=== PATIENT | female | born 1960 | race Caucasian/White ===

== ENCOUNTER → 2018-01-06 | Outpatient (CLI) | payer OTHER ==
[~2018-01-06] MED LIST: AMIT25TA9 PO; BEPO10DR OU; CALC-794 PO; CHOL10003 PO; CHOL5000 PO; CYCL10TA9 PO; ESTR1PAT28 TOP; FENO200C PO; FURO20TA4 PO; HYDR-3583 PO; IBP600T1 PO; IRON1TAB86 PO; LEVO1CAP11 PO; LVT.088T PO; LYSI500T13 PO; MTF500T PO; NEBI5TAB8 PO; NIAC1CAP PO; OMEG1CAP74 PO; OMEP20CA12 PO; OMG1KC PO; POTA10CA43 PO; TERB250T16 PO; VITA150T PO
--- NOTE | 2018-01-06 15:37 | Diagnostic Imaging Report ---
INDICATION: Pain. COMPARISON: 11/18/2011 FINDINGS: Three views of the lumbar spine are obtained. No acute fracture, malalignment or osseous destructive process is seen. Vertebral body heights are maintained. The pedicles appear intact. There is very mild disc space narrowing at L4/L5 and L5/S1 and moderate facet arthropathy at these levels. There is some disc space narrowing and endplate spurring in the lower thoracic spine as well as at L1/L2. The sacroiliac joints appear unremarkable. IMPRESSION: Degenerative changes as described. No acute abnormality is seen. Dictated by: Dictated on workstation # [id number]
== END ==
LOC: RAD 14:28
PROVIDERS: ATTEND Internal Medicine
DX: M47.816 Spondylosis without myelopathy or radiculopathy, lumbar region (principal)
CPT/HCPCS: 72100

== ENCOUNTER → 2018-01-17 | Outpatient (CLI) | payer OTHER ==
--- NOTE | 2018-01-17 19:46 | Diagnostic Imaging Report ---
Digital mammogram bilateral screening. This study was compared to the prior exams of 09/23/2016, 06/28/2015, and 05/23/2014. At this time, there are no current complaints. The current study was also evaluated with a Computer Aided Detection (CAD) system. FINDINGS: There are scattered fibroglandular densities in both breasts which could obscure a lesion. Overall, there does not appear to have been any significant change when compared to the prior exam. No primary or secondary sign of malignancy is noted. IMPRESSION: There is no radiographic evidence for malignancy. ACR BI-RADS Category 1: Negative. Result letter will be mailed to the patient. Note: At least 10% of breast cancer is not imaged by mammography. Dictated on workstation # [id number]
== END ==
LOC: RAD 15:21
PROVIDERS: ATTEND Nurse Practitioner
DX: Z12.31 Encounter for screening mammogram for malignant neoplasm of breast (principal)
CPT/HCPCS: 77067

== ENCOUNTER → 2018-01-19 | Outpatient (CLI) | payer OTHER ==
--- NOTE | 2018-01-19 13:19 | Diagnostic Imaging Report ---
PROCEDURE: MRI lumbar spine. TECHNIQUE: Multiplanar, multisequence MRI of the lumbar spine was performed without contrast. INDICATION: Low back pain and bilateral leg weakness. Comparison is made with prior MRI of the lumbar spine from 11/20/2011. FINDINGS: There is normal lordotic curvature to the lumbar spine. The vertebral body heights are maintained. The marrow signal intensity is unremarkable. No geographic marrow lesion or acute compression fracture is identified. There is fairly normal height and hydration to the intervertebral discs. Minimal desiccation at L5-S1 is noted. The conus medullaris is unremarkable at the L1 level. L1-L2: Minimal annular bulging is identified. No focal disc protrusion is detected. The central canal and neuroforamina are widely patent. L2-L3: Unremarkable. L3-L4: Unremarkable. L4-L5: There are hypertrophic facet degenerative changes noted. There is mild to moderate left neuroforaminal narrowing. Right neuroforamen is patent. Central canal is patent. L5-S1: Hypertrophic facet degenerative change is noted. However, central canal is patent. There is mild left neuroforaminal narrowing. Right neuroforamen is patent. The paraspinous tissues are unremarkable. IMPRESSION: Lower lumbar facet arthropathy. This does result in mild to moderate left neuroforaminal narrowing at the L4-L5 and L5-S1 levels. No central canal stenosis is identified. There is no evidence of an acute compression fracture. Dictated by: Dictated on workstation # [id number]
== END ==
LOC: RAD 10:14
PROVIDERS: ATTEND Internal Medicine
DX: M48.07 Spinal stenosis, lumbosacral region (principal); M46.86 Other specified inflammatory spondylopathies, lumbar region
CPT/HCPCS: 72148

== ENCOUNTER 2018-02-15 13:12 | Outpatient (RCR) | payer OTHER ==
[2018-03-01] MEDS ORDERED: METO50TA15 PO (08:35)
[2018-03-01] MEDS ORDERED: LEVO88TA54 PO (08:35)
[2018-03-01] MEDS ORDERED: IBUP-30 PO (08:35)
[2018-03-01] MEDS ORDERED: IRON1TAB86 PO (08:35)
[2018-03-01] MEDS ORDERED: NIAC500T24 PO (08:35)
[2018-03-01] MEDS ORDERED: GEMF600T3 PO (08:35)
[2018-03-01] MEDS ORDERED: AMIT25TA9 PO (08:35)
[2018-03-01] MEDS ORDERED: ESTR0.5T3 PO (08:35)
[2018-03-01] MEDS ORDERED: LEVO1CAP PO (08:35)
[2018-03-01] MEDS ORDERED: METF500T5 PO (08:35)
[2018-03-01] MEDS ORDERED: CYCL10TA9 PO (08:35)
[2018-03-01] MEDS ORDERED: FURO20TA4 PO (08:35)
[2018-03-01] MEDS ORDERED: LYSI500T37 PO (08:35)
[2018-03-01] MEDS ORDERED: TRAM50TA2 PO (09:54)
[2018-03-03] MEDS ORDERED: TRAM50TA2 PO (10:36)
[2018-03-03] MEDS ORDERED: CEFD300C3 PO (10:36)
[2018-03-13] MEDS ORDERED: TRAM50TA2 PO (18:01)
[2018-03-13] MEDS ORDERED: VITA1TAB17 PO (18:01)
== END 2018-03-25 14:46 | disposition home or self-care (01) ==
PROVIDERS: ATTEND Nurse Practitioner
DX: M51.16 Intervertebral disc disorders with radiculopathy, lumbar region (principal); M47.896 Other spondylosis, lumbar region

== ENCOUNTER 2018-02-28 15:29 | Inpatient (IN) | payer OTHER ==
[2018-02-28] VITALS (13 sets, daily range): BP systolic 94–142; BP diastolic 56–91
[~2018-02-28] VITALS: Ht 162.6 cm; Wt 76.3 kg
[~2018-02-28 15:29] MED LIST changes: -ESTR0.5T3 PO; -GEMF600T3 PO; -IBUP-30 PO; -LEVO1CAP PO; -LEVO88TA54 PO; -LYSI500T37 PO; -METF500T4 PO; -METO50TA15 PO; -NIAC500T24 PO; -TRAM50TA2 PO
--- OUTSIDE RECORDS SUMMARY | 2018-02-28 15:34 | XMS REPORT | Continuity of Care Document ---
Author Author [facility] Organization [facility] Address Unknown Phone Unavailable Allergies Active Description Code Type Severity Reaction Onset Reported/Identified Relationship to Patient Clinical Status Yes lisinopril [id number] Drug Allergy Unknown N/A 08/05/2015 Yes prednisone [id number] Drug Allergy Moderate ELEVATED BLOOD 08/05/2015 Medications There is no data. Problems Date Dx Coded Attending Type Code Diagnosis Diagnosed By 03/29/2013 JAEL TEE BRAYDON C Ot 244.9 03/29/2013 ELDER DO, BRAYDON C Ot 250.00 03/29/2013 ELDER DO, BRAYDON C Ot 401.9 03/29/2013 ELDER DO, BRAYDON C Ot 530.81 03/29/2013 ELDER DO, BRAYDON C Ot 564.1 03/29/2013 ELDER DO, BRAYDON C Ot 618.04 03/29/2013 ELDER DO, BRAYDON C Ot 618.4 03/29/2013 ELDER DO, BRAYDON C Ot 618.6 07/02/2015 ELDER DO, BRAYDON C Ot 618.01 07/02/2015 ELDER DO, BRAYDON C Ot 618.6 07/02/2015 ELDER DO, BRAYDON C Ot V72.63 07/02/2015 ELDER DO, BRAYDON C Ot V72.81 07/02/2015 ELDER DO, BRAYDON C Ot V74.8 07/02/2015 ELDER DO, BRAYDON C Ot V76.12 07/02/2015 ELDER DO, BRAYDON C Ot V76.12 07/15/2015 ELDER DO, BRAYDON C Ot V76.12 08/05/2015 JIM KHAN, LUCIA Wiley Ot 562.10 08/05/2015 JIM KHAN, LUCIA Wiley Ot K57.30 08/05/2015 JIM KHAN, LUCIA Wiley Ot V76.51 08/05/2015 JIM KHAN, LUCIA Wiley Ot Z12.11 01/10/2018 LA HINDS DO Ot M47.816 SPONDYLOSIS W/O MYELOPATHY OR RADICULOPA 01/12/2018 LA HINDS DO Ot M47.816 SPONDYLOSIS W/O MYELOPATHY OR RADICULOPA 01/18/2018 DORENE BERMUDEZ Ot Z12.31 ENCNTR SCREEN MAMMOGRAM FOR MALIGNANT NE 01/20/2018 LA HINDS DO Ot M46.86 OTHER SPECIFIED INFLAMMATORY SPONDYLOPAT 01/20/2018 LA HINDS DO Ot M48.07 SPINAL STENOSIS, LUMBOSACRAL REGION Procedures There is no data. Results There is no data. Encounters ACCT No. Visit Date/Time Discharge Status Pt. Type Provider Facility Loc./Unit Complaint [id number] 02/15/2018 13:12:00 02/15/2018 23:59:59 CLS Outpatient GLYNN GRANT APRN [facility] REHAB LUMBAR RADICULOPATHY; DDD; SPONDYLOSIS [id number] 01/19/2018 10:14:00 01/19/2018 23:59:59 CLS Outpatient LA HINDS DO [facility] RAD M54.5 [id number] 01/17/2018 15:21:00 01/17/2018 23:59:59 CLS Outpatient DORENE BERMUDEZ [facility] RAD Z12.31 SCREENING [id number] 01/06/2018 14:28:00 01/06/2018 23:59:59 CLS Outpatient LA HINDS DO [facility] RAD M54.5 [id number] 08/05/2015 07:18:00 08/05/2015 09:30:00 DIS Outpatient LUCIA FERNANDEZ MD [facility] [id number] 08/01/2015 05:43:00 08/01/2015 23:59:59 CLS Outpatient LUCIA FERNANDEZ MD [facility] PREOP [id number] 06/28/2015 12:42:00 06/28/2015 23:59:59 CLS Outpatient BRAYDON ELDER DO [facility] RAD [id number] 05/23/2014 14:25:00 05/23/2014 23:59:59 CLS Outpatient BRAYDON ELDER DO [facility] RAD [id number] 03/28/2013 09:24:00 03/29/2013 11:05:00 DIS Inpatient BRAYDON ELDER DO [facility] WS [id number] 03/22/2013 11:16:00 03/22/2013 23:59:59 CLS Outpatient BRAYDON ELDER DO [facility] PREOP [id number] 03/22/2013 11:08:00 03/22/2013 23:59:59 CLS Outpatient BRAYDON ELDER DO [facility] RAD
[2018-02-28] MEDS ORDERED: NS IV 1000 ML 1,000 ML IV ONE ×2 (15:56→16:49)
[2018-02-28 16:17] LABS: BASOPHILS % (AUTO) 0 % (0-10); EOSINOPHILS % (AUTO) 0 % (0-10); HEMATOCRIT 40 % (35-52); HEMOGLOBIN 13.3 G/DL (11.5-16.0); LYMPHOCYTES # (AUTO) 0.3 X 10^3 (1.0-4.0); LYMPHOCYTES % (AUTO) 2 % (12-44); MEAN CORPUSCULAR HEMOGLOBIN 30 PG (25-34); MEAN CORPUSCULAR HGB CONC 34 G/DL (32-36); MEAN CORPUSCULAR VOLUME 90 FL (80-99); MEAN PLATELET VOLUME 10.7 FL (7.4-10.4); MONOCYTES # (AUTO) 0.1 X 10^3 (0.0-1.0); MONOCYTES % (AUTO) 0 % (0-12); NEUTROPHILS % (AUTO) 97 % (42-75); PLATELET COUNT 381 10^3/uL (130-400); RED BLOOD COUNT 4.38 10^6/uL (4.35-5.85); RED CELL DISTRIBUTION WIDTH 12.8 % (10.0-14.5); WHITE BLOOD COUNT 11.3 10^3/uL (4.3-11.0)
--- NOTE | 2018-02-28 16:22 | Diagnostic Imaging Report ---
INDICATION: Altered mental status. EXAMINATION: Frontal chest obtained at 4:12 hours p.m. FINDINGS: The heart is mildly enlarged. There is no focal infiltrate or pneumothorax or pleural fluid. The patient has had previous lower cervical spine fusion. IMPRESSION: Mild cardiomegaly, no acute process is seen in the chest. Dictated by: Dictated on workstation # [id number]
[2018-02-28 16:33] LABS: INR 1.1 (0.8-1.4); PROTHROMBIN TIME PATIENT 14.6 SEC (12.2-14.7)
--- NOTE | 2018-02-28 16:33 | Diagnostic Imaging Report ---
INDICATION: Altered metal status and disorientation and abnormal speech. TECHNIQUE: Noncontrast brain CT is performed. COMPARISON: There is no prior study for comparison. FINDINGS: There are no extra-axial fluid collections. No intracranial hemorrhage. No intracranial mass or mass effect. No midline shift. The ventricles are normal in size and position. There are no focal parenchymal abnormalities in the brain. Calvarial windows are unremarkable. IMPRESSION: Negative noncontrast brain CT. Dictated by: Dictated on workstation # [id number]
--- NOTE | 2018-02-28 16:38 | ED Neurological Problem ---
General Chief Complaint: Altered Mental Status Stated Complaint: DISORIENTED/SLURRED WORDS Nursing Triage Note: PATIENT HERE FROM DR. CASTILLO'S OFFICE FOR ABDOMINAL PAIN. PATINET CONFUSED AND LETHARGIC SO BROUGHT TO ER BY STAFF. Nursing Sepsis Screen: Possible Severe Sepsis Risk Source: patient, RN/MD Exam Limitations: no limitations History of Present Illness Date Seen by Provider: Feb 28, 2018 Time Seen by Provider: 15:35 Initial Comments Here with report of confusion and lethargy that started within the last 30 minutes. Patient is from Dr. Castillo's office and was here getting CT scan as well as had labs drawn today. Patient is at his office due to back pain. CT scan and that was done here was a CT abdomen and pelvis. Patient is somewhat confused but answers some questions and follows commands. She is to person assist from wheelchair to bed. She is complaining of back pain. Timing/Duration: 1 hour Severity: moderate Associated Symptoms: confusion, No fever/chills, nausea/vomiting, No slurred speech, trouble walking, weakness Allergies and Home Medications Allergies Coded Allergies: lisinopril (Unverified Allergy, Unknown, 08/05/15) prednisone (Verified Adverse Reaction, Intermediate, ELEVATED BLOOD PRESSURE, 08/05/15) Home Medications Amitriptyline Hcl 25 Mg Tablet, 25 MG PO HS, (Reported) Bepotastine Besilate 10 Ml Drops, 1 DROP OU BID, (Reported) Calcium Carb & Citrate/Vit D3 1 Each Tablet.er, 1 EACH PO DAILY, (Reported) Cholecalciferol 1,000 Unit Tablet, 1,000 UNIT PO DAILY, (Reported) Cholecalciferol (Vitamin D3) 5,000 Unit Capsule, 5,000 UNIT PO DAILY, (Reported) Cyclobenzaprine Hcl 10 Mg Tablet, 10 MG PO HS, (Reported) Estradiol 1 Each Patch.tdwk, 1 PATCH TOP WEEKLY ON MONDAYS, (Reported) Fenofibrate,Micronized 200 Mg Capsule, 200 MG PO DAILY, (Reported) Furosemide 20 Mg Tablet, 20 MG PO DAILY, (Reported) Ibuprofen 600 Mg Tab, 600 MG PO Q6HR Prescribed by: BRAYDON ELDER on 03/29/13 0942 Iron/Vitamin B Comp W-C 1 Each Tablet, 1 TAB PO DAILY, (Reported) Levomefolate/B6/B12/Algal Oil 1 Each Capsule, 1 EACH PO BID, (Reported) Levothyroxine Sodium 88 Mcg Tablet, 88 MCG PO DAILY, (Reported) Lysine Hcl 500 Mg Tablet, 500 MG PO DAILY, (Reported) Metformin Hcl 500 Mg Tablet, 500 MG PO BID WITH MEALS, (Reported) Nebivolol Hcl 5 Mg Tablet, 5 MG PO DAILY, (Reported) Niacin/Inositol Niacinate 1 Each Capsule, 750 MG PO DAILY, (Reported) [place] 3 Polyunsat Fatty Acids 1,000 Mg Cap, 3,000 MG PO DAILY, (Reported) Weikert-3/Dha/Epa/Fish Oil 1,000 Mg Capsule, 3,000 MG PO DAILY, (Reported) 3 CAPSULES DAILY Omeprazole 20 Mg Capsule.dr, 20 MG PO DAILY, (Reported) Potassium Chloride 10 Meq Capsule.er, 10 MEQ PO DAILY, (Reported) Terbinafine HCl 250 Mg Tablet, 250 MG PO DAILY, (Reported) Vitamin B Complex & Vit C No.4 150 Mg Tablet, 150 MG PO DAILY, (Reported) Patient Home Medication List Home Medication List Reviewed: Yes Review of Systems Constitutional: see HPI, No chills, No fever Eyes: No Symptoms Reported Ears, Nose, Mouth, Throat: no symptoms reported Respiratory: cough, short of breath Cardiovascular: No chest pain, No edema Gastrointestinal: abdominal pain, No constipation, No nausea, No vomiting Genitourinary: frequency Musculoskeletal: see HPI, back pain, muscle pain Skin: no symptoms reported Psychiatric/Neurological: Cognitive Dysfunction, Weakness All Other Systems Reviewed Negative Unless Noted: Yes Past Xlggwai-Lclcix-Ajwjdu Hx Patient Social History Alcohol Use: Denies Use Recreational Drug Use: No Smoking Status: Never a Smoker 2nd Hand Smoke Exposure: No Recent Foreign Travel: No Contact w/Someone Who Travel: No Recent Infectious Disease Expo: No Immunizations Up To Date Tetanus Booster (TDap): Unknown Date of Pneumonia Vaccine: Aug 04, 2013 Past Medical History Surgeries: Yes (NECK SX FOR PINCHED NERVE, WISDOM TEETH) Respiratory: Yes (ASTHMA) Asthma, Sleep Apnea Cardiac: Yes Neurological: No Genitourinary: No Gastrointestinal: Yes Gastroesophageal Reflux Musculoskeletal: Yes (FIBROMYALGIA) Arthritis, Fibromyalgia Endocrine: Yes Hypothyroidsim, Diabetes, Non-Insulin dep HEENT: No Cancer: Yes Cervical Psychosocial: No Integumentary: No Blood Disorders: No Family Medical History Reviewed Nursing Family Hx Cancer Physical Exam Vital Signs Vital Signs - First Documented 02/28/18 02/28/18 15:36 15:40 Temp 98.7 Pulse 122 Resp 20 B/P (MAP) 141/91 (108) Pulse Ox 96 Capillary Refill : Less Than 3 Seconds General Appearance: WD/WN, no apparent distress HEENT: PERRL/EOMI, pharynx normal Neck: full range of motion, supple Respiratory: lungs clear, normal breath sounds Cardiovascular: no murmur, tachycardia Peripheral Pulses: 2+ Dorsalis Pedis (R), 2+ Left Dors-Pedis (L), 2+ Radial Pulses (R), 2+ Radial Pulses (L) Gastrointestinal: soft, No guarding, No rebound, tenderness Back: normal inspection, no CVA tenderness, no vertebral tenderness Extremities: non-tender, normal inspection Neurologic/Psychiatric: alert, oriented x 3 Crainal Nerves: normal hearing, normal speech, PERRL Coordination/Gait: abnormal gait (due to global weakness) Motor/Sensory: weak motor strength RUE, weak motor strength LUE, weak motor strength RLE, weak motor strength LLE Skin: normal color, warm/dry Focused Exam Lactate Level 02/28/18 15:52: Lactic Acid Level 5.40*H 02/28/18 17:50: Lactic Acid Level 4.15*H Lactic Acid Level Laboratory Tests Test 02/28/18 15:52 02/28/18 17:50 Lactic Acid Level 5.40 MMOL/L (0.50-2.00) *H 4.15 MMOL/L (0.50-2.00) *H Progress/Results/Core Measures Lab Results Laboratory Tests Test 02/28/18 15:36 02/28/18 15:52 02/28/18 16:50 02/28/18 17:50 Range/Units Glucometer 132 H 70-110 MG/DL White Blood Count 11.3 H 4.3-11.0 10^3/uL Red Blood Count 4.38 4.35-5.85 10^6/uL Hemoglobin 13.3 11.5-16.0 G/DL Hematocrit 40 35-52 % Mean Corpuscular Volume 90 80-99 FL Mean Corpuscular Hemoglobin 30 25-34 PG Mean Corpuscular Hemoglobin Concent 34 32-36 G/DL Red Cell Distribution Width 12.8 10.0-14.5 % Platelet Count 381 130-400 10^3/uL Mean Platelet Volume 10.7 H 7.4-10.4 FL Neutrophils (%) (Auto) 97 H 42-75 % Lymphocytes (%) (Auto) 2 L 12-44 % Monocytes (%) (Auto) 0 0-12 % Eosinophils (%) (Auto) 0 0-10 % Basophils (%) (Auto) 0 0-10 % Neutrophils # (Auto) 11.0 H 1.8-7.8 X 10^3 Lymphocytes # (Auto) 0.3 L 1.0-4.0 X 10^3 Monocytes # (Auto) 0.1 0.0-1.0 X 10^3 Eosinophils # (Auto) 0.0 0.0-0.3 10^3/uL Basophils # (Auto) 0.0 0.0-0.1 10^3/uL Neutrophils % (Manual) 77 % Lymphocytes % (Manual) 7 % Monocytes % (Manual) 1 % Eosinophils % (Manual) 0 % Basophils % (Manual) 0 % Band Neutrophils 15 % Blood Morphology Comment NORMAL Prothrombin Time 14.6 12.2-14.7 SEC INR Comment 1.1 0.8-1.4 Activated Partial Thromboplast Time 23 L 24-35 SEC D-Dimer 3.03 H 0.00-0.49 UG/ML Sodium Level 139 135-145 MMOL/L Potassium Level 3.4 L 3.6-5.0 MMOL/L Chloride Level 101 98-107 MMOL/L Carbon Dioxide Level 21 21-32 MMOL/L Anion Gap 17 H 5-14 MMOL/L Blood Urea Nitrogen 20 H 7-18 MG/DL Creatinine 0.86 0.60-1.30 MG/DL Estimat Glomerular Filtration Rate > 60 BUN/Creatinine Ratio 23 Glucose Level 163 H 70-105 MG/DL Lactic Acid Level 5.40 *H 4.15 *H 0.50-2.00 MMOL/L Calcium Level 10.1 8.5-10.1 MG/DL Magnesium Level 1.5 L 1.8-2.4 MG/DL Total Bilirubin 0.5 0.1-1.0 MG/DL Aspartate Amino Transf (AST/SGOT) 14 5-34 U/L Alanine Aminotransferase (ALT/SGPT) 14 0-55 U/L Alkaline Phosphatase 78 40-136 U/L Troponin I < 0.30 <0.30 NG/ML C-Reactive Protein High Sensitivity 2.53 H 0.00-0.50 MG/DL Total Protein 6.5 6.4-8.2 GM/DL Albumin 3.9 3.2-4.5 GM/DL Thyroid Stimulating Hormone (TSH) 2.30 0.35-4.94 UIU/ML Salicylates Level < 5.0 L 5.0-20.0 MG/DL Acetaminophen Level < 10 L 10-30 UG/ML Serum Alcohol < 10 <10 MG/DL Urine Color YELLOW Urine Clarity CLEAR Urine pH 6 5-9 Urine Specific [place] 1.020 1.016-1.022 Urine Protein 2+ H NEGATIVE Urine Glucose (UA) NEGATIVE NEGATIVE Urine Ketones 1+ H NEGATIVE Urine Nitrite NEGATIVE NEGATIVE Urine Bilirubin 1+ H NEGATIVE Urine Urobilinogen 1 NORMAL MG/DL Urine Leukocyte Esterase 1+ H NEGATIVE Urine RBC (Auto) 1+ H NEGATIVE Urine RBC NONE /HPF Urine WBC 0-2 /HPF Urine Squamous Epithelial Cells 2-5 /HPF Urine Crystals NONE /LPF Urine Bacteria TRACE /HPF Urine Casts PRESENT /LPF Urine Hyaline Casts >50 H /LPF Urine Granular Casts RARE /LPF Urine White Blood Cell Casts RARE H /LPF Urine Mucus MODERATE H /LPF Urine Culture Indicated NO Urine Opiates Screen NEGATIVE NEGATIVE Urine Oxycodone Screen NEGATIVE NEGATIVE Urine Methadone Screen NEGATIVE NEGATIVE Urine Propoxyphene Screen NEGATIVE NEGATIVE Urine Barbiturates Screen NEGATIVE NEGATIVE Ur Tricyclic Antidepressants Screen POSITIVE H NEGATIVE Urine Phencyclidine Screen NEGATIVE NEGATIVE Urine Amphetamines Screen NEGATIVE NEGATIVE Urine Methamphetamines Screen NEGATIVE NEGATIVE Urine Benzodiazepines Screen POSITIVE H NEGATIVE Urine Cocaine Screen NEGATIVE NEGATIVE Urine Cannabinoids Screen NEGATIVE NEGATIVE My Orders Orders - ELI PHILIPPE MD Cbc With Automated Diff (02/28/18 15:38) Protime With Inr (02/28/18 15:38) Partial Thromboplastin Time (02/28/18 15:38) Comprehensive Metabolic Panel (02/28/18 15:38) Fibrin Degradation Products (02/28/18 15:38) Troponin I (02/28/18 15:38) Ua Culture If Indicated (02/28/18 15:38) Chest 1 View, Ap/Pa Only (02/28/18 15:38) Ekg Tracing (02/28/18 15:38) Nothing By Mouth (4/9/18 Dinner) Accucheck Stat ONCE (02/28/18 15:38) Saline Lock/Iv-Start (02/28/18 15:38) Vital Signs Stroke Patient Q15M (02/28/18 15:38) Ct Head Wo-R/O Stroke (02/28/18 15:38) O2 (02/28/18 15:38) Intake & Output 06,14,22 (02/28/18 15:38) Monitor-Rhythm Ecg Trace Only (02/28/18 15:38) Dysphagia Screening Tool (02/28/18 15:38) Acetaminophen (02/28/18 15:38) Alcohol (02/28/18 15:38) Hs C Reactive Protein (02/28/18 15:38) Drug Screen Stat (Urine) (02/28/18 15:38) Lactic Acid Analyzer (02/28/18 15:38) Magnesium (02/28/18 15:38) Salicylate (02/28/18 15:38) Thyroid Stimulating Hormone (02/28/18 15:38) Saline Lock/Iv-Start (02/28/18 15:56) Ns Iv 1000 Ml (Sodium Chloride 0.9%) (02/28/18 15:56) Manual Differential (02/28/18 15:52) Saline Lock/Iv-Start (02/28/18 16:49) Ns Iv 1000 Ml (Sodium Chloride 0.9%) (02/28/18 16:49) Ct Angio Chest W (02/28/18 17:37) Iohexol Injection (Omnipaque 350 Mg/Ml 1 (02/28/18 17:45) Ns (Ivpb) (Sodium Chloride 0.9% Ivpb Bag (02/28/18 17:45) Piperacillin Sodium/Tazobactam (Zosyn Vi (02/28/18 18:15) Vancomycin Injection (Vancomycin Injecti (02/28/18 18:30) Medications Given in ED Current Medications Medications Dose Ordered Sig/Elver Route Start Time Stop Time Status Last Admin Dose Admin Iohexol 150 ml ONCE ONCE IV 02/28/18 17:45 02/28/18 17:47 DC 02/28/18 17:55 125 ML Piperacillin Sod/ Tazobactam Sod 4.5 gm/Dextrose 100 ml @ 200 mls/hr ONCE ONCE IV 02/28/18 18:15 4/9/18 18:44 02/28/18 18:23 200 MLS/HR Sodium Chloride 100 ml ONCE ONCE IV 02/28/18 17:45 02/28/18 17:47 DC 02/28/18 17:55 100 ML Sodium Chloride 1,000 ml @ 0 mls/hr Q0M ONCE IV 02/28/18 15:56 02/28/18 15:57 DC 02/28/18 16:30 0 MLS/HR Sodium Chloride 1,000 ml @ 0 mls/hr Q0M ONCE IV 02/28/18 16:49 02/28/18 16:50 DC 02/28/18 17:42 0 MLS/HR Vancomycin HCl 1000 mg/Sodium Chloride 250 ml @ 250 mls/hr ONCE ONCE IV 02/28/18 18:30 02/28/18 19:29 02/28/18 18:31 250 MLS/HR Vital Signs/I&O 02/28/18 02/28/18 15:36 15:40 Temp 98.7 Pulse 122 122 Resp 20 20 B/P (MAP) 141/91 (108) 141/91 Pulse Ox 96 Blood Pressure Mean: 108 Finger Stick Blood Glucose: 132 Progress Note : Progress Note Seen and evaluated on arrival. Patient with altered mental status that seems to be within the last one hour. This does not appear like stroke but appears more like altered mental status. Stroke screen done and only findings are some confusion and global weakness. Stroke scale would be only positive for the confusion but does follow commands. We will get CT, labs, UA, chest x-ray, EKG , blood cultures and lactic acid. Normal saline 1 L bolus ordered. Monitor patient. 1640: CT head negative. Patient able to get up to bedside commode with 1 person assist. She still is confused conversation but is able to relate history. CT results from earlier today noted mass. Labs from earlier today reviewed and there are changes currently especially with elevated white count now. Monitor patient. 1650: Lactic acid noted to be 5.4. Second liter normal saline IV bolus ordered and this will complete the 30 mL/kg bolus at weight of 68 kg (stated) for septic shock which may be pneumonia related. Blood pressure remains in good range and is currently 153/91 with heart rate of 116 and oxygen saturation of 96 percent. 1700: I discussed the case with Dr. Castillo who had seen her in the office today. He reports that patient came in for back pain complaint and then had rapid decline in his office with normal temperature on arrival but temperature of 100.4 after being in the office and then complaint of abdominal pain. This precipitated his ordering of labs and CT abdomen and pelvis for which his staff actually brought the patient to the hospital for because she could not walk. She has had some problems with back pain and has had epidural injection a month ago per his report. Pending further labs. 1800 : D-dimer is elevated and CT angiogram of the chest has been ordered and completed. Blood pressure remains in the normal range. Zosyn 4.5 g IV ordered. 181: I discussed the case with Dr. GUERRERO and he accepts patient for admission, inpatient status to the ICU. We will add vancomycin to the orders as this may be pneumonia but etiology is unclear. Blood cultures are pending. Patient remains improved with respect to mental status. 1835: I attest a focused exam at this time. Patient is definitely improved with respect to mental status and she was able to stand but still weak. Fluids finishing now we will initiate severe sepsis order set. Patient to be admitted to the ICU. All findings concerns discussed with the patient who agrees with plan. Initial ECG Impression Date: Feb 28, 2018 Initial ECG Impression Time: 15:34 Initial ECG Rate: 120 Initial ECG Rhythm: S.Tach Comment Sinus tachycardia with left atrial normality. Left ventricular hypertrophy. Consider ST depression in inferior leads and V5 and 6. Diagonstic Imaging: Xray Plain Films/CT/US/NM/MRI: chest Comments VIA [facility], [facility]. [place], [place] NAME: JONATAN ANDRADE [facility] REC#: [id number] PT STATUS: REG ER : 1960 PHYSICIAN: ELI PHILIPPE MD ADMIT DATE: 02/28/18/ER Draft Date of Exam:02/28/18 CHEST 1 VIEW, AP/PA ONLY INDICATION: Altered mental status. EXAMINATION: Frontal chest obtained at 4:12 hours p.m. FINDINGS: The heart is mildly enlarged. There is no focal infiltrate or pneumothorax or pleural fluid. The patient has had previous lower cervical spine fusion. IMPRESSION: Mild cardiomegaly, no acute process is seen in the chest. Dictated on workstation # [id number] Dict: 02/28/18 1618 Trans: 02/28/18 1621 [facility] [id number] Interpreted by: CLIFF CASILLAS MD Electronically signed by: Mathieu Imaging: CT Plain Films/CT/US/NM/MRI: head Comments VIA [facility]. [place], [place] NAME: JONATAN ANDRADE [facility] REC#: [id number] PT STATUS: REG ER : 1960 PHYSICIAN: ELI PHILIPPE MD ADMIT DATE: 02/28/18/ER Draft Date of Exam:02/28/18 CT HEAD WO-R/O STROKE INDICATION: Altered metal status and disorientation and abnormal speech. TECHNIQUE: Noncontrast brain CT is performed. COMPARISON: There is no prior study for comparison. FINDINGS: There are no extra-axial fluid collections. No intracranial hemorrhage. No intracranial mass or mass effect. No midline shift. The ventricles are normal in size and position. There are no focal parenchymal abnormalities in the brain. Calvarial windows are unremarkable. IMPRESSION: Negative noncontrast brain CT. Dictated on workstation # [id number] Dict: 02/28/18 1627 Trans: 02/28/18 1632 [id number] Interpreted by: CLIFF CASILLAS MD Electronically signed by: Monagon[place] Imaging: CT Plain Films/CT/US/NM/MRI: abdomen, pelvis Comments CT scan done earlier today for information purposes only. Not ordered in the ER. NAME: JONATAN ANDRADE [facility] REC#: [id number] PT STATUS: REG CLI : 1960 PHYSICIAN: LA CASTILLO DO ADMIT DATE: 02/28/18/RAD Signed Date of Exam: 02/28/18 CT ABDOMEN/PELVIS WO PROCEDURE: CT abdomen and pelvis without contrast. TECHNIQUE: Multiple contiguous axial images were obtained through the abdomen and pelvis without the use of intravenous contrast. INDICATION: Abdominal pain and abdominal distention. No prior CT study is available for comparison. FINDINGS: Imaging through the lung bases does show minimal infiltrates or atelectasis in the posterior lower lobes bilaterally. No discrete liver mass is identified. The gallbladder is unremarkable. No biliary ductal dilatation is identified. The pancreas and spleen are unremarkable. No adrenal mass is detected. No renal calculus or hydronephrosis is identified. The aorta demonstrates atherosclerotic changes but is nonaneurysmal. There is abnormal soft tissue identified in the central retroperitoneum in the pre and para-aortic location. Abnormal soft tissue is identified anterior to the aorta just below the level of the superior mesenteric artery origin measuring 2.3 cm transverse x 1.7 cm AP. More inferiorly, a second area of abnormal soft tissue is present in the preaortic location measuring 2.1 cm transverse x 1.7 cm AP. There is a prominent node in the right common iliac location measuring 1.4 cm in diameter. The small bowel is not dilated. There is no ascites. There is some questionable abnormal wall thickening involving the cecum. Mild sigmoid diverticulosis is noted but no evidence of acute diverticulitis. The bladder is decompressed. Uterus appears to be surgically absent. Mild nodularity in the left hemipelvis is seen which may represent residual ovarian tissue. Clinical correlation is recommended. No inguinal lymphadenopathy is detected. No acute bony abnormality is identified. IMPRESSION: 1. Mild patchy bibasilar pulmonary infiltrates suggestive of pneumonia. 2. Wall thickening involving the cecum. A cecal mass cannot be entirely excluded. Colonoscopy would be recommended for further evaluation. No bowel obstruction is identified. 2. Abnormal soft tissue located in the central retroperitoneum, likely representing a conglomerate of lymph nodes. The findings are concerning for either a metastatic disease or perhaps lymphoma. PET scan may be useful for further evaluation. 3. No other significant abnormality is detected. Results were called and discussed with Dr. Castillo prior to this dictation. Dictated by: Dictated on workstation # [id number] Dict: 02/28/18 1533 Trans: 02/28/18 1601 Interpreted by: DRAGAN ROSAS MD Electronically signed by: DRAGAN ROSAS MD 02/28/18 1601 Diagonstic Imaging: CT Plain Films/CT/US/NM/MRI: chest Comments NAME: JONATAN ANDRADE [facility] REC#: [id number] PT STATUS: REG ER : 1960 PHYSICIAN: ELI PHILIPPE MD ADMIT DATE: 02/28/18/ER Draft Date of Exam:02/28/18 CT ANGIO CHEST W PROCEDURE: CT angiography of the chest with contrast. TECHNIQUE: Multiple contiguous axial images were obtained through the chest after uneventful bolus administration of intravenous contrast. Reconstructed CTA MIP acquisitions were also performed. INDICATION: Elevated D-dimer. CTA CHEST 02/28/2018 FINDINGS: There are no central or proximal segmental pulmonary emboli. The thoracic aorta is unremarkable. There is no mediastinal or hilar adenopathy. No pericardial effusion is seen and there are no pleural effusions. Within the lungs, there is peripheral patchy airspace opacity in the right mid lung laterally. A more consolidated appearing density at the right lung base posteriorly is also noted which could be due to focal atelectatic change although a mass is not excluded at this time. Adjacent smaller linear densities noted. A very vague airspace opacity posteriorly at the left lung base is also seen. Within the medial left lung base, similar findings are seen just posterior to the descending aorta. There is no pneumothorax. Visualized upper abdominal structures demonstrate diffuse fatty infiltration with prominence of the visualized liver. Small hypodensities throughout the liver are too small to characterize. Remaining visualized structures within the upper abdomen are unremarkable in appearance. A small hiatal hernia is noted versus focal esophageal wall thickening. IMPRESSION: 1. No pulmonary embolus within the proximal or central pulmonary arteries. 2. Patchy airspace opacities in the lungs, right greater than left, nonspecific. Although this could represent focal areas of atelectasis or infiltrate, masses are not excluded. Followup recommended. If these do not resolve, a PET scan may be warranted. 3. Fatty infiltration throughout a prominent appearing liver incompletely imaged which contains multiple small hypodensities too small to characterize. 4. Other findings, as above. 5. A small hiatal hernia is noted versus focal esophageal wall thickening. If clinically warranted, EGD may provide further characterization. Dictated on workstation # [id number] Dict: 02/28/18 1809 Trans: 02/28/18 1832 [facility] [id number] Interpreted by: KIM WALLS MD Electronically signed by: Reviewed: Reviewed by Me Departure Communication (Admissions) Time/Spoke to Admitting Phy: 18:10 Impression Primary Impression: Severe sepsis Additional Impressions: Pneumonia of both lower lobes Qualified Codes: J18.1 - Lobar pneumonia, unspecified organism Intraabdominal mass Intra-abdominal lymphadenopathy Disposition: 09 ADMITTED INPATIENT Condition: Stable Admissions Decision to Admit Reason: Admit from ER (General) Decision to Admit/Date: Feb 28, 2018 Time/Decision to Admit Time: 18:10 Departure-Patient Inst. Referrals: LA CASTILLO DO (PCP/Family) Primary Care Physician ELI PHILIPPE MD Feb 28, 2018 16:38
[2018-02-28 16:40] LABS: BAND NEUTROPHILS 15 %; BASOPHILS % (MANUAL) 0 %; EOSINOPHILS % (MANUAL) 0 %; LYMPHOCYTES % (MANUAL) 7 %; MONOCYTES % (MANUAL) 1 %; NEUTROPHILS % (MANUAL) 77 %; RBC MORPH NORMAL
[2018-02-28 16:43] LABS: ALANINE AMINOTRANSFERASE 14 U/L (0-55); ALBUMIN 3.9 GM/DL (3.2-4.5); ALKALINE PHOSPHATASE 78 U/L (40-136); BILIRUBIN,TOTAL 0.5 MG/DL (0.1-1.0); BUN/CREATININE RATIO 23; CALCIUM 10.1 MG/DL (8.5-10.1); CARBON DIOXIDE 21 MMOL/L (21-32); CHLORIDE 101 MMOL/L (98-107); CREATININE SERUM 0.86 MG/DL (0.60-1.30); GFR ESTIMATED > 60; GLUCOSE 163 MG/DL (70-105); MAGNESIUM 1.5 MG/DL (1.8-2.4); POTASSIUM 3.4 MMOL/L (3.6-5.0); SALICYLATE < 5.0 MG/DL (5.0-20.0); SODIUM 139 MMOL/L (135-145); TOTAL PROTEIN 6.5 GM/DL (6.4-8.2)
[2018-02-28 16:46] LABS: ACETAMINOPHEN < 10 UG/ML (10-30)
[2018-02-28 16:56] LABS: CLARITY,URINE CLEAR; COLOR,URINE YELLOW; GLUCOSE, URINE (UA) NEGATIVE (NEGATIVE); KETONES,URINE 1+ (NEGATIVE); LEUKOCYTE ESTERASE ,URINE 1+ (NEGATIVE); NITRITE,URINE NEGATIVE (NEGATIVE); PH,URINE 6 (5-9); PROTEIN,URINE 2+ (NEGATIVE); UROBILINOGEN,URINE 1 MG/DL (NORMAL)
[2018-02-28 17:03] LABS: FIBRIN DEGRADATION PRODUCTS 3.03 UG/ML (0.00-0.49)
[2018-02-28 17:10] LABS: AMPHETAMINE SCREEN, URINE NEGATIVE (NEGATIVE); BARBITURATE SCREEN URINE NEGATIVE (NEGATIVE); BENZODIAZEPINES SCREEN URINE POSITIVE (NEGATIVE); CANNABINOID SCREEN, URINE NEGATIVE (NEGATIVE); COCAINE SCREEN URINE NEGATIVE (NEGATIVE); METHADONE STAT NEGATIVE (NEGATIVE); METHAMPHETAMINE SCREEN URINE S NEGATIVE (NEGATIVE); OPIATE SCREEN URINE NEGATIVE (NEGATIVE); OXYCODONE STAT NEGATIVE (NEGATIVE); PROPOXYPHENE STAT NEGATIVE (NEGATIVE); TRICYCLIC ANTIDEPRESSANTS SCRE POSITIVE (NEGATIVE)
[2018-02-28 17:12] LABS: BACTERIA,URINE TRACE /HPF; BILIRUBIN,URINE 1+ (NEGATIVE); GRANULAR CASTS,URINE RARE /LPF; HYALINE CASTS, URINE >50 /LPF; WBC,URINE 0-2 /HPF; WHITE BLOOD CELL CASTS, URINE RARE /LPF
[2018-02-28] MEDS ORDERED: IOHEXOL 350 MG/ML 150 ML (OMNIPAQUE 350) VIAL IV ONE (17:45)
[2018-02-28] MEDS ORDERED: NS 100 ML (IVPB) BAG IV ONE (17:45)
[2018-02-28] MEDS ORDERED: PIPERACILLIN SODIUM/TAZOBACTAM 4.5 GM in D5W 100 ML IVPB 100 ML IV ONE (18:15)
[2018-02-28] MEDS ORDERED: VANCOMYCIN INJECTION 1,000 MG in NS (IVPB) 250 ML IV ONE (18:30)
--- NOTE | 2018-02-28 18:33 | Diagnostic Imaging Report ---
PROCEDURE: CT angiography of the chest with contrast. TECHNIQUE: Multiple contiguous axial images were obtained through the chest after uneventful bolus administration of intravenous contrast. Reconstructed CTA MIP acquisitions were also performed. INDICATION: Elevated D-dimer. CTA CHEST 02/28/2018 FINDINGS: There are no central or proximal segmental pulmonary emboli. The thoracic aorta is unremarkable. There is no mediastinal or hilar adenopathy. No pericardial effusion is seen and there are no pleural effusions. Within the lungs, there is peripheral patchy airspace opacity in the right mid lung laterally. A more consolidated appearing density at the right lung base posteriorly is also noted which could be due to focal atelectatic change although a mass is not excluded at this time. Adjacent smaller linear densities noted. A very vague airspace opacity posteriorly at the left lung base is also seen. Within the medial left lung base, similar findings are seen just posterior to the descending aorta. There is no pneumothorax. Visualized upper abdominal structures demonstrate diffuse fatty infiltration with prominence of the visualized liver. Small hypodensities throughout the liver are too small to characterize. Remaining visualized structures within the upper abdomen are unremarkable in appearance. A small hiatal hernia is noted versus focal esophageal wall thickening. IMPRESSION: 1. No pulmonary embolus within the proximal or central pulmonary arteries. 2. Patchy airspace opacities in the lungs, right greater than left, nonspecific. Although this could represent focal areas of atelectasis or infiltrate, masses are not excluded. Followup recommended. If these do not resolve, a PET scan may be warranted. 3. Fatty infiltration throughout a prominent appearing liver incompletely imaged which contains multiple small hypodensities too small to characterize. 4. Other findings, as above. 5. A small hiatal hernia is noted versus focal esophageal wall thickening. If clinically warranted, EGD may provide further characterization. Dictated by: Dictated on workstation # [id number]
--- OUTSIDE RECORDS SUMMARY | 2018-02-28 19:22 | XMS REPORT | Continuity of Care Document ---
Author Author [facility] Organization [facility] Address Unknown Phone Unavailable Allergies Active Description Code Type Severity Reaction Onset Reported/Identified Relationship to Patient Clinical Status Yes lisinopril [id number] Drug Allergy Unknown N/A 08/05/2015 Yes prednisone [id number] Drug Allergy Moderate ELEVATED BLOOD 08/05/2015 Medications [...] Status Pt. Type Provider Facility Loc./Unit Complaint [id number] 02/15/2018 13:12:00 02/15/2018 23:59:59 CLS Outpatient GLYNN GRANT APRN [facility] REHAB LUMBAR RADICULOPATHY; DDD; SPONDYLOSIS [id number] 01/19/2018 10:14:00 01/19/2018 23:59:59 CLS Outpatient LA HINDS DO [facility] RAD M54.5 [id number] 01/17/2018 15:21:00 01/17/2018 23:59:59 CLS Outpatient DORENE BERMUDEZ [facility] RAD Z12.31 SCREENING [id number] 01/06/2018 14:28:00 01/06/2018 23:59:59 CLS Outpatient LA HINDS DO [facility] RAD M54.5 [id number] 08/05/2015 07:18:00 08/05/2015 09:30:00 DIS Outpatient LUCIA FERNANDEZ MD [facility] [id number] 08/01/2015 05:43:00 08/01/2015 23:59:59 CLS Outpatient LUCIA FERNANDEZ MD [facility] PREOP [id number] 06/28/2015 12:42:00 06/28/2015 23:59:59 CLS Outpatient BRAYDON ELDER DO [facility] RAD [id number] 05/23/2014 14:25:00 05/23/2014 23:59:59 CLS Outpatient BRAYDON ELDER DO [facility] RAD [id number] 03/28/2013 09:24:00 03/29/2013 11:05:00 DIS Inpatient BRAYDON ELDER DO [facility] WS [id number] 03/22/2013 11:16:00 03/22/2013 23:59:59 CLS Outpatient BRAYDON ELDER DO [facility] PREOP [id number] 03/22/2013 11:08:00 03/22/2013 23:59:59 CLS Outpatient BRAYDON ELDER DO [facility] RAD
[2018-02-28] MEDS: meTOprolol TARTRATE 50 MG (LOPRESSOR) TAB PO SCH (20:58)
[2018-02-28] MEDS: NS IV 1000 ML 1,000 ML IV SCH (20:59)
[2018-03-01] VITALS (13 sets, daily range): BP systolic 118–169; BP diastolic 63–88
[2018-03-01 00:51] LABS: AMPHETAMINE SCREEN, URINE NEGATIVE (NEGATIVE); BARBITURATE SCREEN URINE NEGATIVE (NEGATIVE); BENZODIAZEPINES SCREEN URINE POSITIVE (NEGATIVE); CANNABINOID SCREEN, URINE NEGATIVE (NEGATIVE); COCAINE SCREEN URINE NEGATIVE (NEGATIVE); METHADONE STAT NEGATIVE (NEGATIVE); METHAMPHETAMINE SCREEN URINE S NEGATIVE (NEGATIVE); OPIATE SCREEN URINE NEGATIVE (NEGATIVE); OXYCODONE STAT NEGATIVE (NEGATIVE); PROPOXYPHENE STAT NEGATIVE (NEGATIVE); TRICYCLIC ANTIDEPRESSANTS SCRE POSITIVE (NEGATIVE)
[2018-03-01] MEDS ORDERED: RT-ALBUTEROL/IPRATROPIUM 3 ML (DUONEB) VIAL INH PRN ×2 (01:15→19:45)
[2018-03-01 04:04] LABS: BASOPHILS % (AUTO) 0 % (0-10); EOSINOPHILS # (AUTO) 0.1 10^3/uL (0.0-0.3); EOSINOPHILS % (AUTO) 0 % (0-10); HEMATOCRIT 31 % (35-52); HEMOGLOBIN 10.4 G/DL (11.5-16.0); LYMPHOCYTES % (AUTO) 4 % (12-44); MEAN CORPUSCULAR HEMOGLOBIN 31 PG (25-34); MEAN CORPUSCULAR HGB CONC 34 G/DL (32-36); MEAN CORPUSCULAR VOLUME 91 FL (80-99); MEAN PLATELET VOLUME 10.8 FL (7.4-10.4); MONOCYTES # (AUTO) 1.2 X 10^3 (0.0-1.0); MONOCYTES % (AUTO) 5 % (0-12); NEUTROPHILS # (AUTO) 23.6 X 10^3 (1.8-7.8); NEUTROPHILS % (AUTO) 91 % (42-75); PLATELET COUNT 310 10^3/uL (130-400); RED BLOOD COUNT 3.37 10^6/uL (4.35-5.85); RED CELL DISTRIBUTION WIDTH 12.9 % (10.0-14.5); WHITE BLOOD COUNT 25.9 10^3/uL (4.3-11.0)
[2018-03-01 04:14] LABS: ALANINE AMINOTRANSFERASE 17 U/L (0-55); ALBUMIN 3.3 GM/DL (3.2-4.5); ALKALINE PHOSPHATASE 61 U/L (40-136); BILIRUBIN,TOTAL 0.3 MG/DL (0.1-1.0); BUN/CREATININE RATIO 23; CALCIUM 8.4 MG/DL (8.5-10.1); CARBON DIOXIDE 23 MMOL/L (21-32); CHLORIDE 108 MMOL/L (98-107); CREATININE SERUM 0.57 MG/DL (0.60-1.30); GFR ESTIMATED > 60; GLUCOSE 117 MG/DL (70-105); MAGNESIUM 1.7 MG/DL (1.8-2.4); POTASSIUM 3.4 MMOL/L (3.6-5.0); SODIUM 140 MMOL/L (135-145); TOTAL PROTEIN 5.5 GM/DL (6.4-8.2)
[2018-03-01] MEDS: NS IV 1000 ML 1,000 ML IV SCH ×3 (04:23→16:56)
[2018-03-01] MEDS: PIPERACILLIN SODIUM/TAZOBACTAM 4.5 GM in NS (IVPB) 100 ML IV SCH ×4 (04:24→16:56)
--- NOTE | 2018-03-01 04:24 | Pulmonary Consultation ---
History of Present Illness History of Present Illness Date of Consultation 03/01/18 04:19 Time Seen by Provider: 04:19 Date of Admission History of Present Illness 57yo who presented to ED secondary to confusion, lethargy. CT scan of head was negative. CT of chest shows bilateral pulmonary infiltrates. Pt was found to have severe sepsis. She was placed on Vancomycin, and Zosyn and admitted to ICU. Pt has been intermittently confused thourghout the night. UDS was positive for only Benzos, and TCAs. I am consulted for pulmonary/CC management. Allergies and Home Medications Allergies Coded Allergies: lisinopril (Unverified Allergy, Unknown, 08/05/15) prednisone (Verified Adverse Reaction, Intermediate, ELEVATED BLOOD PRESSURE, 08/05/15) Home Medications Amitriptyline Hcl 25 Mg Tablet, 25 MG PO HS, (Reported) Bepotastine Besilate 10 Ml Drops, 1 DROP OU BID, (Reported) Calcium Carb & Citrate/Vit D3 1 Each Tablet.er, 1 EACH PO DAILY, (Reported) Cholecalciferol 1,000 Unit Tablet, 1,000 UNIT PO DAILY, (Reported) Cholecalciferol (Vitamin D3) 5,000 Unit Capsule, 5,000 UNIT PO DAILY, (Reported) Cyclobenzaprine Hcl 10 Mg Tablet, 10 MG PO HS, (Reported) Estradiol 1 Each Patch.tdwk, 1 PATCH TOP WEEKLY ON MONDAYS, (Reported) Fenofibrate,Micronized 200 Mg Capsule, 200 MG PO DAILY, (Reported) Furosemide 20 Mg Tablet, 20 MG PO DAILY, (Reported) Ibuprofen 600 Mg Tab, 600 MG PO Q6HR Prescribed by: BRAYDON ELDER on 03/29/13 0942 Iron/Vitamin B Comp W-C 1 Each Tablet, 1 TAB PO DAILY, (Reported) Levomefolate/B6/B12/Algal Oil 1 Each Capsule, 1 EACH PO BID, (Reported) Levothyroxine Sodium 88 Mcg Tablet, 88 MCG PO DAILY, (Reported) Lysine Hcl 500 Mg Tablet, 500 MG PO DAILY, (Reported) Metformin Hcl 500 Mg Tablet, 500 MG PO BID WITH MEALS, (Reported) Nebivolol Hcl 5 Mg Tablet, 5 MG PO DAILY, (Reported) Niacin/Inositol Niacinate 1 Each Capsule, 750 MG PO DAILY, (Reported) Woodruff 3 Polyunsat Fatty Acids 1,000 Mg Cap, 3,000 MG PO DAILY, (Reported) Woodruff-3/Dha/Epa/Fish Oil 1,000 Mg Capsule, 3,000 MG PO DAILY, (Reported) 3 CAPSULES DAILY Omeprazole 20 Mg Capsule.dr, 20 MG PO DAILY, (Reported) Potassium Chloride 10 Meq Capsule.er, 10 MEQ PO DAILY, (Reported) Terbinafine HCl 250 Mg Tablet, 250 MG PO DAILY, (Reported) Vitamin B Complex & Vit C No.4 150 Mg Tablet, 150 MG PO DAILY, (Reported) Past Kugqwah-Zxfkrk-Nbdzgl Hx Patient Social History Alcohol Use: Denies Use Recreational Drug Use: No Smoking Status: Never a Smoker 2nd Hand Smoke Exposure: No Recent Foreign Travel: No Contact w/Someone Who Travel: No Recent Infectious Disease Expo: No Immunizations Up To Date Tetanus Booster (TDap): Unknown Date of Pneumonia Vaccine: Aug 04, 2013 Past Medical History Surgeries: Yes (NECK SX FOR PINCHED NERVE, WISDOM TEETH) Respiratory: Yes (ASTHMA) Asthma, Sleep Apnea Cardiac: Yes Neurological: No Genitourinary: No Benign Prostatic Hyperpl Gastrointestinal: Yes Gastroesophageal Reflux Musculoskeletal: Yes (FIBROMYALGIA) Arthritis, Fibromyalgia Endocrine: Yes Hypothyroidsim, Diabetes, Non-Insulin dep HEENT: No Cancer: Yes Cervical Psychosocial: No Integumentary: No Blood Disorders: No Family Medical History Reviewed Nursing Family Hx Cancer Review of Systems Time Seen by Provider: 04:40 Constitutional: Weakness, Malaise, No: Fever, Chills, Sweats, Other Eyes: No: Pain, Vision change, Conjunctivae inflammation, Eyelid inflammation, Other, Redness ENT: No: Ear pain, Ear discharge, Nose pain, Nose discharge, Nose congestion, Mouth pain, Mouth swelling, Throat pain, Throat swelling, Other Respiratory: No: Cough, Dry, Shortness of breath, SOB with excertion, Wheezing , Hemoptysis, Pleuritic Pain, Sputum, Wheezing, Other Cardiovascular: Palpitations, Paroxysmal Noc. Dyspnea, No: Chest Pain, Orthopnea, Edema, Lt Headedness, Other Gastrointestinal: No: Nausea, Vomiting, Abdominal Pain, Diarrhea, Constipation , Melena, Hematochezia, Other Neurological: Weakness, Change in speech, Confusion, No: Seizures Exam Exam Vital Signs Date Time Temp Pulse Resp B/P (MAP) Pulse Ox O2 Delivery O2 Flow Rate FiO2 03/01/18 03:00 78 18 130/69 (89) 95 Room Air 4/10/18 02:14 94 Room Air 03/01/18 02:00 75 14 119/68 (85) 94 Room Air 03/01/18 01:00 80 19 123/63 (83) 95 Room Air 03/01/18 01:00 80 03/01/18 00:43 78 97 21 03/01/18 00:00 78 20 118/65 (82) 97 Room Air 03/01/18 00:00 Room Air 02/28/18 23:30 79 20 117/67 (84) 95 Room Air 02/28/18 23:00 83 28 115/65 (82) 95 Room Air 02/28/18 22:30 81 24 118/61 (80) 97 Room Air 02/28/18 22:00 83 18 94/63 (73) 97 Room Air 02/28/18 21:45 82 32 128/71 (90) 97 Room Air 02/28/18 21:30 82 27 109/81 (90) 97 Room Air 02/28/18 21:15 107 21 118/69 (85) 97 Room Air 02/28/18 21:00 108 25 119/68 (85) 94 Room Air 02/28/18 20:45 105 25 119/64 (82) 96 Room Air 02/28/18 20:30 109 26 112/56 (74) 97 Room Air 02/28/18 20:16 106 02/28/18 20:15 105 28 142/81 (101) 96 Room Air 02/28/18 20:11 99.7 105 16 132/77 (95) 95 Room Air 02/28/18 20:03 97 Room Air 02/28/18 20:00 98.7 122 20 130/66 (108) 96 02/28/18 16:40 98.7 122 20 141/91 96 02/28/18 15:40 122 20 141/91 96 02/28/18 15:36 98.7 122 20 141/91 (108) I & O 03/01/18 07:00 Intake Total 2500 ml Output Total 50 ml Balance 2450 ml General Appearance: No Apparent Distress, WD/WN, Anxious HEENT: PERRL/EOMI, Normal ENT Inspection, Pharynx Normal Neck: Full Range of Motion, Non Tender, Supple Respiratory: Chest Non Tender, No Accessory Muscle Use, No Respiratory Distress , Decreased Breath Sounds Cardiovascular: Regular Rate, Rhythm, No Edema, No Gallop, No Murmur Capillary Refill: Less Than 3 Seconds Peripheral Pulses: 2+ Dorsalis Pedis (R), 2+ Left Dors-Pedis (L), 2+ Radial Pulses (R), 2+ Radial Pulses (L) Gastrointestinal: soft, No guarding, No rebound, tenderness Extremity: Normal Capillary Refill, Normal Inspection Neurologic/Psychiatric: Alert, Oriented x3 Skin: Normal Color, Warm/Dry Lymphatic: No Adenopathy Results Lab Laboratory Tests 02/28/18 15:52 03/01/18 03:35 Assessment/Plan Assessment/Plan Pneumonia with severe sepsis -Currently on Vanco, Zosyn -Cantu cultures pending -IVF Metabolic encephalopathy - -Partly secondary to Benzos, and TCAs -Pt does not remember how she arrived to hospital Obesity 255 SD MITCHELL DO Mar 01, 2018 04:24
[2018-03-01] MEDS ORDERED: KCL 20 MEQ TAB (K-DUR) PO ONE (04:45)
[2018-03-01] MEDS: MAGNESIUM 1 GM/100 ML IVPB 100 ML IV SCH ×2 (05:43→07:40)
[2018-03-01] MEDS: VANCOMYCIN 1 GM/NS 250 ML IVPB IV SCH ×4 (05:45→18:13)
[2018-03-01] MEDS ORDERED: KCL 20 MEQ TAB (K-DUR) PO SCH (06:00)
[2018-03-01] MEDS ORDERED: POTASSIUM CL 10MEQ/50ML IVPB 50 ML IV SCH (06:00)
[2018-03-01] MEDS ORDERED: MAGNESIUM 1 GM/100 ML IVPB 100 ML IV SCH (06:00)
--- NOTE | 2018-03-01 07:52 | Diagnostic Imaging Report ---
CHEST 1 VIEW, AP/PA ONLY INDICATION: Sepsis. COMPARISON: CT chest of prior day. FINDINGS: Low lung volumes. Bilateral lower lobe pulmonary nodular opacity seen on prior chest CT are not seen radiographically. No pleural effusion or pneumothorax. Stable cardiomediastinal silhouette. IMPRESSION: Patient's nodular pulmonary opacities in the bilateral lower lobes are not seen by portable radiography. Dictated by: Dictated on workstation # [id number]
[2018-03-01] MEDS ORDERED: RT-ALBUTEROL/IPRATROPIUM 3 ML (DUONEB) VIAL INH SCH (08:00)
[2018-03-01] MEDS: meTOprolol TARTRATE 50 MG (LOPRESSOR) TAB PO SCH ×2 (08:12→20:32)
[2018-03-01] MEDS ORDERED: LEVO1CAP PO (08:35)
[2018-03-01] MEDS ORDERED: NIAC500T24 PO (08:35)
[2018-03-01] MEDS ORDERED: ESTR0.5T3 PO (08:35)
[2018-03-01] MEDS ORDERED: FURO20TA4 PO (08:35)
[2018-03-01] MEDS ORDERED: IBUP-30 PO (08:35)
[2018-03-01] MEDS ORDERED: LEVO88TA54 PO (08:35)
[2018-03-01] MEDS ORDERED: AMIT25TA9 PO (08:35)
[2018-03-01] MEDS ORDERED: METO50TA15 PO (08:35)
[2018-03-01] MEDS ORDERED: CYCL10TA9 PO (08:35)
[2018-03-01] MEDS ORDERED: IRON1TAB86 PO (08:35)
[2018-03-01] MEDS ORDERED: LYSI500T37 PO (08:35)
[2018-03-01] MEDS ORDERED: GEMF600T3 PO (08:35)
[2018-03-01] MEDS ORDERED: METF500T4 PO (08:35)
[2018-03-01] MEDS ORDERED: TRAM50TA2 PO (09:54)
--- NOTE | 2018-03-01 12:44 | History & Physical-Hospitalist ---
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 She is a patient of Dr. Marroquin. She was at his office yesterday and complained of back pain which had been present since December 07 when she carried a heavy box of canned goods obtained at [place] to a patient's residence at [place]. She appeared quite ill at Dr. Castillo 's office and arrangements were made for a blood draw for chemistries and she was sent to radiology here at [facility] for an abdominal CT scan. During the process of the CT scan she declined in her condition and was sent to the emergency room. They found her to be confused and poorly able to answer questions she exhibited fever which had not been present before and was of the appearance of serious illness without clear etiology. Among the issues of concern, the CT scan of the abdomen showed clear thickening of the mucosa at the cecum and proximal ascending colon. Significant lymphadenopathy was also noted including an area in the central retroperitoneum which might be mass or conglomeration of lymph nodes. Source: patient Exam Limitations: no limitations Date Seen 03/01/18 Time Seen by Provider: 12:37 Attending Physician James Guerrero MD PCP Jhony Castillo DO Referring Physician Date of Admission Feb 28, 2018 at 19:18 Home Medications & Allergies Home Medications Reviewed patient Home Medication Reconciliation performed by pharmacy medication reconciliations emergency response technician and/or nursing. Patients Allergies have been reviewed. Allergies Allergies Coded Allergies lisinopril (Unverified Allergy, Unknown, 08/05/15) prednisone (Verified Adverse Reaction, Intermediate, ELEVATED BLOOD PRESSURE, 08/05/15) Past Btnlvuh-Eigohm-Eflkap Hx Past Med/Social Hx: Reviewed Nursing Past Med/Soc Hx, Reviewed and Corrections made Patient Social History Marrital Status: (2) Employed/Student: employed Alcohol Use: Denies Use Recreational Drug Use: No Smoking Status: Never a Smoker 2nd Hand Smoke Exposure: No Physical Abuse Screen: No Sexual Abuse: No Recent Foreign Travel: No Contact w/other who traveled: No Recent Infectious Disease Expo: No Immunizations Up To Date Tetanus Booster (TDap): Unknown Date of Pneumonia Vaccine: Aug 04, 2013 Past Medical History Cardiac: Hypertension : No Genitourinary: Benign Prostatic Hyperpl Gastrointestinal: Gastroesophageal Reflux Musculoskeletal: Arthritis, Fibromyalgia Endocrine: Hypothyroidsim, Diabetes, Non-Insulin dep Cancer: Cervical History of Blood Disorders: No Family History Reviewed Nursing Family Hx Cancer Review of Systems Constitutional: see HPI EENTM: no symptoms reported Respiratory: no symptoms reported Cardiovascular: no symptoms reported Gastrointestinal: constipation Genitourinary: no symptoms reported Musculoskeletal: back pain Skin: no symptoms reported Psychiatric/Neurological: No Symptoms Reported Physical Exam Physical Exam Vital Signs Vital Signs - First Documented 02/28/18 02/28/18 02/28/18 03/01/18 15:36 15:40 20:03 00:43 Temp 98.7 Pulse 122 Resp 20 B/P (MAP) 141/91 (108) Pulse Ox 96 O2 Delivery Room Air FiO2 21 Capillary Refill : Less Than 3 Seconds General Appearance: No Apparent Distress, WD/WN Eyes: Bilateral Eye Normal Inspection HEENT: Normal ENT Inspection Neck: Normal Inspection Respiratory: Chest Non Tender Cardiovascular: Regular Rate, Rhythm, No Edema, No Gallop, No JVD, No Murmur, Normal Peripheral Pulses Gastrointestinal: Normal Bowel Sounds, Tenderness (tenderness to palpation at the skin level with light touch. There is no guarding or rebound. Bowel sounds are present.) Back: Normal Inspection, No CVA Tenderness, No Vertebral Tenderness Extremity: Normal Capillary Refill, Normal Inspection, Normal Range of Motion, Non Tender, No Calf Tenderness, No Pedal Edema Neurologic/Psychiatric: Alert, Oriented x3, No Motor/Sensory Deficits, Normal Mood/Affect Skin: Normal Color Lymphatic: No Adenopathy Results Results/Procedures Labs Laboratory Tests 02/28/18 15:52 03/01/18 03:35 Patient resulted labs reviewed. Assessment/Plan Admission Diagnosis Sirs. 2.possible sepsis. 3.lactic acidosis. 4.abdominal process with colon wall thickening and enlarged lymph nodes. Assessment and Plan There are a number of puzzling lab findings. The patient was reported to have had a temperature of 102.5 in a conversation between Dr. Hernandez and Jerry. This cannot be verified from the record. In addition she had an initial lactic acid of 5.4 and a repeat of 4.15. Her initial white blood count was 11,300 but is 25 ,900 today. Pulse at the ER was 122. Blood pressure was elevated. The SaO2 was 100 on room air. A d-dimer was reported at 3.03 over 0.49. The patient appears much improved in her condition as compared to yesterday. Given the abdominal findings I have consult to Dr. Alexandre for possible colonoscopy. The areas of concern are the thickened cecal wall and the various enlarged lymph nodes within the abdominal cavity. It is noted that she had a previous colonoscopy performed in about 2014. Clinical Quality Measures DVT/VTE Risk/Contraindication: Risk Factor Score Per Nursin RFS Level Per Nursing on Admit: 1=Low/No VTE PPX JAMES GUERRERO MD Mar 01, 2018 12:44
[2018-03-01] MEDS: HYDROcodone/APAP 5 MG/325 MG (LORTAB) TAB PO PRN ×2 (16:59→23:20)
[2018-03-01] MEDS ORDERED: RT-ALBUTEROL/IPRATROPIUM 3 ML (DUONEB) VIAL ONE (19:18)
[2018-03-01] MEDS: RT-ALBUTEROL/IPRATROPIUM 3 ML (DUONEB) VIAL INH SCH (21:29)
[2018-03-02 00:01] VITALS: BP 159/70
[2018-03-02] MEDS: NS IV 1000 ML 1,000 ML IV SCH ×4 (00:47→20:25)
[2018-03-02] MEDS: PIPERACILLIN SODIUM/TAZOBACTAM 4.5 GM in NS (IVPB) 100 ML IV SCH ×3 (01:10→17:39)
[2018-03-02 04:33] VITALS: BP 165/76
[2018-03-02] MEDS ORDERED: TROUGH ORDER-PHARMACY XX NR (05:00)
[2018-03-02 05:30] LABS: BASOPHILS % (AUTO) 0 % (0-10); EOSINOPHILS # (AUTO) 0.3 10^3/uL (0.0-0.3); EOSINOPHILS % (AUTO) 2 % (0-10); HEMATOCRIT 34 % (35-52); HEMOGLOBIN 11.4 G/DL (11.5-16.0); LYMPHOCYTES # (AUTO) 1.2 X 10^3 (1.0-4.0); LYMPHOCYTES % (AUTO) 7 % (12-44); MEAN CORPUSCULAR HEMOGLOBIN 30 PG (25-34); MEAN CORPUSCULAR HGB CONC 34 G/DL (32-36); MEAN CORPUSCULAR VOLUME 91 FL (80-99); MONOCYTES # (AUTO) 1.1 X 10^3 (0.0-1.0); MONOCYTES % (AUTO) 6 % (0-12); NEUTROPHILS # (AUTO) 15.1 X 10^3 (1.8-7.8); NEUTROPHILS % (AUTO) 86 % (42-75); PLATELET COUNT 318 10^3/uL (130-400); RED BLOOD COUNT 3.75 10^6/uL (4.35-5.85); WHITE BLOOD COUNT 17.6 10^3/uL (4.3-11.0)
[2018-03-02] MEDS: VANCOMYCIN 1 GM/NS 250 ML IVPB IV SCH ×2 (06:10)
[2018-03-02] MEDS ORDERED: VANCOMYCIN INJECTION 500 MG in NS (IVPB) 100 ML IV NR (07:59)
[2018-03-02 08:00] VITALS: BP 180/88
[2018-03-02] MEDS: meTOprolol TARTRATE 50 MG (LOPRESSOR) TAB PO SCH ×2 (09:07→20:24)
[2018-03-02] MEDS: RT-ALBUTEROL/IPRATROPIUM 3 ML (DUONEB) VIAL INH SCH ×2 (09:42→20:04)
[2018-03-02 11:37] VITALS: BP 195/92
[2018-03-02] MEDS: HYDROcodone/APAP 5 MG/325 MG (LORTAB) TAB PO PRN ×2 (11:38→20:23)
--- NOTE | 2018-03-02 11:38 | Consultation ---
History of Present Illness History of Present Illness Patient Consulted On(noa/time) 03/01/18 11:34 Date Seen by Provider: Mar 01, 2018 Time Seen by Provider: 12:15 Reason for Visit: vague abdominal pain, altered mental status and leukocytosis History of Present Illness Patient admitted with a history of vague abdominal pain, features of sepsis and suspicion for pneumonia. CT scan of the abdomen shows retroperitoneal lymph nodes on the right side with irregularity of the cecum, requiring further evaluation. Previous colonoscopy in 2014 was negative for any polyps. Allergies and Home Medications Allergies Coded Allergies: lisinopril (Unverified Allergy, Unknown, 08/05/15) prednisone (Verified Adverse Reaction, Intermediate, ELEVATED BLOOD PRESSURE, 08/05/15) Home Medications Amitriptyline HCl 25 Mg Tablet, 25 MG PO HS, (Reported) Cyclobenzaprine HCl 10 Mg Tablet, 10 MG PO HS, (Reported) Estradiol 0.5 Mg Tablet, 0.5 MG PO HS, (Reported) Furosemide 20 Mg Tablet, 20 MG PO DAILY, (Reported) Gemfibrozil 600 Mg Tablet, 600 MG PO BID, (Reported) Ibuprofen 200 Mg Tablet, 600 MG PO BID, (Reported) TAKES 3 (200MG) TABLETS Levomefolate/B6/B12/Algal Oil 1 Each Capsule, 1 CAP PO HS, (Reported) Levothyroxine Sodium 88 Mcg Tablet, 88 MCG PO DAILY, (Reported) Lysine HCl 500 Mg Tablet, 1,000 MG PO HS, (Reported) Metformin HCl 500 Mg Tablet, 500 MG PO BID, (Reported) Metoprolol Tartrate 50 Mg Tablet, 50 MG PO BID, (Reported) Mv, Min #36/Iron,Carbonyl/FA 1 Each Tablet, 1 TAB PO DAILY, (Reported) Niacinamide 500 Mg Tablet, 500 MG PO DAILY, (Reported) Omeprazole 20 Mg Capsule.dr, 20 MG PO HS, (Reported) Potassium Chloride 10 Meq Capsule.er, 10 MEQ PO DAILY, (Reported) Tramadol HCl 50 Mg Tablet, 50-100 MG PO Q6H PRN for PAIN-MODERATE, (Reported) Patient Home Medication List Home Medication List Reviewed: Yes Past Xehvflc-Yhzogl-Bbtscp Hx Past Med/Social Hx: Reviewed Nursing Past Med/Soc Hx, Reviewed and Corrections made Patient Social History Alcohol Use: Denies Use Recreational Drug Use: No Smoking Status: Never a Smoker 2nd Hand Smoke Exposure: No Recent Foreign Travel: No Contact w/Someone Who Travel: No Recent Infectious Disease Expo: No Immunizations Up To Date Tetanus Booster (TDap): Unknown Date of Pneumonia Vaccine: Aug 04, 2013 Past Medical History Surgeries: Yes (NECK SX FOR PINCHED NERVE, WISDOM TEETH) Respiratory: Yes (ASTHMA) Asthma, Sleep Apnea Cardiac: Yes Hypertension Neurological: No : No Genitourinary: No Benign Prostatic Hyperpl Gastrointestinal: Yes Gastroesophageal Reflux Musculoskeletal: Yes (FIBROMYALGIA) Arthritis, Fibromyalgia Endocrine: Yes Hypothyroidsim, Diabetes, Non-Insulin dep HEENT: No Cancer: Yes Cervical Psychosocial: No Integumentary: No Blood Disorders: No Family Medical History Reviewed Nursing Family Hx Cancer Review of Systems-General Constitutional: malaise Respiratory: cough Cardiovascular: no symptoms reported Gastrointestinal: see HPI Genitourinary: no symptoms reported Musculoskeletal: no symptoms reported Skin: no symptoms reported Physical Exam-General Problems Physical Exam Vital Signs Vital Signs - First Documented 02/28/18 02/28/18 02/28/18 03/01/18 03/01/18 15:36 15:40 20:03 00:43 21:00 Temp 98.7 Pulse 122 Resp 20 B/P (MAP) 141/91 (108) Pulse Ox 96 O2 Delivery Room Air O2 Flow Rate 3.00 FiO2 21 Capillary Refill : Less Than 3 Seconds General Appearance: no apparent distress Neck: supple Cardiovascular: normal peripheral pulses, regular rate, rhythm Gastrointestinal: non tender, soft Rectal: deferred Extremities: normal inspection Neurologic/Psychiatric: alert Skin: warm/dry Comments Pfannenstiel scar with no incisional hernia. Assessment/Plan Assessment/Plan Admission Diagnosis/Plan Lady with a multitude of findings, the most of which involved retroperitoneal lymph nodes and irregularity of the cecum. At this point, her diet could be advanced with arrangements for colonoscopy, most likely as an outpatient. With reference to the retroperitoneal lymph nodes, PET scan has been recommended by the radiologist. This may well be completed as an outpatient. Admission Status: Inpatient Order (span 2 midnights) Clinical Quality Measures DVT/VTE Risk/Contraindication: Risk Factor Score Per Nursin RFS Level Per Nursing on Admit: 1=Low/No VTE PPX LUCIA FERNANDEZ MD Mar 02, 2018 11:38
--- NOTE | 2018-03-02 11:44 | Progress Note (SOAP) ---
Subjective Date Seen by Provider: Mar 02, 2018 Time Seen by Provider: 11:35 Subjective/Events-last exam Patient reports constipation without any rectal bleeding. Passing flatus. Tolerating diet. Respiratory crackles reported by Dr. Anglin. White cell count decreasing Review of Systems General: No Chills, No Night Sweats, No Fatigue, No Malaise HEENT: No Head Aches, No Eye Pain, No Ear Pain, No Dysphasia, No Sinus Congestion, No Post Nasal Drip, No Sore Throat Pulmonary: No Dyspnea, No Cough, No Pleuritic Chest Pain Cardiovascular: No: Chest Pain, Palpitations, Orthopnea, Paroxysmal Noc. Dyspnea, Edema, Lt Headedness Gastrointestinal: Constipation Musculoskeletal: No: other, neck pain, shoulder pain, arm pain, back pain, hand pain, leg pain, foot pain Neurological: No: Weakness, Numbness, Incoordination, Change in speech, Confusion, Seizures, Other Focused Exam Lactate Level 02/28/18 15:52: Lactic Acid Level 5.40*H 02/28/18 17:50: Lactic Acid Level 4.15*H Objective Exam Vital Signs Date Time Temp Pulse Resp B/P (MAP) Pulse Ox O2 Delivery O2 Flow Rate FiO2 03/02/18 11:38 99.0 03/02/18 11:37 99.0 82 20 195/92 (126) 93 Room Air 03/02/18 09:43 96 Room Air 03/02/18 08:00 97.3 86 20 180/88 (118) 97 Room Air 03/02/18 08:00 Nasal Cannula 3.00 03/02/18 04:33 97.8 82 17 165/76 (105) 93 Room Air 03/02/18 00:01 99.0 80 18 159/70 (99) 95 Room Air 03/01/18 21:29 94 Room Air 03/01/18 21:00 Nasal Cannula 3.00 03/01/18 19:37 98.9 91 22 153/79 (103) 96 Room Air 03/01/18 15:06 98.9 76 20 169/77 (107) 98 03/01/18 12:00 Room Air 03/01/18 12:00 97.4 68 16 135/69 (91) 98 Room Air I & O 03/02/18 07:00 Intake Total 4530 ml Output Total 1675 ml Balance 2855 ml Capillary Refill : Less Than 3 Seconds General Appearance: No Apparent Distress Gastrointestinal: non tender, soft Skin: Warm/Dry Other comments Lady with irregularity of the cecum on CT scan. Retroperitoneal lymph nodes. Results Lab Laboratory Tests 03/02/18 05:01: White Blood Count 17.6H, Red Blood Count 3.75L, Hemoglobin 11.4L, Hematocrit 34L , Mean Corpuscular Volume 91, Mean Corpuscular Hemoglobin 30, Mean Corpuscular Hemoglobin Concent 34, Red Cell Distribution Width 13.0, Platelet Count 318, Mean Platelet Volume 11.0H, Neutrophils (%) (Auto) 86H, Lymphocytes (%) (Auto) 7L, Monocytes (%) (Auto) 6, Eosinophils (%) (Auto) 2, Basophils (%) (Auto) 0, Neutrophils # (Auto) 15.1H, Lymphocytes # (Auto) 1.2, Monocytes # (Auto) 1.1H, Eosinophils # (Auto) 0.3, Basophils # (Auto) 0.0, Vancomycin Level Trough 6.3L Microbiology 02/28/18 Blood Culture - Preliminary, Resulted No growth Assessment/Plan Assessment/Plan Assess & Plan/Chief Complaint Lady with a multitude of findings, the most of which involved retroperitoneal lymph nodes and irregularity of the cecum. At this point, her diet could be advanced with arrangements for colonoscopy, most likely as an outpatient. With reference to the retroperitoneal lymph nodes, PET scan has been recommended by the radiologist. This may well be completed as an outpatient. Clinical Quality Measures DVT/VTE Risk/Contraindication: Risk Factor Score Per Nursin RFS Level Per Nursing on Admit: 1=Low/No VTE PPX LUCIA FERNANDEZ MD Mar 02, 2018 11:44
[2018-03-02] MEDS ORDERED: MAGNESIUM CITRATE 300 ML BTL PO NR (11:45)
--- NOTE | 2018-03-02 13:25 | Progress Note-Hospitalist ---
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 She is a patient of Dr. Marroquin. She was at his office yesterday and complained of back pain which had been present since December 07 when she carried a heavy box of canned goods obtained at [employer] to a patient's residence at [place]. She appeared quite ill at Dr. Castillo 's office and arrangements were made for a blood draw for chemistries and she was sent to radiology here at [facility] for an abdominal CT scan. During the process of the CT scan she declined in her condition and was sent to the emergency room. They found her to be confused and poorly able to answer questions she exhibited fever which had not been present before and was of the appearance of serious illness without clear etiology. Among the issues of concern, the CT scan of the abdomen showed clear thickening of the mucosa at the cecum and proximal ascending colon. Significant lymphadenopathy was also noted including an area in the central retroperitoneum which might be mass or conglomeration of lymph nodes. Subjective/Events-last exam Patient doing great and has no cough. I conferred with Dr Alexandre twice in-between discussion at the bedside with him Dr Alexandre reviewed CT scan with Dr Jorge Stone and PET scan will be needed as outpatient due to suspicion of possible lymphoma. Checked meds and labs Denies fever Abdominal discomfort at times Review of Systems General: Malaise Gastrointestinal: Constipation Focused Exam Lactate Level 02/28/18 15:52: Lactic Acid Level 5.40*H 02/28/18 17:50: Lactic Acid Level 4.15*H Objective Exam Vital Signs Vital Signs Date Time Temp Pulse Resp B/P (MAP) Pulse Ox O2 Delivery O2 Flow Rate FiO2 02/28/18 15:36 98.7 122 20 141/91 (108) 02/28/18 15:40 96 02/28/18 20:03 Room Air 03/01/18 00:43 21 03/01/18 21:00 3.00 Capillary Refill : Less Than 3 Seconds General Appearance: No Apparent Distress, WD/WN, Chronically ill Respiratory: Lungs Clear, Normal Breath Sounds Cardiovascular: Regular Rate, Rhythm, No Edema Gastrointestinal: Normal Bowel Sounds, No Pulsatile Mass, Non Tender Neurologic/Psychiatric: Alert, Oriented x3, No Motor/Sensory Deficits, Normal Mood/Affect Results/Procedures Lab Laboratory Tests 03/02/18 05:01 Patient resulted labs reviewed. Assessment/Plan Assessment and Plan Assess & Plan/Chief Complaint Near syncope with confusion when obtaining outpt w/u per PCP Retroperitoneal lymph nodes and irregularity of the cecum on CT scan needs PET as outpatient Bilateral lower lobe infiltrates Constipation w/abdominal discomfort Chronic pain/Fibromyalgia Plan: PET scan scheduling Needs endoscopy per Dr Alexandre after PET scan due to suspicion for lymphoma Oncology may need to be involved in case I cannot obtain PET scan as IM DC tomorrow Restart home meds Lactulose Clinical Quality Measures DVT/VTE Risk/Contraindication: Risk Factor Score Per Nursin RFS Level Per Nursing on Admit: 1=Low/No VTE PPX JAMIE KAYE DO Mar 02, 2018 13:25
[2018-03-02 16:52] VITALS: BP 162/89
[2018-03-02] MEDS: VANCOMYCIN 1500 MG/NS 500 ML IVPB IV SCH ×2 (17:39)
[2018-03-02] MEDS: LACTULOSE SYRUP 10GM/15ML (ENULOSE) 30ML UDC PO SCH ×2 (17:50→20:24)
[2018-03-02] MEDS: metFORMIN 500 MG (GLUCOPHAGE) TAB PO SCH (17:50)
[2018-03-02 20:13] VITALS: BP 166/92
[2018-03-02] MEDS: GEMFIBROZIL 600 MG (LOPID) TAB PO SCH (20:23)
[2018-03-02] MEDS ORDERED: NON-FORMULARY MEDICATION 1 EA EA (Gemfibrozil 600 MG) PO SCH (21:00)
[2018-03-02] MEDS ORDERED: NON-FORMULARY MEDICATION 1 EA EA (Metoprolol Tartrate 50 MG) PO SCH (21:00)
[2018-03-02] MEDS ORDERED: NON-FORMULARY MEDICATION 1 EA EA (Estradiol (Estrace Tablet) 0.5 MG) PO SCH (21:00)
[2018-03-02] MEDS ORDERED: CYCLOBENZAPRINE 10 MG (FLEXERIL) TAB PO SCH (21:00)
[2018-03-02] MEDS ORDERED: NON-FORMULARY MEDICATION 1 EA EA (Metformin HCl 500 MG) PO SCH (21:00)
[2018-03-02] MEDS ORDERED: AMITRIPTYLINE HCL 25 MG PO SCH (21:00)
[2018-03-02] MEDS ORDERED: ESTRADIOL 1 MG TAB (ESTRACE) PO SCH (21:00)
[2018-03-02] MEDS ORDERED: IBUPROFEN 600 MG PO SCH (21:00)
[2018-03-02] MEDS ORDERED: OMEPRAZOLE 20 MG (PriLOSEC) CAP NON-FORMULARY PO SCH (21:00)
[2018-03-02] MEDS ORDERED: B6 PO SCH (21:00)
[2018-03-02] MEDS ORDERED: [UNRECOGNIZED DRUG - OTHER] PO SCH (21:00)
[2018-03-02] MEDS ORDERED: AMITRIPTYLINE 25 MG (ELAVIL) TAB PO SCH (21:00)
[2018-03-02] MEDS ORDERED: ALGAL OIL PO SCH (21:00)
[2018-03-02] MEDS ORDERED: LYSINE HCL 1000 MG PO SCH (21:00)
[2018-03-02] MEDS ORDERED: B12 PO SCH (21:00)
[2018-03-02] MEDS ORDERED: LEVOMEFOLATE PO SCH (21:00)
[2018-03-02] MEDS ORDERED: PANTOPRAZOLE 20 MG TABLET (PROTONIX) PO SCH (21:00)
[2018-03-03] VITALS: BP 163/79
[2018-03-03] MEDS: NS IV 1000 ML 1,000 ML IV SCH ×2 (00:56→09:24)
[2018-03-03] MEDS: PIPERACILLIN SODIUM/TAZOBACTAM 4.5 GM in NS (IVPB) 100 ML IV SCH ×2 (00:57→09:22)
[2018-03-03 04:00] VITALS: BP 159/80
[2018-03-03] MEDS: HYDROcodone/APAP 5 MG/325 MG (LORTAB) TAB PO PRN (05:22)
[2018-03-03 05:58] LABS: BASOPHILS % (AUTO) 0 % (0-10); EOSINOPHILS # (AUTO) 0.2 10^3/uL (0.0-0.3); EOSINOPHILS % (AUTO) 1 % (0-10); HEMATOCRIT 35 % (35-52); HEMOGLOBIN 11.9 G/DL (11.5-16.0); LYMPHOCYTES # (AUTO) 1.1 X 10^3 (1.0-4.0); LYMPHOCYTES % (AUTO) 7 % (12-44); MEAN CORPUSCULAR HEMOGLOBIN 31 PG (25-34); MEAN CORPUSCULAR HGB CONC 34 G/DL (32-36); MEAN CORPUSCULAR VOLUME 90 FL (80-99); MEAN PLATELET VOLUME 10.7 FL (7.4-10.4); MONOCYTES % (AUTO) 7 % (0-12); NEUTROPHILS # (AUTO) 12.4 X 10^3 (1.8-7.8); NEUTROPHILS % (AUTO) 85 % (42-75); PLATELET COUNT 343 10^3/uL (130-400); RED CELL DISTRIBUTION WIDTH 12.7 % (10.0-14.5); WHITE BLOOD COUNT 14.6 10^3/uL (4.3-11.0)
[2018-03-03] MEDS: metFORMIN 500 MG (GLUCOPHAGE) TAB PO SCH (06:00)
[2018-03-03] MEDS: VANCOMYCIN 1500 MG/NS 500 ML IVPB IV SCH ×2 (06:01)
[2018-03-03] MEDS ORDERED: LEVOTHYROXINE 88 MCG (LEVOTHORID) TAB PO SCH (06:30)
[2018-03-03] MEDS ORDERED: MULTIVIT W/MINERALS TAB (THERAGRAN M) PO SCH (07:00)
[2018-03-03] MEDS ORDERED: IBUPROFEN 600 MG (MOTRIN) TAB PO SCH (07:00)
[2018-03-03] MEDS ORDERED: KCL 10 MEQ TAB (MICRO K) PO SCH (07:00)
[2018-03-03] MEDS: RT-ALBUTEROL/IPRATROPIUM 3 ML (DUONEB) VIAL INH SCH (07:25)
[2018-03-03 08:00] VITALS: BP 140/60
[2018-03-03] MEDS ORDERED: [UNRECOGNIZED DRUG - OTHER] PO SCH (09:00)
[2018-03-03] MEDS ORDERED: NON-FORMULARY MEDICATION 1 EA EA (Niacinamide (Niacin) 500 MG) PO SCH (09:00)
[2018-03-03] MEDS ORDERED: FUROSEMIDE 20 MG (LASIX) TAB PO SCH (09:00)
[2018-03-03] MEDS ORDERED: MV MIN PO SCH (09:00)
[2018-03-03] MEDS ORDERED: IRON CARBONYL PO SCH (09:00)
[2018-03-03] MEDS ORDERED: NON-FORMULARY MEDICATION 1 EA EA (Potassium Chloride 10 MEQ) PO SCH (09:00)
[2018-03-03] MEDS ORDERED: LEVOTHYROXINE SODIUM 88 MCG PO SCH (09:00)
[2018-03-03] MEDS: LACTULOSE SYRUP 10GM/15ML (ENULOSE) 30ML UDC PO SCH (09:22)
[2018-03-03] MEDS: GEMFIBROZIL 600 MG (LOPID) TAB PO SCH (09:22)
[2018-03-03] MEDS: meTOprolol TARTRATE 50 MG (LOPRESSOR) TAB PO SCH (09:22)
[2018-03-03 09:39] LABS: ALANINE AMINOTRANSFERASE 21 U/L (0-55); ALBUMIN 3.7 GM/DL (3.2-4.5); ALKALINE PHOSPHATASE 89 U/L (40-136); BILIRUBIN,TOTAL 0.4 MG/DL (0.1-1.0); BUN/CREATININE RATIO 7; CALCIUM 9.3 MG/DL (8.5-10.1); CARBON DIOXIDE 27 MMOL/L (21-32); CHLORIDE 102 MMOL/L (98-107); CREATININE SERUM 0.59 MG/DL (0.60-1.30); GFR ESTIMATED > 60; GLUCOSE 123 MG/DL (70-105); POTASSIUM 3.2 MMOL/L (3.6-5.0); SODIUM 140 MMOL/L (135-145); TOTAL PROTEIN 6.9 GM/DL (6.4-8.2)
--- NOTE | 2018-03-03 10:28 | Progress Note (SOAP) ---
Subjective Date Seen by Provider: Mar 03, 2018 Time Seen by Provider: 07:45 Subjective/Events-last exam abdominal pain improved. Has had bowel movements following magnesium citrate administration. White cell count has decreased. Review of Systems General: No Chills, No Night Sweats, No Fatigue, No Malaise HEENT: No Head Aches, No Eye Pain, No Ear Pain, No Dysphasia, No Sinus Congestion, No Post Nasal Drip, No Sore Throat Pulmonary: No Dyspnea, No Cough, No Pleuritic Chest Pain Cardiovascular: No: Chest Pain, Palpitations, Orthopnea, Paroxysmal Noc. Dyspnea, Edema, Lt Headedness Gastrointestinal: No: Nausea, Vomiting, Abdominal Pain, Diarrhea, Constipation , Melena, Hematochezia Genitourinary: No Dysuria, No Frequency, No Incontinence, No Hematuria, No Retention Musculoskeletal: No: other, neck pain, shoulder pain, arm pain, back pain, hand pain, leg pain, foot pain Neurological: No: Weakness, Numbness, Incoordination, Change in speech, Confusion, Seizures, Other Focused Exam Lactate Level 02/28/18 15:52: Lactic Acid Level 5.40*H 02/28/18 17:50: Lactic Acid Level 4.15*H Objective Exam Vital Signs Date Time Temp Pulse Resp B/P (MAP) Pulse Ox O2 Delivery O2 Flow Rate FiO2 03/03/18 08:00 98.5 93 20 140/60 (86) 97 Room Air 03/03/18 07:27 94 Room Air 03/03/18 04:00 98.2 88 18 159/80 (106) 94 Room Air 03/03/18 00:00 97.5 82 18 163/79 (107) 94 Room Air 03/02/18 20:24 Nasal Cannula 5.00 03/02/18 20:13 98.9 80 20 166/92 (116) 95 Room Air 03/02/18 20:05 97 Room Air 03/02/18 16:52 99.1 77 20 162/89 (113) 93 Room Air 03/02/18 12:10 99.0 03/02/18 11:38 99.0 03/02/18 11:37 99.0 82 20 195/92 (126) 93 Room Air I & O 03/03/18 07:00 Intake Total 4470 ml Balance 4470 ml Capillary Refill : Less Than 3 Seconds General Appearance: Anxious Cardiovascular: Regular Rate, Rhythm Gastrointestinal: non tender, soft Skin: Warm/Dry Results Lab Laboratory Tests 03/03/18 05:25: White Blood Count 14.6H, Red Blood Count 3.90L, Hemoglobin 11.9, Hematocrit 35, Mean Corpuscular Volume 90, Mean Corpuscular Hemoglobin 31, Mean Corpuscular Hemoglobin Concent 34, Red Cell Distribution Width 12.7, Platelet Count 343, Mean Platelet Volume 10.7H, Neutrophils (%) (Auto) 85H, Lymphocytes (%) (Auto) 7L, Monocytes (%) (Auto) 7, Eosinophils (%) (Auto) 1, Basophils (%) (Auto) 0, Neutrophils # (Auto) 12.4H, Lymphocytes # (Auto) 1.1, Monocytes # (Auto) 1.0, Eosinophils # (Auto) 0.2, Basophils # (Auto) 0.0, Sodium Level 140, Potassium Level 3.2L, Chloride Level 102, Carbon Dioxide Level 27, Anion Gap 11, Blood Urea Nitrogen 4L, Creatinine 0.59L, Estimat Glomerular Filtration Rate > 60, BUN /Creatinine Ratio 7, Glucose Level 123H, Calcium Level 9.3, Total Bilirubin 0.4 , Aspartate Amino Transf (AST/SGOT) 17, Alanine Aminotransferase (ALT/SGPT) 21, Alkaline Phosphatase 89, Total Protein 6.9, Albumin 3.7 Microbiology 02/28/18 Blood Culture - Preliminary, Resulted No growth 02/28/18 MRSA Screen - Final, Complete MRSA not isolated Assessment/Plan Assessment/Plan Assess & Plan/Chief Complaint Lady with a multitude of findings, the most of which involved retroperitoneal lymph nodes and irregularity of the cecum. At this point, her diet could be advanced with arrangements for colonoscopy, most likely as an outpatient. With reference to the retroperitoneal lymph nodes, PET scan has been recommended by the radiologist. This may well be completed as an outpatient. 03/03/18:lady with abnormal retroperitoneal lymph nodes. Irregularity of the cecum. Reasonable to obtain a PET scan, to be scheduled as an outpatient. Colonoscopy to follow. Discharge status subjected to evaluation by Dr. Anglin regarding her presumed pneumonia. Final Diagnosis retroperitoneal lymphadenopathy. Clinical Quality Measures DVT/VTE Risk/Contraindication: Risk Factor Score Per Nursin RFS Level Per Nursing on Admit: 1=Low/No VTE PPX LUCIA FERNANDEZ MD Mar 03, 2018 10:28 am
[2018-03-03] MEDS ORDERED: CEFD300C3 PO (10:36)
[2018-03-03] MEDS ORDERED: TRAM50TA2 PO (10:36)
--- NOTE | 2018-03-03 10:39 | Discharge Summary-Hospitalist ---
Diagnosis/Chief Complaint Date of Admission Feb 28, 2018 at 19:18 Date of Discharge Discharge Date: Mar 03, 2018 Admission Diagnosis Sirs. 2.possible sepsis. 3.lactic acidosis. 4.abdominal process with colon wall thickening and enlarged lymph nodes. Discharge Diagnosis Near syncope with confusion when obtaining outpt w/u per PCP Retroperitoneal lymph nodes and irregularity of the cecum on CT scan needs PET as outpatient Bilateral lower lobe infiltrates Constipation w/abdominal discomfort Chronic pain/Fibromyalgia Plan: PET scan scheduling Needs endoscopy per Dr Alexandre after PET scan due to suspicion for lymphoma Oncology may need to be involved in case I cannot obtain PET scan as IM DC tomorrow Restart home meds Lactulose Discharge Summary Discharge Physical Exam Allergies: Coded Allergies: lisinopril (Unverified Allergy, Unknown, 08/05/15) prednisone (Verified Adverse Reaction, Intermediate, ELEVATED BLOOD PRESSURE, 08/05/15) Vitals & I&Os Vital Signs Date Time Temp Pulse Resp B/P (MAP) Pulse Ox O2 Delivery O2 Flow Rate FiO2 03/03/18 13:30 03/03/18 12:00 99.1 75 20 96 Room Air 03/02/18 20:24 5.00 03/01/18 00:43 21 General Appearance: Alert, Oriented X3, Cooperative HEENT: Atraumatic, PERRLA Respiratory: Clear to Auscultation, Normal Air Movement Abdominal: Normal Bowel Sounds, Soft, No Tenderness, No Masses Neuro: Normal Gait, Normal Speech, Strength at 5/5 X4 Ext Psych/Mental Status: Mental Status NL Hospital Course Hospital course: Patient had an uneventful hospital course after she was admitted after syncopal episode undergoing CT scans and labs ordered by Dr. Castillo. She was found to have sepsis placed on IV fluid resuscitation and IV antibiotics empirically for pneumonia found on CT scan. Multiple retroperitoneal lymph nodes were noted with the cecal mass like area so Dr. Alexandre was consulted although she had her recent colonoscopy 3 years prior without any masses. She is maintained on IV antibiotics nebulizer treatments oxygen supplementation and she recovered quickly. Dr. Alexandre reviewed the CT scan with Dr. Stone radiology and PET scan was ordered and will be followed up with Dr. Alexandre and Dr. Alexandre updated primary care provider Dr. Castillo regarding the findings and the plan. Patient was discharged in improved condition. Labs (last 24 hrs) Microbiology 02/28/18 Blood Culture - Preliminary, Resulted No growth 02/28/18 MRSA Screen - Final, Complete MRSA not isolated Patient resulted labs reviewed. Pending Labs Discussion & Recommendations Discharge Planning: <30 minutes discharge planning Discharge Home Medications: Active Scripts Active Cefdinir 300 Mg Capsule 300 Mg PO BID Tramadol HCl 50 Mg Tablet 50-100 Mg PO Q6H PRN Reported l-Lysine (Lysine HCl) 500 Mg Tablet 1,000 Mg PO HS Geritol Complete Tablet (Mv, Min #36/Iron,Carbonyl/FA) 1 Each Tablet 1 Tab PO DAILY [id number] (Levomefolate/B6/B12/Algal Oil) 1 Each Capsule 1 Cap PO HS Advil (Ibuprofen) 200 Mg Tablet 600 Mg PO BID TAKES 3 (200MG) TABLETS Metoprolol Tartrate 50 Mg Tablet 50 Mg PO BID Gemfibrozil 600 Mg Tablet 600 Mg PO BID Estrace Tablet (Estradiol) 0.5 Mg Tablet 0.5 Mg PO HS Levothyroxine Sodium 88 Mcg Tablet 88 Mcg PO DAILY Furosemide 20 Mg Tablet 20 Mg PO DAILY Amitriptyline HCl 25 Mg Tablet 25 Mg PO HS Cyclobenzaprine HCl 10 Mg Tablet 10 Mg PO HS Metformin HCl 500 Mg Tablet 500 Mg PO BID Niacin (Niacinamide) 500 Mg Tablet 500 Mg PO DAILY Omeprazole 20 Mg Capsule.dr 20 Mg PO HS Potassium Chloride 10 Meq Capsule.er 10 Meq PO DAILY Instructions to patient/family Please see electronic discharge instructions given to patient. Clinical Quality Measures DVT/VTE Risk/Contraindication: Risk Factor Score Per Nursin RFS Level Per Nursing on Admit: 1=Low/No VTE PPX JAMIE KAYE DO Mar 03, 2018 10:39
[2018-03-03] MEDS ORDERED: KCL 20 MEQ TAB (K-DUR) PO NR (10:45)
[2018-03-03 12:00] VITALS: BP 179/84
[2018-03-03] MEDS ORDERED: NIACIN 500 MG TABLET PO SCH (17:00)
[2018-03-03] MEDS ORDERED: TROUGH ORDER-PHARMACY XX NR (18:00)
== END 2018-03-03 13:40 | disposition home or self-care (01) | DRG 195 ==
LOC: EDUNIT# 15:29 → ER 15:31 → ICU 19:18 → 4TH 03-01 15:00
PROVIDERS: ADMIT Internal Medicine; ATTEND Internal Medicine
DX: J18.9 Pneumonia, unspecified organism (principal); R19.03 Right lower quadrant abdominal swelling, mass and lump; R59.0 Localized enlarged lymph nodes; E11.9 Type 2 diabetes mellitus without complications; J45.909 Unspecified asthma, uncomplicated; G47.30 Sleep apnea, unspecified; K21.9 Gastro-esophageal reflux disease without esophagitis; E03.9 Hypothyroidism, unspecified; M79.7 Fibromyalgia; M19.91 Primary osteoarthritis, unspecified site; K59.00 Constipation, unspecified
CPT/HCPCS: 36415; 70450; 71045; 71275; 80053; 80202; 80306; 80320; 80329; 81000; 82962; 83605; 83735; 84100; 84443; 84484; 85007; 85025; 85027; 85379; 85610; 85730; 86141; 87040; 87081; 93005; 93041; 94640; 94664; 94760; 96361; 96365; 96375

== ENCOUNTER → 2018-02-28 | Outpatient (CLI) | payer OTHER ==
[~2018-02-28] MED LIST changes: +ESTR0.5T3 PO; +GEMF600T3 PO; +IBUP-30 PO; +LEVO1CAP PO; +LEVO88TA54 PO; +LYSI500T37 PO; +METF500T4 PO; +METO50TA15 PO; +NIAC500T24 PO; +TRAM50TA2 PO
--- NOTE | 2018-02-28 16:00 | Diagnostic Imaging Report ---
PROCEDURE: CT abdomen and pelvis without contrast. TECHNIQUE: Multiple contiguous axial images were obtained through the abdomen and pelvis without the use of intravenous contrast. INDICATION: Abdominal pain and abdominal distention. No prior CT study is available for comparison. FINDINGS: Imaging through the lung bases does show minimal infiltrates or atelectasis in the posterior lower lobes bilaterally. No discrete liver mass is identified. The gallbladder is unremarkable. No biliary ductal dilatation is identified. The pancreas and spleen are unremarkable. No adrenal mass is detected. No renal calculus or hydronephrosis is identified. The aorta demonstrates atherosclerotic changes but is nonaneurysmal. There is abnormal soft tissue identified in the central retroperitoneum in the pre and para-aortic location. Abnormal soft tissue is identified anterior to the aorta just below the level of the superior mesenteric artery origin measuring 2.3 cm transverse x 1.7 cm AP. More inferiorly, a second area of abnormal soft tissue is present in the preaortic location measuring 2.1 cm transverse x 1.7 cm AP. There is a prominent node in the right common iliac location measuring 1.4 cm in diameter. The small bowel is not dilated. There is no ascites. There is some questionable abnormal wall thickening involving the cecum. Mild sigmoid diverticulosis is noted but no evidence of acute diverticulitis. The bladder is decompressed. Uterus appears to be surgically absent. Mild nodularity in the left hemipelvis is seen which may represent residual ovarian tissue. Clinical correlation is recommended. No inguinal lymphadenopathy is detected. No acute bony abnormality is identified. IMPRESSION: 1. Mild patchy bibasilar pulmonary infiltrates suggestive of pneumonia. 2. Wall thickening involving the cecum. A cecal mass cannot be entirely excluded. Colonoscopy would be recommended for further evaluation. No bowel obstruction is identified. 2. Abnormal soft tissue located in the central retroperitoneum, likely representing a conglomerate of lymph nodes. The findings are concerning for either a metastatic disease or perhaps lymphoma. PET scan may be useful for further evaluation. 3. No other significant abnormality is detected. Results were called and discussed with Dr. Castillo prior to this dictation. Dictated by: Dictated on workstation # [id number]
== END ==
LOC: RAD 15:08
PROVIDERS: ATTEND Internal Medicine
DX: K63.89 Other specified diseases of intestine (principal)
CPT/HCPCS: 74176

== ENCOUNTER → 2018-03-08 | Outpatient (CLI) | payer OTHER ==
[~2018-03-08] MED LIST changes: +CEFD300C3 PO; +ESTR0.5T3 PO; +GEMF600T3 PO; +IBUP-30 PO; +LEVO1CAP PO; +LEVO88TA54 PO; +LYSI500T37 PO; +METF500T5 PO; +METO50TA15 PO; +NIAC500T24 PO; +TRAM50TA2 PO; +VITA1TAB17 PO
--- NOTE | 2018-03-08 13:51 | Diagnostic Imaging Report ---
INDICATION: Retroperitoneal lymphadenopathy. TECHNIQUE: Patient blood serum glucose level at the time of injection was 137 mg/dL. The patient was administered 13 mCi F-18 FDG intravenously in the right hand, and whole body PET imaging was performed. In addition, noncontrast CT was performed for attenuation correction and anatomic correlation. COMPARISON: No prior PET/CT is available for comparison. Comparison is made with prior chest CT as well as abdominal and pelvic CT from 02/28/2018. FINDINGS: Symmetric activity within the brain is identified. There is a mildly hypermetabolic lymph node in the left supraclavicular location with SUV max approximately 3.8. A more intense hypermetabolic node in the mediastinum is identified immediately anterior to the esophagus and to the left of the trachea at the level of the great vessels. Abnormal soft tissue at this location measures approximately 14 mm. It is uncertain if this is arising from the esophagus or is arelis mass immediately anterior to the esophagus. There are hypermetabolic nodes in the george bilaterally with an SUV max of approximately 5.5 on the left and 4.3 on the right. Hypermetabolic subcarinal soft tissue is also present with SUV max of approximately 7. There is a region of parenchymal consolidation in the posterior right lower lobe with SUV max of approximately 4, which is indeterminate. No other pulmonary parenchymal abnormalities are seen. Imaging through the abdomen does demonstrate multiple foci of hypermetabolism suggestive of hepatic metastatic disease. Lesion in the inferior right lobe has SUV max of approximately 6.2. Multiple additional lesions are visualized. These are not well seen on recent CT study, as the study was done without contrast. Previously noted abnormal soft tissue in the central retroperitoneum on CT does show FDG avidity. SUV max is approximately 8.5. The soft tissue immediately anterior to the aorta as well as the periaortic soft tissue shows intense hypermetabolism. There appears to be physiologic activity throughout the GI and genitourinary tracts. There is an FDG-avid lymph node in the right iliac location as described on recent CT with SUV max of approximately 7.7. No definite inguinal hypermetabolism is seen. Imaging through the lower extremities is unremarkable. IMPRESSION: Abnormal PET/CT demonstrating numerous hypermetabolic lesions within the left supraclavicular, mediastinal, and hilar regions as well as in the central retroperitoneum and right iliac region. There are numerous hypermetabolic lesions within the liver. Features are concerning for metastatic disease, primary indeterminate. Lymphoma would be an additional consideration. Dictated by: Dictated on workstation # [id number]
== END ==
LOC: RAD 09:53
PROVIDERS: ATTEND Surgery
DX: K76.9 Liver disease, unspecified (principal); R59.0 Localized enlarged lymph nodes

== ENCOUNTER 2018-03-13 12:04 | Inpatient (IN) | payer OTHER ==
[2018-03-13] VITALS (7 sets, daily range): BP systolic 103–134; BP diastolic 67–87
[~2018-03-13] VITALS: Ht 162.6 cm; Wt 85.4 kg
[~2018-03-13 12:04] MED LIST changes: -VITA1TAB17 PO
--- OUTSIDE RECORDS SUMMARY | 2018-03-13 12:11 | XMS REPORT | Continuity of Care Document ---
Author Author [facility] Organization [facility] Address Unknown Phone Unavailable Allergies Active Description Code Type Severity Reaction Onset Reported/Identified Relationship to Patient Clinical Status Yes lisinopril [id number] Drug Allergy Unknown N/A 08/05/2015 Yes prednisone [id number] Drug Allergy Moderate ELEVATED BLOOD 08/05/2015 Medications [...] M47.816 SPONDYLOSIS W/O MYELOPATHY OR RADICULOPA 01/18/2018 LARADORENE DIRECTOR LIFE Ot Z12.31 ENCNTR SCREEN MAMMOGRAM FOR MALIGNANT NE 01/20/2018 LA HINDS DO Ot M46.86 OTHER SPECIFIED INFLAMMATORY SPONDYLOPAT 01/20/2018 LA HINDS DO Ot M48.07 SPINAL STENOSIS, LUMBOSACRAL REGION 02/28/2018 LARAYUNIERHaley Ayala DIRECTOR LIFE Ot Z12.31 ENCNTR SCREEN MAMMOGRAM FOR MALIGNANT NE 02/28/2018 LA HINDS DO Ot M47.816 SPONDYLOSIS W/O MYELOPATHY OR RADICULOPA 02/28/2018 LA HINDS DO Ot M46.86 OTHER SPECIFIED INFLAMMATORY SPONDYLOPAT 02/28/2018 LA HINDS DO Ot M48.07 SPINAL STENOSIS, LUMBOSACRAL REGION 02/28/2018 GLYNN GRANT CROSS TIE CUTTER Ot M47.896 OTHER SPONDYLOSIS, LUMBAR REGION 02/28/2018 GLYNN GRANT CROSS TIE CUTTER Ot M51.16 INTERVERTEBRAL DISC DISORDERS W RADICULO 03/01/2018 LA HINDS DO Ot K63.89 OTHER SPECIFIED DISEASES OF INTESTINE 03/01/2018 JAMES GUERRERO MD Ot A41.9 SEPSIS, UNSPECIFIED ORGANISM 03/01/2018 JAMES GUERRERO MD Ot E03.9 HYPOTHYROIDISM, UNSPECIFIED 03/01/2018 JAMES GUERRERO MD Ot E11.9 TYPE 2 DIABETES MELLITUS WITHOUT COMPLIC 03/01/2018 JAMES GUERRERO MD Ot G47.30 SLEEP APNEA, UNSPECIFIED 03/01/2018 JAMES GUERRERO MD Ot G93.41 METABOLIC ENCEPHALOPATHY 03/01/2018 JAMES GUERRERO MD Ot J18.9 PNEUMONIA, UNSPECIFIED ORGANISM 03/01/2018 JAMES GUERRERO MD Ot J45.909 UNSPECIFIED ASTHMA, UNCOMPLICATED 03/01/2018 JAMES GUERRERO MD Ot K21.9 GASTRO-ESOPHAGEAL REFLUX DISEASE WITHOUT 03/01/2018 JAMES GUERRERO MD Ot M19.91 PRIMARY OSTEOARTHRITIS, UNSPECIFIED SITE 03/01/2018 JAMES GUERRERO MD Ot M79.7 FIBROMYALGIA 03/01/2018 JAMES GUERRERO MD Ot R19.03 RIGHT LOWER QUADRANT ABDOMINAL SWELLING, 03/01/2018 JAMES GUERRERO MD Ot R59.0 LOCALIZED ENLARGED LYMPH NODES 03/02/2018 JAMES GUERRERO MD Ot A41.9 SEPSIS, UNSPECIFIED ORGANISM 03/02/2018 JAMES GUERRERO MD Ot E03.9 HYPOTHYROIDISM, UNSPECIFIED 03/02/2018 JAMES GUERRERO MD Ot E11.9 TYPE 2 DIABETES MELLITUS WITHOUT COMPLIC 03/02/2018 JAMES GUERRERO MD Ot G47.30 SLEEP APNEA, UNSPECIFIED 03/02/2018 JAMES GUERRERO MD Ot G93.41 METABOLIC ENCEPHALOPATHY 03/02/2018 JAMES GUERRERO MD Ot J18.9 PNEUMONIA, UNSPECIFIED ORGANISM 03/02/2018 JAMES GUERRERO MD Ot J45.909 UNSPECIFIED ASTHMA, UNCOMPLICATED 03/02/2018 JAMES GUERRERO MD Ot K21.9 GASTRO-ESOPHAGEAL REFLUX DISEASE WITHOUT 03/02/2018 JAMES GUERRERO MD Ot M19.91 PRIMARY OSTEOARTHRITIS, UNSPECIFIED SITE 03/02/2018 JAMES GUERRERO MD Ot M79.7 FIBROMYALGIA 03/02/2018 JAMES GUERRERO MD Ot R19.03 RIGHT LOWER QUADRANT ABDOMINAL SWELLING, 03/02/2018 JAMES GUERRERO MD Ot R59.0 LOCALIZED ENLARGED LYMPH NODES 03/03/2018 JAMES GUERRERO MD Ot A41.9 SEPSIS, UNSPECIFIED ORGANISM 03/03/2018 JAMES GUERRERO MD Ot E03.9 HYPOTHYROIDISM, UNSPECIFIED 03/03/2018 JAMES GUERRERO MD Ot E11.9 TYPE 2 DIABETES MELLITUS WITHOUT COMPLIC 03/03/2018 JAMES GUERRERO MD Ot G47.30 SLEEP APNEA, UNSPECIFIED 03/03/2018 JAMES GUERRERO MD Ot G93.41 METABOLIC ENCEPHALOPATHY 03/03/2018 JAMES GUERRERO MD Ot J18.9 PNEUMONIA, UNSPECIFIED ORGANISM 03/03/2018 JAMES GUERRERO MD Ot J45.909 UNSPECIFIED ASTHMA, UNCOMPLICATED 03/03/2018 JAMES GUERRERO MD Ot K21.9 GASTRO-ESOPHAGEAL REFLUX DISEASE WITHOUT 03/03/2018 JAMES GUERRERO MD Ot M19.91 PRIMARY OSTEOARTHRITIS, UNSPECIFIED SITE 03/03/2018 JAMES GUERRERO MD Ot M79.7 FIBROMYALGIA 03/03/2018 JAMES GUERRERO MD Ot R19.03 RIGHT LOWER QUADRANT ABDOMINAL SWELLING, 03/03/2018 JAMES GUERRERO MD Ot R59.0 LOCALIZED ENLARGED LYMPH NODES 03/03/2018 JAMES GUERRERO MD Ot E03.9 HYPOTHYROIDISM, UNSPECIFIED 03/03/2018 JAMES GUERRERO MD Ot E11.9 TYPE 2 DIABETES MELLITUS WITHOUT COMPLIC 03/03/2018 JAMES GUERRERO MD Ot G47.30 SLEEP APNEA, UNSPECIFIED 03/03/2018 JAMES GUERRERO MD Ot J18.9 PNEUMONIA, UNSPECIFIED ORGANISM 03/03/2018 JAMES GUERRERO MD Ot J45.909 UNSPECIFIED ASTHMA, UNCOMPLICATED 03/03/2018 JAMES GUERRERO MD Ot K21.9 GASTRO-ESOPHAGEAL REFLUX DISEASE WITHOUT 03/03/2018 JAMES GUERRERO MD Ot K59.00 CONSTIPATION, UNSPECIFIED 03/03/2018 JAMES GUERRERO MD Ot M19.91 PRIMARY OSTEOARTHRITIS, UNSPECIFIED SITE 03/03/2018 JAMES GUERRERO MD Ot M79.7 FIBROMYALGIA 03/03/2018 JAMES GUERRERO MD Ot R19.03 RIGHT LOWER QUADRANT ABDOMINAL SWELLING, 03/03/2018 JAMES GUERRERO MD Ot R59.0 LOCALIZED ENLARGED LYMPH NODES 03/09/2018 LUCIA FERNANDEZ MD Ot K76.9 LIVER DISEASE, UNSPECIFIED 03/09/2018 LUCIA FERNANDEZ MD Ot R59.0 LOCALIZED ENLARGED LYMPH NODES 03/10/2018 LUCIA FERNANDEZ MD Ot K76.9 LIVER DISEASE, UNSPECIFIED 03/10/2018 LUCIA FERNANDEZ MD Ot R59.0 LOCALIZED ENLARGED LYMPH NODES Procedures There is no data. Results Test Result Range Capillary blood glucose measurement by glucometer (mass/volume) - 02/28/18 15: 36 Capillary blood glucose measurement by glucometer (mass/volume) 132 mg/dL 70-110 Complete blood count (CBC) with automated white blood cell (WBC) differential - 02/28/18 15:52 Blood leukocytes automated count (number/volume) 11.3 10*3/uL 4.3-11.0 Blood erythrocytes automated count (number/volume) 4.38 10*6/uL 4.35-5.85 Venous blood hemoglobin measurement (mass/volume) 13.3 g/dL 11.5-16.0 Blood hematocrit (volume fraction) 40 % 35-52 Automated erythrocyte mean corpuscular volume 90 [foz_us] 80-99 Automated erythrocyte mean corpuscular hemoglobin (mass per erythrocyte) 30 pg 25-34 Automated erythrocyte mean corpuscular hemoglobin concentration measurement ( mass/volume) 34 g/dL 32-36 Automated erythrocyte distribution width ratio 12.8 % 10.0-14.5 Automated blood platelet count (count/volume) 381 10*3/uL 130-400 Automated blood platelet mean volume measurement 10.7 [foz_us] 7.4-10.4 Automated blood neutrophils/100 leukocytes 97 % 42-75 Automated blood lymphocytes/100 leukocytes 2 % 12-44 Blood monocytes/100 leukocytes 0 % 0-12 Automated blood eosinophils/100 leukocytes 0 % 0-10 Automated blood basophils/100 leukocytes 0 % 0-10 Blood neutrophils automated count (number/volume) 11.0 10*3 1.8-7.8 Blood lymphocytes automated count (number/volume) 0.3 10*3 1.0-4.0 Blood monocytes automated count (number/volume) 0.1 10*3 0.0-1.0 Automated eosinophil count 0.0 10*3/uL 0.0-0.3 Automated blood basophil count (count/volume) 0.0 10*3/uL 0.0-0.1 Blood manual differential performed detection - 02/28/18 15:52 Blood monocytes/100 leukocytes 1 % NRG Manual blood segmented neutrophils/100 leukocytes 77 % NRG Blood band neutrophils/100 leukocytes 15 % NRG Manual blood lymphocytes/100 leukocytes 7 % NRG Manual eosinophils/100 leukocytes in nose 0 % NRG Manual blood basophils/100 leukocytes 0 % NRG Blood erythrocyte morphology finding identification NORMAL NRG PT panel in platelet poor plasma by coagulation assay - 02/28/18 15:52 Prothrombin time (PT) in platelet poor plasma by coagulation assay 14.6 s 12.2-14.7 INR in platelet poor plasma or blood by coagulation assay 1.1 0.8-1.4 Activated partial thromboplastin time (aPTT) in platelet poor plasma bycoagulation assay - 02/28/18 15:52 Activated partial thromboplastin time (aPTT) in platelet poor plasma bycoagulation assay 23 s 24-35 Comprehensive metabolic panel - 02/28/18 15:52 Serum or plasma sodium measurement (moles/volume) 139 mmol/L 135-145 Serum or plasma potassium measurement (moles/volume) 3.4 mmol/L 3.6-5.0 Serum or plasma chloride measurement (moles/volume) 101 mmol/L 98-107 Carbon dioxide 21 mmol/L 21-32 Serum or plasma anion gap determination (moles/volume) 17 mmol/L 5-14 Serum or plasma urea nitrogen measurement (mass/volume) 20 mg/dL 7-18 Serum or plasma creatinine measurement (mass/volume) 0.86 mg/dL 0.60-1.30 Serum or plasma urea nitrogen/creatinine mass ratio 23 NRG Serum or plasma creatinine measurement with calculation of estimated glomerular filtration rate > NRG Serum or plasma glucose measurement (mass/volume) 163 mg/dL 70-105 Serum or plasma calcium measurement (mass/volume) 10.1 mg/dL 8.5-10.1 Serum or plasma total bilirubin measurement (mass/volume) 0.5 mg/dL 0.1-1.0 Serum or plasma alkaline phosphatase measurement (enzymatic activity/volume) 78 U/L 40-136 Serum or plasma aspartate aminotransferase measurement (enzymatic activity/ volume) 14 U/L 5-34 Serum or plasma alanine aminotransferase measurement (enzymatic activity/volume ) 14 U/L 0-55 Serum or plasma protein measurement (mass/volume) 6.5 g/dL 6.4-8.2 Serum or plasma albumin measurement (mass/volume) 3.9 g/dL 3.2-4.5 Magnesium - 02/28/18 15:52 Magnesium 1.5 mg/dL 1.8-2.4 Serum or plasma troponin i.cardiac measurement (mass/volume) - 02/28/18 15:52 Serum or plasma troponin i.cardiac measurement (mass/volume) < ng/ mL <0.30 THYROID STIMULATING HORMONE - 02/28/18 15:52 THYROID STIMULATING HORMONE 2.30 u[iU]/mL 0.35-4.94 Serum or plasma C reactive protein measurement (mass/volume) - 02/28/18 15:52 Serum or plasma C reactive protein measurement (mass/volume) 2.53 mg /dL 0.00-0.50 Serum or plasma salicylates measurement (mass/volume) - 02/28/18 15:52 Serum or plasma salicylates measurement (mass/volume) < mg/dL 5.0-20.0 Blood lactic acid measurement (moles/volume) - 02/28/18 15:52 Blood lactic acid measurement (moles/volume) 5.40 mmol/L 0.50-2.00 Serum or plasma acetaminophen measurement (mass/volume) - 02/28/18 15:52 Serum or plasma acetaminophen measurement (mass/volume) < ug/mL 10-30 Fibrin D-dimer FEU measurement in platelet poor plasma (mass/volume) - 15:52 Fibrin D-dimer FEU measurement in platelet poor plasma (mass/volume) 3.03 ug/mL 0.00-0.49 Serum or plasma ethanol measurement (mass/volume) - 02/28/18 15:52 Serum or plasma ethanol measurement (mass/volume) < mg/dL <10 Bacterial blood culture - 02/28/18 15:52 Bacterial blood culture NG NRG Bacterial blood culture - 02/28/18 16:10 Bacterial blood culture NG NRG Urine drug screening test - 02/28/18 16:50 Urine phencyclidine detection by screening method NEGATIVE NEGATIVE Urine benzodiazepines detection by screening method POSITIVE NEGATIVE Urine cocaine detection NEGATIVE NEGATIVE Urine amphetamines detection by screening method NEGATIVE NEGATIVE Urine methamphetamine detection by screening method NEGATIVE NEGATIVE Urine cannabinoids detection by screening method NEGATIVE NEGATIVE Urine opiates detection by screening method NEGATIVE NEGATIVE Urine barbiturates detection NEGATIVE NEGATIVE Screening urine tricyclic antidepressants detection POSITIVE NEGATIVE Urine methadone detection by screening method NEGATIVE NEGATIVE Urine oxycodone detection NEGATIVE NEGATIVE Urine propoxyphene detection NEGATIVE NEGATIVE Complete urinalysis with reflex to culture - 02/28/18 16:50 Urine color determination YELLOW NRG Urine clarity determination CLEAR NRG Urine pH measurement by test strip 6 5-9 Specific gravity of urine by test strip 1.020 1.016- 1.022 Urine protein assay by test strip, semi-quantitative 2+ NEGATIVE Urine glucose detection by automated test strip NEGATIVE NEGATIVE Erythrocytes detection in urine sediment by light microscopy 1+ NEGATIVE Urine ketones detection by automated test strip 1+ NEGATIVE Urine nitrite detection by test strip NEGATIVE NEGATIVE Urine total bilirubin detection by test strip 1+ NEGATIVE Urine urobilinogen measurement by automated test strip (mass/volume) 1 mg/dL NORMAL Urine leukocyte esterase detection by dipstick 1+ NEGATIVE Automated urine sediment erythrocyte count by microscopy (number/high power field) NONE NRG Automated urine sediment leukocyte count by microscopy (number/high power field ) [HPF] NRG Bacteria detection in urine sediment by light microscopy TRACE NRG Squamous epithelial cells detection in urine sediment by light microscopy 2-5 NRG Crystals detection in urine sediment by light microscopy NONE NRG Casts detection in urine sediment by light microscopy PRESENT NRG Mucus detection in urine sediment by light microscopy MODERATE NRG Complete urinalysis with reflex to culture NO NRG Hyaline casts detection in urine sediment by light microscopy >50 NRG Granular casts detection in urine sediment by light microscopy RARE NRG WBC casts detection in urine sediment by light microscopy RARE NRG Serum or plasma lactate measurement (moles/volume) - 02/28/18 17:50 Serum or plasma lactate measurement (moles/volume) 4.15 mmol/L 0.50-2.00 Methicillin resistant Staphylococcus aureus (MRSA) screening culture - 20:50 Methicillin resistant Staphylococcus aureus (MRSA) screening culture NEG NRG Urine drug screening test - 03/01/18 00:30 Urine phencyclidine detection by screening method NEGATIVE NEGATIVE Urine benzodiazepines detection by screening method POSITIVE NEGATIVE Urine cocaine detection NEGATIVE NEGATIVE Urine amphetamines detection by screening method NEGATIVE NEGATIVE Urine methamphetamine detection by screening method NEGATIVE NEGATIVE Urine cannabinoids detection by screening method NEGATIVE NEGATIVE Urine opiates detection by screening method NEGATIVE NEGATIVE Urine barbiturates detection NEGATIVE NEGATIVE Screening urine tricyclic antidepressants detection POSITIVE NEGATIVE Urine methadone detection by screening method NEGATIVE NEGATIVE Urine oxycodone detection NEGATIVE NEGATIVE Urine propoxyphene detection NEGATIVE NEGATIVE Complete blood count (CBC) with automated white blood cell (WBC) differential - 03/01/18 03:35 Blood leukocytes automated count (number/volume) 25.9 10*3/uL 4.3-11.0 Blood erythrocytes automated count (number/volume) 3.37 10*6/uL 4.35-5.85 Venous blood hemoglobin measurement (mass/volume) 10.4 g/dL 11.5-16.0 Blood hematocrit (volume fraction) 31 % 35-52 Automated erythrocyte mean corpuscular volume 91 [foz_us] 80-99 Automated erythrocyte mean corpuscular hemoglobin (mass per erythrocyte) 31 pg 25-34 Automated erythrocyte mean corpuscular hemoglobin concentration measurement ( mass/volume) 34 g/dL 32-36 Automated erythrocyte distribution width ratio 12.9 % 10.0-14.5 Automated blood platelet count (count/volume) 310 10*3/uL 130-400 Automated blood platelet mean volume measurement 10.8 [foz_us] 7.4-10.4 Automated blood neutrophils/100 leukocytes 91 % 42-75 Automated blood lymphocytes/100 leukocytes 4 % 12-44 Blood monocytes/100 leukocytes 5 % 0-12 Automated blood eosinophils/100 leukocytes 0 % 0-10 Automated blood basophils/100 leukocytes 0 % 0-10 Blood neutrophils automated count (number/volume) 23.6 10*3 1.8-7.8 Blood lymphocytes automated count (number/volume) 1.0 10*3 1.0-4.0 Blood monocytes automated count (number/volume) 1.2 10*3 0.0-1.0 Automated eosinophil count 0.1 10*3/uL 0.0-0.3 Automated blood basophil count (count/volume) 0.0 10*3/uL 0.0-0.1 Comprehensive metabolic panel - 03/01/18 03:35 Serum or plasma sodium measurement (moles/volume) 140 mmol/L 135-145 Serum or plasma potassium measurement (moles/volume) 3.4 mmol/L 3.6-5.0 Serum or plasma chloride measurement (moles/volume) 108 mmol/L 98-107 Carbon dioxide 23 mmol/L 21-32 Serum or plasma anion gap determination (moles/volume) 9 mmol/L 5-14 Serum or plasma urea nitrogen measurement (mass/volume) 13 mg/dL 7-18 Serum or plasma creatinine measurement (mass/volume) 0.57 mg/dL 0.60-1.30 Serum or plasma urea nitrogen/creatinine mass ratio 23 NRG Serum or plasma creatinine measurement with calculation of estimated glomerular filtration rate > NRG Serum or plasma glucose measurement (mass/volume) 117 mg/dL 70-105 Serum or plasma calcium measurement (mass/volume) 8.4 mg/dL 8.5-10.1 Serum or plasma total bilirubin measurement (mass/volume) 0.3 mg/dL 0.1-1.0 Serum or plasma alkaline phosphatase measurement (enzymatic activity/volume) 61 U/L 40-136 Serum or plasma aspartate aminotransferase measurement (enzymatic activity/ volume) 24 U/L 5-34 Serum or plasma alanine aminotransferase measurement (enzymatic activity/volume ) 17 U/L 0-55 Serum or plasma protein measurement (mass/volume) 5.5 g/dL 6.4-8.2 Serum or plasma albumin measurement (mass/volume) 3.3 g/dL 3.2-4.5 Serum or plasma phosphate measurement (mass/volume) - 03/01/18 03:35 Serum or plasma phosphate measurement (mass/volume) 4.0 mg/dL 2.3-4.7 Magnesium - 03/01/18 03:35 Magnesium 1.7 mg/dL 1.8-2.4 Complete blood count (CBC) with automated white blood cell (WBC) differential - 03/02/18 05:01 Blood leukocytes automated count (number/volume) 17.6 10*3/uL 4.3-11.0 Blood erythrocytes automated count (number/volume) 3.75 10*6/uL 4.35-5.85 Venous blood hemoglobin measurement (mass/volume) 11.4 g/dL 11.5-16.0 Blood hematocrit (volume fraction) 34 % 35-52 Automated erythrocyte mean corpuscular volume 91 [foz_us] 80-99 Automated erythrocyte mean corpuscular hemoglobin (mass per erythrocyte) 30 pg 25-34 Automated erythrocyte mean corpuscular hemoglobin concentration measurement ( mass/volume) 34 g/dL 32-36 Automated erythrocyte distribution width ratio 13.0 % 10.0-14.5 Automated blood platelet count (count/volume) 318 10*3/uL 130-400 Automated blood platelet mean volume measurement 11.0 [foz_us] 7.4-10.4 Automated blood neutrophils/100 leukocytes 86 % 42-75 Automated blood lymphocytes/100 leukocytes 7 % 12-44 Blood monocytes/100 leukocytes 6 % 0-12 Automated blood eosinophils/100 leukocytes 2 % 0-10 Automated blood basophils/100 leukocytes 0 % 0-10 Blood neutrophils automated count (number/volume) 15.1 10*3 1.8-7.8 Blood lymphocytes automated count (number/volume) 1.2 10*3 1.0-4.0 Blood monocytes automated count (number/volume) 1.1 10*3 0.0-1.0 Automated eosinophil count 0.3 10*3/uL 0.0-0.3 Automated blood basophil count (count/volume) 0.0 10*3/uL 0.0-0.1 Vancomycin trough - 03/02/18 05:01 Vancomycin trough 6.3 ug/mL 10.0-20.0 Complete blood count (CBC) with automated white blood cell (WBC) differential - 03/03/18 05:25 Blood leukocytes automated count (number/volume) 14.6 10*3/uL 4.3-11.0 Blood erythrocytes automated count (number/volume) 3.90 10*6/uL 4.35-5.85 Venous blood hemoglobin measurement (mass/volume) 11.9 g/dL 11.5-16.0 Blood hematocrit (volume fraction) 35 % 35-52 Automated erythrocyte mean corpuscular volume 90 [foz_us] 80-99 Automated erythrocyte mean corpuscular hemoglobin (mass per erythrocyte) 31 pg 25-34 Automated erythrocyte mean corpuscular hemoglobin concentration measurement ( mass/volume) 34 g/dL 32-36 Automated erythrocyte distribution width ratio 12.7 % 10.0-14.5 Automated blood platelet count (count/volume) 343 10*3/uL 130-400 Automated blood platelet mean volume measurement 10.7 [foz_us] 7.4-10.4 Automated blood neutrophils/100 leukocytes 85 % 42-75 Automated blood lymphocytes/100 leukocytes 7 % 12-44 Blood monocytes/100 leukocytes 7 % 0-12 Automated blood eosinophils/100 leukocytes 1 % 0-10 Automated blood basophils/100 leukocytes 0 % 0-10 Blood neutrophils automated count (number/volume) 12.4 10*3 1.8-7.8 Blood lymphocytes automated count (number/volume) 1.1 10*3 1.0-4.0 Blood monocytes automated count (number/volume) 1.0 10*3 0.0-1.0 Automated eosinophil count 0.2 10*3/uL 0.0-0.3 Automated blood basophil count (count/volume) 0.0 10*3/uL 0.0-0.1 Comprehensive metabolic panel - 03/03/18 05:25 Serum or plasma sodium measurement (moles/volume) 140 mmol/L 135-145 Serum or plasma potassium measurement (moles/volume) 3.2 mmol/L 3.6-5.0 Serum or plasma chloride measurement (moles/volume) 102 mmol/L 98-107 Carbon dioxide 27 mmol/L 21-32 Serum or plasma anion gap determination (moles/volume) 11 mmol/L 5-14 Serum or plasma urea nitrogen measurement (mass/volume) 4 mg/dL 7-18 Serum or plasma creatinine measurement (mass/volume) 0.59 mg/dL 0.60-1.30 Serum or plasma urea nitrogen/creatinine mass ratio 7 NRG Serum or plasma creatinine measurement with calculation of estimated glomerular filtration rate > NRG Serum or plasma glucose measurement (mass/volume) 123 mg/dL 70-105 Serum or plasma calcium measurement (mass/volume) 9.3 mg/dL 8.5-10.1 Serum or plasma total bilirubin measurement (mass/volume) 0.4 mg/dL 0.1-1.0 Serum or plasma alkaline phosphatase measurement (enzymatic activity/volume) 89 U/L 40-136 Serum or plasma aspartate aminotransferase measurement (enzymatic activity/ volume) 17 U/L 5-34 Serum or plasma alanine aminotransferase measurement (enzymatic activity/volume ) 21 U/L 0-55 Serum or plasma protein measurement (mass/volume) 6.9 g/dL 6.4-8.2 Serum or plasma albumin measurement (mass/volume) 3.7 g/dL 3.2-4.5 Automated blood complete blood count (hemogram) panel - 03/11/18 10:00 Blood leukocytes automated count (number/volume) 25.3 10*3/uL 4.3-11.0 Blood erythrocytes automated count (number/volume) 3.91 10*6/uL 4.35-5.85 Venous blood hemoglobin measurement (mass/volume) 11.4 g/dL 11.5-16.0 Blood hematocrit (volume fraction) 34 % 35-52 Automated erythrocyte mean corpuscular volume 88 [foz_us] 80-99 Automated erythrocyte mean corpuscular hemoglobin (mass per erythrocyte) 29 pg 25-34 Automated erythrocyte mean corpuscular hemoglobin concentration measurement ( mass/volume) 33 g/dL 32-36 Automated erythrocyte distribution width ratio 13.2 % 10.0-14.5 Automated blood platelet count (count/volume) 704 10*3/uL 130-400 Automated blood platelet mean volume measurement 9.6 [foz_us] 7.4-10.4 PT panel in platelet poor plasma by coagulation assay - 03/11/18 10:00 Prothrombin time (PT) in platelet poor plasma by coagulation assay 16.5 s 12.2-14.7 INR in platelet poor plasma or blood by coagulation assay 1.3 0.8-1.4 Activated partial thromboplastin time (aPTT) in platelet poor plasma bycoagulation assay - 03/11/18 10:00 Activated partial thromboplastin time (aPTT) in platelet poor plasma bycoagulation assay 31 s 24-35 Capillary blood glucose measurement by glucometer (mass/volume) - 03/11/18 10: 14 Capillary blood glucose measurement by glucometer (mass/volume) 171 mg/dL 70-110 Encounters ACCT No. Visit Date/Time Discharge Status Pt. Type Provider Facility Loc./Unit Complaint [id number] 03/08/2018 09:53:00 03/08/2018 23:59:59 CLS Outpatient JIM KHAN, LUCIA Wiley [facility] RAD RETROPERITONEUM, LYMPHADENOPATHY [id number] 02/28/2018 19:18:00 03/03/2018 13:40:00 DIS Inpatient YOLANDA KHAN, JAMES Hightower [facility] 4TH SEVERE SEPSIS,PNA BILATERAL BASES [id number] 02/28/2018 15:08:00 02/28/2018 23:59:59 CLS Outpatient LA HINDS DO [facility] RAD LOWER ABDOMINAL PAIN [id number] 02/15/2018 13:12:00 02/15/2018 23:59:59 CLS Outpatient GLYNN GRATN APRN [facility] REHAB LUMBAR RADICULOPATHY; DDD; SPONDYLOSIS [id number] 01/19/2018 10:14:00 01/19/2018 23:59:59 CLS Outpatient LA HINDS DO [facility] RAD M54.5 [id number] 01/17/2018 15:21:00 01/17/2018 23:59:59 CLS Outpatient DORENE BERMUDEZ [facility] RAD Z12.31 SCREENING [id number] 01/06/2018 14:28:00 01/06/2018 23:59:59 CLS Outpatient LA HINDS DO [facility] RAD M54.5 [id number] 08/05/2015 07:18:00 08/05/2015 09:30:00 DIS Outpatient LUCIA FERNANDEZ MD [facility] SDC [id number] 08/01/2015 05:43:00 08/01/2015 23:59:59 CLS Outpatient LUCIA FERNANDEZ MD [facility] PREOP [id number] 06/28/2015 12:42:00 06/28/2015 23:59:59 CLS Outpatient BRAYDON ELDER DO [facility] RAD [id number] 05/23/2014 14:25:00 05/23/2014 23:59:59 CLS Outpatient KENDRICK ELDER DOA C [facility] RAD [id number] 03/28/2013 09:24:00 03/29/2013 11:05:00 DIS Inpatient KENDRICK ELDER DOA C [facility] WS [id number] 03/22/2013 11:16:00 03/22/2013 23:59:59 CLS Outpatient BRAYDON ELDER DO C [facility] PREOP [id number] 03/22/2013 11:08:00 03/22/2013 23:59:59 CLS Outpatient KENDRICK ELDER DOA C [facility] RAD [id number] 03/21/2018 11:00:00 PEN Preadmit LUCIA FERNANDEZ MD [facility] ENDO ABNORMAL PET SCAN/GERD [id number] 03/11/2018 09:12:00 ACT Outpatient LUCIA FERNANDEZ MD [facility] RAD R93.2 ABNORMAL PET SCAN,LIVER
[2018-03-13] MEDS ORDERED: fentaNYL INJECTION 100 MCG/2 ML AMP IVP STA (13:02)
[2018-03-13] MEDS ORDERED: NS IV 1000 ML 1,000 ML IV ONE (13:02)
[2018-03-13 13:05] LABS: BASOPHILS # (AUTO) 0.1 10^3/uL (0.0-0.1); BASOPHILS % (AUTO) 0 % (0-10); EOSINOPHILS # (AUTO) 0.1 10^3/uL (0.0-0.3); EOSINOPHILS % (AUTO) 1 % (0-10); HEMATOCRIT 34 % (35-52); HEMOGLOBIN 11.8 G/DL (11.5-16.0); LYMPHOCYTES # (AUTO) 0.8 X 10^3 (1.0-4.0); LYMPHOCYTES % (AUTO) 6 % (12-44); MEAN CORPUSCULAR HEMOGLOBIN 31 PG (25-34); MEAN CORPUSCULAR HGB CONC 35 G/DL (32-36); MEAN CORPUSCULAR VOLUME 88 FL (80-99); MEAN PLATELET VOLUME 10.6 FL (7.4-10.4); MONOCYTES # (AUTO) 0.9 X 10^3 (0.0-1.0); MONOCYTES % (AUTO) 7 % (0-12); NEUTROPHILS # (AUTO) 11.8 X 10^3 (1.8-7.8); NEUTROPHILS % (AUTO) 87 % (42-75); PLATELET COUNT 764 10^3/uL (130-400); RED BLOOD COUNT 3.83 10^6/uL (4.35-5.85); RED CELL DISTRIBUTION WIDTH 13.9 % (10.0-14.5); WHITE BLOOD COUNT 13.7 10^3/uL (4.3-11.0)
[2018-03-13] MEDS ORDERED: ONDANSETRON 4 MG/2 ML (SDV) Z0FRAN IVP ONE (13:15)
[2018-03-13] MEDS ORDERED: IOHEXOL 350 MG/ML 100 ML (OMNIPAQUE 350) VIAL IV ONE (13:15)
[2018-03-13] MEDS ORDERED: NS 100 ML (IVPB) BAG IV ONE (13:15)
[2018-03-13 13:27] LABS: CLARITY,URINE CLEAR; COLOR,URINE YELLOW; GLUCOSE, URINE (UA) NEGATIVE (NEGATIVE); KETONES,URINE NEGATIVE (NEGATIVE); LEUKOCYTE ESTERASE ,URINE 1+ (NEGATIVE); NITRITE,URINE NEGATIVE (NEGATIVE); PH,URINE 5 (5-9); PROTEIN,URINE 2+ (NEGATIVE); UROBILINOGEN,URINE 1 MG/DL (NORMAL)
[2018-03-13] MEDS ORDERED: PIPERACILLIN SODIUM/TAZOBACTAM 4.5 GM in NS (IVPB) 100 ML IV ONE (13:30)
[2018-03-13 13:31] LABS: INR 1.4 (0.8-1.4); PROTHROMBIN TIME PATIENT 17.4 SEC (12.2-14.7)
[2018-03-13 13:41] LABS: BACTERIA,URINE TRACE /HPF; BILIRUBIN,URINE 1+ (NEGATIVE)
[2018-03-13 13:48] LABS: BAND NEUTROPHILS 16 %; LYMPHOCYTES % (MANUAL) 8 %; METAMYELOCYTES % 6 %; MONOCYTES % (MANUAL) 9 %; NEUTROPHILS % (MANUAL) 61 %
[2018-03-13 13:49] LABS: BURR CELLS MODERATE; HYPOCHROMASIA MARKED; POLYCHROMASIA SLIGHT
--- NOTE | 2018-03-13 14:25 | Diagnostic Imaging Report ---
PROCEDURE: CT abdomen and pelvis with contrast. TECHNIQUE: Multiple contiguous axial images were obtained through the abdomen and pelvis after administration of intravenous contrast. INDICATION: Abdominal pain. Recent liver biopsy. COMPARISON: CT-guided liver biopsy 03/11/2018. Nuclear medicine FDG PET/CT 03/08/2018. FINDINGS: Airspace consolidation in the lung bases, right greater than left. This has progressed since 03/08/2018. Innumerable low-attenuation lesions scattered throughout the liver, the largest in the posterior right hepatic lobe measuring up to 1.7 cm. The gallbladder, pancreas, spleen, adrenals, kidneys and collecting systems are negative. Alcazar catheter within a decompressed bladder. Soft tissue attenuation in the retroperitoneum below the level of the celiac axis about the abdominal aorta to its bifurcation consistent with conglomerate lymphadenopathy. This measures approximately 2.2 x 1.3 x 8.6 cm. Mild colonic diverticulosis. Focal narrowing of the fourth portion of the duodenum without wall thickening evident. Several centimeters proximal to the ileocecal valve, there is a focal disruption of the distal ileum with adjacent edema and locules of gas free within the mesentery. This is best seen on series 3, images 77-82. There are several loops of fluid and gas filled dilated small bowel. No discrete fluid collections are identified. Moderate spondylotic changes in the visualized spine. No acute osseous findings. IMPRESSION: 1. CT findings suspicious for disruption/perforation of the distal ileum several centimeters proximal to the ileocecal valve. There is a small to moderate amount of free fluid and locules of gas in the region. No organized fluid collections. 2. Several loops of dilated gas and fluid-filled small bowel without a discrete focal transition point identified. 3. Nonspecific focal narrowing of the fourth portion of the duodenum may be paroxysmal. However, this occurs as it passes by the retroperitoneal lymphadenopathy and may be due to adhesions/stricture. Findings discussed with Wilda Monroy PA-C at 2:20 PM on 03/13/2018. Dictated by: Dictated on workstation # [id number]
--- NOTE | 2018-03-13 14:29 | ED Abdominal Pain ---
General Chief Complaint: Abdominal/GI Problems Stated Complaint: STOMACH PAIN (LIVER BIOPSY WEDNESDAY) Nursing Triage Note: PT CO OF ABD PAIN, PT STATES HAS HAD LIVER BX ON WEDNESDAY, ABD DISTENDED AND TENDER. PT SKIN COOL TO TOUCH DIAPHORETIC. Sepsis Screen: No Definite Risk Source of Information: Patient, Family (daughter and son-in-law) Exam Limitations: No Limitations History of Present Illness Date Seen by Provider: Mar 13, 2018 Time Seen by Provider: 12:43 Initial Comments 57-year-old female patient presents to the emergency department complaints of generalized abdominal pain and swelling. Patient reports symptoms have progressively gotten worse since having a CT-guided liver biopsy on Wednesday as an outpatient. Patient is reportedly being worked up for possible liver cancer versus lymphoma. Patient does report fevers at home, but does not recall the exact temperature. Reports poor appetite and fluid intake. Timing/Duration: 1-2 Days, Getting Worse Severity/Quality: Severe Location: Generalized Abdomen Radiation: No Radiation Activities at Onset: None Modifying Factors: Worsens With Movement, Worsens With Palpation Allergies and Home Medications Allergies Coded Allergies: lisinopril (Unverified Allergy, Unknown, 08/05/15) prednisone (Verified Adverse Reaction, Intermediate, ELEVATED BLOOD PRESSURE, 08/05/15) Home Medications Amitriptyline HCl 25 Mg Tablet, 25 MG PO HS, (Reported) Cyclobenzaprine HCl 10 Mg Tablet, 10 MG PO HS, (Reported) Estradiol 0.5 Mg Tablet, 0.5 MG PO HS, (Reported) Furosemide 20 Mg Tablet, 20 MG PO DAILY, (Reported) Gemfibrozil 600 Mg Tablet, 600 MG PO BID, (Reported) Ibuprofen 200 Mg Tablet, 600 MG PO BID, (Reported) TAKES 3 (200 MG) TABLETS Levothyroxine Sodium 88 Mcg Tablet, 88 MCG PO DAILY, (Reported) Lysine HCl 500 Mg Tablet, 1,000 MG PO HS, (Reported) Metformin HCl 500 Mg Tablet, 500 MG PO BID, (Reported) Metoprolol Tartrate 50 Mg Tablet, 50 MG PO BID, (Reported) Mv, Min #36/Iron,Carbonyl/FA 1 Each Tablet, 1 TAB PO DAILY, (Reported) Niacinamide 500 Mg Tablet, 500 MG PO DAILY, (Reported) Omeprazole 20 Mg Capsule.dr, 20 MG PO HS, (Reported) Tramadol HCl 50 Mg Tablet, 50-100 MG PO Q6H PRN for PAIN-MODERATE, (Reported) TAKES 1-2 OF A (50 MG) TABLET Vitamin B Complex 1 Each Tablet, 1 TAB PO HS, (Reported) Patient Home Medication List Home Medication List Reviewed: Yes Review of Systems Constitutional: see HPI, chills, diaphoresis, fever, malaise, weakness EENTM: No Symptoms Reported Respiratory: Denies Cough, Denies Shortness of Air Cardiovascular: Denies Chest Pain, Denies Palpitations Gastrointestinal: See HPI, Abdomen Distended, Abdominal Pain; Denies Blood Streaked Stools, Denies Constipated, Denies Diarrhea; Nausea, Poor Appetite, Poor Fluid Intake; Denies Rectal Bleeding; Vomiting Genitourinary: No Symptoms Reported Musculoskeletal: no symptoms reported Skin: No change in color, No pruritus, No rash Psychiatric/Neurological: No Symptoms Reported All Other Systems Reviewed Negative Unless Noted: Yes (Negative excepted noted.) Past [id number]-Qskrpm-Yfbegy Hx Patient Social History 2nd Hand Smoke Exposure: No Recent Foreign Travel: No Contact w/Someone Who Travel: No Recent Infectious Disease Expo: No Immunizations Up To Date Tetanus Booster (TDap): Unknown Date of Pneumonia Vaccine: Aug 04, 2013 Past Medical History Surgeries: Yes (NECK SX FOR PINCHED NERVE, WISDOM TEETH) Respiratory: Yes (ASTHMA) Asthma, Sleep Apnea Cardiac: Yes Hypertension Neurological: No Genitourinary: No Benign Prostatic Hyperpl Gastrointestinal: Yes Gastroesophageal Reflux Musculoskeletal: Yes (FIBROMYALGIA) Arthritis, Fibromyalgia Endocrine: Yes Hypothyroidsim, Diabetes, Non-Insulin dep HEENT: No Cancer: Yes Cervical Psychosocial: No Integumentary: No Blood Disorders: No Family Medical History Reviewed Nursing Family Hx No Pertinent Family Hx, Cancer Physical Exam Vital Signs Vital Signs - First Documented 03/13/18 12:36 Temp 98.2 Pulse 103 Resp 18 B/P (MAP) 120/75 (90) Pulse Ox 97 Capillary Refill : Less Than 3 Seconds General Appearance: WD/WN, no apparent distress HEENT: PERRL/EOMI, pharynx normal Neck: supple, normal inspection Respiratory: lungs clear, normal breath sounds, no respiratory distress, no accessory muscle use Cardiovascular: no murmur, tachycardia Gastrointestinal: no pulsatile mass, abnormal bowel sounds (hypoactive bowel sounds), distended, guarding, rebound, tenderness Extremities: no pedal edema, no calf tenderness, normal capillary refill Back: normal inspection, no CVA tenderness Neurologic/Psychiatric: alert, oriented x 3, depressed affect Skin: warm/dry, diaphoresis, pallor Focused Exam Lactate Level Time of Focused Exam: 13:20 Respiratory: Lungs Clear, Normal Breath Sounds, No Accessory Muscle Use, No Respiratory Distress Cardiovascular: Tachycardia Capillary Refill: Less Than 3 Seconds Peripheral Pulses: 2+ Dorsalis Pedis (R), 2+ Left Dors-Pedis (L), 2+ Radial Pulses (R), 2+ Radial Pulses (L) Skin: diaphoresis, pallor Lactic Acid Level Progress/Results/Core Measures Lab Results Laboratory Tests Test 03/13/18 12:43 03/13/18 12:53 03/13/18 13:13 Range/Units Glucometer 225 H 70-110 MG/DL White Blood Count 13.7 H 4.3-11.0 10^3/uL Red Blood Count 3.83 L 4.35-5.85 10^6/uL Hemoglobin 11.8 11.5-16.0 G/DL Hematocrit 34 L 35-52 % Mean Corpuscular Volume 88 80-99 FL Mean Corpuscular Hemoglobin 31 25-34 PG Mean Corpuscular Hemoglobin Concent 35 32-36 G/DL Red Cell Distribution Width 13.9 10.0-14.5 % Platelet Count 764 H 130-400 10^3/uL Mean Platelet Volume 10.6 H 7.4-10.4 FL Neutrophils (%) (Auto) 87 H 42-75 % Lymphocytes (%) (Auto) 6 L 12-44 % Monocytes (%) (Auto) 7 0-12 % Eosinophils (%) (Auto) 1 0-10 % Basophils (%) (Auto) 0 0-10 % Neutrophils # (Auto) 11.8 H 1.8-7.8 X 10^3 Lymphocytes # (Auto) 0.8 L 1.0-4.0 X 10^3 Monocytes # (Auto) 0.9 0.0-1.0 X 10^3 Eosinophils # (Auto) 0.1 0.0-0.3 10^3/uL Basophils # (Auto) 0.1 0.0-0.1 10^3/uL Neutrophils % (Manual) 61 % Lymphocytes % (Manual) 8 % Monocytes % (Manual) 9 % Metamyelocytes % 6 % Band Neutrophils 16 % Polychromasia SLIGHT Hypochromasia MARKED Kumar Cells MODERATE Prothrombin Time 17.4 H 12.2-14.7 SEC INR Comment 1.4 0.8-1.4 Activated Partial Thromboplast Time 31 24-35 SEC Urine Color YELLOW Urine Clarity CLEAR Urine pH 5 5-9 Urine Specific [place] 1.020 1.016-1.022 Urine Protein 2+ H NEGATIVE Urine Glucose (UA) NEGATIVE NEGATIVE Urine Ketones NEGATIVE NEGATIVE Urine Nitrite NEGATIVE NEGATIVE Urine Bilirubin 1+ H NEGATIVE Urine Urobilinogen 1 NORMAL MG/DL Urine Leukocyte Esterase 1+ H NEGATIVE Urine RBC (Auto) NEGATIVE NEGATIVE Urine RBC NONE /HPF Urine WBC NONE /HPF Urine Squamous Epithelial Cells 10-25 H /HPF Urine Crystals NONE /LPF Urine Bacteria TRACE /HPF Urine Casts NONE /LPF Urine Mucus NEGATIVE /LPF Urine Culture Indicated NO My Orders Orders - DEVEN MONROY Saline Lock/Iv-Start (03/13/18 12:48) Cbc With Automated Diff (03/13/18 12:48) Comprehensive Metabolic Panel (03/13/18 12:48) Lipase (03/13/18 12:48) Ua Culture If Indicated (03/13/18 12:48) Ekg Tracing (03/13/18 13:02) Lactic Acid Analyzer (03/13/18 13:02) Protime With Inr (03/13/18 13:02) Partial Thromboplastin Time (03/13/18 13:02) Type And Screen (03/13/18 13:02) Blood Culture (03/13/18 13:02) Ct Abdomen/Pelvis W (03/13/18 13:02) Saline Lock/Iv-Start (03/13/18 13:02) Ns Iv 1000 Ml (Sodium Chloride 0.9%) (03/13/18 13:02) Fentanyl Injection (Sublimaze Injection (03/13/18 13:02) Ondansetron Injection (Zofran Injectio (03/13/18 13:15) Manual Differential (03/13/18 12:53) Iohexol Injection (Omnipaque 350 Mg/Ml 1 (03/13/18 13:15) Ns (Ivpb) (Sodium Chloride 0.9% Ivpb Bag (03/13/18 13:15) Saline Lock/Iv-Start (03/13/18 13:18) Piperacillin Sodium/Tazobactam (Zosyn Vi (03/13/18 13:30) Ns Iv 1000 Ml (Sodium Chloride 0.9%) (03/13/18 14:45) Ns Iv 1000 Ml (Sodium Chloride 0.9%) (03/13/18 14:45) Medications Given in ED Current Medications Medications Dose Ordered Sig/Elver Route Start Time Stop Time Status Last Admin Dose Admin Iohexol 100 ml ONCE ONCE IV 03/13/18 13:15 03/13/18 13:16 DC 03/13/18 13:58 100 ML Ondansetron HCl 4 mg ONCE ONCE IVP 03/13/18 13:15 03/13/18 13:16 DC 03/13/18 13:23 4 MG Piperacillin Sod/ Tazobactam Sod 4.5 gm/Sodium Chloride 100 ml @ 200 mls/hr ONCE ONCE IV 03/13/18 13:30 03/13/18 13:59 DC 03/13/18 14:34 200 MLS/HR Sodium Chloride 1,000 ml @ 0 mls/hr Q0M ONCE IV 03/13/18 13:02 03/13/18 13:04 DC 03/13/18 13:30 1,000 MLS/HR Vital Signs/I&O 03/13/18 12:36 Temp 98.2 Pulse 103 Resp 18 B/P (MAP) 120/75 (90) Pulse Ox 97 Blood Pressure Mean: 90 Initial ECG Impression Date: Mar 13, 2018 Initial ECG Impression Time: 13:08 Initial ECG Rate: 101 Initial ECG Rhythm: S.Tach Initial ECG Comparisson: Changed Comment Sinus tachycardia with LVH. Borderline prolonged QT interval. ECG reviewed with Alexis Hernandez MD. Diagonstic Imaging: CT Plain Films/CT/US/NM/MRI: abdomen, pelvis Comments CT ABDOMEN/PELVIS W PROCEDURE: CT abdomen and pelvis with contrast. TECHNIQUE: Multiple contiguous axial images were obtained through the abdomen and pelvis after administration of intravenous contrast. INDICATION: Abdominal pain. Recent liver biopsy. COMPARISON: CT-guided liver biopsy 03/11/2018. Nuclear medicine FDG PET/CT 03/08/2018. FINDINGS: Airspace consolidation in the lung bases, right greater than left. This has progressed since 03/08/2018. Innumerable low-attenuation lesions scattered throughout the liver, the largest in the posterior right hepatic lobe measuring up to 1.7 cm. The gallbladder, pancreas, spleen, adrenals, kidneys and collecting systems are negative. Alcazar catheter within a decompressed bladder. Soft tissue attenuation in the retroperitoneum below the level of the celiac axis about the abdominal aorta to its bifurcation consistent with conglomerate lymphadenopathy. This measures approximately 2.2 x 1.3 x 8.6 cm. Mild colonic diverticulosis. Focal narrowing of the fourth portion of the duodenum without wall thickening evident. Several centimeters proximal to the ileocecal valve, there is a focal disruption of the distal ileum with adjacent edema and locules of gas free within the mesentery. This is best seen on series 3, images 77-82. There are several loops of fluid and gas filled dilated small bowel. No discrete fluid collections are identified. Moderate spondylotic changes in the visualized spine. No acute osseous findings. IMPRESSION: 1. CT findings suspicious for disruption/ perforation of the distal ileum several centimeters proximal to the ileocecal valve. There is a small to moderate amount of free fluid and locules of gas in the region. No organized fluid collections. 2. Several loops of dilated gas and fluid-filled small bowel without a discrete focal transition point identified. 3. Nonspecific focal narrowing of the fourth portion of the duodenum may be paroxysmal. However, this occurs as it passes by the retroperitoneal lymphadenopathy and may be due to adhesions/stricture. Findings discussed with Deven Monroy PA-C at 2:20 PM on 03/13/2018. Dictated by: Dictated on workstation # [id number] Reviewed: Reviewed by Me (radiology report reviewed by me and discussed with Dr. Alvarez) Departure Communication (Admissions) Time/Spoke to Admitting Phy: 14:22 Dr. Clarke graciously accepts patient to his general surgery service for IV antibiotics, IV fluids, pain control, and further management. Time/Spoke to Consulting Phy: 14:35 Dr. Aguilar notified of consult for medical management. Patient seen and evaluated. Initial sepsis workup obtained with findings of a small bowel perforation on CT scan. Patient case discussed with Dr. Clarke, who graciously accepts patient to his surgical service. Request patient to be admitted to ICU with an NG tube, pain control, and anti-emetics. All laboratory findings, diagnostic study findings, and recommendations by Dr. Clarke for admission discussed with the patient and family. All verbalize understanding and agree with the treatment plan. Impression Primary Impression: Sepsis Additional Impressions: Small bowel perforation Diabetes mellitus Acute renal failure Disposition: ADMITTED INPATIENT Condition: Stable Admissions Decision to Admit Reason: Admit from ER (General) Decision to Admit/Date: Mar 13, 2018 Time/Decision to Admit Time: 14:22 Departure-Patient Inst. Referrals: LA HINDS DO (PCP/Family) Primary Care Physician DEVEN MONROY Mar 13, 2018 14:28
[2018-03-13] MEDS ORDERED: NS 1000 ML IV BAG IV ONE (14:45)
[2018-03-13] MEDS ORDERED: NS IV 1000 ML 1,000 ML IV SCH (14:45)
[2018-03-13 15:11] LABS: ALANINE AMINOTRANSFERASE 37 U/L (0-55); ALBUMIN 2.8 GM/DL (3.2-4.5); ALKALINE PHOSPHATASE 98 U/L (40-136); BILIRUBIN,TOTAL 0.5 MG/DL (0.1-1.0); BUN/CREATININE RATIO 18; CALCIUM 10.1 MG/DL (8.5-10.1); CARBON DIOXIDE 27 MMOL/L (21-32); CHLORIDE 92 MMOL/L (98-107); CREATININE SERUM 2.69 MG/DL (0.60-1.30); GFR ESTIMATED 18; GLUCOSE 159 MG/DL (70-105); LIPASE < 4 U/L (8-78); POTASSIUM 3.5 MMOL/L (3.6-5.0); SODIUM 137 MMOL/L (135-145); TOTAL PROTEIN 6.2 GM/DL (6.4-8.2)
[2018-03-13] MEDS ORDERED: morphine INJ 10 MG/ML 1ML (SYR OR VIAL) ONE (15:41)
[2018-03-13] MEDS ORDERED: KETOROLAC 30 MG/ML VIAL ONE (17:31)
[2018-03-13] MEDS ORDERED: D5 NS 1000 ML IV SOLUTION 1,000 ML IV ONE (17:31)
[2018-03-13] MEDS ORDERED: TRAM50TA2 PO (18:01)
[2018-03-13] MEDS ORDERED: VITA1TAB17 PO (18:01)
[2018-03-13 18:15] LABS: BASOPHILS % (AUTO) 0 % (0-10); EOSINOPHILS % (AUTO) 0 % (0-10); HEMATOCRIT 28 % (35-52); HEMOGLOBIN 9.3 G/DL (11.5-16.0); LYMPHOCYTES # (AUTO) 0.7 X 10^3 (1.0-4.0); LYMPHOCYTES % (AUTO) 5 % (12-44); MEAN CORPUSCULAR HEMOGLOBIN 30 PG (25-34); MEAN CORPUSCULAR HGB CONC 34 G/DL (32-36); MEAN CORPUSCULAR VOLUME 90 FL (80-99); MEAN PLATELET VOLUME 9.3 FL (7.4-10.4); MONOCYTES # (AUTO) 0.8 X 10^3 (0.0-1.0); MONOCYTES % (AUTO) 7 % (0-12); NEUTROPHILS # (AUTO) 10.9 X 10^3 (1.8-7.8); NEUTROPHILS % (AUTO) 88 % (42-75); PLATELET COUNT 613 10^3/uL (130-400); RED BLOOD COUNT 3.09 10^6/uL (4.35-5.85); RED CELL DISTRIBUTION WIDTH 13.6 % (10.0-14.5); WHITE BLOOD COUNT 12.4 10^3/uL (4.3-11.0)
[2018-03-13] MEDS ORDERED: fentaNYL INJECTION 100 MCG/2 ML AMP ONE (18:29)
[2018-03-13 18:30] LABS: CALCIUM 9.5 MG/DL (8.5-10.1); CREATININE SERUM 2.2 MG/DL (0.60-1.30); POTASSIUM 3.5 MMOL/L (3.6-5.0)
[2018-03-13] MEDS ORDERED: LIDOCAINE 1% INJ 20 ML 20 ML VIAL ONE (18:30)
[2018-03-13] MEDS ORDERED: LIDOCAINE 1% INJ 20 ML 20 ML VIAL INJ ONE (18:45)
[2018-03-13] MEDS ORDERED: fentaNYL INJECTION 100 MCG/2 ML AMP IVP ONE (18:45)
[2018-03-13] MEDS ORDERED: ONDANSETRON 4 MG/2 ML (SDV) Z0FRAN IV PRN (19:00)
[2018-03-13] MEDS ORDERED: PROMETHAZINE INJ 25 MG/ML (PHENERGAN) AMP IV PRN (19:00)
[2018-03-13] MEDS: D5 NS 1000 ML IV SOLUTION 1,000 ML IV SCH (19:00)
--- NOTE | 2018-03-13 20:01 | Diagnostic Imaging Report ---
INDICATION: Central line placement. COMPARISON: 03/01/2018. EXAMINATION: Single frontal radiographic view of the chest was obtained. FINDINGS: Interval placement of left-sided subclavian central venous catheter with tip in the SVC. Gastric tube is seen with tip and side port in the stomach. Heart size is prominent. Pulmonary vasculature is within normal limits. The lungs show interval development of consolidation within the lateral right midlung field. There are also patchy bibasilar infiltrates. No pneumothorax is seen. Bony structures show no gross acute abnormality. IMPRESSION: 1. Lines and tubes, as above. 2. Interval development of bilateral infiltrates, right greater than left. Continued followup is recommended. 3. Cardiomegaly. Dictated by: Dictated on workstation # [id number]
[2018-03-13] MEDS: PIPERACILLIN SODIUM/TAZOBACTAM 4.5 GM in NS (IVPB) 100 ML IV SCH (20:06)
[2018-03-13] MEDS: morphine INJ 4 MG/ML 1 ML (VIAL/SYRINGE) IV PRN ×4 (20:07→23:30)
--- NOTE | 2018-03-13 20:42 | HISTORY AND PHYSICAL ---
DATE OF SERVICE: ATTENDING PRIMARY CARE PHYSICIAN: Dr. Luis Antonio Castillo. HISTORY OF PRESENT ILLNESS: The patient is a 57-year-old female who presented to the Emergency Department with abdominal pain as well as an episode of nausea and vomiting. She has been undergoing a workup for nonspecific abdominal pain and tenderness and did undergo CT scan, was found to have a liver lesion. She underwent percutaneous image-guided biopsy 48 hours ago. She presented with pain in the right lower abdominal quadrant. A CT scan was performed, which did show small pockets of contained air as well as surrounding inflammation and edema. There is no significant free fluid identified as well as no copious amounts of free air. This most likely represents a small bowel needle perforation, but most likely due to the small nature of the lesion and the adjacent omentum and serosa of other small bowel. This most likely is contained. We will admit her proceed with n.p.o. NG tube decompression, IV antibiotics and await bowel function. PAST MEDICAL HISTORY: Asthma, gastroesophageal reflux disease, fibromyalgia, hypercholesterolemia, hypertension, sleep apnea, non-insulin dependent diabetes, hypothyroidism. PAST SURGICAL HISTORY: Right neck ORIF, wisdom teeth extraction, hysterectomy. ALLERGIES: LISINOPRIL, PREDNISONE. MEDICATIONS: Amitriptyline 25 mg daily, cyclobenzaprine 10 mg daily, estradiol 0.5 mg daily, furosemide 20 mg daily, gemfibrozil 600 mg b.i.d., levothyroxine 88 mcg daily, Lysine 1000 mg daily, metformin 500 mg b.i.d., metoprolol 50 mg b.i.d., niacinamide 500 mg daily, omeprazole 20 mg daily, potassium 10 mEq daily, tramadol p.r.n. SOCIAL HISTORY: Negative smoke and negative alcohol. FAMILY HISTORY: Noncontributory. REVIEW OF SYSTEMS: Well-nourished female, who appears comfortable at this time. She does not report any nausea, vomiting and does have a nasogastric tube in place. She does have some abdominal distention; however, there are no signs of abdominal hypertension or compartment syndrome. There is some tenderness along the right lower abdomen. She reports that her last bowel function was approximately 2 days ago. No red blood per rectum, no dark tarry stools. She does report some feelings of fever at home starting today. All other review of systems negative. PHYSICAL EXAMINATION: VITAL SIGNS: Temperature 98.2, blood pressure 120/75, pulse 103, respirations 18, pulse ox 97% on room air. CHEST: Few scattered rales and rhonchi bilaterally. HEART: Regular, no murmurs. EXTREMITIES: No lower extremity edema, negative Homans sign. HEENT: No scleral icterus. No cervical lymphadenopathy. ABDOMEN: Slightly distended, soft. There is pain in the right lower abdominal quadrant. There is voluntary guarding, no rebound. Negative Rovsing sign. SKIN: Warm, dry. LABORATORY DATA: WBC 12.4, hemoglobin 9.3, platelets 613. Lactic acid 1.94, BUN 48, creatinine 2.20. Urinalysis, 1+ leukocyte esterase. ASSESSMENT AND PLAN: A 57-year-old female with iatrogenic small bowel injury. Due to the mechanism of the injury, this most likely is a small enterotomy. Based on the CT scan there appears to not be any copious amounts of free air or fluid within the peritoneal cavity. There does appear to be localized swelling and edema as well as a very small pockets of contained free air, most likely indicating walled off perforation. We will recommend conservative management with continued monitoring and following serial labs as well as vital signs. We will also continue with NG tube decompression. Once she does have regaining a bowel function, a minimal nasogastric tube output, we will remove the NG tube and start with clear liquids and advance as tolerated. We will also treat her empirically with Zosyn. We will also consult internal medicine for her medical problems and management. Job ID: [id number] DocumentID: [id number] Dictated Date: 03/13/2018 19:35:23 Marble Coper Date: 03/13/2018 20:41:36 Dictated By: MARK SIMEON MD
[2018-03-13] MEDS ORDERED: NovoLOG/HumaLOG RANGE A SC SCH (21:00)
[2018-03-14] VITALS (28 sets, daily range): BP systolic 103–176; BP diastolic 36–109
[2018-03-14] MEDS: D5 NS 1000 ML IV SOLUTION 1,000 ML IV SCH ×4 (00:18→21:52)
[2018-03-14] MEDS: morphine INJ 4 MG/ML 1 ML (VIAL/SYRINGE) IV PRN ×6 (00:18→20:57)
--- NOTE | 2018-03-14 00:36 | OPERATIVE REPORT ---
DATE OF SERVICE: 03/13/2018 ATTENDING PRIMARY CARE PHYSICIAN: Dr. Castillo. PREOPERATIVE DIAGNOSIS: Iatrogenic contained small bowel perforation. POSTOPERATIVE DIAGNOSIS: Iatrogenic contained small bowel perforation. PROCEDURE: Placement of left subclavian central venous catheter. SURGEON: Dr. Mark Simeon. ANESTHESIA: Local. ESTIMATED BLOOD LOSS: Minimal. DISPOSITION: The patient tolerated the procedure well. INDICATIONS: The patient is a 57-year-old female who presented with pain as well as mild fevers and nausea, vomiting, abdominal pain in the right lower abdominal quadrant as well as an episode of nausea and vomiting as well as fevers. She is being worked up for chronic abdominal symptoms. She underwent an image-guided percutaneous biopsy of a liver lesion two days ago. Upon presentation, she did have pain in the abdomen and a CT scan was performed, which did show an area of distal small bowel with surrounding edema as well as very small pockets of contained free air. There were no copious amounts of free air under the diaphragm as well as no large fluid collections. This most likely represents a contained perforation. She will need IV antibiotics as well as possible hyperalimentation. DESCRIPTION OF PROCEDURE: The left neck and chest were prepped and draped in standard surgical fashion. A 1% lidocaine was used to anesthetize the left subclavian region. The left subclavian vein was then cannulated with drawing of venous blood. The guidewire was then inserted without any resistance. The cannulated needle removed and a small incision made using 11 blade. A tract was then created using a venous dilator and a triple lumen central venous catheter was placed over the guidewire using the Seldinger technique. Guidewire was removed and all three ports lan venous blood and flushed pristine without any resistance. Catheter was then sutured to the skin using 3-0 silk sutures. Catheter was then cleaned and covered with Op-Site. The patient tolerated the procedure well. We will get a post-procedure chest x-ray. Job ID: [id number] DocumentID: [id number] Dictated Date: 03/13/2018 19:39:13 Revenue Cycle Analyst Date: 03/14/2018 00:36:26 Dictated By: MARK SIMEON MD [facility]
[2018-03-14] MEDS: inSUlin ASPART (NovoLOG) 1 UNIT/0.01 ML (CHARGE PER UNIT) SC SCH ×4 (00:37→18:07)
[2018-03-14 04:46] LABS: BASOPHILS % (AUTO) 0 % (0-10); EOSINOPHILS % (AUTO) 0 % (0-10); HEMATOCRIT 26 % (35-52); HEMOGLOBIN 8.6 G/DL (11.5-16.0); LYMPHOCYTES # (AUTO) 0.5 X 10^3 (1.0-4.0); LYMPHOCYTES % (AUTO) 4 % (12-44); MEAN CORPUSCULAR HEMOGLOBIN 30 PG (25-34); MEAN CORPUSCULAR HGB CONC 33 G/DL (32-36); MEAN CORPUSCULAR VOLUME 91 FL (80-99); MEAN PLATELET VOLUME 9.5 FL (7.4-10.4); MONOCYTES # (AUTO) 0.5 X 10^3 (0.0-1.0); MONOCYTES % (AUTO) 5 % (0-12); NEUTROPHILS # (AUTO) 10.4 X 10^3 (1.8-7.8); NEUTROPHILS % (AUTO) 91 % (42-75); PLATELET COUNT 565 10^3/uL (130-400); RED BLOOD COUNT 2.89 10^6/uL (4.35-5.85); RED CELL DISTRIBUTION WIDTH 13.9 % (10.0-14.5); WHITE BLOOD COUNT 11.5 10^3/uL (4.3-11.0)
[2018-03-14 04:57] LABS: INR 1.5 (0.8-1.4); PROTHROMBIN TIME PATIENT 18.1 SEC (12.2-14.7)
[2018-03-14 05:02] LABS: ALBUMIN 2.5 GM/DL (3.2-4.5); BILIRUBIN,TOTAL 0.4 MG/DL (0.1-1.0); CALCIUM 8.9 MG/DL (8.5-10.1); CREATININE SERUM 1.95 MG/DL (0.60-1.30); MAGNESIUM 2.5 MG/DL (1.8-2.4); PHOSPHORUS 5.9 MG/DL (2.3-4.7); POTASSIUM 3.5 MMOL/L (3.6-5.0); TOTAL PROTEIN 5.8 GM/DL (6.4-8.2)
[2018-03-14] MEDS: MAGNESIUM 1 GM/100 ML IVPB 100 ML IV SCH (05:44)
[2018-03-14] MEDS: KCL 20 MEQ TAB (K-DUR) PO SCH (05:44)
[2018-03-14] MEDS: POTASSIUM CL 10MEQ/50ML IVPB 50 ML IV SCH ×4 (05:45→09:39)
[2018-03-14] MEDS: PIPERACILLIN SODIUM/TAZOBACTAM 4.5 GM in NS (IVPB) 100 ML IV SCH ×3 (05:56→21:53)
--- NOTE | 2018-03-14 07:50 | Diagnostic Imaging Report ---
INDICATION: Dyspnea. Comparison made with prior examination 03/13/2018. FINDINGS: There is a right basilar pneumonia. There is cardiomegaly and mild venous congestion. There is no pneumothorax. There is a left subclavian central venous catheter in place and its tip in superior vena cava. Nasogastric tube is in place. IMPRESSION: Right base infiltrate suspect for pneumonia. Cardiomegaly and some venous congestion. Dictated by: Dictated on workstation # [id number]
--- NOTE | 2018-03-14 08:53 | Diagnostic Imaging Report ---
INDICATION: Bowel perforation. FINDINGS: Nasogastric tube is in place. There are some dilated loops of small bowel in the left upper quadrant. There are no abnormal abdominal calcifications. IMPRESSION: Dilated loops of small bowel in the left upper quadrant suspect for partial small bowel obstruction or ileus. Recommend clinical correlation and followup imaging as warranted. Dictated by: Dictated on workstation # [id number]
[2018-03-14] MEDS: PANTOPRAZOLE 40 MG/10 ML (PROTONIX) VIAL IV SCH (10:36)
--- NOTE | 2018-03-14 14:54 | Progress Note-Standard ---
Standard Progress Note Progress Notes/Assess & Plan Date Seen by Provider: Mar 14, 2018 Time Seen by Provider: 14:52 Progress/Assessment & Plan I was informed about this patient being admitted last night with peritonitis, possibly due to distal small bowel perforation. She has been managed nonoperatively by the surgeon head tennis professional and I was asked to take over her care by the hospitalist. I have since reviewed her studies and personally examine her. She has diffuse peritonitis and the most recent liver biopsy is nondiagnostic. It is appropriate that she be subjected to laparotomy to address the offending perforation and possibly establish a definitive histologic diagnosis. I have discussed this with her, indicating the grave nature of her condition. She appears to comprehend, despite being limited due to the use of narcotics. Final Diagnosis peritonitis due to perforation of hollow viscus Focused Exam Lactate Level 03/13/18 14:46: Lactic Acid Level 2.34*H 03/13/18 16:32: Lactic Acid Level 1.94 03/14/18 04:35: Lactic Acid Level 1.78 Time of Focused Exam: 13:20 LUCIA FERNANDEZ MD Mar 14, 2018 2:54 pm
--- NOTE | 2018-03-14 14:55 | Progress Note-Pre Operative ---
Pre-Operative Progress Note H&P Reviewed The H&P was reviewed, patient examined and no changes noted. Date Seen by Provider: Mar 10, 2018 Time Seen by Provider: 11:50 Date H&P Reviewed: Mar 14, 2018 Time H&P Reviewed: 14:55 Pre-Operative Diagnosis: Peritonitis due to perforation of hollow viscus LUCIA FERNANDEZ MD Mar 14, 2018 2:55 pm
[2018-03-14] MEDS ORDERED: ceFAZolin INJECTION 1,000 MG in NS (IVPB) 100 ML IV NR (15:00)
[2018-03-14] MEDS ORDERED: metroNIDAZOLE 500MG/100ML IVPB 100 ML IV NR (15:00)
[2018-03-14] MEDS ORDERED: BUP/EPI 0.5% 1:200,000 (SENSORCAINE) 30 ML VIAL ONE (15:40)
[2018-03-14] MEDS ORDERED: fentaNYL INJECTION 100 MCG/2 ML AMP ONE (15:57)
[2018-03-14] MEDS ORDERED: MIDAZOLAM 2 MG/2 ML (VERSED) VIAL ONE (15:57)
[2018-03-14] MEDS: LACTATED RINGERS 1,000 ML IV PRN ×2 (16:35→17:49)
[2018-03-14] MEDS ORDERED: ceFAZolin 1,000 MG (ANCEF) VIAL ONE (16:50)
[2018-03-14] MEDS ORDERED: metroNIDAZOLE 500MG/100ML IVPB 100 ML ONE (16:50)
[2018-03-14] MEDS ORDERED: MEPERIDINE (DEMEROL) INJ 50 MG/ML ONE (17:18)
[2018-03-14] MEDS ORDERED: morphine INJ 10 MG/ML 1ML (SYR OR VIAL) ONE (17:18)
[2018-03-14] MEDS ORDERED: SEVOFLURANE (ULTANE) 15 ML INHAL SOLN ONE (18:28)
[2018-03-14] MEDS ORDERED: LIDOCAINE JELLY 2% (XYLOCAINE) 5 ML TUBE ONE (18:28)
[2018-03-14] MEDS ORDERED: ROCURONIUM 10 MG/ML 5 ML SYRINGE IV ONE (18:28)
[2018-03-14] MEDS ORDERED: SUCCINYLCHOLINE INJ 100 MG/5 ML SYR ONE (18:28)
[2018-03-14] MEDS ORDERED: ONDANSETRON 4 MG/2 ML (SDV) Z0FRAN ONE (18:28)
[2018-03-14] MEDS ORDERED: LIDOCAINE PF 2% 5 ML (XYLOCAINE) VIAL ONE (18:28)
[2018-03-14] MEDS ORDERED: proPOfol 200 MG/20 ML (DIPRIVAN) VIAL IV ONE (18:28)
[2018-03-14] MEDS ORDERED: LACTATED RINGERS 1,000 ML IV PRN (19:08)
--- NOTE | 2018-03-14 19:08 | Operative Report ---
Operative Report Date of Procedure/Surgery Mar 14, 2018 Surgeon (s) LUCIA FERNANDEZ MD Quality Improvement Specialist (s): N/A Post-Operative Diagnosis Perforated appendix with an interloop abscess. Necrotic omentum Multiple liver nodules Procedure Performed Expiratory laparotomy Right hemicolectomy with anastomosis Excision of necrotic omentum Biopsy of liver nodule Description of Procedure Anesthesia Type: General Estimated blood loss (mL): 200 mL Specimen(s) collected/removed Right colon with 2 segments of small bowel. Appendix in 2 pieces Liver nodule Necrotic omentum Description of the Procedure Indication for the procedure: Over the last 3 weeks, this lady has suffered abdominal pain mainly located around the upper abdomen. Radiologic evaluation was concerning for widespread lymphadenopathy with some nodules in the liver, requiring histologic confirmation. A CT-guided liver biopsy was performed on March 11 by the radiologist. This was reported to be nondiagnostic. She presented with acute and worsening abdominal pain 24 hours ago. Clinical examination was indicative of diffuse peritonitis and therefore prompt laparotomy was felt to be appropriate. Informed consent was obtained after reviewing the details of the procedure and the potential for bowel resection including temporary stoma formation. Description of the procedure: Abdomen was prepared and draped in the usual sterile manner. A midline incision was made and abdomen entered safely. Copious amounts of pus were encountered. Omentum was wrapped around the loops of small bowel, extending down into the pelvis. Initially, we suctioned the purulent material and irrigated the peritoneal cavity. Further exploration confirmed a large inter- loop abscess mainly extending to the root of the small bowel, due to perforation of the long appendix at the mid level. Most of the greater omentum was necrotic possibly due to thrombosis of the vessels. Initially, appendectomy was performed by controlling the mesoappendix using Harmonic scalpel and transecting the base with an Endo NANCY vascular stapler. It became clear that the stump was rather unhealthy and could not be contained. Therefore, formal right hemicolectomy was felt to be appropriate. Initially, a limited ileocecal resection was contemplated, but the right colic vessels were found to be thrombosed leading to the decision to proceed with hemicolectomy. Distal small bowel and the right colon were mobilized using Harmonic scalpel, continuing around the hepatic flexure to the mid transverse colon. There was a satisfactory pulse at the middle colic vessel. Distal small bowel and the proximal transverse colon were transected using a NANCY-75 mm long, 3.5mm stapler. A xpay-oh-zvot anastomosis was created using the same stapler. The common enterotomy was closed using a TA 60 stapling device. A 3-0 silk suture was placed along the crotch of the staple line to avoid any tension. The mesenteric defect was rather long and therefore I elected to leave it open. Necrotic omentum was excised using Harmonic scalpel and sent separately for histologic examination. Once further irrigation of the abdominal cavity was completed, I examined both upper quadrants. Multiple superficial nodules of the liver were encountered. One of them was excised and sent separately for histological examination. Hemostasis was achieved using cautery. Further irrigation was completed and the fascia closed using #2 Prolene. Subcutaneous tissue and skin were left open in anticipation of wound infection. It was covered with Kerlix gauze soaked in dilute iodine solution and a dressing applied. She tolerated the procedure well and was taken to the recovery room, in a stable , intubated state. Wickliffe, sponges and instruments were correct the end of the operation. Findings of the Procedure see op report Allergies and Home Medications Allergies Coded Allergies: lisinopril (Unverified Allergy, Unknown, 08/05/15) prednisone (Verified Adverse Reaction, Intermediate, ELEVATED BLOOD PRESSURE, 08/05/15) Home Medications Amitriptyline HCl 25 Mg Tablet, 25 MG PO HS, (Reported) Cyclobenzaprine HCl 10 Mg Tablet, 10 MG PO HS, (Reported) Estradiol 0.5 Mg Tablet, 0.5 MG PO HS, (Reported) Furosemide 20 Mg Tablet, 20 MG PO DAILY, (Reported) Gemfibrozil 600 Mg Tablet, 600 MG PO BID, (Reported) Ibuprofen 200 Mg Tablet, 600 MG PO BID, (Reported) TAKES 3 (200 MG) TABLETS Levothyroxine Sodium 88 Mcg Tablet, 88 MCG PO DAILY, (Reported) Lysine HCl 500 Mg Tablet, 1,000 MG PO HS, (Reported) Metformin HCl 500 Mg Tablet, 500 MG PO BID, (Reported) Metoprolol Tartrate 50 Mg Tablet, 50 MG PO BID, (Reported) Mv, Min #36/Iron,Carbonyl/FA 1 Each Tablet, 1 TAB PO DAILY, (Reported) Niacinamide 500 Mg Tablet, 500 MG PO DAILY, (Reported) Omeprazole 20 Mg Capsule.dr, 20 MG PO HS, (Reported) Tramadol HCl 50 Mg Tablet, 50-100 MG PO Q6H PRN for PAIN-MODERATE, (Reported) TAKES 1-2 OF A (50 MG) TABLET Vitamin B Complex 1 Each Tablet, 1 TAB PO HS, (Reported) Patient Home Medication List Home Medication List Reviewed: Yes Copy Copies To 1: LA HINDS DO Copies To 2: JAMIE KAYE XAVIER M MD Mar 14, 2018 7:08 pm
[2018-03-14] MEDS ORDERED: morphine INJ 10 MG/ML 1ML (SYR OR VIAL) IVP PRN (19:15)
[2018-03-14] MEDS ORDERED: ONDANSETRON 4 MG/2 ML (SDV) Z0FRAN IVP PRN ×2 (19:15)
[2018-03-14] MEDS ORDERED: MEPERIDINE (DEMEROL) INJ 50 MG/ML IVP PRN (19:15)
[2018-03-14] MEDS ORDERED: PROPOFOL DRIP (ICU) 100 ML IV ONE (20:09)
[2018-03-14] MEDS: PROPOFOL DRIP (ICU) 100 ML IV SCH (21:00)
[2018-03-14] MEDS: LACTATED RINGERS 1,000 ML IV SCH (21:52)
[2018-03-14 21:56] LABS: ABG BASE EXCESS -1.5 MMOL/L (-2.5-2.5); ABG OXYGEN SATURATION 97 % (94-100); ABG PCO2 43 MMHG (35-45); ABG PH 7.35 (7.37-7.43); ABG PO2 95 MMHG (79-93); ABG TCO2 24.8 MMOL/L (21.0-31.0)
[2018-03-14 21:57] LABS: ALLENS TEST POSITIVE; INSPIRED O2 50%; PATIENT TEMP 97.9; VENTILATOR YES
[2018-03-15] VITALS (30 sets, daily range): BP systolic 110–165; BP diastolic 62–98
[2018-03-15] MEDS: inSUlin ASPART (NovoLOG) 1 UNIT/0.01 ML (CHARGE PER UNIT) SC SCH ×4 (01:04→17:52)
[2018-03-15] MEDS: LACTATED RINGERS 1,000 ML IV SCH ×3 (03:38→20:16)
[2018-03-15] MEDS: PROPOFOL DRIP (ICU) 100 ML IV SCH (03:38)
[2018-03-15 03:56] LABS: BASOPHILS % (AUTO) 0 % (0-10); EOSINOPHILS % (AUTO) 0 % (0-10); HEMATOCRIT 24 % (35-52); HEMOGLOBIN 7.8 G/DL (11.5-16.0); LYMPHOCYTES # (AUTO) 0.6 X 10^3 (1.0-4.0); LYMPHOCYTES % (AUTO) 4 % (12-44); MEAN CORPUSCULAR HEMOGLOBIN 30 PG (25-34); MEAN CORPUSCULAR HGB CONC 32 G/DL (32-36); MEAN CORPUSCULAR VOLUME 92 FL (80-99); MEAN PLATELET VOLUME 9.8 FL (7.4-10.4); MONOCYTES # (AUTO) 0.7 X 10^3 (0.0-1.0); MONOCYTES % (AUTO) 5 % (0-12); NEUTROPHILS # (AUTO) 12.3 X 10^3 (1.8-7.8); NEUTROPHILS % (AUTO) 90 % (42-75); PLATELET COUNT 554 10^3/uL (130-400); RED BLOOD COUNT 2.63 10^6/uL (4.35-5.85); RED CELL DISTRIBUTION WIDTH 14.5 % (10.0-14.5); WHITE BLOOD COUNT 13.6 10^3/uL (4.3-11.0)
[2018-03-15 04:04] LABS: BUN/CREATININE RATIO 46; CALCIUM 8.2 MG/DL (8.5-10.1); CARBON DIOXIDE 24 MMOL/L (21-32); CHLORIDE 110 MMOL/L (98-107); CREATININE SERUM 0.85 MG/DL (0.60-1.30); GFR ESTIMATED > 60; GLUCOSE 166 MG/DL (70-105); MAGNESIUM 2.2 MG/DL (1.8-2.4); PHOSPHORUS 3.4 MG/DL (2.3-4.7); POTASSIUM 3.3 MMOL/L (3.6-5.0); SODIUM 144 MMOL/L (135-145)
[2018-03-15 04:26] LABS: ABG OXYGEN SATURATION 96 % (94-100); ABG PCO2 38 MMHG (35-45); ABG PH 7.43 (7.37-7.43); ABG PO2 82 MMHG (79-93); ABG TCO2 26.1 MMOL/L (21.0-31.0)
[2018-03-15] MEDS: D5 NS 1000 ML IV SOLUTION 1,000 ML IV SCH (04:27)
[2018-03-15 04:29] LABS: ALLENS TEST YES-POS; INSPIRED O2 24%; VENTILATOR YES
[2018-03-15] MEDS: MAGNESIUM 1 GM/100 ML IVPB 100 ML IV SCH (04:36)
[2018-03-15] MEDS: POTASSIUM CL 10MEQ/50ML IVPB 50 ML IV SCH ×5 (04:36→09:57)
[2018-03-15] MEDS: KCL 20 MEQ TAB (K-DUR) PO SCH (04:36)
[2018-03-15] MEDS: LEVOTHYROXINE 100 MCG INJ (SYNTHROID) VIAL IV SCH (04:46)
[2018-03-15] MEDS: PIPERACILLIN SODIUM/TAZOBACTAM 4.5 GM in NS (IVPB) 100 ML IV SCH ×3 (04:46→21:31)
--- NOTE | 2018-03-15 05:33 | Pulmonary Consultation ---
History of Present Illness History of Present Illness Date of Consultation 03/15/18 05:28 Time Seen by Provider: 05:28 Date of Admission History of Present Illness 57yo presented to ED secondary to abdominal pain and N/V. PT was taken to surgery and was found to have a ruptured appendix. Pt had a recent CT scan that showed liver mass. Dr. Alexandre bx colon mass and liver mass during surgery. PT was left on ventilator post surgery. I am consulted for pulmonary management. Unable to obtain ROS secondary to intubation. Allergies and Home Medications Allergies Coded Allergies: lisinopril (Unverified Allergy, Unknown, 08/05/15) prednisone (Verified Adverse Reaction, Intermediate, ELEVATED BLOOD PRESSURE, 08/05/15) Home Medications Amitriptyline HCl 25 Mg Tablet, 25 MG PO HS, (Reported) Cyclobenzaprine HCl 10 Mg Tablet, 10 MG PO HS, (Reported) Estradiol 0.5 Mg Tablet, 0.5 MG PO HS, (Reported) Furosemide 20 Mg Tablet, 20 MG PO DAILY, (Reported) Gemfibrozil 600 Mg Tablet, 600 MG PO BID, (Reported) Ibuprofen 200 Mg Tablet, 600 MG PO BID, (Reported) TAKES 3 (200 MG) TABLETS Levothyroxine Sodium 88 Mcg Tablet, 88 MCG PO DAILY, (Reported) Lysine HCl 500 Mg Tablet, 1,000 MG PO HS, (Reported) Metformin HCl 500 Mg Tablet, 500 MG PO BID, (Reported) Metoprolol Tartrate 50 Mg Tablet, 50 MG PO BID, (Reported) Mv, Min #36/Iron,Carbonyl/FA 1 Each Tablet, 1 TAB PO DAILY, (Reported) Niacinamide 500 Mg Tablet, 500 MG PO DAILY, (Reported) Omeprazole 20 Mg Capsule.dr, 20 MG PO HS, (Reported) Tramadol HCl 50 Mg Tablet, 50-100 MG PO Q6H PRN for PAIN-MODERATE, (Reported) TAKES 1-2 OF A (50 MG) TABLET Vitamin B Complex 1 Each Tablet, 1 TAB PO HS, (Reported) Past Lsxxwhi-[id number]-Bdbgzg Hx Patient Social History Alcohol Use: Denies Use Recreational Drug Use: No Smoking Status: Never a Smoker 2nd Hand Smoke Exposure: No Recent Foreign Travel: No Contact w/Someone Who Travel: No Recent Infectious Disease Expo: No Physical Abuse: No Sexual Abuse: No Immunizations Up To Date Tetanus Booster (TDap): Unknown Date of Pneumonia Vaccine: Aug 04, 2013 Seasonal Allergies Seasonal Allergies: No Past Medical History Surgeries: Yes (NECK SX FOR PINCHED NERVE, WISDOM TEETH) Respiratory: Yes (ASTHMA) Asthma, Sleep Apnea Currently Using CPAP: Yes Cardiac: Yes Hypertension Neurological: No Genitourinary: No Benign Prostatic Hyperpl Gastrointestinal: Yes Gastroesophageal Reflux Musculoskeletal: Yes (FIBROMYALGIA) Arthritis, Fibromyalgia Endocrine: Yes Hypothyroidsim, Diabetes, Non-Insulin dep HEENT: No Cancer: Yes Cervical Psychosocial: No Nursing Suicide Risk Score: 0 Integumentary: No Blood Disorders: No Family Medical History Reviewed Nursing Family Hx No Pertinent Family Hx, Cancer Review of Systems Time Seen by Provider: 10:37 Exam Exam Vital Signs Date Time Temp Pulse Resp B/P (MAP) Pulse Ox O2 Delivery O2 Flow Rate FiO2 03/15/18 05:00 106 19 128/69 (88) 93 Mechanical Ventilator 24.00 03/15/18 04:39 109 23 93 24 03/15/18 04:00 Mechanical Ventilator 24 03/15/18 04:00 106 17 131/70 (90) 92 Mechanical Ventilator 24.00 03/15/18 03:38 110 03/15/18 03:36 110 03/15/18 03:00 107 17 131/68 (89) 92 Mechanical Ventilator 24.00 03/15/18 02:34 107 18 134/69 (90) 95 Mechanical Ventilator 24.00 03/15/18 02:32 106 20 94 24 03/15/18 02:00 106 17 135/72 (93) 96 Mechanical Ventilator 35.00 03/15/18 01:00 109 03/15/18 01:00 109 20 133/65 (87) 97 Mechanical Ventilator 35.00 03/15/18 00:06 109 21 97 35 03/15/18 00:00 105 19 141/77 (98) 97 Mechanical Ventilator 35.00 03/15/18 00:00 97.3 03/15/18 00:00 Mechanical Ventilator 35 03/14/18 23:03 106 19 97 Mechanical Ventilator 35.00 03/14/18 23:00 105 18 146/67 (93) 100 Mechanical Ventilator 50.00 03/14/18 22:58 105 20 100 50 03/14/18 22:00 106 27 143/80 (101) 99 Mechanical Ventilator 50.00 03/14/18 21:00 107 26 148/86 (106) 100 Mechanical Ventilator 50.00 03/14/18 21:00 50.00 03/14/18 20:45 105 19 169/78 (108) 99 Mechanical Ventilator 50.00 03/14/18 20:30 104 27 172/109 (130) 99 Mechanical Ventilator 50.00 03/14/18 20:15 100 18 176/68 (104) 98 Mechanical Ventilator 50.00 03/14/18 20:10 Mechanical Ventilator 50 03/14/18 20:10 98.1 03/14/18 20:00 98 15 167/75 (105) 98 Mechanical Ventilator 50.00 03/14/18 19:45 97 16 165/62 (96) 98 Mechanical Ventilator 50.00 03/14/18 19:39 97 16 98 50 03/14/18 19:30 94 16 149/60 (89) 98 Mechanical Ventilator 50.00 03/14/18 19:15 86 20 120/46 (70) 100 Mechanical Ventilator 50.00 03/14/18 19:12 85 03/14/18 19:00 85 24 119/36 (63) 100 Mechanical Ventilator 50.00 03/14/18 16:10 97 Nasal Cannula 2.00 03/14/18 16:00 99 10 119/73 (88) 96 Nasal Cannula 2.00 03/14/18 15:00 101 29 125/101 (109) 96 Nasal Cannula 2.00 03/14/18 14:00 98 11 134/80 (98) 96 Nasal Cannula 2.00 03/14/18 13:00 101 19 133/82 (99) 97 Nasal Cannula 2.00 03/14/18 13:00 101 03/14/18 12:00 99 11 125/79 (94) 96 Nasal Cannula 2.00 03/14/18 12:00 Nasal Cannula 2.00 03/14/18 11:54 94 Nasal Cannula 2.00 03/14/18 11:00 103 22 134/76 (95) 95 Nasal Cannula 2.00 03/14/18 10:00 104 14 134/88 (103) 95 Nasal Cannula 2.00 03/14/18 09:33 Nasal Cannula 2.00 03/14/18 09:00 102 13 95 Nasal Cannula 2.00 03/14/18 08:50 94 Nasal Cannula 2.00 03/14/18 08:00 103 12 146/77 (100) 94 Nasal Cannula 2.00 03/14/18 07:00 104 13 143/81 (101) 94 Nasal Cannula 2.00 03/14/18 07:00 104 03/14/18 06:00 104 14 139/78 (98) 94 Nasal Cannula 2.00 I & O 03/15/18 07:00 Intake Total 2400 ml Output Total 875 ml Balance 1525 ml General Appearance: Anxious, Moderate Distress HEENT: Other (pupils are sluggish and dilated) Neck: Full Range of Motion, Normal Inspection, Supple Respiratory: Accessory Muscle Use, Decreased Breath Sounds, Rhonci Cardiovascular: Tachycardia Capillary Refill: Less Than 3 Seconds Peripheral Pulses: 2+ Dorsalis Pedis (R), 2+ Left Dors-Pedis (L), 2+ Radial Pulses (R), 2+ Radial Pulses (L) Gastrointestinal: no pulsatile mass, abnormal bowel sounds (hypoactive bowel sounds), distended, guarding, rebound, tenderness Neurologic/Psychiatric: Alert (alert but confused and will not answer questions. ) Skin: Normal Color, Damp Lymphatic: No Adenopathy Results Lab Laboratory Tests 03/13/18 12:53 03/13/18 14:46 03/13/18 18:06 03/14/18 04:35 03/15/18 03:40 Assessment/Plan Assessment/Plan Acute respiratory failure post surgery Perforated appendix with abscess formation s/p surgery -zosyn hx of asthma - 255 SD MITCHELL DO Mar 15, 2018 05:33
--- NOTE | 2018-03-15 07:02 | Progress Note-Standard ---
Standard Progress Note Progress Notes/Assess & Plan Date Seen by Provider: Mar 15, 2018 Time Seen by Provider: 07:01 Progress/Assessment & Plan I was informed about this patient being admitted last night with peritonitis, possibly due to distal small bowel perforation. She has been managed nonoperatively by the surgeon s iron worker and I was asked to take over her care by the hospitalist. I have since reviewed her studies and personally examine her. She has diffuse peritonitis and the most recent liver biopsy is nondiagnostic. It is appropriate that she be subjected to laparotomy to address the offending perforation and possibly establish a definitive histologic diagnosis. I have discussed this with her, indicating the grave nature of her condition. She appears to comprehend, despite being limited due to the use of narcotics. 03/15/18: Awake and doing well. Extubation anticipated. Will place wound VAC and continue IV antibiotics Final Diagnosis Perforated appendicitis with an interloop abscess. Liver nodules Focused Exam Lactate Level 03/13/18 14:46: Lactic Acid Level 2.34*H 03/13/18 16:32: Lactic Acid Level 1.94 03/14/18 04:35: Lactic Acid Level 1.78 Time of Focused Exam: 13:20 LUCIA FERNANDEZ MD Mar 15, 2018 7:02 am
[2018-03-15] MEDS ORDERED: POTASSIUM CL 10MEQ/50ML IVPB 50 ML IV SCH (07:15)
[2018-03-15] MEDS: RT-ALBUTEROL/IPRATROPIUM 3 ML (DUONEB) VIAL INH SCH ×5 (07:22→22:15)
[2018-03-15] MEDS ORDERED: RT-ALBUTEROL/IPRATROPIUM 3 ML (DUONEB) VIAL INH PRN (08:00)
--- NOTE | 2018-03-15 08:13 | Progress Note-Standard ---
Standard Progress Note Progress Notes/Assess & Plan Date Seen by Provider: Mar 15, 2018 Time Seen by Provider: 07:50 Progress/Assessment & Plan Patient recently extubated. No apparent anesthetic complications, will re- evaluate tomorrow. Focused Exam Lactate Level 03/13/18 14:46: Lactic Acid Level 2.34*H 03/13/18 16:32: Lactic Acid Level 1.94 03/14/18 04:35: Lactic Acid Level 1.78 Time of Focused Exam: 13:20 TOBY BENJAMIN CRNA Mar 15, 2018 08:13
--- NOTE | 2018-03-15 08:41 | Diagnostic Imaging Report ---
INDICATION: Dyspnea. COMPARISON: 03/14/2018. FINDINGS: The ET tube is in the mid trachea and the OG catheter in the stomach. The left subclavian is at the SVC. There has been substantial improvement in the 5 lobed mixed interstitial and airspace opacity. Given the rapidity of partial clearance, reduction in edema is felt most likely. The residual disease is greatest at the left base and right perihilar distribution. IMPRESSION: Significant improvements in the 5 lobed infiltrates suggest a reduction in edema. No adverse development. The support apparatus is in good alignment. No pneumothorax. Dictated by: Dictated on workstation # [id number]
[2018-03-15] MEDS ORDERED: POTASSIUM CL 10MEQ/50ML IVPB 50 ML IV NR (08:44)
[2018-03-15] MEDS: PANTOPRAZOLE 40 MG/10 ML (PROTONIX) VIAL IV SCH (08:48)
[2018-03-15] MEDS: morphine INJ 4 MG/ML 1 ML (VIAL/SYRINGE) IV PRN ×4 (08:59→16:52)
--- NOTE | 2018-03-15 12:03 | Progress Note-Hospitalist ---
Progress Note Progress Notes/Assess & Plan Date Seen 03/15/18 Time Seen by Provider: 11:58 Assessment & Plan The patient is a 57-year-old white female known to me from her previous admission. During that admission it was determined that she had abnormal lymph nodes in the mesentery and also a cluster in the retroperitoneal area subsequently she had a PET scan which I cannot seem to get access to which showed lesions on the liver. On Wednesday of last week she was biopsied by Dr. Jorge Stone in radiology with CT guidance. I discussed the preliminary with Dr. Escobedo of pathology yesterday, 03/14,. She stated that there was evidence of fatty liver but that although there was ample specimen she saw nothing that appeared to be malignant. She had been admitted by Dr. Clarke over the weekend in coverage for Dr. Alexandre. She went to the OR late yesterday afternoon and was found to have a perforated appendix with an interloop abscess. Additionally there was a right hemicolectomy performed because of compromised/necrotic omentum and:. In addition multiple liver nodules were palpated and one was excised in its entirety for secondary look by pathology. Copious amounts of pus were described and drains placed. The patient shows reasonable vital signs this morning. She had a very blank stare during my visit and did not answer any questions. Physical exam: Her face was flushed. CV was regular with a rate of 117. The remainder of the vitals were satisfactory. Lungs were clear to auscultation. CV showed a tachycardia as noted before. Ankles showed no pedal edema. Impression: Acute appendicitis with perforation and secondary abscess formation. 2. Multiple surface nodules on the liver highly suggestive of malignancy. Plan: Broad-spectrum antibiotics. IV fluids and circulatory support. Await pathology report. Focused Exam Lactate Level 03/13/18 14:46: Lactic Acid Level 2.34*H 03/13/18 16:32: Lactic Acid Level 1.94 03/14/18 04:35: Lactic Acid Level 1.78 Time of Focused Exam: 13:20 JAMES GUERRERO MD Mar 15, 2018 12:03
--- NOTE | 2018-03-15 14:21 | HISTORY AND PHYSICAL ---
DATE OF SERVICE: ADDENDUM ASSESSMENT AND PLAN: The patient is a 57-year-old female that has been being worked up for lymphadenopathy. She also has multiple other medical comorbidities, which she is also being worked up for. She did undergo a liver biopsy, in the right upper abdominal quadrant which we did not know initially. She was also seen by another surgeon and scheduled for a colonoscopy. The patient presented with pain and there was inflammation as well as contained free air identified; however, this was not iatrogenic and most likely part of her disease process. In any event, we will continue and recommend conservative management with continued monitoring with serial labs, vital signs and ICU admission. We will also proceed with NG tube decompression as well as IV antibiotics. The patient will also be turned over back to the internal medicine as well as her previous surgeon who has seen her in the past and knows her history well. Job ID: [id number] DocumentID: [id number] Dictated Date: 03/15/2018 13:32:38 Carroting Machine Operator Date: 03/15/2018 13:58:01 Dictated By: MARK SIMEON MD MTDD
[2018-03-15] MEDS ORDERED: ENOXAPARIN 40 MG/0.4 ML (LOVENOX) SYR SC SCH (19:15)
[2018-03-15 22:56] LABS: ABG BASE EXCESS 1.7 MMOL/L (-2.5-2.5); ABG OXYGEN SATURATION 85 % (94-100); ABG PO2 71 MMHG (79-93); ABG TCO2 32.2 MMOL/L (21.0-31.0)
[2018-03-15 22:58] LABS: ABG PH 7.17 (7.37-7.43)
[2018-03-15 22:59] LABS: ABG PCO2 83 MMHG (35-45); ALLENS TEST YES-POS; INSPIRED O2 3L; PATIENT TEMP 97.8; VENTILATOR NO
[2018-03-15] MEDS ORDERED: NALOXONE 0.4 MG/ML 1 ML (NARCAN) VIAL ONE (23:17)
[2018-03-15] MEDS ORDERED: NALOXONE 0.4 MG/ML 1 ML (NARCAN) VIAL IV ONE (23:30)
[2018-03-15 23:57] LABS: BASOPHILS % (AUTO) 0 % (0-10); EOSINOPHILS % (AUTO) 0 % (0-10); LYMPHOCYTES # (AUTO) 0.7 X 10^3 (1.0-4.0); LYMPHOCYTES % (AUTO) 6 % (12-44); MEAN CORPUSCULAR HGB CONC 32 G/DL (32-36); MEAN CORPUSCULAR VOLUME 93 FL (80-99); MEAN PLATELET VOLUME 9.1 FL (7.4-10.4); MONOCYTES # (AUTO) 1.1 X 10^3 (0.0-1.0); MONOCYTES % (AUTO) 9 % (0-12); NEUTROPHILS # (AUTO) 10.7 X 10^3 (1.8-7.8); NEUTROPHILS % (AUTO) 85 % (42-75); PLATELET COUNT 557 10^3/uL (130-400); RED BLOOD COUNT 2.17 10^6/uL (4.35-5.85); RED CELL DISTRIBUTION WIDTH 14.6 % (10.0-14.5); WHITE BLOOD COUNT 12.6 10^3/uL (4.3-11.0)
[2018-03-15 23:58] LABS: ABG BASE EXCESS 3.3 MMOL/L (-2.5-2.5); ABG OXYGEN SATURATION 96 % (94-100); ABG PCO2 50 MMHG (35-45); ABG PH 7.37 (7.37-7.43); ABG PO2 82 MMHG (79-93); ABG TCO2 29.8 MMOL/L (21.0-31.0); ALLENS TEST YES-POS
[2018-03-15 23:59] LABS: INSPIRED O2 3L NC; PATIENT TEMP 98.2; VENTILATOR NO
[2018-03-15 23:59] LABS: HEMOGLOBIN 6.4 G/DL (11.5-16.0); MEAN CORPUSCULAR HEMOGLOBIN 29 PG (25-34)
[2018-03-16] VITALS (40 sets, daily range): BP systolic 128–174; BP diastolic 66–96
[2018-03-16] LABS: HEMATOCRIT 20 % (35-52)
[2018-03-16] MEDS: inSUlin ASPART (NovoLOG) 1 UNIT/0.01 ML (CHARGE PER UNIT) SC SCH ×4 (00:06→18:48)
[2018-03-16 00:07] LABS: INR 1.4 (0.8-1.4); PROTHROMBIN TIME PATIENT 17.2 SEC (12.2-14.7)
[2018-03-16 00:14] LABS: ALANINE AMINOTRANSFERASE 23 U/L (0-55); ALBUMIN 2.1 GM/DL (3.2-4.5); ALKALINE PHOSPHATASE 76 U/L (40-136); BILIRUBIN,TOTAL 0.3 MG/DL (0.1-1.0); BUN/CREATININE RATIO 40; CALCIUM 8.5 MG/DL (8.5-10.1); CARBON DIOXIDE 28 MMOL/L (21-32); CHLORIDE 112 MMOL/L (98-107); GFR ESTIMATED > 60; GLUCOSE 132 MG/DL (70-105); SODIUM 149 MMOL/L (135-145); TOTAL PROTEIN 4.9 GM/DL (6.4-8.2)
--- NOTE | 2018-03-16 00:22 | Progress Note-Standard ---
Standard Progress Note Progress Notes/Assess & Plan Date Seen by Provider: Mar 15, 2018 Time Seen by Provider: 23:30 Progress/Assessment & Plan I was called at 2315 on 03/15/18 at home to come to ICU for an intubation in ICU 11. ON arrival to the hospital at 2330, James, the fun house operator, called me back stating that EICU had decided to order Narcan for the patient and then wait 30 minutes for another ABG draw, prior to me intubating. At 0018 on 2017, the ICU received orders from EICU to transfuse the patient with 1 U PRBC ( HgB 6.4) and hold on intubation at this time. Focused Exam Lactate Level 03/13/18 16:32: Lactic Acid Level 1.94 03/14/18 04:35: Lactic Acid Level 1.78 03/15/18 23:46: Lactic Acid Level 0.79 Time of Focused Exam: 13:20 Lactic Acid Level Laboratory Tests Test 03/15/18 23:46 Lactic Acid Level 0.79 MMOL/L (0.50-2.00) SHARA STARK CRNA Mar 16, 2018 00:21
[2018-03-16] MEDS: ALBUMIN 25% 25 GM/100 ML 100 ML IV SCH ×2 (00:44→05:35)
[2018-03-16] MEDS ORDERED: NS IV 500 ML 500 ML IV ONE (01:15)
[2018-03-16] MEDS: KETOROLAC 30 MG/ML VIAL IV PRN ×2 (02:35→11:45)
[2018-03-16] MEDS: PIPERACILLIN SODIUM/TAZOBACTAM 4.5 GM in NS (IVPB) 100 ML IV SCH (04:13)
[2018-03-16] MEDS: LACTATED RINGERS 1,000 ML IV SCH ×3 (04:13→17:09)
[2018-03-16 04:29] LABS: BASOPHILS % (AUTO) 0 % (0-10); EOSINOPHILS % (AUTO) 0 % (0-10); HEMATOCRIT 23 % (35-52); HEMOGLOBIN 7.4 G/DL (11.5-16.0); LYMPHOCYTES # (AUTO) 0.8 X 10^3 (1.0-4.0); LYMPHOCYTES % (AUTO) 6 % (12-44); MEAN CORPUSCULAR HEMOGLOBIN 30 PG (25-34); MEAN CORPUSCULAR HGB CONC 32 G/DL (32-36); MEAN CORPUSCULAR VOLUME 93 FL (80-99); MEAN PLATELET VOLUME 9.4 FL (7.4-10.4); MONOCYTES # (AUTO) 0.9 X 10^3 (0.0-1.0); MONOCYTES % (AUTO) 7 % (0-12); NEUTROPHILS # (AUTO) 11.1 X 10^3 (1.8-7.8); NEUTROPHILS % (AUTO) 87 % (42-75); PLATELET COUNT 470 10^3/uL (130-400); RED BLOOD COUNT 2.47 10^6/uL (4.35-5.85); RED CELL DISTRIBUTION WIDTH 14.6 % (10.0-14.5); WHITE BLOOD COUNT 12.8 10^3/uL (4.3-11.0)
[2018-03-16] MEDS: RT-ALBUTEROL/IPRATROPIUM 3 ML (DUONEB) VIAL INH SCH ×6 (04:35→22:09)
[2018-03-16] MEDS ORDERED: HALOPERIDOL 5 MG/ML (HALDOL) AMP ONE (04:39)
[2018-03-16 04:40] LABS: BUN/CREATININE RATIO 42; CALCIUM 8.5 MG/DL (8.5-10.1); CARBON DIOXIDE 27 MMOL/L (21-32); CHLORIDE 113 MMOL/L (98-107); CREATININE SERUM 0.69 MG/DL (0.60-1.30); GFR ESTIMATED > 60; GLUCOSE 140 MG/DL (70-105); PHOSPHORUS 2.3 MG/DL (2.3-4.7); POTASSIUM 3.9 MMOL/L (3.6-5.0); SODIUM 149 MMOL/L (135-145)
[2018-03-16] MEDS ORDERED: HALOPERIDOL 5 MG/ML (HALDOL) AMP IV PRN ×2 (04:45→05:15)
[2018-03-16] MEDS: KCL 20 MEQ TAB (K-DUR) PO SCH (05:13)
[2018-03-16] MEDS: MAGNESIUM 1 GM/100 ML IVPB 100 ML IV SCH (05:13)
[2018-03-16] MEDS ORDERED: NALOXONE 0.4 MG/ML 1 ML (NARCAN) VIAL ONE (05:43)
[2018-03-16] MEDS ORDERED: PROPOFOL DRIP (ICU) 100 ML IV ONE (06:12)
[2018-03-16] MEDS ORDERED: NALOXONE 0.4 MG/ML 1 ML (NARCAN) VIAL IV ONE (06:15)
--- NOTE | 2018-03-16 06:36 | Pulmonary Progress Note ---
Subjective Time Seen by Provider: 07:23 Subjective/Events-last exam Pt is very lethargic and unable to verbalize. Focused Exam Lactate Level 03/13/18 16:32: Lactic Acid Level 1.94 03/14/18 04:35: Lactic Acid Level 1.78 03/15/18 23:46: Lactic Acid Level 0.79 Time of Focused Exam: 13:20 Exam Exam Vital Signs Date Time Temp Pulse Resp B/P (MAP) Pulse Ox O2 Delivery O2 Flow Rate FiO2 03/16/18 05:00 111 31 157/82 (107) 94 Nasal Cannula 3.00 03/16/18 04:00 107 25 174/90 (118) 97 Nasal Cannula 3.00 03/16/18 03:55 99.3 109 24 160/94 98 Nasal Cannula 3.00 03/16/18 03:55 99.3 03/16/18 03:00 106 19 154/89 (110) 96 Nasal Cannula 3.00 03/16/18 02:00 105 20 170/87 (114) 96 Nasal Cannula 3.00 03/16/18 01:49 98.7 108 20 142/96 95 Nasal Cannula 3.00 03/16/18 01:33 98.5 107 20 157/91 98 Nasal Cannula 3.00 03/16/18 01:00 104 03/16/18 01:00 104 18 166/85 (112) 98 Nasal Cannula 3.00 03/16/18 00:00 98.2 104 17 162/88 (112) 97 Nasal Cannula 3.00 03/15/18 23:50 98.4 03/15/18 23:00 108 15 141/78 (99) 92 Nasal Cannula 3.00 03/15/18 22:17 92 Nasal Cannula 3.00 03/15/18 22:01 Nasal Cannula 3.00 03/15/18 22:00 109 9 142/73 (96) 92 Nasal Cannula 2.00 03/15/18 21:00 110 8 133/65 (87) 92 Nasal Cannula 2.00 03/15/18 20:00 98.6 112 10 145/72 (96) 90 Nasal Cannula 2.00 03/15/18 19:00 112 10 151/80 (103) 92 Nasal Cannula 2.00 03/15/18 19:00 112 03/15/18 18:40 94 Nasal Cannula 2.00 03/15/18 18:00 111 13 159/96 (117) 95 Nasal Cannula 2.00 03/15/18 17:00 112 16 110/98 (102) 95 Nasal Cannula 2.00 03/15/18 16:50 Nasal Cannula 2.00 03/15/18 16:50 99.2 03/15/18 16:00 110 23 158/78 (104) 100 Nasal Cannula 2.00 03/15/18 15:00 111 20 147/73 (97) 98 Nasal Cannula 2.00 03/15/18 14:19 94 Nasal Cannula 2.00 03/15/18 14:00 109 23 141/66 (91) 93 Nasal Cannula 2.00 03/15/18 13:00 111 14 143/69 (93) 94 Nasal Cannula 2.00 03/15/18 13:00 112 03/15/18 12:30 Nasal Cannula 2.00 03/15/18 12:00 112 22 117/62 (80) 95 Nasal Cannula 2.00 03/15/18 11:51 99.3 03/15/18 11:00 114 21 144/79 (100) 95 Nasal Cannula 2.00 03/15/18 10:46 93 Nasal Cannula 2.00 03/15/18 10:00 115 20 154/81 (105) 94 Nasal Cannula 2.00 03/15/18 09:01 98.5 03/15/18 09:00 118 28 148/91 (110) 94 Nasal Cannula 2.00 03/15/18 08:30 Nasal Cannula 2.00 03/15/18 08:10 Nasal Cannula 4.00 03/15/18 08:00 115 28 165/81 (109) 95 Nasal Cannula 4.00 03/15/18 07:46 96 Nasal Cannula 4.00 03/15/18 07:45 Nasal Cannula 4.00 03/15/18 07:22 116 23 96 30 03/15/18 07:00 117 03/15/18 07:00 114 17 118/96 (103) 95 Mechanical Ventilator 24.00 I & O 03/16/18 07:00 Intake Total 1475 ml Output Total 1350 ml Balance 125 ml General Appearance: Anxious, Moderate Distress HEENT: Other (pupils are sluggish and dilated) Neck: Full Range of Motion, Normal Inspection, Supple Respiratory: Accessory Muscle Use, Decreased Breath Sounds, Rhonci Cardiovascular: Tachycardia Capillary Refill: Less Than 3 Seconds Peripheral Pulses: 2+ Dorsalis Pedis (R), 2+ Left Dors-Pedis (L), 2+ Radial Pulses (R), 2+ Radial Pulses (L) Gastrointestinal: no pulsatile mass, abnormal bowel sounds (hypoactive bowel sounds), distended Neurologic/Psychiatric: Alert (alert but confused and will not answer questions. ), Normal Mood/Affect Skin: Normal Color, Damp Lymphatic: No Adenopathy Results Lab Laboratory Tests 03/15/18 03:40 03/15/18 23:46 03/16/18 04:15 Assessment/Plan Assessment/Plan Acute respiratory failure with metabolic encephalopathy -Pt received Narcan x 1 through the night initially improved lethargy. Pt is then became lethargic again and Narcan was repeated this AM. Currently pt will follow simple commands however she will not answer questions. --I am concerned pt can not protect her airway at this time. -Will reintubate pt and check head CT stat. -Symptoms started yesterday evening after family visited. Will check UDS prior to giving meds for intubation. MS changes, Dysphonia, lethargy s/p Narcan this AM and last night. -appears not to be able to talk. She will squeeze hands on both sides -start SVNS with DuoNeb Q4 hrs Perforated appendix with abscess formation s/p surgery -zosyn hx of asthma - 60min spent with patient and medical team discussing plan of care. This does not include procedure time. I have also discussed with EICU who agrees with reintubation. SD MITCHELL DO Mar 16, 2018 06:36
[2018-03-16 06:45] LABS: AMPHETAMINE SCREEN, URINE NEGATIVE (NEGATIVE); BARBITURATE SCREEN URINE NEGATIVE (NEGATIVE); BENZODIAZEPINES SCREEN URINE NEGATIVE (NEGATIVE); CANNABINOID SCREEN, URINE NEGATIVE (NEGATIVE); COCAINE SCREEN URINE NEGATIVE (NEGATIVE); METHADONE STAT NEGATIVE (NEGATIVE); METHAMPHETAMINE SCREEN URINE S NEGATIVE (NEGATIVE); OPIATE SCREEN URINE POSITIVE (NEGATIVE); OXYCODONE STAT NEGATIVE (NEGATIVE); PROPOXYPHENE STAT NEGATIVE (NEGATIVE); TRICYCLIC ANTIDEPRESSANTS SCRE POSITIVE (NEGATIVE)
--- NOTE | 2018-03-16 07:22 | Pulmonary Procedures ---
Pulmonary Procedures Date of Procedure Date of Service: Mar 16, 2018 Time of Intubation: 07:22 Intubation Method: orotracheal Tube Size: 8 Medications: Propofol, Versed Positive End Tide CO2: Yes Breath Sounds after Intubation: bilateral-equal Intubation Complications: no complications Post Intubation Xray: Yes (pending) SD MITCHELL DO Mar 16, 2018 07:22
--- NOTE | 2018-03-16 07:48 | Diagnostic Imaging Report ---
Indication: Intubation. Comparison with 3:12 a.m. Findings: ET tube overlying the tracheal shadow tip at the level of the aortic arch. Left central line overlies the superior vena cava at the cavoatrial junction. There has been improved aeration. Left lung is well-aerated and clear. There is some atelectasis and infiltrate in the right lung. NG tube is present in the stomach. IMPRESSION: 1. Satisfactory intubation. Left lung is well-aerated and clear. There is some infiltrate and atelectasis on the right. Dictated by: Dictated on workstation # [id number]
[2018-03-16] MEDS: POTASSIUM CL 10MEQ/50ML IVPB 50 ML IV SCH (07:49)
[2018-03-16] MEDS ORDERED: IOHEXOL 350 MG/ML 100 ML (OMNIPAQUE 350) VIAL IV ONE (08:00)
[2018-03-16] MEDS ORDERED: NS 250 ML (IVPB) BAG IV ONE (08:00)
[2018-03-16] MEDS: PANTOPRAZOLE 40 MG/10 ML (PROTONIX) VIAL IV SCH (08:15)
[2018-03-16] MEDS: PROPOFOL DRIP (ICU) 100 ML IV SCH ×3 (08:17→18:55)
--- NOTE | 2018-03-16 08:20 | Anesthesia-General Post-Op ---
General Patient Condition Mental Status/LOC: Unreactive Cardiovascular: Satisfactory Nausea/Vomiting: Absent Respiratory: Satisfactory Pain: Controlled Complications: Present Post Op Complications Complications Pt is currently sedated on vent, RN reported pt was reintubated this morning due to alt LOC and respiratory distress. Will evaluate again in AM. Follow Up Care/Instructions Patient Instructions None needed. Anesthesia/Patient Condition Patient Condition Patient is doing well, no complaints, stable vital signs, no apparent adverse anesthesia problems. No complications reported per nursing. D/C home per [facility] Criteria: No YUNIOR SANTILLAN TAN ROOM SUPERVISOR Mar 16, 2018 08:20
--- NOTE | 2018-03-16 08:50 | Diagnostic Imaging Report ---
Indication: Dyspnea. Time of exam: 3:12 AM Correlation is made with prior study one day earlier. Findings: NG tube passes below the diaphragm. Left subclavian line with tip overlying the SVC. There is some atelectasis or infiltrate that has increased in the right upper lobe since yesterday. The right hemidiaphragm is elevated. Heart size is stable. Postop changes in the lower cervical spine are noted. Impression: Developing right upper lobe infiltrate or atelectasis when compared to examination one day earlier. Dictated by: Dictated on workstation # [id number]
[2018-03-16] MEDS ORDERED: MIDAZOLAM 5 MG/5 ML (VERSED) VIAL IJ ONE (10:20)
[2018-03-16] MEDS: MEROPENEM 500 MG in NS (IVPB) 100 ML IV SCH ×7 (11:50→23:58)
--- NOTE | 2018-03-16 12:40 | Consultation-Hospitalist ---
HPI History of Present Illness: Source: RN/MD Exam Limitations: clinical condition Date Seen 03/16/18 Attending Physician Arturo Alexandre MD PCP Jhony Castillo DO Referring Physician Date of Admission Mar 13, 2018 at 14:40 Home Medications & Allergies Home Medications Reviewed patient Home Medication Reconciliation performed by pharmacy medication reconciliations electronic lab technician and/or nursing. Patients Allergies have been reviewed. Allergies Allergies Coded Allergies lisinopril (Unverified Allergy, Unknown, 08/05/15) prednisone (Verified Adverse Reaction, Intermediate, ELEVATED BLOOD PRESSURE, 08/05/15) Past Yckccpi-Jnedeq-Xlaygh Hx Patient Social History Alcohol Use: Denies Use Recreational Drug Use: No Smoking Status: Never a Smoker 2nd Hand Smoke Exposure: No Physical Abuse Screen: No Sexual Abuse: No Recent Foreign Travel: No Contact w/other who traveled: No Recent Infectious Disease Expo: No Immunizations Up To Date Tetanus Booster (TDap): Unknown Date of Pneumonia Vaccine: Aug 04, 2013 Seasonal Allergies Seasonal Allergies: No Past Medical History Currently Using CPAP: Yes Cardiac: Hypertension Genitourinary: Benign Prostatic Hyperpl Gastrointestinal: Gastroesophageal Reflux Musculoskeletal: Arthritis, Fibromyalgia Endocrine: Hypothyroidsim, Diabetes, Non-Insulin dep Cancer: Cervical History of Blood Disorders: No Family History Reviewed Nursing Family Hx No Pertinent Family Hx, Cancer Physical Exam Physical Exam Vital Signs Vital Signs - First Documented 03/13/18 03/14/18 12:36 19:39 Temp 98.2 Pulse 103 Resp 18 B/P (MAP) 120/75 (90) Pulse Ox 97 FiO2 50 Capillary Refill : Less Than 3 SecondsLess Than 3 Seconds Results Results/Procedures Labs Laboratory Tests 03/15/18 03:40 03/15/18 23:46 03/16/18 04:15 Patient resulted labs reviewed. Clinical Quality Measures DVT/VTE Risk/Contraindication: Risk Factor Score Per Nursin RFS Level Per Nursing on Admit: 1=Low/No VTE PPX JAMIE KAYE DO Mar 16, 2018 12:40
[2018-03-16 13:17] LABS: ABG BASE EXCESS 0.6 MMOL/L (-2.5-2.5); ABG OXYGEN SATURATION 97 % (94-100); ABG PCO2 48 MMHG (35-45); ABG PH 7.35 (7.37-7.43); ABG PO2 86 MMHG (79-93)
[2018-03-16 13:18] LABS: ALLENS TEST POSITIVE; INSPIRED O2 40% FI02; PATIENT TEMP 98.3; VENTILATOR YES
[2018-03-16] MEDS: morphine INJ 4 MG/ML 1 ML (VIAL/SYRINGE) IV PRN ×2 (13:18→20:47)
--- NOTE | 2018-03-16 13:40 | Progress Note-Hospitalist ---
Subjective HPI/CC On Admission Date Seen by Provider: Mar 16, 2018 Time Seen by Provider: 12:10 Subjective/Events-last exam Patient was reintubated after extubation yesterday morning when she began having altered mental status and ABG was reviewed and Dr. Bacon ordered intubation New information since patient was seen earlier today that the biopsy showed cancer which brings all the details of this mysterious case together once and for all Poor prognosis noted and we will consult palliative care Patient on ventilator RN has no needs at this current time since she appears to be comfortable Focused Exam Lactate Level 03/13/18 16:32: Lactic Acid Level 1.94 03/14/18 04:35: Lactic Acid Level 1.78 03/15/18 23:46: Lactic Acid Level 0.79 Time of Focused Exam: 13:20 Objective Exam Vital Signs Vital Signs Date Time Temp Pulse Resp B/P (MAP) Pulse Ox O2 Delivery O2 Flow Rate FiO2 03/16/18 12:33 96 24 97 50 03/16/18 12:30 Mechanical Ventilator 40.00 03/16/18 12:00 98.3 157/73 (101) Capillary Refill : Less Than 3 SecondsLess Than 3 Seconds General Appearance: No Apparent Distress, WD/WN, Other (Intubated) Respiratory: Other (Diminished and coarse with vent) Cardiovascular: Regular Rate, Rhythm Results/Procedures Lab Laboratory Tests 03/15/18 23:46 03/16/18 04:15 Patient resulted labs reviewed. Assessment/Plan Assessment and Plan Assess & Plan/Chief Complaint Assessment: Respiratory failure acute failed extubation now currently intubated on sedation New information of colon cancer adeno type from pathology Poor prognosis Plan: Maintain ventilator Update family per Dr. Alexandre who performed surgery and confirm pathology results Clinical Quality Measures DVT/VTE Risk/Contraindication: Risk Factor Score Per Nursin RFS Level Per Nursing on Admit: 1=Low/No VTE PPX JAMIE KAYE DO Mar 16, 2018 13:40
--- NOTE | 2018-03-16 14:15 | Progress Note-Standard ---
Standard Progress Note Progress Notes/Assess & Plan Date Seen by Provider: Mar 16, 2018 Time Seen by Provider: 08:45 Progress/Assessment & Plan I was informed about this patient being admitted last night with peritonitis, possibly due to distal small bowel perforation. She has been managed nonoperatively by the surgeon button tufter and I was asked to take over her care by the hospitalist. I have since reviewed her studies and personally examine her. She has diffuse peritonitis and the most recent liver biopsy is nondiagnostic. It is appropriate that she be subjected to laparotomy to address the offending perforation and possibly establish a definitive histologic diagnosis. I have discussed this with her, indicating the grave nature of her condition. She appears to comprehend, despite being limited due to the use of narcotics. 03/15/18: Awake and doing well. Extubation anticipated. Will place wound VAC and continue IV antibiotics 03/16/18 (seen around 845 a.m.) patient developed hypercarbia him a decreased mental status and anemic last night. Reintubated this morning. Urine output satisfactory. Electrolytes normal. Blood transfusion in progress. Wound VAC in place. Possible total parenteral nutrition tomorrow. Consolidation of the right upper/middle lobe with features of pneumonia. Antibiotics will be tailored to the bacteria identified. 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 Her primary physician updated. 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 Ventilatory failure Focused Exam Lactate Level 03/13/18 16:32: Lactic Acid Level 1.94 03/14/18 04:35: Lactic Acid Level 1.78 03/15/18 23:46: Lactic Acid Level 0.79 Time of Focused Exam: 13:20 LUCIA FERNANDEZ MD Mar 16, 2018 14:15
[2018-03-16] MEDS ORDERED: POTASSIUM PHOSPHATE IV SCH ×8 (17:00)
[2018-03-16] MEDS ORDERED: [UNRECOGNIZED DRUG - OTHER] IV SCH ×8 (17:00)
[2018-03-16] MEDS ORDERED: POTASSIUM CHLORIDE IV SCH ×8 (17:00)
[2018-03-17] VITALS (36 sets, daily range): BP systolic 128–218; BP diastolic 11–108
[2018-03-17] MEDS: inSUlin ASPART (NovoLOG) 1 UNIT/0.01 ML (CHARGE PER UNIT) SC SCH ×5 (00:04→23:22)
[2018-03-17] MEDS: PROPOFOL DRIP (ICU) 100 ML IV SCH (00:39)
[2018-03-17] MEDS: KETOROLAC 30 MG/ML VIAL IV PRN ×3 (01:44→22:06)
[2018-03-17] MEDS: RT-ALBUTEROL/IPRATROPIUM 3 ML (DUONEB) VIAL INH SCH ×6 (02:51→21:55)
[2018-03-17 03:48] LABS: BASOPHILS % (AUTO) 0 % (0-10); EOSINOPHILS # (AUTO) 0.1 10^3/uL (0.0-0.3); EOSINOPHILS % (AUTO) 1 % (0-10); HEMATOCRIT 26 % (35-52); HEMOGLOBIN 7.9 G/DL (11.5-16.0); LYMPHOCYTES % (AUTO) 11 % (12-44); MEAN CORPUSCULAR HEMOGLOBIN 29 PG (25-34); MEAN CORPUSCULAR HGB CONC 31 G/DL (32-36); MEAN CORPUSCULAR VOLUME 93 FL (80-99); MEAN PLATELET VOLUME 9.2 FL (7.4-10.4); MONOCYTES # (AUTO) 0.6 X 10^3 (0.0-1.0); MONOCYTES % (AUTO) 7 % (0-12); NEUTROPHILS # (AUTO) 7.7 X 10^3 (1.8-7.8); NEUTROPHILS % (AUTO) 82 % (42-75); PLATELET COUNT 432 10^3/uL (130-400); RED BLOOD COUNT 2.75 10^6/uL (4.35-5.85); RED CELL DISTRIBUTION WIDTH 16.6 % (10.0-14.5); WHITE BLOOD COUNT 9.4 10^3/uL (4.3-11.0)
[2018-03-17 03:49] LABS: ABG BASE EXCESS 3.2 MMOL/L (-2.5-2.5); ABG OXYGEN SATURATION 97 % (94-100); ABG PCO2 54 MMHG (35-45); ABG PH 7.35 (7.37-7.43); ABG PO2 86 MMHG (79-93); ABG TCO2 30.1 MMOL/L (21.0-31.0); ALLENS TEST YES-POS; INSPIRED O2 30%; PATIENT TEMP 98.7; VENTILATOR YES
[2018-03-17 04:03] LABS: ALANINE AMINOTRANSFERASE 18 U/L (0-55); ALBUMIN 2.7 GM/DL (3.2-4.5); ALKALINE PHOSPHATASE 67 U/L (40-136); BILIRUBIN,TOTAL 0.4 MG/DL (0.1-1.0); BUN/CREATININE RATIO 41; CALCIUM 8.9 MG/DL (8.5-10.1); CARBON DIOXIDE 27 MMOL/L (21-32); CHLORIDE 114 MMOL/L (98-107); CREATININE SERUM 0.66 MG/DL (0.60-1.30); GFR ESTIMATED > 60; GLUCOSE 242 MG/DL (70-105); MAGNESIUM 2.1 MG/DL (1.8-2.4); PHOSPHORUS 2.1 MG/DL (2.3-4.7); POTASSIUM 3.2 MMOL/L (3.6-5.0); SODIUM 150 MMOL/L (135-145); TOTAL PROTEIN 5.6 GM/DL (6.4-8.2)
[2018-03-17] MEDS: LACTATED RINGERS 1,000 ML IV SCH (04:33)
[2018-03-17] MEDS: morphine INJ 4 MG/ML 1 ML (VIAL/SYRINGE) IV PRN ×2 (05:40→09:02)
[2018-03-17] MEDS: MEROPENEM 500 MG in NS (IVPB) 100 ML IV SCH ×6 (05:41→23:15)
[2018-03-17] MEDS ORDERED: 1/2 NS IV SOLUTION 1,000 ML IV SCH ×2 (05:45→17:00)
--- NOTE | 2018-03-17 05:46 | Pulmonary Progress Note ---
Subjective Time Seen by Provider: 05:48 Subjective/Events-last exam PT IS SEDATED ON VENT. Focused Exam Lactate Level 03/15/18 23:46: Lactic Acid Level 0.79 Time of Focused Exam: 13:20 Exam Exam Vital Signs Date Time Temp Pulse Resp B/P (MAP) Pulse Ox O2 Delivery O2 Flow Rate FiO2 03/17/18 04:24 104 21 92 30 03/17/18 04:00 95 Mechanical Ventilator 30 03/17/18 02:52 99 28 94 30 03/17/18 02:00 96 12 163/77 (105) 94 Mechanical Ventilator 30.00 03/17/18 01:00 97 15 179/77 (111) 93 Mechanical Ventilator 30.00 03/17/18 01:00 97 03/17/18 00:39 98 162/78 94 Mechanical Ventilator 30.00 03/17/18 00:02 101 25 93 30 03/17/18 00:00 95 Mechanical Ventilator 30 03/17/18 00:00 98.8 03/17/18 00:00 101 16 163/77 (105) 93 Mechanical Ventilator 30.00 03/16/18 23:00 99 30 159/77 (104) 94 Mechanical Ventilator 30.00 03/16/18 22:10 96 20 93 30 03/16/18 22:00 98 18 167/77 (107) 94 Mechanical Ventilator 30.00 03/16/18 21:00 98 17 156/70 (98) 91 Mechanical Ventilator 30.00 03/16/18 20:34 99.3 03/16/18 20:01 96 26 94 30 03/16/18 20:00 96 16 161/77 (105) 94 Mechanical Ventilator 30.00 03/16/18 20:00 95 Mechanical Ventilator 30 03/16/18 19:11 92 18 93 30 03/16/18 19:00 91 14 154/77 (102) 94 Mechanical Ventilator 30.00 03/16/18 19:00 91 03/16/18 18:55 98.7 92 13 167/80 94 Mechanical Ventilator 30.00 03/16/18 18:00 93 21 149/73 (98) 94 Mechanical Ventilator 30.00 03/16/18 17:00 101 18 165/77 (106) 93 Mechanical Ventilator 30.00 03/16/18 16:41 92 18 96 30 03/16/18 16:00 95 Mechanical Ventilator 40 03/16/18 16:00 98.6 97 17 150/75 (100) 94 Mechanical Ventilator 40.00 03/16/18 15:00 98 19 144/66 (92) 92 Mechanical Ventilator 40.00 03/16/18 14:48 95 18 96 40 03/16/18 14:00 101 12 160/78 (105) 94 Mechanical Ventilator 40.00 03/16/18 13:00 95 03/16/18 13:00 94 15 149/73 (98) 96 Mechanical Ventilator 40.00 03/16/18 12:33 96 24 97 50 03/16/18 12:30 Mechanical Ventilator 40.00 03/16/18 12:00 98.3 93 22 157/73 (101) 97 Mechanical Ventilator 50.00 03/16/18 12:00 93 Mechanical Ventilator 50 03/16/18 11:00 82 13 143/74 (97) 96 Mechanical Ventilator 50.00 03/16/18 10:55 81 18 96 60 03/16/18 10:00 81 18 149/80 (103) 98 Mechanical Ventilator 50.00 03/16/18 09:50 98.3 82 18 167/89 98 Mechanical Ventilator 50 03/16/18 09:50 98.3 82 18 167/89 98 Mechanical Ventilator 50 03/16/18 09:30 98.6 03/16/18 09:00 79 18 129/72 (91) 98 Mechanical Ventilator 50.00 03/16/18 08:24 98.5 88 12 135/72 99 Mechanical Ventilator 65 03/16/18 08:17 84 18 100 60 03/16/18 08:17 98.9 03/16/18 08:08 98.8 84 17 135/72 100 Mechanical Ventilator 60 03/16/18 08:00 96 8 135/72 (93) 94 Mechanical Ventilator 50.00 03/16/18 08:00 93 Mechanical Ventilator 60 03/16/18 07:49 87 18 128/85 03/16/18 07:29 87 18 94 60 03/16/18 07:00 93 03/16/18 07:00 98.9 84 17 142/78 (99) 100 Mechanical Ventilator 65.00 03/16/18 06:49 95 18 95 60 03/16/18 06:00 122 36 157/96 (116) 94 Nasal Cannula 3.00 I & O 03/17/18 07:00 Intake Total 400 ml Output Total 1100 ml Balance -700 ml General Appearance: No Apparent Distress, WD/WN, Other (Intubated) HEENT: Other (pupils are sluggish and dilated) Neck: Full Range of Motion, Normal Inspection, Supple Respiratory: Other (Diminished and coarse with vent) Cardiovascular: Regular Rate, Rhythm Capillary Refill: Less Than 3 Seconds Peripheral Pulses: 2+ Dorsalis Pedis (R), 2+ Left Dors-Pedis (L), 2+ Radial Pulses (R), 2+ Radial Pulses (L) Gastrointestinal: no pulsatile mass, abnormal bowel sounds (hypoactive bowel sounds), distended Neurologic/Psychiatric: Alert (alert but confused and will not answer questions. ), Normal Mood/Affect Skin: Normal Color, Damp Lymphatic: No Adenopathy Results Lab Laboratory Tests 03/15/18 23:46 03/16/18 04:15 03/17/18 03:30 Assessment/Plan Assessment/Plan Acute respiratory failure with metabolic encephalopathy -Continue ventiltory support and decrease sedation Hypernatremia -Change LR to 1/2 NS Hypertension Urgency BP 206/98 --Start Cardene gtt until pt is able to take PO meds -Start hydralazine PRN. Pt is allergic to Lisinopril -If ok with Dr. Alexandre start Lopressor per OG BID -Continue to monitor Pneumonia with ESBL - -zosyn change to Merrem secondary to ESBL in sputum Metabolic encephalopathy -D/C diprivan -start precedex Perforated appendix with abscess formation s/p surgery -Currently on TPN hx of asthma - -SVNs 233 SD MITCHELL DO Mar 17, 2018 05:46
[2018-03-17] MEDS: MAGNESIUM 1 GM/100 ML IVPB 100 ML IV SCH (05:54)
[2018-03-17] MEDS: KCL 20 MEQ TAB (K-DUR) PO SCH (05:54)
[2018-03-17] MEDS: POTASSIUM CL 10MEQ/50ML IVPB 50 ML IV SCH ×4 (06:01→10:33)
[2018-03-17] MEDS: DEXMEDETOMIDINE INJECTION 400 MCG in NS (IVPB) 96 ML IV SCH ×5 (07:00→23:17)
[2018-03-17] MEDS: niCARdipine IV 50 MG in NS (IVPB) 230 ML IV SCH ×2 (07:03→16:31)
--- NOTE | 2018-03-17 08:08 | Diagnostic Imaging Report ---
TECHNIQUE: Noncontrast CT of the head was obtained. Subsequently, after intravenous administration of contrast, thin section axial CT angiography of the head was performed. Source data was reformatted into multiple MIP reformats. Delayed postcontrast acquisition of the head was also acquired. INDICATION: Sepsis and bowel perforation. EXAMINATION: Pre-and post-IV contrast-enhanced CT angio head performed. FINDINGS: The pre-and delayed postcontrast enhanced imaging of the head revealed no abnormal parenchymal or meningeal enhancement. No mass or mass effect. There was no intracerebral hemorrhage and no findings of focal or generalized cerebral edema. There are no features of an elevation to the intracranial pressures. There is no sulcal effacement. There is no mastoid effusion. Paranasal sinuses clear. CT angio head: There are calcified plaques of the intracranial segments of the internal carotid arteries without hemodynamically significant focal stenosis or occlusion. The ACOM is visualized and normal. The left A1 segment absent or hypoplastic. The right A1 segment dominant. The bilateral middle cerebral arteries showed no appreciable intraluminal filling defect, large vessel occlusion or aneurysm. The basilar is small. The FARM[employer] FUR is predominantly a origin off the anterior circulation. IMPRESSION: Unremarkable CT angiogram head without evidence of metastatic disease, hemorrhage, findings of an infarct or large vessel occlusion. 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 An acute or suspicious abnormality is not identified. Dictated by: Dictated on workstation # [id number]
--- NOTE | 2018-03-17 08:44 | Diagnostic Imaging Report ---
CHEST 1 VIEW, AP/PA ONLY INDICATION: Dyspnea. COMPARISON: 03/16/2018 FINDINGS: Support Devices: Stable ET tube and enteric tube. Stable left subclavian central venous catheter. Chest: No change in multifocal heterogeneous opacities, most focal in the right mid-upper lung zone. Possible trace layering pleural effusions are stable. No pneumothorax. Stable cardiomegaly. IMPRESSION: 1. Stable support devices. 2. No adverse development in the interim. Dictated by: Dictated on workstation # [id number]
[2018-03-17] MEDS: PANTOPRAZOLE 40 MG/10 ML (PROTONIX) VIAL IV SCH (08:45)
[2018-03-17] MEDS ORDERED: TPN IV SCH (09:30)
--- NOTE | 2018-03-17 10:42 | Progress Note-Hospitalist ---
Subjective HPI/CC On Admission Date Seen by Provider: Mar 17, 2018 Time Seen by Provider: 10:15 Subjective/Events-last exam Patient still intubated Reviewed labs Reviewed surgery note regarding adenocarcinoma on pathology and it appears extensive spread Critically ill Focused Exam Lactate Level 03/15/18 23:46: Lactic Acid Level 0.79 Time of Focused Exam: 13:20 Objective Exam Vital Signs Vital Signs Date Time Temp Pulse Resp B/P (MAP) Pulse Ox O2 Delivery O2 Flow Rate FiO2 03/17/18 10:34 40 03/17/18 10:00 101 27 176/78 (110) 96 Mechanical Ventilator 30.00 03/17/18 08:47 100.0 Capillary Refill : Less Than 3 SecondsLess Than 3 Seconds General Appearance: No Apparent Distress, WD/WN, Chronically ill, Other ( intubated) Respiratory: Lungs Clear, Normal Breath Sounds Results/Procedures Lab Laboratory Tests 03/17/18 03:30 Patient resulted labs reviewed. Assessment/Plan Assessment and Plan Assess & Plan/Chief Complaint Assessment: Respiratory failure acute failed extubation now currently intubated on sedation New information of colon cancer adeno type from pathology Poor prognosis Plan: Maintain ventilator Update family per Dr. Alexandre who performed surgery and confirm pathology results Clinical Quality Measures DVT/VTE Risk/Contraindication: Risk Factor Score Per Nursin RFS Level Per Nursing on Admit: 1=Low/No VTE PPX JAMIE KAYE DO Mar 17, 2018 10:42
[2018-03-17] MEDS ORDERED: fentaNYL INJECTION 100 MCG/2 ML AMP ONE (11:56)
[2018-03-17] MEDS: fentaNYL INJECTION 100 MCG/2 ML AMP IVP PRN ×5 (12:19→23:22)
[2018-03-17] MEDS ORDERED: ENOXAPARIN 40 MG/0.4 ML (LOVENOX) SYR ONE (12:22)
[2018-03-17] MEDS: ENOXAPARIN 40 MG/0.4 ML (LOVENOX) SYR SC SCH (12:30)
[2018-03-17] MEDS ORDERED: POTASSIUM PHOSPHATE INJ 6.8 MM in NS (IVPB) 50 ML IV SCH (12:30)
--- NOTE | 2018-03-17 12:44 | Progress Note-Standard ---
Standard Progress Note Progress Notes/Assess & Plan Date Seen by Provider: Mar 17, 2018 Time Seen by Provider: 11:05 Progress/Assessment & Plan I was informed about this patient being admitted last night with peritonitis, possibly due to distal small bowel perforation. She has been managed nonoperatively by the surgeon donor floor technician and I was asked to take over her care by the hospitalist. I have since reviewed her studies and personally examine her. She has diffuse peritonitis and the most recent liver biopsy is nondiagnostic. It is appropriate that she be subjected to laparotomy to address the offending perforation and possibly establish a definitive histologic diagnosis. I have discussed this with her, indicating the grave nature of her condition. She appears to comprehend, despite being limited due to the use of narcotics. 03/15/18: Awake and doing well. Extubation anticipated. Will place wound VAC and continue IV antibiotics 03/16/18 (seen around 845 a.m.) patient developed hypercarbia him a decreased mental status and anemic last night. Reintubated this morning. Urine output satisfactory. Electrolytes normal. Blood transfusion in progress. Wound VAC in place. Possible total parenteral nutrition tomorrow. Consolidation of the right upper/middle lobe with features of pneumonia. Antibiotics will be tailored to the bacteria identified. 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 Her primary physician updated. Patient will be informed once extubated 03/17/18: Mechanical ventilation continues. Pulmonary infiltrates stable. Renal function preserved. Hypokalemia, will be replaced. Pathology report disclosed to her uncle and aunt. Meeting with the children anticipated later this week. 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
[2018-03-17] MEDS ORDERED: NS IV SCH (12:45)
[2018-03-17] MEDS ORDERED: POTASSIUM PHOSPHATE IV SCH ×10 (12:45→17:00)
[2018-03-17] MEDS: meTOprolol TARTRATE 25 MG (LOPRESSOR) TABLET NG SCH ×2 (13:42→21:25)
[2018-03-17] MEDS: POTASSIUM PHOSPHATE IV SCH ×3 (16:40→18:53)
[2018-03-17] MEDS: NS IV SCH ×3 (16:40→18:53)
[2018-03-17] MEDS ORDERED: [UNRECOGNIZED DRUG - OTHER] IV SCH ×9 (17:00)
[2018-03-17] MEDS ORDERED: POTASSIUM CHLORIDE IV SCH ×9 (17:00)
[2018-03-17] MEDS: meTOprolol 5 MG/5 ML (LOPRESSOR) VIAL IV PRN (18:35)
[2018-03-17] MEDS: 1/2 NS IV SOLUTION 1,000 ML IV SCH (18:36)
[2018-03-18] VITALS (33 sets, daily range): BP systolic 130–193; BP diastolic 52–112
[2018-03-18] MEDS: fentaNYL INJECTION 100 MCG/2 ML AMP IVP PRN ×7 (00:51→17:54)
[2018-03-18] MEDS: RT-ALBUTEROL/IPRATROPIUM 3 ML (DUONEB) VIAL INH SCH ×6 (01:32→22:28)
[2018-03-18] MEDS: niCARdipine IV 50 MG in NS (IVPB) 230 ML IV SCH ×4 (01:55→23:43)
[2018-03-18] MEDS: DEXMEDETOMIDINE INJECTION 400 MCG in NS (IVPB) 96 ML IV SCH ×5 (02:56→21:40)
[2018-03-18 04:00] LABS: ABG BASE EXCESS 2.4 MMOL/L (-2.5-2.5); ABG OXYGEN SATURATION 94 % (94-100); ABG PCO2 61 MMHG (35-45); ABG PO2 76 MMHG (79-93); ABG TCO2 30.4 MMOL/L (21.0-31.0)
[2018-03-18 04:01] LABS: ALLENS TEST YES-POS
[2018-03-18 04:02] LABS: INSPIRED O2 30% FIO2; VENTILATOR YES
[2018-03-18 04:03] LABS: ABG PH 7.29 (7.37-7.43)
[2018-03-18 04:06] LABS: BASOPHILS % (AUTO) 0 % (0-10); EOSINOPHILS # (AUTO) 0.1 10^3/uL (0.0-0.3); EOSINOPHILS % (AUTO) 1 % (0-10); HEMATOCRIT 25 % (35-52); HEMOGLOBIN 8.1 G/DL (11.5-16.0); MEAN CORPUSCULAR HEMOGLOBIN 30 PG (25-34); MEAN CORPUSCULAR HGB CONC 32 G/DL (32-36); MEAN CORPUSCULAR VOLUME 94 FL (80-99); MEAN PLATELET VOLUME 9.7 FL (7.4-10.4); MONOCYTES # (AUTO) 0.7 X 10^3 (0.0-1.0); MONOCYTES % (AUTO) 5 % (0-12); NEUTROPHILS # (AUTO) 10.5 X 10^3 (1.8-7.8); NEUTROPHILS % (AUTO) 85 % (42-75); PLATELET COUNT 402 10^3/uL (130-400); RED BLOOD COUNT 2.69 10^6/uL (4.35-5.85); WHITE BLOOD COUNT 12.4 10^3/uL (4.3-11.0)
[2018-03-18 04:07] LABS: LYMPHOCYTES % (AUTO) 9 % (12-44)
[2018-03-18 04:24] LABS: ALANINE AMINOTRANSFERASE 18 U/L (0-55); ALBUMIN 2.6 GM/DL (3.2-4.5); ALKALINE PHOSPHATASE 73 U/L (40-136); BILIRUBIN,TOTAL 0.4 MG/DL (0.1-1.0); BUN/CREATININE RATIO 41; CALCIUM 8.1 MG/DL (8.5-10.1); CARBON DIOXIDE 27 MMOL/L (21-32); CHLORIDE 112 MMOL/L (98-107); CREATININE SERUM 0.58 MG/DL (0.60-1.30); GFR ESTIMATED > 60; GLUCOSE 236 MG/DL (70-105); MAGNESIUM 1.6 MG/DL (1.8-2.4); PHOSPHORUS 3.6 MG/DL (2.3-4.7); POTASSIUM 4.4 MMOL/L (3.6-5.0); SODIUM 148 MMOL/L (135-145); TOTAL PROTEIN 5.1 GM/DL (6.4-8.2)
[2018-03-18] MEDS: inSUlin ASPART (NovoLOG) 1 UNIT/0.01 ML (CHARGE PER UNIT) SC SCH ×3 (05:03→17:57)
[2018-03-18] MEDS: LEVOTHYROXINE 100 MCG INJ (SYNTHROID) VIAL IV SCH (05:03)
[2018-03-18] MEDS: MEROPENEM 500 MG in NS (IVPB) 100 ML IV SCH ×3 (05:04→17:52)
[2018-03-18] MEDS: KCL 20 MEQ TAB (K-DUR) PO SCH (05:13)
[2018-03-18] MEDS: MAGNESIUM 1 GM/100 ML IVPB 100 ML IV SCH ×3 (05:15→06:08)
[2018-03-18] MEDS: POTASSIUM CL 10MEQ/50ML IVPB 50 ML IV SCH (06:28)
[2018-03-18] MEDS ORDERED: HALOPERIDOL 5 MG/ML (HALDOL) AMP IV PRN (07:00)
[2018-03-18] MEDS ORDERED: FUROSEMIDE 40 MG/4 ML INJ (LASIX) IVP NR (07:15)
[2018-03-18] MEDS ORDERED: fentaNYL INJECTION 100 MCG/2 ML AMP IVP PRN (07:15)
--- NOTE | 2018-03-18 07:34 | Diagnostic Imaging Report ---
INDICATION: Followup ventilated patient. COMPARISON: 03/17/2018. FINDINGS: Single frontal radiographic view of the chest was obtained and again demonstrates scattered patchy and confluent infiltrate type opacities, bilaterally. There may be some interval progression within the right upper lung field when compared to prior exam. No pneumothorax or large effusion is seen either side. Cardiac silhouette remains enlarged. Endotracheal tube is seen with tip below the clavicular heads and above the tico. Gastric tube tip terminates in the stomach. Bony structures are stable. IMPRESSION: 1. Bilateral infiltrates with evidence of progression in the right upper lung field. Continued followup is recommended. 2. Lines and tubes as above. 3. Cardiomegaly. Dictated by: Dictated on workstation # [id number]
[2018-03-18] MEDS: 1/2 NS IV SOLUTION 1,000 ML IV SCH ×2 (07:42→20:56)
[2018-03-18] MEDS: PANTOPRAZOLE 40 MG/10 ML (PROTONIX) VIAL IV SCH (07:42)
[2018-03-18] MEDS: meTOprolol TARTRATE 25 MG (LOPRESSOR) TABLET NG SCH ×2 (07:43→20:56)
[2018-03-18] MEDS: hydrALAZINE (APESOLINE) 20 MG/ML VIAL IV PRN (07:43)
[2018-03-18] MEDS ORDERED: PROPOFOL DRIP (ICU) 100 ML IV ONE (07:58)
[2018-03-18] MEDS: PROPOFOL DRIP (ICU) 100 ML IV SCH ×3 (08:12→17:57)
[2018-03-18] MEDS ORDERED: fentaNYL INJECTION 100 MCG/2 ML AMP IVP ONE (08:15)
[2018-03-18] MEDS ORDERED: MAGNESIUM 1 GM/100 ML IVPB 100 ML IV ONE (09:54)
[2018-03-18] MEDS: ENOXAPARIN 40 MG/0.4 ML (LOVENOX) SYR SC SCH (11:56)
--- NOTE | 2018-03-18 12:02 | Progress Note-Hospitalist ---
Subjective HPI/CC On Admission Date Seen by Provider: Mar 18, 2018 Time Seen by Provider: 11:00 Subjective/Events-last exam Patient remains on vent Was awake and alert for a short time but was unable to communicate Overall prognosis extremely poor Focused Exam Lactate Level 03/15/18 23:46: Lactic Acid Level 0.79 Time of Focused Exam: 13:20 Objective Exam Vital Signs Vital Signs Date Time Temp Pulse Resp B/P (MAP) Pulse Ox O2 Delivery O2 Flow Rate FiO2 03/18/18 11:46 116/59 03/18/18 10:58 87 17 97 35 03/18/18 10:00 Mechanical Ventilator 30.00 03/18/18 08:12 99.4 Capillary Refill : Less Than 3 SecondsLess Than 3 Seconds General Appearance: No Apparent Distress, WD/WN, Chronically ill, Other (On vent) Results/Procedures Lab Laboratory Tests 03/18/18 03:35 Patient resulted labs reviewed. Assessment/Plan Assessment and Plan Assess & Plan/Chief Complaint Assessment: Respiratory failure acute failed extubation now currently intubated on sedation New information of colon cancer adeno type from pathology Poor prognosis Plan: Maintain ventilator Update family per Dr. Alexandre who performed surgery and confirm pathology results Clinical Quality Measures DVT/VTE Risk/Contraindication: Risk Factor Score Per Nursin RFS Level Per Nursing on Admit: 1=Low/No VTE PPX JAMIE KAYE DO Mar 18, 2018 12:02
--- NOTE | 2018-03-18 12:13 | Progress Note-Standard ---
Standard Progress Note Progress Notes/Assess & Plan Date Seen by Provider: Mar 18, 2018 Time Seen by Provider: 12:12 Progress/Assessment & Plan I was informed about this patient being admitted last night with peritonitis, possibly due to distal small bowel perforation. She has been managed nonoperatively by the surgeon bank consultant and I was asked to take over her care by the hospitalist. I have since reviewed her studies and personally examine her. She has diffuse peritonitis and the most recent liver biopsy is nondiagnostic. It is appropriate that she be subjected to laparotomy to address the offending perforation and possibly establish a definitive histologic diagnosis. I have discussed this with her, indicating the grave nature of her condition. She appears to comprehend, despite being limited due to the use of narcotics. 03/15/18: Awake and doing well. Extubation anticipated. Will place wound VAC and continue IV antibiotics 03/16/18 (seen around 845 a.m.) patient developed hypercarbia him a decreased mental status and anemic last night. Reintubated this morning. Urine output satisfactory. Electrolytes normal. Blood transfusion in progress. Wound VAC in place. Possible total parenteral nutrition tomorrow. Consolidation of the right upper/middle lobe with features of pneumonia. Antibiotics will be tailored to the bacteria identified. 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 Her primary physician updated. Patient will be informed once extubated 03/17/18: Mechanical ventilation continues. Pulmonary infiltrates stable. Renal function preserved. Hypokalemia, will be replaced. Pathology report disclosed to her uncle and aunt. Meeting with the children anticipated later this week. Continue TPN 03/17/18:right upper lobe consolidation appears to be worse. White cell count slightly elevated. Output from NG tube minimal. Wound appears to be healthy. Tolerating TPN. Electrolytes much improved. 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 Ventilatory failure. Right upper lobe pneumonia Focused Exam Lactate Level 03/15/18 23:46: Lactic Acid Level 0.79 Time of Focused Exam: 13:20 LUCIA FERNANDEZ MD Mar 18, 2018 12:13 pm
[2018-03-18] MEDS ORDERED: NS IV 1000 ML 1,000 ML ONE (12:55)
[2018-03-18] MEDS: meTOprolol 5 MG/5 ML (LOPRESSOR) VIAL IV PRN (13:12)
--- NOTE | 2018-03-18 13:25 | Anesthesia-Procedure Note ---
Procedures/Interventions Procedure Start/Stop/Diagnosis Date of Procedure: Mar 18, 2018 Start Time: 13:00 Referring Physician: Dr Alexandre Preprocedural Diagnosis: Sepsis, Metastatic Carcinoma of Appendix, Ventilator Dependance Brief History Anesthesia Note ([id number]) Called to ICU [address] Alexandre for arterial line placement. Pt on ventilator and with blood pressure variability. Rt radial art line placed (20 G) after sterile prep with ChloraPrep. No difficulty and art line secured with sterile tegaderm and had a good waveform. Pt tolerated the procedure well. Will be available if needed. Stop Time: 13:10 Arterial Line Arterial Line Catheter: 20G Type: Radial Location: Right Procedure: good wave-form was obtained, patient tolerated procedure well, no immediate complications, post procedure area cleaned, post procedure dressing applied TERRENCE WATTS DO Mar 18, 2018 13:25
[2018-03-18] MEDS ORDERED: NS IV 1000 ML 1,000 ML IV ONE (13:30)
[2018-03-18] MEDS ORDERED: fentaNYL INJECTION 100 MCG/2 ML AMP ONE (13:46)
[2018-03-18 14:14] LABS: ABG BASE EXCESS 4.4 MMOL/L (-2.5-2.5); ABG OXYGEN SATURATION 98 % (94-100); ABG PCO2 50 MMHG (35-45); ABG PH 7.38 (7.37-7.43); ABG PO2 94 MMHG (79-93); ABG TCO2 30.6 MMOL/L (21.0-31.0)
[2018-03-18 14:15] LABS: ALLENS TEST ART LINE; INSPIRED O2 30%; PATIENT TEMP 99.2; VENTILATOR YES
[2018-03-18] MEDS ORDERED: [UNRECOGNIZED DRUG - OTHER] IV SCH ×8 (17:00)
[2018-03-18] MEDS ORDERED: POTASSIUM CHLORIDE IV SCH ×8 (17:00)
[2018-03-18] MEDS ORDERED: POTASSIUM PHOSPHATE IV SCH ×8 (17:00)
[2018-03-18] MEDS: METOCLOPRAMIDE INJ 10 MG/2 ML (REGLAN) IVP SCH (17:54)
[2018-03-18] MEDS: POTASSIUM PHOSPHATE IV SCH ×9 (17:56)
[2018-03-18] MEDS: [UNRECOGNIZED DRUG - OTHER] IV SCH ×9 (17:56)
[2018-03-18] MEDS: POTASSIUM CHLORIDE IV SCH ×9 (17:56)
[2018-03-19] VITALS (35 sets, daily range): BP systolic 101–193; BP diastolic 46–110
[2018-03-19] MEDS: inSUlin ASPART (NovoLOG) 1 UNIT/0.01 ML (CHARGE PER UNIT) SC SCH ×4 (00:06→17:38)
[2018-03-19] MEDS: METOCLOPRAMIDE INJ 10 MG/2 ML (REGLAN) IVP SCH ×4 (00:06→17:38)
[2018-03-19] MEDS: MEROPENEM 500 MG in NS (IVPB) 100 ML IV SCH ×4 (00:06→17:38)
[2018-03-19] MEDS: PROPOFOL DRIP (ICU) 100 ML IV SCH ×5 (00:10→21:44)
[2018-03-19] MEDS: fentaNYL INJECTION 100 MCG/2 ML AMP IVP PRN ×8 (00:19→21:44)
[2018-03-19] MEDS: DEXMEDETOMIDINE INJECTION 400 MCG in NS (IVPB) 96 ML IV SCH ×8 (00:46→23:52)
[2018-03-19] MEDS: RT-ALBUTEROL/IPRATROPIUM 3 ML (DUONEB) VIAL INH SCH ×6 (01:52→22:23)
[2018-03-19 03:15] LABS: BASOPHILS % (AUTO) 0 % (0-10); EOSINOPHILS # (AUTO) 0.2 10^3/uL (0.0-0.3); EOSINOPHILS % (AUTO) 2 % (0-10); HEMATOCRIT 25 % (35-52); HEMOGLOBIN 7.6 G/DL (11.5-16.0); LYMPHOCYTES # (AUTO) 1.2 X 10^3 (1.0-4.0); LYMPHOCYTES % (AUTO) 9 % (12-44); MEAN CORPUSCULAR HEMOGLOBIN 29 PG (25-34); MEAN CORPUSCULAR HGB CONC 31 G/DL (32-36); MEAN CORPUSCULAR VOLUME 94 FL (80-99); MEAN PLATELET VOLUME 9.4 FL (7.4-10.4); MONOCYTES # (AUTO) 0.6 X 10^3 (0.0-1.0); MONOCYTES % (AUTO) 5 % (0-12); NEUTROPHILS # (AUTO) 11.6 X 10^3 (1.8-7.8); NEUTROPHILS % (AUTO) 85 % (42-75); PLATELET COUNT 417 10^3/uL (130-400); RED BLOOD COUNT 2.63 10^6/uL (4.35-5.85); RED CELL DISTRIBUTION WIDTH 15.5 % (10.0-14.5); WHITE BLOOD COUNT 13.7 10^3/uL (4.3-11.0)
[2018-03-19 03:36] LABS: ALANINE AMINOTRANSFERASE 30 U/L (0-55); ALBUMIN 2.4 GM/DL (3.2-4.5); ALKALINE PHOSPHATASE 90 U/L (40-136); BILIRUBIN,TOTAL 0.5 MG/DL (0.1-1.0); BUN/CREATININE RATIO 36; CALCIUM 7.8 MG/DL (8.5-10.1); CARBON DIOXIDE 27 MMOL/L (21-32); CHLORIDE 106 MMOL/L (98-107); GFR ESTIMATED > 60; GLUCOSE 200 MG/DL (70-105); MAGNESIUM 1.6 MG/DL (1.8-2.4); PHOSPHORUS 2.5 MG/DL (2.3-4.7); POTASSIUM 3.8 MMOL/L (3.6-5.0); SODIUM 141 MMOL/L (135-145); TOTAL PROTEIN 5.1 GM/DL (6.4-8.2)
[2018-03-19] MEDS: MAGNESIUM 1 GM/100 ML IVPB 100 ML IV SCH ×2 (04:08→04:20)
[2018-03-19] MEDS: POTASSIUM CL 10MEQ/50ML IVPB 50 ML IV SCH (04:08)
[2018-03-19] MEDS: KCL 20 MEQ TAB (K-DUR) PO SCH (04:08)
[2018-03-19 06:07] LABS: ABG BASE EXCESS 3.7 MMOL/L (-2.5-2.5); ABG OXYGEN SATURATION 98 % (94-100); ABG PCO2 47 MMHG (35-45); ABG PH 7.39 (7.37-7.43); ABG PO2 92 MMHG (79-93); ABG TCO2 29.8 MMOL/L (21.0-31.0)
[2018-03-19 06:08] LABS: ALLENS TEST ART LINE; INSPIRED O2 30%; VENTILATOR YES
[2018-03-19] MEDS: niCARdipine IV 50 MG in NS (IVPB) 230 ML IV SCH ×2 (08:00→17:39)
--- NOTE | 2018-03-19 08:03 | Pulmonary Progress Note ---
Subjective Date Seen by Provider: Mar 18, 2018 (late entry for 03/18 - today is 03/19) Time Seen by Provider: 08:02 Subjective/Events-last exam pt sedated on vent. Focused Exam Time of Focused Exam: 13:20 Exam Exam Vital Signs Date Time Temp Pulse Resp B/P (MAP) Pulse Ox O2 Delivery O2 Flow Rate FiO2 03/19/18 06:21 62 15 98 30 03/19/18 06:10 63 03/19/18 06:00 63 14 133/53 (79) 99 Mechanical Ventilator 30.00 03/19/18 05:00 63 12 130/52 (78) 99 Mechanical Ventilator 30.00 03/19/18 04:12 98.0 Mechanical Ventilator 30.00 03/19/18 04:00 78 20 171/67 (101) 98 Mechanical Ventilator 30.00 03/19/18 04:00 97 Mechanical Ventilator 30 03/19/18 03:29 71 17 98 30 03/19/18 03:00 74 14 153/58 (89) 98 Mechanical Ventilator 30.00 03/19/18 02:00 71 17 158/59 (92) 98 Mechanical Ventilator 30.00 03/19/18 01:52 78 18 98 30 03/19/18 01:00 68 03/19/18 01:00 67 11 137/55 (82) 98 Mechanical Ventilator 30.00 03/19/18 00:24 98.1 Mechanical Ventilator 30.00 03/19/18 00:10 65 03/19/18 00:00 71 15 141/52 (81) 92 Mechanical Ventilator 30.00 03/19/18 00:00 95 Mechanical Ventilator 30 03/18/18 23:00 73 16 142/53 (82) 96 Mechanical Ventilator 30.00 03/18/18 22:28 65 18 95 30 03/18/18 22:00 66 12 132/53 (79) 95 Mechanical Ventilator 30.00 03/18/18 21:00 70 12 142/53 (82) 95 Mechanical Ventilator 30.00 03/18/18 20:00 95 Mechanical Ventilator 30 03/18/18 20:00 76 13 146/52 (83) 95 Mechanical Ventilator 30.00 03/18/18 19:54 98.0 Mechanical Ventilator 30.00 03/18/18 19:00 72 03/18/18 19:00 73 14 141/53 (82) 95 Mechanical Ventilator 30.00 03/18/18 18:58 73 17 95 30 03/18/18 18:00 85 10 144/84 (104) 96 Mechanical Ventilator 30.00 03/18/18 17:57 157/54 03/18/18 17:08 75 20 93 35 03/18/18 17:00 75 11 144/52 (82) 92 Mechanical Ventilator 30.00 03/18/18 16:09 97.9 84 17 188/75 (112) 92 Mechanical Ventilator 30.00 03/18/18 16:07 94 Mechanical Ventilator 30 03/18/18 16:00 99 26 180/71 (107) 93 Mechanical Ventilator 30.00 03/18/18 15:00 81 12 192/74 (113) 98 Mechanical Ventilator 30.00 03/18/18 14:13 03/18/18 14:00 75 13 171/67 (101) 97 Mechanical Ventilator 30.00 03/18/18 13:56 76 16 96 35 03/18/18 13:00 107 21 193/110 (137) 97 Mechanical Ventilator 30.00 03/18/18 13:00 107 03/18/18 12:00 83 12 130/66 (87) 97 Mechanical Ventilator 30.00 03/18/18 11:46 116/59 03/18/18 11:45 97 Mechanical Ventilator 30 03/18/18 11:45 98.5 Mechanical Ventilator 30.00 03/18/18 11:00 87 12 151/81 (104) 97 Mechanical Ventilator 30.00 03/18/18 10:58 87 17 97 35 03/18/18 10:00 90 13 147/76 (99) 97 Mechanical Ventilator 30.00 03/18/18 09:00 90 9 139/79 (99) 95 Mechanical Ventilator 30.00 03/18/18 08:15 93 22 96 35 03/18/18 08:12 99.4 Mechanical Ventilator 30.00 03/18/18 08:12 97 Mechanical Ventilator 30 03/18/18 08:12 209/136 I & O 03/19/18 07:00 Intake Total 1400 ml Output Total 4400 ml Balance -3000 ml General Appearance: No Apparent Distress, WD/WN, Chronically ill, Other (On vent) HEENT: Other (pupils are sluggish and dilated) Neck: Full Range of Motion, Normal Inspection, Supple Respiratory: Lungs Clear, Normal Breath Sounds Cardiovascular: Regular Rate, Rhythm Capillary Refill: Less Than 3 Seconds Peripheral Pulses: 2+ Dorsalis Pedis (R), 2+ Left Dors-Pedis (L), 2+ Radial Pulses (R), 2+ Radial Pulses (L) Gastrointestinal: no pulsatile mass, abnormal bowel sounds (hypoactive bowel sounds), distended Neurologic/Psychiatric: Alert (alert but confused and will not answer questions. ), Normal Mood/Affect Skin: Normal Color, Damp Lymphatic: No Adenopathy Results Lab Laboratory Tests 03/18/18 03:35 03/19/18 03:00 Assessment/Plan Assessment/Plan Acute respiratory failure with metabolic encephalopathy -Continue ventiltory support Hypernatremia -Change LR to 1/2 NS Hypertension Urgency BP 206/98 --Start Cardene gtt until pt is able to take PO meds -Start hydralazine PRN. Pt is allergic to Lisinopril -If ok with Dr. Alexandre start Lopressor per OG BID -Continue to monitor Pneumonia with ESBL - -zosyn change to Merrem secondary to ESBL in sputum Metabolic encephalopathy -D/C diprivan -start precedex Perforated appendix with abscess formation s/p surgery -Currently on TPN hx of asthma - -SVNs 233 SD MITCHELL DO Mar 19, 2018 08:03
--- NOTE | 2018-03-19 08:05 | Pulmonary Progress Note ---
Subjective Time Seen by Provider: 08:04 Subjective/Events-last exam pt sedated on vent. Focused Exam Time of Focused Exam: 13:20 Exam Exam Vital Signs Date Time Temp Pulse Resp B/P (MAP) Pulse Ox O2 Delivery O2 Flow Rate FiO2 03/19/18 06:21 62 15 98 30 03/19/18 06:10 63 03/19/18 06:00 63 14 133/53 (79) 99 Mechanical Ventilator 30.00 03/19/18 05:00 63 12 130/52 (78) 99 Mechanical Ventilator 30.00 03/19/18 04:12 98.0 Mechanical Ventilator 30.00 03/19/18 04:00 78 20 171/67 (101) 98 Mechanical Ventilator 30.00 03/19/18 04:00 97 Mechanical Ventilator 30 03/19/18 03:29 71 17 98 30 03/19/18 03:00 74 14 153/58 (89) 98 Mechanical Ventilator 30.00 03/19/18 02:00 71 17 158/59 (92) 98 Mechanical Ventilator 30.00 03/19/18 01:52 78 18 98 30 03/19/18 01:00 68 03/19/18 01:00 67 11 137/55 (82) 98 Mechanical Ventilator 30.00 03/19/18 00:24 98.1 Mechanical Ventilator 30.00 03/19/18 00:10 65 03/19/18 00:00 71 15 141/52 (81) 92 Mechanical Ventilator 30.00 03/19/18 00:00 95 Mechanical Ventilator 30 03/18/18 23:00 73 16 142/53 (82) 96 Mechanical Ventilator 30.00 03/18/18 22:28 65 18 95 30 03/18/18 22:00 66 12 132/53 (79) 95 Mechanical Ventilator 30.00 03/18/18 21:00 70 12 142/53 (82) 95 Mechanical Ventilator 30.00 03/18/18 20:00 95 Mechanical Ventilator 30 03/18/18 20:00 76 13 146/52 (83) 95 Mechanical Ventilator 30.00 03/18/18 19:54 98.0 Mechanical Ventilator 30.00 03/18/18 19:00 72 03/18/18 19:00 73 14 141/53 (82) 95 Mechanical Ventilator 30.00 03/18/18 18:58 73 17 95 30 03/18/18 18:00 85 10 144/84 (104) 96 Mechanical Ventilator 30.00 03/18/18 17:57 157/54 03/18/18 17:08 75 20 93 35 03/18/18 17:00 75 11 144/52 (82) 92 Mechanical Ventilator 30.00 03/18/18 16:09 97.9 84 17 188/75 (112) 92 Mechanical Ventilator 30.00 03/18/18 16:07 94 Mechanical Ventilator 30 03/18/18 16:00 99 26 180/71 (107) 93 Mechanical Ventilator 30.00 03/18/18 15:00 81 12 192/74 (113) 98 Mechanical Ventilator 30.00 03/18/18 14:13 03/18/18 14:00 75 13 171/67 (101) 97 Mechanical Ventilator 30.00 03/18/18 13:56 76 16 96 35 03/18/18 13:00 107 21 193/110 (137) 97 Mechanical Ventilator 30.00 03/18/18 13:00 107 03/18/18 12:00 83 12 130/66 (87) 97 Mechanical Ventilator 30.00 03/18/18 11:46 116/59 03/18/18 11:45 97 Mechanical Ventilator 30 03/18/18 11:45 98.5 Mechanical Ventilator 30.00 03/18/18 11:00 87 12 151/81 (104) 97 Mechanical Ventilator 30.00 03/18/18 10:58 87 17 97 35 03/18/18 10:00 90 13 147/76 (99) 97 Mechanical Ventilator 30.00 03/18/18 09:00 90 9 139/79 (99) 95 Mechanical Ventilator 30.00 03/18/18 08:15 93 22 96 35 03/18/18 08:12 99.4 Mechanical Ventilator 30.00 03/18/18 08:12 97 Mechanical Ventilator 30 03/18/18 08:12 209/136 I & O 03/19/18 07:00 Intake Total 1400 ml Output Total 4400 ml Balance -3000 ml General Appearance: No Apparent Distress, WD/WN, Chronically ill, Other (On vent) HEENT: Other (pupils are sluggish and dilated) Neck: Full Range of Motion, Normal Inspection, Supple Respiratory: Lungs Clear, Normal Breath Sounds Cardiovascular: Regular Rate, Rhythm Capillary Refill: Less Than 3 Seconds Peripheral Pulses: 2+ Dorsalis Pedis (R), 2+ Left Dors-Pedis (L), 2+ Radial Pulses (R), 2+ Radial Pulses (L) Gastrointestinal: no pulsatile mass, abnormal bowel sounds (hypoactive bowel sounds), distended Neurologic/Psychiatric: Alert (alert but confused and will not answer questions. ), Normal Mood/Affect Skin: Normal Color, Damp Lymphatic: No Adenopathy Results Lab Laboratory Tests 03/18/18 03:35 03/19/18 03:00 Assessment/Plan Assessment/Plan Acute respiratory failure with metabolic encephalopathy -Continue ventilatory support Hypernatremia -Change LR to 1/2 NS Hypertension Urgency BP 206/98 --Cardene gtt is now off -hydralazine PRN. Pt is allergic to Lisinopril -Continue to monitor Pneumonia with ESBL - Merrem secondary to ESBL in sputum Metabolic encephalopathy -diprivan -start precedex Anemia -montior Perforated appendix with abscess formation s/p surgery -Currently on TPN hx of asthma - -SVNs 233 SD MITCHELL DO Mar 19, 2018 08:05
[2018-03-19] MEDS: meTOprolol TARTRATE 25 MG (LOPRESSOR) TABLET NG SCH ×2 (08:23→20:16)
[2018-03-19] MEDS: PANTOPRAZOLE 40 MG/10 ML (PROTONIX) VIAL IV SCH (08:23)
--- NOTE | 2018-03-19 09:51 | Diagnostic Imaging Report ---
INDICATION: Mechanical ventilation, dyspnea.. TECHNIQUE: Single view chest 3:33 AM. CORRELATION STUDY: 03/18/2018 FINDINGS: Gastric tube is present, passes below the left hemidiaphragm. Endotracheal tube superimposed over the trachea tip, just below the level of the clavicles. Heart size and mediastinum are generally stable. Scattered bilateral pulmonary infiltrates persisting, particularly in the right upper lobe and lung base. May be very minimal improved. IMPRESSION: 1. Scattered patchy areas of infiltrate persisting the may be perhaps minimally improved. Dictated by: Dictated on workstation # [id number]
--- NOTE | 2018-03-19 09:58 | Progress Note-Standard ---
Standard Progress Note Progress Notes/Assess & Plan Date Seen by Provider: Mar 19, 2018 Time Seen by Provider: 09:15 Progress/Assessment & Plan I was informed about this patient being admitted last night with peritonitis, possibly due to distal small bowel perforation. She has been managed nonoperatively by the surgeon solution design and analysis manager and I was asked to take over her care by the hospitalist. I have since reviewed her studies and personally examine her. She has diffuse peritonitis and the most recent liver biopsy is nondiagnostic. It is appropriate that she be subjected to laparotomy to address the offending perforation and possibly establish a definitive histologic diagnosis. I have discussed this with her, indicating the grave nature of her condition. She appears to comprehend, despite being limited due to the use of narcotics. 03/15/18: Awake and doing well. Extubation anticipated. Will place wound VAC and continue IV antibiotics 03/16/18 (seen around 845 a.m.) patient developed hypercarbia him a decreased mental status and anemic last night. Reintubated this morning. Urine output satisfactory. Electrolytes normal. Blood transfusion in progress. Wound VAC in place. Possible total parenteral nutrition tomorrow. Consolidation of the right upper/middle lobe with features of pneumonia. Antibiotics will be tailored to the bacteria identified. 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 Her primary physician updated. Patient will be informed once extubated 03/17/18: Mechanical ventilation continues. Pulmonary infiltrates stable. Renal function preserved. Hypokalemia, will be replaced. Pathology report disclosed to her uncle and aunt. Meeting with the children anticipated later this week. Continue TPN 03/17/18:right upper lobe consolidation appears to be worse. White cell count slightly elevated. Output from NG tube minimal. Wound appears to be healthy. Tolerating TPN. Electrolytes much improved. 03/19/18:overall condition unchanged. Hypertension controlled with beta blockers. Right upper lobe consolidation slightly improved. Oxygenation stable and acceptable. Electrolytes within normal limits. Continue ventilatory support and TPN. 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
[2018-03-19] MEDS: 1/2 NS IV SOLUTION 1,000 ML IV SCH (11:18)
[2018-03-19] MEDS: ENOXAPARIN 40 MG/0.4 ML (LOVENOX) SYR SC SCH (12:08)
[2018-03-19] MEDS: meTOprolol 5 MG/5 ML (LOPRESSOR) VIAL IV PRN ×2 (13:28→20:24)
[2018-03-19] MEDS: POTASSIUM CHLORIDE IV SCH ×9 (17:21)
[2018-03-19] MEDS: [UNRECOGNIZED DRUG - OTHER] IV SCH ×9 (17:21)
[2018-03-19] MEDS: POTASSIUM PHOSPHATE IV SCH ×9 (17:21)
[2018-03-19] MEDS: hydrALAZINE (APESOLINE) 20 MG/ML VIAL IV PRN (19:24)
[2018-03-19] MEDS ORDERED: ACETAMINOPHEN 650 MG SUPP (TYLENOL) PR PRN (22:00)
[2018-03-19 22:22] LABS: BILIRUBIN,URINE NEGATIVE (NEGATIVE); CLARITY,URINE SLIGHTLY CLOUDY; COLOR,URINE AMBER; GLUCOSE, URINE (UA) NEGATIVE (NEGATIVE); KETONES,URINE NEGATIVE (NEGATIVE); LEUKOCYTE ESTERASE ,URINE 1+ (NEGATIVE); NITRITE,URINE NEGATIVE (NEGATIVE); PH,URINE 6 (5-9); PROTEIN,URINE 1+ (NEGATIVE); UROBILINOGEN,URINE 1 MG/DL (NORMAL)
[2018-03-19 22:39] LABS: RBC,URINE 0-2 /HPF
[2018-03-19 22:40] LABS: BACTERIA,URINE NEGATIVE /HPF; WBC,URINE 0-2 /HPF
[2018-03-20] VITALS (39 sets, daily range): BP systolic 82–221; BP diastolic 40–83
[2018-03-20] MEDS: inSUlin ASPART (NovoLOG) 1 UNIT/0.01 ML (CHARGE PER UNIT) SC SCH ×4 (00:31→18:29)
[2018-03-20] MEDS: MEROPENEM 500 MG in NS (IVPB) 100 ML IV SCH ×5 (00:31→23:55)
[2018-03-20] MEDS: fentaNYL INJECTION 100 MCG/2 ML AMP IVP PRN ×5 (00:31→23:55)
[2018-03-20] MEDS: METOCLOPRAMIDE INJ 10 MG/2 ML (REGLAN) IVP SCH ×5 (00:33→23:55)
[2018-03-20] MEDS: 1/2 NS IV SOLUTION 1,000 ML IV SCH (02:04)
[2018-03-20] MEDS: RT-ALBUTEROL/IPRATROPIUM 3 ML (DUONEB) VIAL INH SCH ×6 (02:14→22:24)
[2018-03-20] MEDS: hydrALAZINE (APESOLINE) 20 MG/ML VIAL IV PRN (02:44)
[2018-03-20] MEDS: PROPOFOL DRIP (ICU) 100 ML IV SCH ×7 (02:44→23:50)
[2018-03-20 03:12] LABS: ABG BASE EXCESS 1.9 MMOL/L (-2.5-2.5); ABG OXYGEN SATURATION 99 % (94-100); ABG PCO2 43 MMHG (35-45); ABG PO2 117 MMHG (79-93); ABG TCO2 27.7 MMOL/L (21.0-31.0); ALLENS TEST YES-POS; INSPIRED O2 30%; VENTILATOR YES
[2018-03-20 03:13] LABS: BASOPHILS % (AUTO) 0 % (0-10); EOSINOPHILS # (AUTO) 0.2 10^3/uL (0.0-0.3); EOSINOPHILS % (AUTO) 1 % (0-10); HEMATOCRIT 24 % (35-52); HEMOGLOBIN 7.6 G/DL (11.5-16.0); LYMPHOCYTES # (AUTO) 1.1 X 10^3 (1.0-4.0); LYMPHOCYTES % (AUTO) 8 % (12-44); MEAN CORPUSCULAR HEMOGLOBIN 30 PG (25-34); MEAN CORPUSCULAR HGB CONC 32 G/DL (32-36); MEAN CORPUSCULAR VOLUME 94 FL (80-99); MEAN PLATELET VOLUME 9.6 FL (7.4-10.4); MONOCYTES # (AUTO) 0.7 X 10^3 (0.0-1.0); MONOCYTES % (AUTO) 5 % (0-12); NEUTROPHILS # (AUTO) 12.6 X 10^3 (1.8-7.8); NEUTROPHILS % (AUTO) 86 % (42-75); PATIENT TEMP 97.1; PLATELET COUNT 387 10^3/uL (130-400); RED BLOOD COUNT 2.53 10^6/uL (4.35-5.85); RED CELL DISTRIBUTION WIDTH 14.9 % (10.0-14.5); WHITE BLOOD COUNT 14.7 10^3/uL (4.3-11.0)
[2018-03-20] MEDS: niCARdipine IV 50 MG in NS (IVPB) 230 ML IV SCH ×2 (03:20→14:33)
[2018-03-20] MEDS: DEXMEDETOMIDINE INJECTION 400 MCG in NS (IVPB) 96 ML IV SCH ×7 (03:21→21:57)
[2018-03-20 03:52] LABS: BUN/CREATININE RATIO 38; CALCIUM 7.6 MG/DL (8.5-10.1); CARBON DIOXIDE 25 MMOL/L (21-32); CHLORIDE 106 MMOL/L (98-107); CREATININE SERUM 0.48 MG/DL (0.60-1.30); GFR ESTIMATED > 60; GLUCOSE 181 MG/DL (70-105); MAGNESIUM 1.6 MG/DL (1.8-2.4); PHOSPHORUS 3.3 MG/DL (2.3-4.7); POTASSIUM 4.3 MMOL/L (3.6-5.0); SODIUM 139 MMOL/L (135-145)
[2018-03-20 03:59] LABS: ANISOCYTOSIS SLIGHT; BAND NEUTROPHILS 3 %; BASOPHILS % (MANUAL) 0 %; EOSINOPHILS % (MANUAL) 2 %; HYPOCHROMASIA SLIGHT; LYMPHOCYTES % (MANUAL) 6 %; METAMYELOCYTES % 1 %; MONOCYTES % (MANUAL) 2 %; NEUTROPHILS % (MANUAL) 86 %; POLYCHROMASIA SLIGHT
[2018-03-20] MEDS: meTOprolol 5 MG/5 ML (LOPRESSOR) VIAL IV PRN ×3 (04:10→19:40)
[2018-03-20] MEDS: MAGNESIUM 1 GM/100 ML IVPB 100 ML IV SCH ×2 (04:10→04:18)
[2018-03-20] MEDS: POTASSIUM CL 10MEQ/50ML IVPB 50 ML IV SCH (04:11)
[2018-03-20] MEDS: KCL 20 MEQ TAB (K-DUR) PO SCH (04:11)
[2018-03-20] MEDS ORDERED: BUMETANIDE 1 MG/4 ML (BUMEX) VIAL ONE (07:39)
[2018-03-20] MEDS ORDERED: BUMETANIDE 1 MG/4 ML (BUMEX) VIAL IV ONE (07:45)
--- NOTE | 2018-03-20 07:46 | Pulmonary Progress Note ---
Subjective Time Seen by Provider: 07:44 Subjective/Events-last exam Pt is comfortable on ventilator. Focused Exam Lactate Level 03/19/18 22:35: Lactic Acid Level 0.74 Time of Focused Exam: 13:20 Exam Exam Vital Signs Date Time Temp Pulse Resp B/P (MAP) Pulse Ox O2 Delivery O2 Flow Rate FiO2 03/20/18 07:03 65 18 97 30 03/20/18 06:00 67 12 93/46 (62) 97 Mechanical Ventilator 30.00 03/20/18 05:00 66 14 95/41 (59) 95 Mechanical Ventilator 30.00 03/20/18 04:20 77 15 95 30 03/20/18 04:13 97.1 03/20/18 04:00 99 Mechanical Ventilator 30 03/20/18 04:00 79 13 158/74 (102) 97 Mechanical Ventilator 30.00 03/20/18 03:30 109 22 90 03/20/18 03:00 71 12 100/40 (60) 99 Mechanical Ventilator 30.00 03/20/18 02:44 68 03/20/18 02:05 97.7 03/20/18 02:00 86 19 189/78 (115) 98 Mechanical Ventilator 30.00 03/20/18 01:00 80 03/20/18 01:00 79 13 123/50 (74) 97 Mechanical Ventilator 30.00 03/20/18 00:36 100.0 03/20/18 00:15 80 16 99 30 03/20/18 00:15 68 16 100 30 03/20/18 00:00 82 15 140/54 (82) 98 Mechanical Ventilator 30.00 03/20/18 00:00 99 Mechanical Ventilator 30 03/19/18 23:00 80 15 135/52 (79) 100 Mechanical Ventilator 30.00 03/19/18 22:24 74 19 98 30 03/19/18 22:10 100.7 03/19/18 22:00 72 17 111/46 (67) 98 Mechanical Ventilator 30.00 03/19/18 21:44 72 03/19/18 21:00 71 22 101/46 (64) 98 Mechanical Ventilator 30.00 03/19/18 20:23 84 18 99 30 03/19/18 20:00 85 21 131/49 (76) 99 Mechanical Ventilator 30.00 03/19/18 20:00 100 Mechanical Ventilator 30 03/19/18 19:25 99.7 Mechanical Ventilator 30.00 03/19/18 19:00 80 03/19/18 19:00 89 24 161/62 (95) 100 Mechanical Ventilator 30.00 03/19/18 18:39 75 17 100 30 03/19/18 18:00 73 16 143/59 (87) 100 Mechanical Ventilator 30.00 03/19/18 17:00 71 12 132/56 (81) 99 Mechanical Ventilator 30.00 03/19/18 16:20 75 18 175/69 100 03/19/18 16:20 75 18 100 30 03/19/18 16:05 98 Mechanical Ventilator 30 03/19/18 16:02 97.6 Mechanical Ventilator 30.00 03/19/18 16:00 73 16 140/56 (84) 98 Mechanical Ventilator 30.00 03/19/18 16:00 99 Mechanical Ventilator 30 03/19/18 15:00 69 20 131/54 (79) 100 Mechanical Ventilator 30.00 03/19/18 14:51 67 16 100 30 03/19/18 14:00 70 12 127/54 (78) 98 Mechanical Ventilator 30.00 03/19/18 13:00 81 16 149/57 (87) 98 Mechanical Ventilator 30.00 03/19/18 13:00 82 03/19/18 12:32 76 20 98 30 03/19/18 12:00 83 12 171/62 (98) 97 Mechanical Ventilator 30.00 03/19/18 11:25 99.1 Mechanical Ventilator 30.00 03/19/18 11:25 99 Mechanical Ventilator 30 03/19/18 11:18 84 20 165/58 95 30.00 03/19/18 11:00 86 17 171/60 (97) 98 Mechanical Ventilator 30.00 03/19/18 10:44 68 16 96 30 03/19/18 10:00 80 19 149/60 (89) 94 Mechanical Ventilator 30.00 03/19/18 09:00 73 12 156/61 (92) 98 Mechanical Ventilator 30.00 03/19/18 08:30 96 Mechanical Ventilator 30 03/19/18 08:30 99.1 Mechanical Ventilator 30.00 03/19/18 08:16 74 20 98 30 03/19/18 08:00 76 12 149/57 (87) 98 Mechanical Ventilator 30.00 I & O 03/20/18 07:00 Intake Total 2972 ml Output Total 2325 ml Balance 647 ml General Appearance: No Apparent Distress, WD/WN, Chronically ill, Other (On vent) HEENT: Other (pupils are sluggish and dilated) Neck: Full Range of Motion, Normal Inspection, Supple Respiratory: Lungs Clear, Normal Breath Sounds Cardiovascular: Regular Rate, Rhythm Capillary Refill: Less Than 3 Seconds Peripheral Pulses: 2+ Dorsalis Pedis (R), 2+ Left Dors-Pedis (L), 2+ Radial Pulses (R), 2+ Radial Pulses (L) Gastrointestinal: no pulsatile mass, abnormal bowel sounds (hypoactive bowel sounds), distended Neurologic/Psychiatric: Alert (alert but confused and will not answer questions. ), Normal Mood/Affect Skin: Normal Color, Damp Lymphatic: No Adenopathy Results Lab Laboratory Tests 03/19/18 03:00 03/20/18 03:05 Assessment/Plan Assessment/Plan Acute respiratory failure with metabolic encephalopathy -Continue ventilatory support Pulmonary edema -Decrease IVF, continue TPN -Give 2mg of Bumex IV Hypertension Urgency BP 206/98 --Cardene gtt is now off -hydralazine PRN. Pt is allergic to Lisinopril -Continue to monitor Pneumonia with ESBL - Merrem secondary to ESBL in sputum Metabolic encephalopathy -diprivan - precedex Anemia -montior Perforated appendix with abscess formation s/p surgery -Currently on TPN hx of asthma - -SVNs 233 SD MITCHELL DO Mar 20, 2018 07:45
--- NOTE | 2018-03-20 08:22 | Diagnostic Imaging Report ---
Procedure: Portable semi-erect AP chest at 3:10. Indication: Respiratory distress. Findings: There is shallow inspiration when compared to the prior exam of 03/19/2018. Allowing for this technical factor, the overall appearance of the chest does not seem to have changed significantly. There are still alveolar/interstitial, pulmonary infiltrates bilaterally, particularly involving the right upper lung. The heart is stable in size. The mediastinum is not widened. Supportive tubes and lines are unchanged in position. The osseous structures are intact. Impression: Allowing for shallow degree of inspiration on this exam, there has not been any significant change. There are still alveolar/interstitial, pulmonary infiltrates bilaterally, particularly involving the right upper lobe. A followup exam would be recommended for continued evaluation. Dictated by: Dictated on workstation # [id number]
[2018-03-20] MEDS: PANTOPRAZOLE 40 MG/10 ML (PROTONIX) VIAL IV SCH (08:27)
[2018-03-20] MEDS: meTOprolol TARTRATE 25 MG (LOPRESSOR) TABLET NG SCH ×2 (08:27→21:56)
--- NOTE | 2018-03-20 09:05 | Pulmonary Procedures ---
Pulmonary Procedures Date of Procedure Date of Service: Mar 20, 2018 Bronch Bronchoscopy with bronchoalveolar lavage (BAL), transbronchial washes and, brushes. Preop DX Mucous plugging Postop DX: same Complications: none After informed consent obtained and formal time out pt was sedated using Fentanyl and Versed. Bronchoscope was advanced through the ET tube. An anatomical tour was undertaken down to the segmental bronchi bilaterally. No endobronchial lesions noted. Distal end of trachea there is a white plague. I believe this is just mucous however it did not lavage off easily. From the RML a bronchoalveolar lavage (BAL), wash and from distal trachea brushes were obtained. Pt tolerated procedure well. No complications noted. Stat CXR is pending. SD MITCHELL DO Mar 20, 2018 09:05
--- NOTE | 2018-03-20 09:28 | Diagnostic Imaging Report ---
EXAMINATION: Chest radiograph, portable AP view. DATE: 03/20/2018 at 0905 hours. INDICATION: 57-year-old female, status post bronchoscopy. COMPARISON: 03/20/2018 at 0310 hrs. FINDINGS: There is cervical spine hardware. The endotracheal tube is approximately 3.2 cm above the tico. Left-sided central venous line overlies the cavoatrial junction. The nasogastric tube extends below the [id number]. Stable overall appearance of the cardiomediastinal silhouette. There is no identified pneumothorax. There is nonspecific right greater than left bibasilar airspace consolidation with bilateral parahilar opacities. There is improved aeration in the right upper lobe since the comparison exam. IMPRESSION: 1. Multifocal lung consolidation with improved but persistent right upper lobe airspace consolidation since recent comparison exam. 2. Support lines and tubes as above. Dictated by: Dictated on workstation # [id number]
--- NOTE | 2018-03-20 10:14 | Progress Note-Hospitalist ---
Subjective HPI/CC On Admission Date Seen by Provider: Mar 20, 2018 Time Seen by Provider: 10:00 Subjective/Events-last exam Patient remains intubated and more heavily sedated this morning as she had a bronchoscopy by Dr. Bacon. She has diffuse anasarca. Chest x-ray was reviewed this morning and shows bilateral interstitial infiltrates with fairly good aeration in the upper lobes. Peak airway pressures about 21 Focused Exam Lactate Level 03/19/18 22:35: Lactic Acid Level 0.74 Time of Focused Exam: 13:20 Objective Exam Vital Signs Vital Signs Date Time Temp Pulse Resp B/P (MAP) Pulse Ox O2 Delivery O2 Flow Rate FiO2 03/20/18 10:00 68 16 104/40 (61) 94 Mechanical Ventilator 30.00 03/20/18 08:00 30 03/20/18 07:00 98.3 Capillary Refill : Less Than 3 SecondsLess Than 3 Seconds General Appearance: Chronically ill Neck: Limited Range of Motion Respiratory: Normal Breath Sounds, No Accessory Muscle Use, Crackles Cardiovascular: Regular Rate, Rhythm, No Gallop, No Murmur Gastrointestinal: Abnormal Bowel Sounds, Distended, Other (Postop) Extremity: Pedal Edema, Swelling Neurologic/Psychiatric: Other (Sedated and unresponsive) Skin: Pallor Results/Procedures Lab Laboratory Tests 03/20/18 03:05 Patient resulted labs reviewed. Imaging: Reviewed Imaging Films (Bilateral interstitial infiltrates and pleural effusions) Assessment/Plan Assessment and Plan Assess & Plan/Chief Complaint Postop day number 7 from resection from perforated adenocarcinoma of the cecum or appendix Respiratory failure on ventilator now with fluid overload as well. Currently being diuresed. Consider ARDS as a contributing factor Anemia secondary to surgery and critical condition Metastatic adenocarcinoma Hypomagnesemia being replaced History of hypertension now hypotensive off medications Prognosis remains somewhat guarded Critical Care Critical Care: Critically Ill Patient Diagnosis/Problems Diagnosis/Problems (1) Small bowel perforation Status: Acute (2) Sepsis Status: Acute (3) Diabetes mellitus Status: Acute (4) Anemia associated with acute blood loss (5) Respiratory failure Clinical Quality Measures DVT/VTE Risk/Contraindication: Risk Factor Score Per Nursin RFS Level Per Nursing on Admit: 1=Low/No VTE PPX SERGIO PERSAUD MD Mar 20, 2018 10:14
[2018-03-20] MEDS: ENOXAPARIN 40 MG/0.4 ML (LOVENOX) SYR SC SCH (13:09)
[2018-03-20] MEDS: POTASSIUM CHLORIDE IV SCH ×9 (17:41)
[2018-03-20] MEDS: [UNRECOGNIZED DRUG - OTHER] IV SCH ×9 (17:41)
[2018-03-20] MEDS: POTASSIUM PHOSPHATE IV SCH ×9 (17:41)
[2018-03-21] VITALS (36 sets, daily range): BP systolic 93–225; BP diastolic 48–93
[2018-03-21] MEDS: inSUlin ASPART (NovoLOG) 1 UNIT/0.01 ML (CHARGE PER UNIT) SC SCH ×5 (00:19→23:32)
[2018-03-21] MEDS: fentaNYL INJECTION 100 MCG/2 ML AMP IVP PRN ×7 (01:37→20:26)
[2018-03-21] MEDS: DEXMEDETOMIDINE INJECTION 400 MCG in NS (IVPB) 96 ML IV SCH ×5 (01:38→18:00)
[2018-03-21] MEDS: RT-ALBUTEROL/IPRATROPIUM 3 ML (DUONEB) VIAL INH SCH ×6 (02:39→22:48)
[2018-03-21 03:31] LABS: ABG BASE EXCESS 2.7 MMOL/L (-2.5-2.5); ABG OXYGEN SATURATION 95 % (94-100); ABG PCO2 38 MMHG (35-45); ABG PH 7.46 (7.37-7.43); ABG TCO2 27.4 MMOL/L (21.0-31.0); BASOPHILS % (AUTO) 0 % (0-10); EOSINOPHILS # (AUTO) 0.1 10^3/uL (0.0-0.3); EOSINOPHILS % (AUTO) 1 % (0-10); HEMATOCRIT 23 % (35-52); HEMOGLOBIN 7.3 G/DL (11.5-16.0); LYMPHOCYTES # (AUTO) 1.2 X 10^3 (1.0-4.0); LYMPHOCYTES % (AUTO) 7 % (12-44); MEAN CORPUSCULAR HEMOGLOBIN 30 PG (25-34); MEAN CORPUSCULAR HGB CONC 32 G/DL (32-36); MEAN CORPUSCULAR VOLUME 93 FL (80-99); MEAN PLATELET VOLUME 9.4 FL (7.4-10.4); MONOCYTES # (AUTO) 0.9 X 10^3 (0.0-1.0); MONOCYTES % (AUTO) 6 % (0-12); NEUTROPHILS # (AUTO) 13.6 X 10^3 (1.8-7.8); NEUTROPHILS % (AUTO) 86 % (42-75); PLATELET COUNT 447 10^3/uL (130-400); RED BLOOD COUNT 2.45 10^6/uL (4.35-5.85); RED CELL DISTRIBUTION WIDTH 15.1 % (10.0-14.5); WHITE BLOOD COUNT 15.8 10^3/uL (4.3-11.0)
[2018-03-21 03:32] LABS: ALLENS TEST YES-POS; INSPIRED O2 30%; PATIENT TEMP 98.9; VENTILATOR YES
[2018-03-21 03:48] LABS: BUN/CREATININE RATIO 37; CALCIUM 7.8 MG/DL (8.5-10.1); CARBON DIOXIDE 25 MMOL/L (21-32); CHLORIDE 106 MMOL/L (98-107); CREATININE SERUM 0.46 MG/DL (0.60-1.30); GFR ESTIMATED > 60; GLUCOSE 190 MG/DL (70-105); MAGNESIUM 1.4 MG/DL (1.8-2.4); PHOSPHORUS 2.9 MG/DL (2.3-4.7); POTASSIUM 4.4 MMOL/L (3.6-5.0); SODIUM 138 MMOL/L (135-145)
[2018-03-21] MEDS: KCL 20 MEQ TAB (K-DUR) PO SCH (03:58)
[2018-03-21] MEDS: MAGNESIUM 1 GM/100 ML IVPB 100 ML IV SCH ×5 (04:00→15:38)
[2018-03-21] MEDS: POTASSIUM CL 10MEQ/50ML IVPB 50 ML IV SCH (04:01)
[2018-03-21] MEDS: PROPOFOL DRIP (ICU) 100 ML IV SCH ×3 (04:16→17:42)
--- NOTE | 2018-03-21 05:10 | Pulmonary Progress Note ---
Subjective Time Seen by Provider: 05:09 Subjective/Events-last exam sedated on vent. spiking fevers last night. Focused Exam Lactate Level 03/19/18 22:35: Lactic Acid Level 0.74 Time of Focused Exam: 13:20 Exam Exam Vital Signs Date Time Temp Pulse Resp B/P (MAP) Pulse Ox O2 Delivery O2 Flow Rate FiO2 03/21/18 04:16 100.5 82 22 98/48 98 Mechanical Ventilator 30.00 03/21/18 04:02 82 22 98 30 03/21/18 04:00 96 Mechanical Ventilator 30 03/21/18 03:00 88 21 137/54 (81) 98 Mechanical Ventilator 30.00 03/21/18 02:39 81 22 99 30 03/21/18 02:30 100.5 03/21/18 01:00 86 03/21/18 01:00 86 25 112/51 (71) 94 Mechanical Ventilator 30.00 03/21/18 00:15 92 24 97 30 03/21/18 00:01 99.2 03/21/18 00:00 98 Mechanical Ventilator 30 03/21/18 00:00 86 21 110/49 (69) 95 Mechanical Ventilator 30.00 03/20/18 23:50 100.5 82 22 98/48 98 Mechanical Ventilator 30.00 03/20/18 23:00 91 22 157/67 (97) 96 Mechanical Ventilator 30.00 03/20/18 22:24 80 23 96 30 03/20/18 22:00 80 23 152/65 (94) 100 Mechanical Ventilator 30.00 03/20/18 21:00 75 20 124/53 (76) 99 Mechanical Ventilator 30.00 03/20/18 20:45 77 21 115/54 (74) 98 Mechanical Ventilator 30.00 03/20/18 20:30 76 21 118/51 (73) 98 Mechanical Ventilator 30.00 03/20/18 20:15 77 19 129/57 (81) 97 Mechanical Ventilator 30.00 03/20/18 20:14 77 23 97 30 03/20/18 20:00 98 Mechanical Ventilator 30 03/20/18 20:00 75 21 116/50 (72) 97 Mechanical Ventilator 30.00 03/20/18 19:46 98.4 81 20 159/63 96 Mechanical Ventilator 30.00 03/20/18 19:45 92 19 167/65 (99) 97 Mechanical Ventilator 30.00 03/20/18 19:30 91 20 119/79 (92) 98 Mechanical Ventilator 30.00 03/20/18 19:27 98.4 Mechanical Ventilator 30.00 03/20/18 19:15 88 23 156/66 (96) 98 Mechanical Ventilator 30.00 03/20/18 19:00 86 22 82/64 (70) 97 Mechanical Ventilator 30.00 03/20/18 19:00 86 03/20/18 18:17 81 20 96 30 03/20/18 18:00 80 23 131/52 (78) 99 Mechanical Ventilator 30.00 03/20/18 17:00 76 23 135/59 (84) 99 Mechanical Ventilator 30.00 03/20/18 16:33 77 22 98 30 03/20/18 16:00 99 Mechanical Ventilator 30 03/20/18 16:00 98.6 03/20/18 16:00 76 18 137/55 (82) 98 Mechanical Ventilator 30.00 03/20/18 15:27 92 28 190/76 97 03/20/18 15:00 89 17 167/62 (97) 98 Mechanical Ventilator 30.00 03/20/18 14:39 92 17 94 30 03/20/18 14:36 98.6 72 03/20/18 14:00 77 19 146/59 (88) 96 Mechanical Ventilator 30.00 03/20/18 13:00 84 18 154/63 (93) 96 Mechanical Ventilator 30.00 03/20/18 13:00 84 03/20/18 12:00 98.0 03/20/18 12:00 92 Mechanical Ventilator 30 03/20/18 12:00 86 16 168/61 (96) 96 Mechanical Ventilator 30.00 03/20/18 11:00 68 17 112/49 (70) 96 Mechanical Ventilator 30.00 03/20/18 10:20 66 18 95 30 03/20/18 10:00 68 16 104/40 (61) 94 Mechanical Ventilator 30.00 03/20/18 09:00 81 15 107/45 (65) 94 Mechanical Ventilator 30.00 03/20/18 08:00 64 12 113/49 (70) 98 Mechanical Ventilator 30.00 03/20/18 08:00 92 Mechanical Ventilator 30 03/20/18 07:03 65 18 97 30 03/20/18 07:00 98.6 4/29/18 07:00 98.3 Mechanical Ventilator 30.00 03/20/18 07:00 66 03/20/18 07:00 98.3 68 16 98 03/20/18 07:00 66 13 106/46 (66) 97 Mechanical Ventilator 30.00 03/20/18 06:00 67 12 93/46 (62) 97 Mechanical Ventilator 30.00 I & O 03/21/18 07:00 Intake Total 100 ml Output Total 2500 ml Balance -2400 ml General Appearance: Chronically ill HEENT: Other (pupils are sluggish and dilated) Neck: Limited Range of Motion Respiratory: Normal Breath Sounds, No Accessory Muscle Use, Crackles Cardiovascular: Regular Rate, Rhythm, No Gallop, No Murmur Capillary Refill: Less Than 3 Seconds Peripheral Pulses: 2+ Dorsalis Pedis (R), 2+ Left Dors-Pedis (L), 2+ Radial Pulses (R), 2+ Radial Pulses (L) Gastrointestinal: no pulsatile mass, abnormal bowel sounds (hypoactive bowel sounds), distended Extremity: Pedal Edema, Swelling Neurologic/Psychiatric: Other (Sedated and unresponsive) Skin: Pallor Lymphatic: No Adenopathy Results Lab Laboratory Tests 03/20/18 03:05 03/21/18 03:20 Assessment/Plan Assessment/Plan Acute respiratory failure with metabolic encephalopathy -Continue ventilatory support -pt is desaturates easily. I doubt she will wean today. Pulmonary edema - continue TPN -repeat 2mg of Bumex IV Pneumonia with ESBL - Merrem secondary to ESBL in sputum -PT is having WBC increase and now spiking fevers again -repan culture and start vanco Metabolic encephalopathy -diprivan - precedex Anemia -montior -transfuse 1 unit of PRBC Perforated appendix with abscess formation s/p surgery -Currently on TPN hx of asthma - -SVNs 233 Critical Care: Critically Ill Patient SD MITCHELL DO Mar 21, 2018 05:10
[2018-03-21] MEDS ORDERED: PHARMACY TO DOSE IV SCH (05:15)
[2018-03-21] MEDS ORDERED: BUMETANIDE 1 MG/4 ML (BUMEX) VIAL IV ONE (05:15)
[2018-03-21] MEDS: LEVOTHYROXINE 100 MCG INJ (SYNTHROID) VIAL IV SCH (05:17)
[2018-03-21] MEDS: METOCLOPRAMIDE INJ 10 MG/2 ML (REGLAN) IVP SCH ×4 (05:20→23:22)
[2018-03-21] MEDS: MEROPENEM 500 MG in NS (IVPB) 100 ML IV SCH ×4 (05:23→23:23)
[2018-03-21 06:05] LABS: BILIRUBIN,URINE NEGATIVE (NEGATIVE); CLARITY,URINE CLEAR; COLOR,URINE YELLOW; GLUCOSE, URINE (UA) 1+ (NEGATIVE); KETONES,URINE NEGATIVE (NEGATIVE); LEUKOCYTE ESTERASE ,URINE NEGATIVE (NEGATIVE); NITRITE,URINE NEGATIVE (NEGATIVE); PH,URINE 6.5 (5-9); PROTEIN,URINE NEGATIVE (NEGATIVE); UROBILINOGEN,URINE 4 MG/DL (NORMAL)
[2018-03-21 06:12] LABS: BACTERIA,URINE NEGATIVE /HPF; SQUAMOUS EPITHELIAL CELL,UR RARE /HPF; WBC,URINE RARE /HPF
[2018-03-21] MEDS: meTOprolol 5 MG/5 ML (LOPRESSOR) VIAL IV PRN ×3 (06:34→23:19)
[2018-03-21] MEDS: hydrALAZINE (APESOLINE) 20 MG/ML VIAL IV PRN ×3 (07:01→20:55)
[2018-03-21] MEDS ORDERED: ANIDULAFUNGIN INJECTION 200 MG in NS (IVPB) 250 ML IV ONE (07:15)
[2018-03-21] MEDS ORDERED: VANCOMYCIN 1,750 MG/NS 500 ML IVPB IV NR ×2 (07:23)
--- NOTE | 2018-03-21 07:53 | Progress Note-Hospitalist ---
Subjective HPI/CC On Admission Date Seen by Provider: Mar 21, 2018 Time Seen by Provider: 07:46 Subjective/Events-last exam Pt is sedated and intubated. Unable to provide ROS. RN reports labile BPs overnight on art line. Has not tolerated weaning. Focused Exam Lactate Level 03/19/18 22:35: Lactic Acid Level 0.74 03/21/18 05:30: Lactic Acid Level 1.11 Time of Focused Exam: 13:20 Lactic Acid Level Objective Exam Vital Signs Vital Signs Date Time Temp Pulse Resp B/P (MAP) Pulse Ox O2 Delivery O2 Flow Rate FiO2 03/21/18 11:28 100.3 03/21/18 11:21 162/62 03/21/18 10:34 90 23 97 30 03/21/18 10:00 Mechanical Ventilator 30.00 Capillary Refill : Less Than 3 SecondsLess Than 3 Seconds General Appearance: Other (intubated, sedated) Respiratory: Decreased Breath Sounds, Other (on vent) Cardiovascular: Regular Rate, Rhythm, No Murmur Gastrointestinal: Normal Bowel Sounds, Distended (mild) Genital/Rectal: Other (aguiar in place) Extremity: Pedal Edema (trace), Other (bilateral upper extremity edema) Neurologic/Psychiatric: No Alert; Other (sedated) Results/Procedures Lab Laboratory Tests 03/21/18 03:20 Patient resulted labs reviewed. 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 Critical Care Critical Care: Critically Ill Patient Diagnosis/Problems Diagnosis/Problems (1) Respiratory failure Assessment & Plan: Pulm consulted for vent management Unable to wean Discussed with Dr Bacon and Dr Alexandre this AM Too early for [facility] referral Dr Alexandre plans for trach if needed later this week Continue propofol for sedation Triglycerides stable Qualifiers: Chronicity: acute Respiratory failure complication: unspecified whether with hypoxia or hypercapnia Qualified Codes: J96.00 - Acute respiratory failure, unspecified whether with hypoxia or hypercapnia (2) Sepsis Status: Acute Assessment & Plan: Persistently febrile with increasing leukocytosis Klebsiella growing from BAL from RML done yesterday ESBL in sputum on 03/14 and 03/14 On vanc and Merrem, Eraxis added today (3) Metastatic adenocarcinoma Assessment & Plan: Patient yet to be informed due to sedation and intubation Consider Oncology consult (4) Small bowel perforation Status: Acute Assessment & Plan: s/p ex lap on 03/[address] Alexandre (5) Malnutrition Assessment & Plan: On TPN Qualifiers: Malnutrition type: protein-calorie malnutrition Protein-calorie malnutrition severity: moderate Qualified Codes: E44.0 - Moderate protein- calorie malnutrition (6) Essential (primary) hypertension Status: Chronic Assessment & Plan: Continue to monitor Labile, was hypotensive this AM continue with prn medications given lability (7) Hypomagnesemia Assessment & Plan: on replacement protocol (8) Anemia associated with acute blood loss Assessment & Plan: transfusion ordered this AM by Dr Arleen scott (9) Diabetes mellitus Status: Acute Assessment & Plan: Relatively well controlled SSI A Qualifiers: Diabetes mellitus type: type 2 Diabetes mellitus jail insulin use: without jail use Diabetes mellitus complication status: without complication Qualified Codes: E11.9 - Type 2 diabetes mellitus without complications (10) Prophylactic measure Assessment & Plan: Lovenox TPN Protonix Clinical Quality Measures DVT/VTE Risk/Contraindication: Risk Factor Score Per Nursin RFS Level Per Nursing on Admit: 1=Low/No VTE PPX GABBY WESTBROOK MD Mar 21, 2018 07:53
--- NOTE | 2018-03-21 08:47 | Diagnostic Imaging Report ---
INDICATION: Ventilator, dyspnea. TECHNIQUE: Single frontal view of the chest. COMPARISON: 03/20/2018 FINDINGS: The endotracheal tube is approximately 4 cm from the tico. The tip of the left central line projects over the superior cavoatrial junction. The tip of the enteric tube is not well seen, but passes below the diaphragm. Lung volumes are low. There are patchy airspace opacities in the lung bases, and in the right upper lobe. No pleural effusion is seen. No pneumothorax is seen. The cardiac silhouette is stable in size. Fusion hardware is seen at the cervical spine. IMPRESSION: 1. Lung volumes are low. Multifocal airspace opacities appear unchanged. Dictated by: Dictated on workstation # [id number]
[2018-03-21] MEDS: PANTOPRAZOLE 40 MG/10 ML (PROTONIX) VIAL IV SCH (08:53)
[2018-03-21] MEDS: meTOprolol TARTRATE 25 MG (LOPRESSOR) TABLET NG SCH ×2 (08:53→20:46)
[2018-03-21] MEDS: niCARdipine IV 50 MG in NS (IVPB) 230 ML IV SCH ×4 (10:27→20:25)
[2018-03-21] MEDS: ENOXAPARIN 40 MG/0.4 ML (LOVENOX) SYR SC SCH (11:22)
--- NOTE | 2018-03-21 13:13 | Diagnostic Imaging Report ---
INDICATION: Evaluate PICC line placement. Comparison made with prior examination from 03/21/2018. FINDINGS: The ET and NG tubes are in satisfactory position. There is a left subclavian central venous catheter with its tip in the superior vena cava. Heart size is normal. There is some venous congestion. There is right perihilar atelectasis and/or pneumonitis. There is no pleural effusion or pneumothorax. Mediastinum is unremarkable. IMPRESSION: Right perihilar atelectasis and/or pneumonitis and some mild venous congestion. Dictated by: Dictated on workstation # [id number]
--- NOTE | 2018-03-21 14:09 | Diagnostic Imaging Report ---
INDICATION: PICC line placement and left central line removal. TIME OF EXAM: 1:52 PM Correlation is made with prior study earlier the same day. FINDINGS: Left subclavian line has been removed. Left upper extremity PICC line appears to have the tip near the SVC right atrial junction. No pneumothorax is identified. There are bilateral areas of infiltrate or atelectasis, similar to prior. ET tube has tip above the tico. NG tube passes below the diaphragm. Postop changes of lower cervical spine are noted. IMPRESSION: Satisfactory left upper extremity PICC line placement. Dictated by: Dictated on workstation # [id number]
--- NOTE | 2018-03-21 14:56 | Progress Note-Standard ---
Standard Progress Note Progress Notes/Assess & Plan Date Seen by Provider: Mar 21, 2018 Time Seen by Provider: 09:55 Progress/Assessment & Plan I was informed about this patient being admitted last night with peritonitis, possibly due to distal small bowel perforation. She has been managed nonoperatively by the surgeon contract driver and I was asked to take over her care by the hospitalist. I have since reviewed her studies and personally examine her. She has diffuse peritonitis and the most recent liver biopsy is nondiagnostic. It is appropriate that she be subjected to laparotomy to address the offending perforation and possibly establish a definitive histologic diagnosis. I have discussed this with her, indicating the grave nature of her condition. She appears to comprehend, despite being limited due to the use of narcotics. 03/15/18: Awake and doing well. Extubation anticipated. Will place wound VAC and continue IV antibiotics 03/16/18 (seen around 845 a.m.) patient developed hypercarbia him a decreased mental status and anemic last night. Reintubated this morning. Urine output satisfactory. Electrolytes normal. Blood transfusion in progress. Wound VAC in place. Possible total parenteral nutrition tomorrow. Consolidation of the right upper/middle lobe with features of pneumonia. Antibiotics will be tailored to the bacteria identified. 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 Her primary physician updated. Patient will be informed once extubated 03/17/18: Mechanical ventilation continues. Pulmonary infiltrates stable. Renal function preserved. Hypokalemia, will be replaced. Pathology report disclosed to her uncle and aunt. Meeting with the children anticipated later this week. Continue TPN 03/17/18:right upper lobe consolidation appears to be worse. White cell count slightly elevated. Output from NG tube minimal. Wound appears to be healthy. Tolerating TPN. Electrolytes much improved. 03/19/18:overall condition unchanged. Hypertension controlled with beta blockers. Right upper lobe consolidation slightly improved. Oxygenation stable and acceptable. Electrolytes within normal limits. Continue ventilatory support and TPN. 03/21/18: Highest temperature on 100.8. White cell count increasing. Pulmonary infiltrates unchanged. Klebsiella on bronchoalveolar lavage, sensitivity pending. Suspect she would benefit from tracheostomy. Has not had any bowel movements. NG output decreasing. Development of further intra-abdominal abscess to be considered and CT scan might be warranted. 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 Postoperative right upper lobe pneumonia with consolidation. Focused Exam Lactate Level 03/19/18 22:35: Lactic Acid Level 0.74 03/21/18 05:30: Lactic Acid Level 1.11 Time of Focused Exam: 13:20 LUCIA FERNANDEZ MD Mar 21, 2018 14:56
[2018-03-21] MEDS ORDERED: NS (IVPB) 250 ML ONE (17:51)
[2018-03-21] MEDS: [UNRECOGNIZED DRUG - OTHER] IV SCH ×9 (18:58)
[2018-03-21] MEDS: POTASSIUM PHOSPHATE IV SCH ×9 (18:58)
[2018-03-21] MEDS: POTASSIUM CHLORIDE IV SCH ×9 (18:58)
[2018-03-21] MEDS ORDERED: VANCOMYCIN 1250 MG/NS 250 ML IVPB IV SCH ×2 (20:00)
[2018-03-21] MEDS: DEXMEDETOMIDINE INJECTION 1,000 MCG in NS (IVPB) 240 ML IV SCH (20:55)
[2018-03-22] VITALS (35 sets, daily range): BP systolic 100–253; BP diastolic 40–89
[2018-03-22] MEDS: PROPOFOL DRIP (ICU) 100 ML IV SCH ×6 (00:04→23:22)
[2018-03-22] MEDS: fentaNYL INJECTION 100 MCG/2 ML AMP IVP PRN ×7 (00:04→21:53)
[2018-03-22] MEDS: RT-ALBUTEROL/IPRATROPIUM 3 ML (DUONEB) VIAL INH SCH ×6 (02:08→22:24)
[2018-03-22 03:33] LABS: ABG BASE EXCESS 2.7 MMOL/L (-2.5-2.5); ABG OXYGEN SATURATION 98 % (94-100); ABG PCO2 41 MMHG (35-45); ABG PH 7.43 (7.37-7.43); ABG TCO2 27.6 MMOL/L (21.0-31.0)
[2018-03-22 03:33] LABS: BASOPHILS % (AUTO) 0 % (0-10); EOSINOPHILS # (AUTO) 0.1 10^3/uL (0.0-0.3); EOSINOPHILS % (AUTO) 1 % (0-10); HEMATOCRIT 26 % (35-52); HEMOGLOBIN 8.6 G/DL (11.5-16.0); LYMPHOCYTES # (AUTO) 0.9 X 10^3 (1.0-4.0); LYMPHOCYTES % (AUTO) 6 % (12-44); MEAN CORPUSCULAR HEMOGLOBIN 31 PG (25-34); MEAN CORPUSCULAR HGB CONC 34 G/DL (32-36); MEAN CORPUSCULAR VOLUME 91 FL (80-99); MEAN PLATELET VOLUME 9.5 FL (7.4-10.4); MONOCYTES # (AUTO) 1.1 X 10^3 (0.0-1.0); MONOCYTES % (AUTO) 8 % (0-12); NEUTROPHILS # (AUTO) 12.2 X 10^3 (1.8-7.8); NEUTROPHILS % (AUTO) 85 % (42-75); PLATELET COUNT 443 10^3/uL (130-400); RED BLOOD COUNT 2.82 10^6/uL (4.35-5.85); RED CELL DISTRIBUTION WIDTH 14.5 % (10.0-14.5); WHITE BLOOD COUNT 14.4 10^3/uL (4.3-11.0)
[2018-03-22 03:35] LABS: ALLENS TEST YES-POS; INSPIRED O2 30%; PATIENT TEMP 101.1; VENTILATOR YES
[2018-03-22 03:49] LABS: BUN/CREATININE RATIO 33; CALCIUM 7.8 MG/DL (8.5-10.1); CARBON DIOXIDE 24 MMOL/L (21-32); CHLORIDE 107 MMOL/L (98-107); CREATININE SERUM 0.48 MG/DL (0.60-1.30); GFR ESTIMATED > 60; GLUCOSE 170 MG/DL (70-105); MAGNESIUM 1.7 MG/DL (1.8-2.4); PHOSPHORUS 3.2 MG/DL (2.3-4.7); POTASSIUM 4.1 MMOL/L (3.6-5.0); SODIUM 140 MMOL/L (135-145)
[2018-03-22] MEDS: MEROPENEM 500 MG in NS (IVPB) 100 ML IV SCH ×4 (05:05→23:21)
[2018-03-22] MEDS: METOCLOPRAMIDE INJ 10 MG/2 ML (REGLAN) IVP SCH ×4 (05:05→23:21)
[2018-03-22] MEDS: MAGNESIUM 1 GM/100 ML IVPB 100 ML IV SCH ×3 (05:05→06:07)
[2018-03-22] MEDS: niCARdipine IV 50 MG in NS (IVPB) 230 ML IV SCH ×2 (05:12→15:45)
[2018-03-22] MEDS: KCL 20 MEQ TAB (K-DUR) PO SCH (05:12)
--- NOTE | 2018-03-22 05:28 | Pulmonary Progress Note ---
Subjective Time Seen by Provider: 07:30 Subjective/Events-last exam Still has SOB and hypoxia. Focused Exam Lactate Level 03/19/18 22:35: Lactic Acid Level 0.74 03/21/18 05:30: Lactic Acid Level 1.11 Time of Focused Exam: 13:20 Exam Exam Vital Signs Date Time Temp Pulse Resp B/P (MAP) Pulse Ox O2 Delivery O2 Flow Rate FiO2 03/22/18 05:06 70 03/22/18 05:00 69 17 111/40 (63) 99 Mechanical Ventilator 30.00 03/22/18 04:55 71 22 98 30 03/22/18 04:07 99.6 03/22/18 04:00 98 Mechanical Ventilator 30 03/22/18 04:00 69 14 102/40 (60) 97 Mechanical Ventilator 30.00 03/22/18 03:30 101.1 03/22/18 03:00 79 22 131/50 (77) 99 Mechanical Ventilator 30.00 03/22/18 02:08 71 22 98 30 03/22/18 02:00 75 21 117/46 (69) 98 Mechanical Ventilator 30.00 03/22/18 01:00 82 20 142/86 (104) 94 Mechanical Ventilator 30.00 03/22/18 01:00 82 03/22/18 00:04 83 03/22/18 00:00 83 24 165/63 (97) 99 Mechanical Ventilator 30.00 03/22/18 00:00 98 Mechanical Ventilator 30 03/21/18 23:34 100.2 03/21/18 23:00 84 20 155/56 (89) 99 Mechanical Ventilator 30.00 03/21/18 22:48 82 22 99 30 03/21/18 22:00 83 23 171/59 (96) 98 Mechanical Ventilator 30.00 03/21/18 21:00 92 20 171/63 (99) 98 Mechanical Ventilator 30.00 03/21/18 20:24 99.0 88 187/65 Mechanical Ventilator 03/21/18 20:00 89 22 184/61 (102) 98 Mechanical Ventilator 30.00 03/21/18 20:00 98 Mechanical Ventilator 30 03/21/18 19:00 77 21 135/48 (77) 99 Mechanical Ventilator 30.00 03/21/18 19:00 77 03/21/18 18:58 76 20 100 30 03/21/18 18:25 99.6 79 19 124/49 99 Mechanical Ventilator 30 03/21/18 18:02 100.3 80 23 133/49 100 Mechanical Ventilator 30 03/21/18 18:00 81 21 141/51 (81) 100 Mechanical Ventilator 30.00 03/21/18 17:42 98.7 87 20 171/59 98 Mechanical Ventilator 30.00 03/21/18 17:00 84 21 164/55 (91) 95 Mechanical Ventilator 30.00 03/21/18 16:20 83 21 95 30 03/21/18 16:15 98 Mechanical Ventilator 30 03/21/18 16:00 81 22 147/52 (83) 96 Mechanical Ventilator 30.00 03/21/18 15:38 98.7 03/21/18 15:00 86 22 152/59 (90) 99 Mechanical Ventilator 30.00 03/21/18 14:09 105 25 99 30 03/21/18 14:00 85 21 175/60 (98) 99 Mechanical Ventilator 30.00 03/21/18 13:00 97 03/21/18 13:00 95 19 174/58 (96) 98 Mechanical Ventilator 30.00 03/21/18 12:05 96 Mechanical Ventilator 30 03/21/18 12:00 94 22 144/58 (86) 95 Mechanical Ventilator 30.00 03/21/18 11:28 100.3 03/21/18 11:21 162/62 03/21/18 11:00 91 24 182/71 (108) 97 Mechanical Ventilator 30.00 03/21/18 10:34 90 23 97 30 03/21/18 10:00 87 21 170/66 (100) 97 Mechanical Ventilator 30.00 03/21/18 09:52 98.6 18 09:00 98 24 166/60 (95) 96 Mechanical Ventilator 30.00 03/21/18 08:53 107 27 96 30 03/21/18 08:51 100.4 03/21/18 08:30 97 Mechanical Ventilator 30 03/21/18 08:00 93 23 93/55 (68) 96 Mechanical Ventilator 30.00 03/21/18 07:22 95 03/21/18 07:00 94 22 183/78 (113) 96 Mechanical Ventilator 30.00 03/21/18 06:56 95 24 97 30 03/21/18 06:00 106 23 178/75 (109) 95 Mechanical Ventilator 30.00 I & O 03/22/18 07:00 Intake Total 3790.0 ml Output Total 3225 ml Balance 565.0 ml General Appearance: Other (intubated, sedated) HEENT: Other (pupils are sluggish and dilated) Neck: Limited Range of Motion Respiratory: Decreased Breath Sounds, Other (on vent) Cardiovascular: Regular Rate, Rhythm, No Murmur Capillary Refill: Less Than 3 Seconds Peripheral Pulses: 2+ Dorsalis Pedis (R), 2+ Left Dors-Pedis (L), 2+ Radial Pulses (R), 2+ Radial Pulses (L) Gastrointestinal: no pulsatile mass, abnormal bowel sounds (hypoactive bowel sounds), distended Extremity: Pedal Edema (trace), Other (bilateral upper extremity edema) Neurologic/Psychiatric: No Alert; Other (sedated) Skin: Pallor Lymphatic: No Adenopathy Results Lab Laboratory Tests 03/21/18 03:20 03/22/18 03:23 Assessment/Plan Assessment/Plan Acute respiratory failure with metabolic encephalopathy -Continue ventilatory support -pt is desaturates easily. I doubt she will wean today. Pulmonary edema - continue TPN -repeat 2mg of Bumex IV Pneumonia with ESBL - Merrem secondary to ESBL in sputum -PT is having WBC increase and now spiking fevers again -repan culture and start vanco Metabolic encephalopathy - precedex Anemia -montior -transfuse 1 unit of PRBC Perforated appendix with abscess formation s/p surgery -Currently on TPN hx of asthma - -SVNs 233 Critical Care: Critically Ill Patient SD MITCHELL DO March 22, 2018 05:28
[2018-03-22] MEDS: DEXMEDETOMIDINE INJECTION 400 MCG in NS (IVPB) 96 ML IV SCH (05:33)
[2018-03-22] MEDS: BUMETANIDE 1 MG/4 ML (BUMEX) VIAL IV SCH (05:59)
[2018-03-22] MEDS: POTASSIUM CL 10MEQ/50ML IVPB 50 ML IV SCH ×3 (06:00→07:08)
[2018-03-22] MEDS ORDERED: TROUGH ORDER-PHARMACY XX NR (07:00)
[2018-03-22] MEDS: inSUlin ASPART (NovoLOG) 1 UNIT/0.01 ML (CHARGE PER UNIT) SC SCH ×3 (07:07→17:54)
[2018-03-22] MEDS: fentaNYL INJECTION 1,250 MCG in NS (IVPB) 225 ML IV SCH (07:48)
--- NOTE | 2018-03-22 07:51 | Progress Note-Hospitalist ---
Subjective HPI/CC On Admission Date Seen by Provider: March 22, 2018 Time Seen by Provider: 07:45 Subjective/Events-last exam Pt sedated and intubated. Unable to provide ROS. Does open eyes when spoken to but does not follow any commands. Discussed with RNs. Blood pressures have been labile. Currently very hypertensive. Focused Exam Lactate Level 03/19/18 22:35: Lactic Acid Level 0.74 03/21/18 05:30: Lactic Acid Level 1.11 Time of Focused Exam: 13:20 Objective Exam Vital Signs Vital Signs Date Time Temp Pulse Resp B/P (MAP) Pulse Ox O2 Delivery O2 Flow Rate FiO2 03/22/18 06:36 85 20 99 30 03/22/18 06:00 134/47 (76) Mechanical Ventilator 30.00 03/22/18 04:07 99.6 Capillary Refill : Less Than 3 SecondsLess Than 3 Seconds General Appearance: WD/WN, Other (intubated) Respiratory: Rhonci, Other Cardiovascular: Regular Rate, Rhythm, Normal Peripheral Pulses Gastrointestinal: Soft, Abnormal Bowel Sounds (absent) Extremity: Normal Capillary Refill, Pedal Edema (trace) Neurologic/Psychiatric: Other (sedated) Results/Procedures Lab Laboratory Tests 03/22/18 03:23 Patient resulted labs reviewed. 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 Critical Care Critical Care: Critically Ill Patient Diagnosis/Problems Diagnosis/Problems (1) Respiratory failure Assessment & Plan: Pulm consulted for vent management Unable to wean Discussed with Dr Bacon this AM Dr Alexandre plans for trach if needed later this week Continue propofol for sedation Triglycerides stable Qualifiers: Chronicity: acute Respiratory failure complication: unspecified whether with hypoxia or hypercapnia Qualified Codes: J96.00 - Acute respiratory failure, unspecified whether with hypoxia or hypercapnia (2) Sepsis Status: Acute Assessment & Plan: Persistently febrile CT Chest/Abd/Pelvis ordered this AM ESBL in sputum Klebsiella growing from BAL from RML done yesterday ESBL in sputum on 03/14 and 03/14 On vanc and Merrem and Eraxis Qualifiers: Sepsis type: Escherichia coli Qualified Codes: A41.51 - Sepsis due to Escherichia coli [e. coli] (3) Metastatic adenocarcinoma Assessment & Plan: Patient yet to be informed due to sedation and intubation Consider Oncology consult (4) Small bowel perforation Status: Acute Assessment & Plan: s/p ex lap on 03/[address] Alexandre (5) Malnutrition Assessment & Plan: On TPN Qualifiers: Malnutrition type: protein-calorie malnutrition Protein-calorie malnutrition severity: moderate Qualified Codes: E44.0 - Moderate protein- calorie malnutrition (6) Essential (primary) hypertension Status: Chronic Assessment & Plan: Continue to monitor Labile, was hypotensive this AM continue with prn medications given lability Added nitropaste so could be wiped off if BP drop Will also increased pain meds (7) Hypomagnesemia Assessment & Plan: on replacement protocol (8) Anemia associated with acute blood loss Assessment & Plan: transfused 03/21 monitor (9) Diabetes mellitus Status: Acute Assessment & Plan: Relatively well controlled SSI A Qualifiers: Diabetes mellitus type: type 2 Diabetes mellitus [facility] insulin use: without [facility] use Diabetes mellitus complication status: without complication Qualified Codes: E11.9 - Type 2 diabetes mellitus without complications (10) Prophylactic measure Assessment & Plan: Lovenox TPN Protonix Clinical Quality Measures DVT/VTE Risk/Contraindication: Risk Factor Score Per Nursin RFS Level Per Nursing on Admit: 1=Low/No VTE PPX GABBY WESTBROOK MD March 22, 2018 7:51 am
[2018-03-22] MEDS ORDERED: NITROGLYCERIN 2% OINT 1 GM UNIT DOSE PACKET TOP PRN (08:00)
[2018-03-22] MEDS: PANTOPRAZOLE 40 MG/10 ML (PROTONIX) VIAL IV SCH (08:20)
[2018-03-22] MEDS: ANIDULAFUNGIN INJECTION 100 MG in NS (IVPB) 100 ML IV SCH (08:20)
[2018-03-22] MEDS: VANCOMYCIN INJECTION 1,500 MG in NS IV 500 ML 500 ML IV SCH ×2 (08:20→20:23)
[2018-03-22] MEDS: amLODIPine 5 MG (NORVASC) TAB PO SCH (08:21)
[2018-03-22] MEDS: meTOprolol TARTRATE 25 MG (LOPRESSOR) TABLET NG SCH ×2 (08:21→20:23)
[2018-03-22] MEDS: DEXMEDETOMIDINE INJECTION 1,000 MCG in NS (IVPB) 240 ML IV SCH ×2 (08:35→17:23)
--- NOTE | 2018-03-22 09:10 | Diagnostic Imaging Report ---
Indication: Dyspnea. Comparison: Exam compared 03/21. Findings: Progressive severe 5 lobe mixed interstitial and airspace opacity is occurred, chronic elevation of the right diaphragm, redemonstrated a catheter via left arm at the lower SVC. Postsurgical changes to the cervical spine and drains present. An ET tube tip is above the tico. No pneumothorax. Impression: Worsened 5 lobe airspace disease, edema versus pneumonia. In the appropriate scenario, ARDS could not be excluded. Dictated by: Dictated on workstation # [id number]
[2018-03-22] MEDS ORDERED: IOHEXOL 350 MG/ML 100 ML (OMNIPAQUE 350) VIAL IV ONE (09:15)
[2018-03-22] MEDS ORDERED: NS 100 ML (IVPB) BAG IV ONE (09:15)
--- NOTE | 2018-03-22 10:20 | Diagnostic Imaging Report ---
PROCEDURE: CT chest, abdomen, and pelvis with contrast. TECHNIQUE: Multiple contiguous axial images were obtained through the chest, abdomen, and pelvis after the administration of intravenous contrast. INDICATION: Sepsis, history of bowel perforation, malignancy and a right hemicolectomy. COMPARISON: Exam compared with an abdominal pelvic CT 03/13/2018. FINDINGS: Chest: There is an ET tube just above the tico and enteric catheter goes into the stomach. There are bilateral pleural effusions showing no evidence for loculation, greater left, the left layers to a depth of 3.5 cm. The pleura itself did not appear nodular, thickened, or abnormally enhanced. There is no pleural septations. There are bilateral pulmonary infiltrates as well as dependent passive atelectasis of the lower lobes. There were no findings suggestive of pulmonary parenchymal abscess or convincing evidence for an empyema. The pulmonary infiltrates are somewhat patchy and nodular bilaterally which could obscure underlying soft tissue masses in this patient. An irregular left paratracheal superior mediastinal node measures 1.4 cm. Subcarinal mediastinum reveals a node measuring a short axis of 1.6 cm. There is some soft tissue fullness in the right pulmonary george arelis short axis maximal 1 cm. No destructive osseous lesion. No pneumothorax. Abdomen and pelvis: There are multifocal low density peripherally enhancing hepatic lesions suspicious for widespread multifocal hepatic involvement by metastatic disease given the history. Spleen was unremarkable and there was no adrenal mass. The kidneys are unobstructed. There is abnormal adenopathy and a soft tissue infiltration in the periaortic retroperitoneum. Ventral to the aorta just inferior to the renal veins, an aggregate of tissue measuring 2.2 x 1.4 cm unchanged from prior. More caudally left periaortic adenopathy encases the takeoff of the inferior mesenteric artery, the mass measuring 2.1 x 1.5 cm presumed metastatic. The pancreas appeared normal. There is a small volume of pelvic free fluid with some thickening of the pelvic peritoneal reflections. No loculated collection or dante drainable abscess is found. There have been improvements in small bowel dilatation, small bowel distention is today more likely ileus as opposed to convincing features of obstruction present on prior. There has been interval right hemicolectomy. There were no findings suggestive of an anastomotic obstruction, leak or breakdown. There has been resolution of pneumoperitoneum and bubbles of mesenteric extraluminal gas. Improvements in pelvic and mesenteric inflammatory change. There is no suspicious osseous lesion. IMPRESSION: 1. There were no findings suggestive of an abscess within the chest, abdomen or pelvis. 2. Chest: Mild medial paratracheal and subcarinal hilar and subcarinal mediastinal adenopathy, 5 lobe nodular pulmonary infiltrates, in part pneumonia, superimposition of metastatic masses could not be excluded given the background infiltrates. Bilateral pleural effusions nonloculated with no findings suggestive of an empyema. 3. Abdomen and pelvis: Findings of multifocal hepatic metastasis, and metastatic periaortic retroperitoneal arelis disease. 4. Resolution of features of bowel obstruction post right hemicolectomy without abscess or adverse change. Improvements in pelvic inflammatory disease with resolution of pneumoperitoneum. Pertinent results of this exam have been discussed by phone with the ordering physician prior to this dictation. Dictated by: Dictated on workstation # [id number]
--- NOTE | 2018-03-22 10:49 | Progress Note-Standard ---
Standard Progress Note Progress Notes/Assess & Plan Date Seen by Provider: March 22, 2018 Time Seen by Provider: 09:55 Progress/Assessment & Plan I was informed about this patient being admitted last night with peritonitis, possibly due to distal small bowel perforation. She has been managed nonoperatively by the surgeon cartoon animator and I was asked to take over her care by the hospitalist. I have since reviewed her studies and personally examine her. She has diffuse peritonitis and the most recent liver biopsy is nondiagnostic. It is appropriate that she be subjected to laparotomy to address the offending perforation and possibly establish a definitive histologic diagnosis. I have discussed this with her, indicating the grave nature of her condition. She appears to comprehend, despite being limited due to the use of narcotics. 03/15/18: Awake and doing well. Extubation anticipated. Will place wound VAC and continue IV antibiotics 03/16/18 (seen around 845 a.m.) patient developed hypercarbia him a decreased mental status and anemic last night. Reintubated this morning. Urine output satisfactory. Electrolytes normal. Blood transfusion in progress. Wound VAC in place. Possible total parenteral nutrition tomorrow. Consolidation of the right upper/middle lobe with features of pneumonia. Antibiotics will be tailored to the bacteria identified. 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 Her primary physician updated. Patient will be informed once extubated 03/17/18: Mechanical ventilation continues. Pulmonary infiltrates stable. Renal function preserved. Hypokalemia, will be replaced. Pathology report disclosed to her uncle and aunt. Meeting with the children anticipated later this week. Continue TPN 03/17/18:right upper lobe consolidation appears to be worse. White cell count slightly elevated. Output from NG tube minimal. Wound appears to be healthy. Tolerating TPN. Electrolytes much improved. 03/19/18:overall condition unchanged. Hypertension controlled with beta blockers. Right upper lobe consolidation slightly improved. Oxygenation stable and acceptable. Electrolytes within normal limits. Continue ventilatory support and TPN. 03/21/18: Highest temperature on 100.8. White cell count increasing. Pulmonary infiltrates unchanged. Klebsiella on bronchoalveolar lavage, sensitivity pending. Suspect she would benefit from tracheostomy. Has not had any bowel movements. NG output decreasing. Development of further intra-abdominal abscess to be considered and CT scan might be warranted. 03/22/18: White cell count around 14,000. Temperature spikes continue and therefore CT scan of the abdomen and pelvis completed. Studies reviewed with the radiologist and found to be negative for intra-abdominal abscess. No evidence of empyema of the lung. Reasonable to proceed with tracheostomy to facilitate went bleeding. I have discussed this with the son, who expressed his desire to establish power of assistant prosecuting attorney and gave me verbal consent to proceed. 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 Postoperative upper lobe pneumonia. Ventilatory failure. Focused Exam Lactate Level 03/19/18 22:35: Lactic Acid Level 0.74 03/21/18 05:30: Lactic Acid Level 1.11 Time of Focused Exam: 13:20 LUCIA FERNANDEZ MD March 22, 2018 10:49
[2018-03-22] MEDS: ENOXAPARIN 40 MG/0.4 ML (LOVENOX) SYR SC SCH (11:46)
[2018-03-22] MEDS: meTOprolol 5 MG/5 ML (LOPRESSOR) VIAL IV PRN ×2 (16:50→21:53)
[2018-03-22] MEDS: POTASSIUM CHLORIDE IV SCH ×9 (17:49)
[2018-03-22] MEDS: POTASSIUM PHOSPHATE IV SCH ×9 (17:49)
[2018-03-22] MEDS: [UNRECOGNIZED DRUG - OTHER] IV SCH ×9 (17:49)
[2018-03-22] MEDS: hydrALAZINE (APESOLINE) 20 MG/ML VIAL IV PRN (18:26)
[2018-03-22] MEDS: HALOPERIDOL 5 MG/ML (HALDOL) AMP IV PRN (20:23)
[2018-03-23] VITALS (34 sets, daily range): BP systolic 97–269; BP diastolic 41–87
[2018-03-23] MEDS: inSUlin ASPART (NovoLOG) 1 UNIT/0.01 ML (CHARGE PER UNIT) SC SCH ×4 (00:20→17:46)
[2018-03-23] MEDS: RT-ALBUTEROL/IPRATROPIUM 3 ML (DUONEB) VIAL INH SCH ×6 (01:55→22:38)
[2018-03-23] MEDS: niCARdipine IV 50 MG in NS (IVPB) 230 ML IV SCH (02:09)
[2018-03-23] MEDS: DEXMEDETOMIDINE INJECTION 1,000 MCG in NS (IVPB) 240 ML IV SCH ×2 (02:27→13:07)
[2018-03-23 03:27] LABS: ABG BASE EXCESS 3.7 MMOL/L (-2.5-2.5); ABG OXYGEN SATURATION 94 % (94-100); ABG PCO2 41 MMHG (35-45); ABG PH 7.45 (7.37-7.43); ABG PO2 73 MMHG (79-93); ABG TCO2 28.7 MMOL/L (21.0-31.0)
[2018-03-23 03:28] LABS: ALLENS TEST ART LINE; BASOPHILS % (AUTO) 0 % (0-10); EOSINOPHILS # (AUTO) 0.2 10^3/uL (0.0-0.3); EOSINOPHILS % (AUTO) 1 % (0-10); HEMATOCRIT 27 % (35-52); HEMOGLOBIN 8.5 G/DL (11.5-16.0); LYMPHOCYTES # (AUTO) 0.9 X 10^3 (1.0-4.0); LYMPHOCYTES % (AUTO) 6 % (12-44); MEAN CORPUSCULAR HEMOGLOBIN 30 PG (25-34); MEAN CORPUSCULAR HGB CONC 32 G/DL (32-36); MEAN CORPUSCULAR VOLUME 92 FL (80-99); MEAN PLATELET VOLUME 9.1 FL (7.4-10.4); MONOCYTES # (AUTO) 1.3 X 10^3 (0.0-1.0); MONOCYTES % (AUTO) 9 % (0-12); NEUTROPHILS # (AUTO) 11.9 X 10^3 (1.8-7.8); NEUTROPHILS % (AUTO) 84 % (42-75); PLATELET COUNT 532 10^3/uL (130-400); RED BLOOD COUNT 2.88 10^6/uL (4.35-5.85); WHITE BLOOD COUNT 14.3 10^3/uL (4.3-11.0)
[2018-03-23] MEDS: PROPOFOL DRIP (ICU) 100 ML IV SCH ×5 (03:28→19:56)
[2018-03-23] MEDS: hydrALAZINE (APESOLINE) 20 MG/ML VIAL IV PRN ×2 (03:28→20:37)
[2018-03-23 03:29] LABS: INSPIRED O2 24%; PATIENT TEMP 99.1; VENTILATOR YES
[2018-03-23 03:55] LABS: BUN/CREATININE RATIO 36; CALCIUM 8.2 MG/DL (8.5-10.1); CARBON DIOXIDE 26 MMOL/L (21-32); CHLORIDE 108 MMOL/L (98-107); CREATININE SERUM 0.44 MG/DL (0.60-1.30); GFR ESTIMATED > 60; GLUCOSE 160 MG/DL (70-105); MAGNESIUM 1.8 MG/DL (1.8-2.4); PHOSPHORUS 3.5 MG/DL (2.3-4.7); POTASSIUM 4.2 MMOL/L (3.6-5.0); SODIUM 142 MMOL/L (135-145)
[2018-03-23] MEDS: KCL 20 MEQ TAB (K-DUR) PO SCH (04:03)
[2018-03-23] MEDS: POTASSIUM CL 10MEQ/50ML IVPB 50 ML IV SCH (04:03)
[2018-03-23] MEDS: MAGNESIUM 1 GM/100 ML IVPB 100 ML IV SCH (04:03)
--- NOTE | 2018-03-23 04:21 | Pulmonary Progress Note ---
Subjective Time Seen by Provider: 04:22 Subjective/Events-last exam Pt is sedated on ventilator. Focused Exam Lactate Level 03/21/18 05:30: Lactic Acid Level 1.11 Time of Focused Exam: 13:20 Exam Exam Vital Signs Date Time Temp Pulse Resp B/P (MAP) Pulse Ox O2 Delivery O2 Flow Rate FiO2 03/23/18 03:32 89 18 95 30 03/23/18 03:28 82 03/23/18 03:00 85 20 175/65 (101) 96 Mechanical Ventilator 24.00 03/23/18 02:00 82 21 178/71 (106) 95 Mechanical Ventilator 24.00 03/23/18 01:55 76 19 96 30 03/23/18 01:00 79 17 150/60 (90) 95 Mechanical Ventilator 24.00 03/23/18 01:00 79 03/23/18 00:47 80 19 96 30 03/23/18 00:00 80 18 158/61 (93) 95 Mechanical Ventilator 24.00 03/23/18 00:00 100 Mechanical Ventilator 24.00 03/22/18 23:22 75 03/22/18 23:00 77 18 148/56 (86) 95 Mechanical Ventilator 24.00 03/22/18 22:26 71 16 95 30 03/22/18 22:00 65 13 117/54 (75) 96 Mechanical Ventilator 24.00 03/22/18 21:00 86 24 149/56 (87) 100 Mechanical Ventilator 24.00 03/22/18 20:20 92 24 184/62 (102) 100 Mechanical Ventilator 24.00 03/22/18 20:12 89 21 100 30 03/22/18 20:00 100 Mechanical Ventilator 24.00 03/22/18 20:00 90 21 168/59 (95) 100 Mechanical Ventilator 30.00 03/22/18 19:00 85 03/22/18 19:00 97.1 Mechanical Ventilator 30.00 03/22/18 18:55 98.2 75 22 144/50 100 Mechanical Ventilator 30.00 03/22/18 18:39 75 22 100 30 03/22/18 18:00 71 20 115/50 (71) 99 Mechanical Ventilator 30.00 03/22/18 17:23 Mechanical Ventilator 30.00 03/22/18 17:00 74 18 161/60 (93) 96 Mechanical Ventilator 21.00 03/22/18 16:56 Mechanical Ventilator 30.00 03/22/18 16:30 90 Mechanical Ventilator 21 03/22/18 16:00 96 24 196/71 (112) 90 Mechanical Ventilator 21.00 03/22/18 15:52 100 9 94 21 03/22/18 15:00 91 22 181/69 (106) 90 Mechanical Ventilator 21.00 03/22/18 14:52 83 19 94 21 03/22/18 14:38 84 23 161/60 93 Mechanical Ventilator 21.00 03/22/18 14:00 74 19 100/47 (64) 96 Mechanical Ventilator 21.00 03/22/18 13:00 75 20 119/52 (74) 95 Mechanical Ventilator 21.00 03/22/18 13:00 75 03/22/18 12:32 Mechanical Ventilator 21.00 03/22/18 12:26 75 19 99 21 03/22/18 12:10 98 Mechanical Ventilator 30 03/22/18 12:00 80 16 132/50 (77) 96 Mechanical Ventilator 30.00 03/22/18 11:51 98.2 03/22/18 11:16 85 20 96 30 03/22/18 11:00 85 16 183/67 (105) 96 Mechanical Ventilator 30.00 03/22/18 10:22 89 17 179/71 97 Mechanical Ventilator 30.00 03/22/18 10:00 96 20 180/77 (111) 94 Mechanical Ventilator 30.00 03/22/18 09:00 90 18 159/56 (90) 98 Mechanical Ventilator 30.00 03/22/18 08:09 87 17 98 30 03/22/18 08:06 98.2 03/22/18 08:00 97 Mechanical Ventilator 30 03/22/18 08:00 91 17 161/52 (88) 97 Mechanical Ventilator 30.00 03/22/18 07:51 88 03/22/18 07:00 88 17 173/58 (96) 97 Mechanical Ventilator 30.00 03/22/18 06:36 85 20 99 30 03/22/18 06:00 71 16 134/47 (76) 100 Mechanical Ventilator 30.00 03/22/18 05:06 70 03/22/18 05:00 69 17 111/40 (63) 99 Mechanical Ventilator 30.00 03/22/18 04:55 71 22 98 30 I & O 03/23/18 07:00 Intake Total 2660 ml Output Total 5125 ml Balance -2465 ml General Appearance: WD/WN, Other (intubated) HEENT: Other (pupils are sluggish and dilated) Neck: Limited Range of Motion Respiratory: Rhonci, Other Cardiovascular: Regular Rate, Rhythm, Normal Peripheral Pulses Capillary Refill: Less Than 3 Seconds Peripheral Pulses: 2+ Dorsalis Pedis (R), 2+ Left Dors-Pedis (L), 2+ Radial Pulses (R), 2+ Radial Pulses (L) Gastrointestinal: no pulsatile mass, abnormal bowel sounds (hypoactive bowel sounds), distended Extremity: Normal Capillary Refill, Pedal Edema (trace) Neurologic/Psychiatric: Other (sedated) Skin: Pallor Lymphatic: No Adenopathy Results Lab Laboratory Tests 03/22/18 03:23 03/23/18 03:20 Assessment/Plan Assessment/Plan Acute respiratory failure with metabolic encephalopathy -Continue ventilatory support -pt is desaturates easily. -Dr. Alexandre is planning a tracheostomy today. He has already discussed this with family and they agree with tracheostomy. 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 233 Critical Care: Critically Ill Patient SD MITCHELL DO March 23, 2018 04:21
[2018-03-23] MEDS: fentaNYL INJECTION 1,250 MCG in NS (IVPB) 225 ML IV SCH (04:53)
[2018-03-23] MEDS: BUMETANIDE 1 MG/4 ML (BUMEX) VIAL IV SCH (05:27)
[2018-03-23] MEDS: METOCLOPRAMIDE INJ 10 MG/2 ML (REGLAN) IVP SCH ×3 (05:27→17:29)
[2018-03-23] MEDS ORDERED: TROUGH ORDER-PHARMACY XX NR (07:00)
--- NOTE | 2018-03-23 07:28 | Progress Note-Hospitalist ---
Subjective HPI/CC On Admission Date Seen by Provider: March 23, 2018 Time Seen by Provider: 07:23 Subjective/Events-last exam Pt is sedated and intubated. Unable to provide ROS. Discussed with Dr Bacon and RN. Plan for trach today by Dr Alexandre. No family at bedside. Focused Exam Lactate Level 03/21/18 05:30: Lactic Acid Level 1.11 Time of Focused Exam: 13:20 Objective Exam Vital Signs Vital Signs Date Time Temp Pulse Resp B/P (MAP) Pulse Ox O2 Delivery O2 Flow Rate FiO2 03/23/18 06:12 89 22 99 24 03/23/18 06:00 169/68 (101) Mechanical Ventilator 24.00 03/23/18 04:00 99.1 Capillary Refill : Less Than 3 SecondsLess Than 3 Seconds General Appearance: No Apparent Distress, WD/WN Respiratory: Rhonci, Other (intubated) Cardiovascular: Regular Rate, Rhythm, No Murmur Gastrointestinal: Soft, Abnormal Bowel Sounds Extremity: Pedal Edema, Swelling Neurologic/Psychiatric: Other (sedated on propofol) Results/Procedures Lab Laboratory Tests 03/23/18 03:20 Patient resulted labs reviewed. 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 Critical Care Critical Care: Critically Ill Patient Diagnosis/Problems Diagnosis/Problems (1) Respiratory failure Assessment & Plan: Pulm consulted for vent management Unable to wean Discussed with Dr Bacon this AM Dr Alexandre plans for trach today Continue propofol for sedation Triglycerides stable Once trach done will plan on vent weaning Consider landmark referral Qualifiers: Chronicity: acute Respiratory failure complication: unspecified whether with hypoxia or hypercapnia Qualified Codes: J96.00 - Acute respiratory failure, unspecified whether with hypoxia or hypercapnia (2) Sepsis Status: Acute Assessment & Plan: Persistently febrile CT Chest/Abd/Pelvis shows 5 lobe infiltrates (cx proven ESBL), and hepatic and retroperitoneal lymphadenopathy consistent with metastatic disease Klebsiella growing from BAL from RML done yesterday ESBL in sputum on 03/14 and 03/16 On vanc and Merrem and Eraxis Qualifiers: Sepsis type: Escherichia coli Qualified Codes: A41.51 - Sepsis due to Escherichia coli [e. coli] (3) Metastatic adenocarcinoma Assessment & Plan: Patient yet to be informed due to sedation and intubation Consider Oncology consult (4) Small bowel perforation Status: Acute Assessment & Plan: s/p ex lap on 03/[address] Alexandre (5) Malnutrition Assessment & Plan: On TPN Qualifiers: Malnutrition type: protein-calorie malnutrition Protein-calorie malnutrition severity: moderate Qualified Codes: E44.0 - Moderate protein- calorie malnutrition (6) Essential (primary) hypertension Status: Chronic Assessment & Plan: Continue to monitor Labile but mostly hypertensive continue with prn medications given lability Nitropaste so could be wiped off if BP drop Will also increase pain meds (7) Hypomagnesemia Assessment & Plan: on replacement protocol (8) Anemia associated with acute blood loss Assessment & Plan: transfused 03/21 monitor (9) Diabetes mellitus Status: Acute Assessment & Plan: Relatively well controlled SSI A Qualifiers: Diabetes mellitus type: type 2 Diabetes mellitus terminal supervisor insulin use: without residential use Diabetes mellitus complication status: without complication Qualified Codes: E11.9 - Type 2 diabetes mellitus without complications (10) Prophylactic measure Assessment & Plan: Lovenox TPN Protonix Clinical Quality Measures DVT/VTE Risk/Contraindication: Risk Factor Score Per Nursin RFS Level Per Nursing on Admit: 1=Low/No VTE PPX GABBY WESTBROOK MD March 23, 2018 07:27
[2018-03-23] MEDS: ANIDULAFUNGIN INJECTION 100 MG in NS (IVPB) 100 ML IV SCH (08:28)
[2018-03-23] MEDS: fentaNYL INJECTION 100 MCG/2 ML AMP IVP PRN ×5 (08:29→21:45)
--- NOTE | 2018-03-23 08:29 | Diagnostic Imaging Report ---
INDICATION: ICU patient on ventilator. Comparison with 03/22/2018. FINDINGS: Tubes and lines remain unchanged. The five lobe infiltrates and atelectasis are again noted. There is slight improvement in aeration on today's exam when compared with previous study. Heart remains mildly enlarged. No pneumothorax. Small bilateral pleural effusions are present. IMPRESSION: No significant overall change has occurred when compared with previous examination. Dictated by: Dictated on workstation # [id number]
[2018-03-23] MEDS: HALOPERIDOL 5 MG/ML (HALDOL) AMP IV PRN ×2 (09:35→20:22)
[2018-03-23] MEDS: meTOprolol TARTRATE 25 MG (LOPRESSOR) TABLET NG SCH ×2 (09:36→20:23)
[2018-03-23] MEDS: PANTOPRAZOLE 40 MG/10 ML (PROTONIX) VIAL IV SCH (09:36)
[2018-03-23] MEDS: amLODIPine 5 MG (NORVASC) TAB PO SCH (09:36)
[2018-03-23] MEDS: VANCOMYCIN INJECTION 1,500 MG in NS IV 500 ML 500 ML IV SCH ×2 (09:37→17:29)
[2018-03-23] MEDS ORDERED: ROCURONIUM 10 MG/ML 5 ML SYRINGE IV ONE (10:37)
[2018-03-23] MEDS ORDERED: SEVOFLURANE (ULTANE) 15 ML INHAL SOLN ONE (10:37)
[2018-03-23] MEDS ORDERED: MIDAZOLAM 2 MG/2 ML (VERSED) VIAL ONE (10:37)
--- NOTE | 2018-03-23 11:02 | Progress Note-Pre Operative ---
Pre-Operative Progress Note H&P Reviewed The H&P was reviewed, patient examined and no changes noted. Date Seen by Provider: March 23, 2018 Time Seen by Provider: 11:02 Date H&P Reviewed: March 23, 2018 Time H&P Reviewed: 11: Pre-Operative Diagnosis: Postoperative ventilatory and respiratory failure LUCIA FERNANDEZ MD March 23, 2018 11:02 am
--- NOTE | 2018-03-23 12:30 | Operative Report ---
Operative Report Date of Procedure/Surgery March 23, 2018 Surgeon (s) LUCIA FERNANDEZ MD Nursing Student (s): N/A Post-Operative Diagnosis Postoperative ventilatory and respiratory failure Procedure Performed Percutaneous dilatational tracheostomy Description of Procedure Anesthesia Type: General Estimated blood loss (mL): Minimal Specimen(s) collected/removed None Description of the Procedure Indication for the procedure: This lady has developed ventilatory failure following management of a perforated carcinoma the appendix with an intra- abdominal abscess. Since initial weaning attempts were unsuccessful, in anticipation of prolonged ventilatory support, placing a tracheostomy was felt to be reasonable. Informed consent was obtained after reviewing the procedure and complications of bleeding, malfunction of the tube etc. Description of procedure: She was brought to the operating room and general anesthesia induced using the existing endotracheal tube. The neck was prepared and draped in the usual sterile manner. A 2 cm incision was made over the anterior neck, centered between the second and the third tracheal rings and by coordinating with the anesthesiologist, a guidewire was introduced into the trachea. The position was confirmed by direct fiberoptic bronchoscopy by the anesthesiologist. Using a series of dilators, the tract was dilated to 32 Vietnamese. Subsequently, an 8 mm tracheostomy tube was inserted and the cuff inflated. It was then connected to the anesthetic tubing, confirming return of end-tidal carbon dioxide. The anesthesiologist repeated fiberoptic bronchoscopy and confirmed satisfactory position of the tracheostomy tube. He tolerated the procedure well and was taken back to the intensive care unit in a stable condition Findings of the Procedure See op report Allergies and Home Medications Allergies Coded Allergies: lisinopril (Unverified Allergy, Unknown, 08/05/15) prednisone (Verified Adverse Reaction, Intermediate, ELEVATED BLOOD PRESSURE, 08/05/15) Home Medications Amitriptyline HCl 25 Mg Tablet, 25 MG PO HS, (Reported) Cyclobenzaprine HCl 10 Mg Tablet, 10 MG PO HS, (Reported) Estradiol 0.5 Mg Tablet, 0.5 MG PO HS, (Reported) Furosemide 20 Mg Tablet, 20 MG PO DAILY, (Reported) Gemfibrozil 600 Mg Tablet, 600 MG PO BID, (Reported) Ibuprofen 200 Mg Tablet, 600 MG PO BID, (Reported) TAKES 3 (200 MG) TABLETS Levothyroxine Sodium 88 Mcg Tablet, 88 MCG PO DAILY, (Reported) Lysine HCl 500 Mg Tablet, 1,000 MG PO HS, (Reported) Metformin HCl 500 Mg Tablet, 500 MG PO BID, (Reported) Metoprolol Tartrate 50 Mg Tablet, 50 MG PO BID, (Reported) Mv, Min #36/Iron,Carbonyl/FA 1 Each Tablet, 1 TAB PO DAILY, (Reported) Niacinamide 500 Mg Tablet, 500 MG PO DAILY, (Reported) Omeprazole 20 Mg Capsule.dr, 20 MG PO HS, (Reported) Tramadol HCl 50 Mg Tablet, 50-100 MG PO Q6H PRN for PAIN-MODERATE, (Reported) TAKES 1-2 OF A (50 MG) TABLET Vitamin B Complex 1 Each Tablet, 1 TAB PO HS, (Reported) Patient Home Medication List Home Medication List Reviewed: Yes LUCIA FERNANDEZ MD March 23, 2018 12:30 pm
[2018-03-23] MEDS ORDERED: morphine INJ 10 MG/ML 1ML (SYR OR VIAL) IVP PRN (12:45)
[2018-03-23] MEDS ORDERED: proPOfol 200 MG/20 ML (DIPRIVAN) VIAL IV ONE (12:48)
[2018-03-23] MEDS ORDERED: ISOFLURANE (FORANE) 15 ML/15 MIN INHALATION ONE (12:48)
[2018-03-23] MEDS: MEROPENEM 500 MG in NS (IVPB) 100 ML IV SCH ×2 (13:07→20:24)
--- NOTE | 2018-03-23 13:49 | Diagnostic Imaging Report ---
INDICATION: Respiratory failure. Portable chest at 1:10 PM FINDINGS: Patient has a tracheostomy tube. There is an NG tube that enters the stomach. Heart size and pulmonary vascularity are upper limits of normal. Left upper extremity PICC line tip projects over the SVC. There is some atelectasis at the right lung base. There is no alveolar consolidation seen. IMPRESSION: Right basilar atelectasis. Overall aeration of the lungs appears slightly improved from prior image. The ET tube has been replaced with a tracheostomy tube that appears to be in satisfactory position. Dictated by: Dictated on workstation # [id number]
[2018-03-23] MEDS: POTASSIUM CHLORIDE IV SCH ×9 (17:43)
[2018-03-23] MEDS: [UNRECOGNIZED DRUG - OTHER] IV SCH ×9 (17:43)
[2018-03-23] MEDS: POTASSIUM PHOSPHATE IV SCH ×9 (17:43)
[2018-03-23] MEDS: meTOprolol 5 MG/5 ML (LOPRESSOR) VIAL IV PRN (20:55)
[2018-03-23] MEDS ORDERED: HYDROmorphone 2 MG/ML VIAL (DILAUDID) ONE (22:16)
[2018-03-23] MEDS ORDERED: LORazepam INJ 2 MG/ML (ATIVAN) VIAL ONE (22:16)
[2018-03-23] MEDS ORDERED: HYDROmorphone 1 MG/ML (DILAUDID) 1 ML SYRINGE IV ONE (22:30)
[2018-03-23] MEDS ORDERED: LORazepam INJ 2 MG/ML (ATIVAN) VIAL IVP ONE (22:30)
[2018-03-24] VITALS (32 sets, daily range): BP systolic 118–247; BP diastolic 43–112
[2018-03-24] MEDS: METOCLOPRAMIDE INJ 10 MG/2 ML (REGLAN) IVP SCH ×3 (00:05→20:44)
[2018-03-24] MEDS: fentaNYL INJECTION 100 MCG/2 ML AMP IVP PRN ×4 (00:05→06:29)
[2018-03-24] MEDS: MEROPENEM 500 MG in NS (IVPB) 100 ML IV SCH ×4 (00:06→15:48)
[2018-03-24] MEDS: inSUlin ASPART (NovoLOG) 1 UNIT/0.01 ML (CHARGE PER UNIT) SC SCH ×5 (00:06→18:52)
[2018-03-24] MEDS: VANCOMYCIN INJECTION 1,500 MG in NS IV 500 ML 500 ML IV SCH ×2 (00:58→09:19)
[2018-03-24] MEDS: RT-ALBUTEROL/IPRATROPIUM 3 ML (DUONEB) VIAL INH SCH ×6 (03:26→22:25)
[2018-03-24 03:33] LABS: ABG BASE EXCESS 2.3 MMOL/L (-2.5-2.5); ABG OXYGEN SATURATION 93 % (94-100); ABG PCO2 47 MMHG (35-45); ABG PH 7.38 (7.37-7.43); ABG PO2 72 MMHG (79-93); ABG TCO2 28.4 MMOL/L (21.0-31.0); ALLENS TEST ART LINE; INSPIRED O2 24%; PATIENT TEMP 98.6; VENTILATOR YES
[2018-03-24 03:35] LABS: BASOPHILS % (AUTO) 0 % (0-10); EOSINOPHILS # (AUTO) 0.2 10^3/uL (0.0-0.3); EOSINOPHILS % (AUTO) 1 % (0-10); HEMATOCRIT 27 % (35-52); HEMOGLOBIN 8.6 G/DL (11.5-16.0); LYMPHOCYTES % (AUTO) 7 % (12-44); MEAN CORPUSCULAR HEMOGLOBIN 30 PG (25-34); MEAN CORPUSCULAR HGB CONC 32 G/DL (32-36); MEAN CORPUSCULAR VOLUME 93 FL (80-99); MEAN PLATELET VOLUME 9.2 FL (7.4-10.4); MONOCYTES # (AUTO) 1.6 X 10^3 (0.0-1.0); MONOCYTES % (AUTO) 11 % (0-12); NEUTROPHILS # (AUTO) 11.4 X 10^3 (1.8-7.8); NEUTROPHILS % (AUTO) 80 % (42-75); PLATELET COUNT 546 10^3/uL (130-400); RED BLOOD COUNT 2.87 10^6/uL (4.35-5.85); WHITE BLOOD COUNT 14.2 10^3/uL (4.3-11.0)
[2018-03-24] MEDS: hydrALAZINE (APESOLINE) 20 MG/ML VIAL IV PRN ×3 (03:44→22:52)
[2018-03-24] MEDS: meTOprolol 5 MG/5 ML (LOPRESSOR) VIAL IV PRN ×4 (03:44→20:44)
[2018-03-24 03:59] LABS: BUN/CREATININE RATIO 38; CARBON DIOXIDE 24 MMOL/L (21-32); CHLORIDE 107 MMOL/L (98-107); CREATININE SERUM 0.45 MG/DL (0.60-1.30); GFR ESTIMATED > 60; GLUCOSE 156 MG/DL (70-105); MAGNESIUM 1.9 MG/DL (1.8-2.4); PHOSPHORUS 3.7 MG/DL (2.3-4.7); POTASSIUM 4.1 MMOL/L (3.6-5.0); SODIUM 141 MMOL/L (135-145)
[2018-03-24] MEDS: PROPOFOL DRIP (ICU) 100 ML IV SCH (04:14)
[2018-03-24] MEDS: MAGNESIUM 1 GM/100 ML IVPB 100 ML IV SCH (04:44)
[2018-03-24] MEDS: fentaNYL INJECTION 1,250 MCG in NS (IVPB) 225 ML IV SCH ×2 (04:45→20:50)
[2018-03-24] MEDS: POTASSIUM CL 10MEQ/50ML IVPB 50 ML IV SCH (04:45)
[2018-03-24] MEDS: KCL 20 MEQ TAB (K-DUR) PO SCH (04:45)
[2018-03-24] MEDS: BUMETANIDE 1 MG/4 ML (BUMEX) VIAL IV SCH (06:29)
[2018-03-24] MEDS: LEVOTHYROXINE 100 MCG INJ (SYNTHROID) VIAL IV SCH (06:29)
[2018-03-24] MEDS ORDERED: fentaNYL INJECTION 1,250 MCG in NS (IVPB) 225 ML IV SCH (07:45)
--- NOTE | 2018-03-24 07:48 | Progress Note-Hospitalist ---
Subjective HPI/CC On Admission Date Seen by Provider: March 24, 2018 Time Seen by Provider: 07:43 Subjective/Events-last exam Pt is more alert but only opens eyes to verbal stimuli. Otherwise not participation in exam. Discussed with RN. BP very elevated and unresponsive to antihypertensives. Believed to be due to pain as improves with fentanyl. Focused Exam Time of Focused Exam: 13:20 Objective Exam Vital Signs Vital Signs Date Time Temp Pulse Resp B/P (MAP) Pulse Ox O2 Delivery O2 Flow Rate FiO2 03/24/18 06:00 77 16 121/43 (69) 94 Mechanical Ventilator 24.00 03/24/18 04:30 24 03/24/18 04:14 97.1 Capillary Refill : Less Than 3 SecondsLess Than 3 Seconds General Appearance: Chronically ill Neck: Other (trach in place) Respiratory: Rhonci, Other (on vent) Cardiovascular: Regular Rate, Rhythm, No Murmur Gastrointestinal: Soft, Abnormal Bowel Sounds Extremity: Normal Capillary Refill, Pedal Edema Neurologic/Psychiatric: Other (arousable to verbal stimuli, opens eyes and tracks) Results/Procedures Lab Laboratory Tests 03/24/18 03:20 Patient resulted labs reviewed. 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 Critical Care Critical Care: Critically Ill Patient Diagnosis/Problems Diagnosis/Problems (1) Respiratory failure Assessment & Plan: Pulm consulted for vent management Unable to wean and trach placed yesterday Unable to transfer to [place] due to insurance issues Could pursue other LTACHs if interested Qualifiers: Chronicity: acute Respiratory failure complication: unspecified whether with hypoxia or hypercapnia Qualified Codes: J96.00 - Acute respiratory failure, unspecified whether with hypoxia or hypercapnia (2) Sepsis Status: Acute Assessment & Plan: Now afebrile since 03/22 CT Chest/Abd/Pelvis shows 5 lobe infiltrates (cx proven ESBL), and hepatic and retroperitoneal lymphadenopathy consistent with metastatic disease Klebsiella growing from BAL from RML done yesterday ESBL in sputum on 03/14 and 03/16 On vanc and Merrem and Eraxis still Qualifiers: Sepsis type: Escherichia coli Qualified Codes: A41.51 - Sepsis due to Escherichia coli [e. coli] (3) Metastatic adenocarcinoma Assessment & Plan: Patient yet to be informed due to sedation and intubation Oncology consulted- who will see on Wednesday (4) Small bowel perforation Status: Acute Assessment & Plan: s/p ex lap on 03/[address] Alexandre (5) Malnutrition Assessment & Plan: On TPN Qualifiers: Malnutrition type: protein-calorie malnutrition Protein-calorie malnutrition severity: moderate Qualified Codes: E44.0 - Moderate protein- calorie malnutrition (6) Essential (primary) hypertension Status: Chronic Assessment & Plan: Continue to monitor Labile but mostly hypertensive continue with prn medications given lability Nitropaste so could be wiped off if BP drop Will also increase pain meds (7) Hypomagnesemia Assessment & Plan: on replacement protocol (8) Anemia associated with acute blood loss Assessment & Plan: transfused 03/21 monitor, stable (9) Diabetes mellitus Status: Acute Assessment & Plan: Relatively well controlled SSI A Qualifiers: Diabetes mellitus type: type 2 Diabetes mellitus bundle cutter insulin use: without bundle cutter use Diabetes mellitus complication status: without complication Qualified Codes: E11.9 - Type 2 diabetes mellitus without complications (10) Prophylactic measure Assessment & Plan: Lovenox TPN Protonix Clinical Quality Measures DVT/VTE Risk/Contraindication: Risk Factor Score Per Nursin RFS Level Per Nursing on Admit: 1=Low/No VTE PPX GABBY WESTBROOK MD March 24, 2018 07:48
[2018-03-24] MEDS ORDERED: TROUGH ORDER-PHARMACY XX NR (08:00)
[2018-03-24] MEDS: meTOprolol TARTRATE 25 MG (LOPRESSOR) TABLET NG SCH ×2 (09:09→20:45)
[2018-03-24] MEDS: PANTOPRAZOLE 40 MG/10 ML (PROTONIX) VIAL IV SCH (09:09)
[2018-03-24] MEDS: amLODIPine 5 MG (NORVASC) TAB PO SCH (09:09)
[2018-03-24] MEDS: ANIDULAFUNGIN INJECTION 100 MG in NS (IVPB) 100 ML IV SCH (09:12)
--- NOTE | 2018-03-24 09:28 | Diagnostic Imaging Report ---
INDICATION: Sepsis and dyspnea. TIME OF EXAMINATION: 09:00 a.m. COMPARISON: Correlation is made with prior study from one day earlier. FINDINGS: Tracheostomy tube has tip above the tico. The left upper extremity PICC line and NG tube remain in place. Bilateral perihilar and bibasilar infiltrates persist. There is no significant effusion or pneumothorax. IMPRESSION: Stable chest and bilateral infiltrates when compared with examination one-day earlier. Dictated by: Dictated on workstation # [id number]
[2018-03-24] MEDS ORDERED: MAGNESIUM CITRATE 300 ML BTL PO NR (10:36)
--- NOTE | 2018-03-24 11:19 | Progress Note-Standard ---
Standard Progress Note Progress Notes/Assess & Plan Date Seen by Provider: March 24, 2018 Time Seen by Provider: 10:25 Progress/Assessment & Plan I was informed about this patient being admitted last night with peritonitis, possibly due to distal small bowel perforation. She has been managed nonoperatively by the surgeon front desk attendant and I was asked to take over her care by the hospitalist. I have since reviewed her studies and personally examine her. She has diffuse peritonitis and the most recent liver biopsy is nondiagnostic. It is appropriate that she be subjected to laparotomy to address the offending perforation and possibly establish a definitive histologic diagnosis. I have discussed this with her, indicating the grave nature of her condition. She appears to comprehend, despite being limited due to the use of narcotics. 03/15/18: Awake and doing well. Extubation anticipated. Will place wound VAC and continue IV antibiotics 03/16/18 (seen around 845 a.m.) patient developed hypercarbia him a decreased mental status and anemic last night. Reintubated this morning. Urine output satisfactory. Electrolytes normal. Blood transfusion in progress. Wound VAC in place. Possible total parenteral nutrition tomorrow. Consolidation of the right upper/middle lobe with features of pneumonia. Antibiotics will be tailored to the bacteria identified. 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 Her primary physician updated. Patient will be informed once extubated 03/17/18: Mechanical ventilation continues. Pulmonary infiltrates stable. Renal function preserved. Hypokalemia, will be replaced. Pathology report disclosed to her uncle and aunt. Meeting with the children anticipated later this week. Continue TPN 03/17/18:right upper lobe consolidation appears to be worse. White cell count slightly elevated. Output from NG tube minimal. Wound appears to be healthy. Tolerating TPN. Electrolytes much improved. 03/19/18:overall condition unchanged. Hypertension controlled with beta blockers. Right upper lobe consolidation slightly improved. Oxygenation stable and acceptable. Electrolytes within normal limits. Continue ventilatory support and TPN. 03/21/18: Highest temperature on 100.8. White cell count increasing. Pulmonary infiltrates unchanged. Klebsiella on bronchoalveolar lavage, sensitivity pending. Suspect she would benefit from tracheostomy. Has not had any bowel movements. NG output decreasing. Development of further intra-abdominal abscess to be considered and CT scan might be warranted. 03/22/18: White cell count around 14,000. Temperature spikes continue and therefore CT scan of the abdomen and pelvis completed. Studies reviewed with the radiologist and found to be negative for intra-abdominal abscess. No evidence of empyema of the lung. Reasonable to proceed with tracheostomy to facilitate went bleeding. I have discussed this with the son, who expressed his desire to establish power of tax associate attorney and gave me verbal consent to proceed. This is scheduled for tomorrow, 23 Mar 2018 03/24/18:systolic hypertension, reasonably well controlled with IV beta blockers and calcium channel blockers. Deeply sedated with very minimal response to verbal commands. Poor muscle strength. White cell count around 14,000. Chest x-ray unchanged. Continue TPN. Has not had bowel movements and therefore magnesium citrate would be tried. 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 Postoperative ventilatory failure. Right upper lobe pneumonia Focused Exam Time of Focused Exam: 13:20 LUCIA FERNANDEZ MD March 24, 2018 11:19 am
[2018-03-24] MEDS: ENOXAPARIN 40 MG/0.4 ML (LOVENOX) SYR SC SCH (11:40)
[2018-03-24] MEDS: niCARdipine IV 50 MG in NS (IVPB) 230 ML IV SCH ×3 (13:36→23:13)
[2018-03-24] MEDS ORDERED: VANCOMYCIN INJECTION 1,250 MG in NS (IVPB) 250 ML IV SCH (14:00)
[2018-03-24] MEDS: DEXMEDETOMIDINE INJECTION 1,000 MCG in NS (IVPB) 240 ML IV SCH ×2 (15:47→23:16)
[2018-03-24] MEDS ORDERED: POTASSIUM CHLORIDE IV SCH ×10 (17:00)
[2018-03-24] MEDS ORDERED: [UNRECOGNIZED DRUG - OTHER] IV SCH ×10 (17:00)
[2018-03-24] MEDS ORDERED: POTASSIUM PHOSPHATE IV SCH ×10 (17:00)
[2018-03-24] MEDS: HALOPERIDOL 5 MG/ML (HALDOL) AMP IV PRN (22:52)
[2018-03-24] MEDS ORDERED: niCARdipine IV FOR DRIP 50 MG KIT ONE (23:06)
[2018-03-24] MEDS ORDERED: NS (IVPB) 250 ML ONE (23:06)
[2018-03-25] VITALS (34 sets, daily range): BP systolic 15–190; BP diastolic 42–86
[2018-03-25] MEDS: METOCLOPRAMIDE INJ 10 MG/2 ML (REGLAN) IVP SCH ×5 (00:24→23:53)
[2018-03-25] MEDS: meTOprolol 5 MG/5 ML (LOPRESSOR) VIAL IV PRN ×3 (00:53→05:37)
[2018-03-25] MEDS: MEROPENEM 500 MG in NS (IVPB) 100 ML IV SCH ×2 (00:54→05:42)
[2018-03-25] MEDS: inSUlin ASPART (NovoLOG) 1 UNIT/0.01 ML (CHARGE PER UNIT) SC SCH ×5 (01:30→23:54)
[2018-03-25] MEDS: RT-ALBUTEROL/IPRATROPIUM 3 ML (DUONEB) VIAL INH SCH ×6 (02:28→21:19)
[2018-03-25] MEDS ORDERED: niCARdipine IV FOR DRIP 50 MG KIT ONE ×2 (03:30→21:02)
[2018-03-25] MEDS ORDERED: NS (IVPB) 250 ML ONE ×2 (03:30→21:02)
[2018-03-25 03:35] LABS: ABG BASE EXCESS 5.3 MMOL/L (-2.5-2.5); ABG OXYGEN SATURATION 92 % (94-100); ABG PCO2 38 MMHG (35-45); ABG PH 7.49 (7.37-7.43); ABG PO2 64 MMHG (79-93); ABG TCO2 29.9 MMOL/L (21.0-31.0)
[2018-03-25 03:38] LABS: ALLENS TEST ART LINE; BASOPHILS % (AUTO) 0 % (0-10); EOSINOPHILS % (AUTO) 0 % (0-10); HEMATOCRIT 29 % (35-52); HEMOGLOBIN 9.4 G/DL (11.5-16.0); INSPIRED O2 24%; LYMPHOCYTES # (AUTO) 0.9 X 10^3 (1.0-4.0); LYMPHOCYTES % (AUTO) 6 % (12-44); MEAN CORPUSCULAR HGB CONC 32 G/DL (32-36); MEAN CORPUSCULAR VOLUME 92 FL (80-99); MONOCYTES # (AUTO) 1.4 X 10^3 (0.0-1.0); MONOCYTES % (AUTO) 9 % (0-12); NEUTROPHILS # (AUTO) 13.8 X 10^3 (1.8-7.8); NEUTROPHILS % (AUTO) 86 % (42-75); PATIENT TEMP 97.7; PLATELET COUNT 573 10^3/uL (130-400); RED BLOOD COUNT 3.19 10^6/uL (4.35-5.85); VENTILATOR YES; WHITE BLOOD COUNT 16.1 10^3/uL (4.3-11.0)
[2018-03-25] MEDS: niCARdipine IV 50 MG in NS (IVPB) 230 ML IV SCH ×4 (03:40→21:15)
[2018-03-25 03:42] LABS: MEAN CORPUSCULAR HEMOGLOBIN 29 PG (25-34)
[2018-03-25 03:58] LABS: BUN/CREATININE RATIO 36; CALCIUM 8.1 MG/DL (8.5-10.1); CARBON DIOXIDE 26 MMOL/L (21-32); CHLORIDE 103 MMOL/L (98-107); CREATININE SERUM 0.45 MG/DL (0.60-1.30); GFR ESTIMATED > 60; GLUCOSE 212 MG/DL (70-105); MAGNESIUM 1.7 MG/DL (1.8-2.4); PHOSPHORUS 2.6 MG/DL (2.3-4.7); POTASSIUM 3.3 MMOL/L (3.6-5.0); SODIUM 140 MMOL/L (135-145)
[2018-03-25] MEDS: MAGNESIUM 1 GM/100 ML IVPB 100 ML IV SCH ×3 (04:14→10:46)
[2018-03-25] MEDS: KCL 20 MEQ TAB (K-DUR) PO SCH (04:14)
[2018-03-25] MEDS: POTASSIUM CL 10MEQ/50ML IVPB 50 ML IV SCH ×5 (04:15→18:37)
[2018-03-25] MEDS: fentaNYL INJECTION 1,250 MCG in NS (IVPB) 225 ML IV SCH (05:08)
[2018-03-25] MEDS: HALOPERIDOL 5 MG/ML (HALDOL) AMP IV PRN (05:37)
[2018-03-25] MEDS: DEXMEDETOMIDINE INJECTION 1,000 MCG in NS (IVPB) 240 ML IV SCH ×2 (07:05→15:01)
--- NOTE | 2018-03-25 08:17 | Progress Note-Hospitalist ---
Subjective HPI/CC On Admission Date Seen by Provider: March 25, 2018 Time Seen by Provider: 08:12 Subjective/Events-last exam Pt sedated. Unable to participate in ROS. Discussed with RN. BP much improved with cardene gtt. Will decrease sedation as able. Focused Exam Time of Focused Exam: 13:20 Objective Exam Vital Signs Vital Signs Date Time Temp Pulse Resp B/P (MAP) Pulse Ox O2 Delivery O2 Flow Rate FiO2 03/25/18 07:55 96.5 03/25/18 06:22 64 21 93 24 03/25/18 06:00 154/54 (87) Mechanical Ventilator 24.00 Capillary Refill : Less Than 3 SecondsLess Than 3 Seconds General Appearance: No Apparent Distress, WD/WN Neck: Other (trach in place) Respiratory: Rhonci, Other (trach on vent) Cardiovascular: Regular Rate, Rhythm, No Murmur Extremity: Swelling Neurologic/Psychiatric: Other (sedated, did no respond to verbal stimuli this AM) Results/Procedures Lab Laboratory Tests 03/25/18 03:20 Patient resulted labs reviewed. 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 Critical Care Critical Care: Critically Ill Patient Diagnosis/Problems Diagnosis/Problems (1) Respiratory failure Assessment & Plan: Pulm consulted for vent management Unable to wean and trach placed Unable to transfer to [place] due to insurance issues Could pursue other LTACHs if interested Qualifiers: Chronicity: acute Respiratory failure complication: unspecified whether with hypoxia or hypercapnia Qualified Codes: J96.00 - Acute respiratory failure, unspecified whether with hypoxia or hypercapnia (2) Sepsis Status: Acute Assessment & Plan: Febrile last night CT Chest/Abd/Pelvis shows 5 lobe infiltrates (cx proven ESBL), and hepatic and retroperitoneal lymphadenopathy consistent with metastatic disease Klebsiella growing from BAL from RML done yesterday ESBL in sputum on 03/14 and 03/16 Continue Merrem and Eraxis Qualifiers: Sepsis type: Escherichia coli Qualified Codes: A41.51 - Sepsis due to Escherichia coli [e. coli] (3) Metastatic adenocarcinoma Assessment & Plan: Patient yet to be informed due to sedation and intubation Oncology consulted- who will see on Wednesday (4) Small bowel perforation Status: Acute Assessment & Plan: s/p ex lap on 4/[address] Alexandre (5) Essential (primary) hypertension Status: Chronic Assessment & Plan: Much improved with cardene gtt and fentanyl gtt Will wean sedation as able (6) Malnutrition Assessment & Plan: On TPN Qualifiers: Malnutrition type: protein-calorie malnutrition Protein-calorie malnutrition severity: moderate Qualified Codes: E44.0 - Moderate protein- calorie malnutrition (7) Hypomagnesemia Assessment & Plan: on replacement protocol (8) Anemia associated with acute blood loss Assessment & Plan: transfused 03/21 monitor, stable (9) Diabetes mellitus Status: Acute Assessment & Plan: Relatively well controlled SSI A Qualifiers: Diabetes mellitus type: type 2 Diabetes mellitus fdc insulin use: without fdc use Diabetes mellitus complication status: without complication Qualified Codes: E11.9 - Type 2 diabetes mellitus without complications (10) Prophylactic measure Assessment & Plan: Lovenox TPN Protonix Clinical Quality Measures DVT/VTE Risk/Contraindication: Risk Factor Score Per Nursin RFS Level Per Nursing on Admit: 1=Low/No VTE PPX GABBY WESTBROOK MD March 25, 2018 08:17
--- NOTE | 2018-03-25 08:25 | Diagnostic Imaging Report ---
INDICATION: Dyspnea. Comparison made with prior examination 03/24/2018. FINDINGS: Heart size is normal. There is some venous congestion. There is some bibasilar atelectasis and/or pneumonitis. There is a left pleural effusion. There is no pneumothorax. Lines and tubes are in satisfactory position. IMPRESSION: Bibasilar atelectasis and/or pneumonitis and left pleural effusion. Mild central pulmonary venous congestion. Dictated by: Dictated on workstation # [id number]
[2018-03-25] MEDS: meTOprolol TARTRATE 25 MG (LOPRESSOR) TABLET NG SCH ×2 (09:02→21:16)
[2018-03-25] MEDS: ANIDULAFUNGIN INJECTION 100 MG in NS (IVPB) 100 ML IV SCH (09:03)
[2018-03-25] MEDS: cefTRIAXone 1 GM/NS 100 ML IVPB IV SCH ×2 (09:37)
--- NOTE | 2018-03-25 10:16 | Progress Note-Standard ---
Standard Progress Note Progress Notes/Assess & Plan Date Seen by Provider: March 25, 2018 Time Seen by Provider: 10:15 Progress/Assessment & Plan I was informed about this patient being admitted last night with peritonitis, possibly due to distal small bowel perforation. She has been managed nonoperatively by the surgeon plant controller and I was asked to take over her care by the hospitalist. I have since reviewed her studies and personally examine her. She has diffuse peritonitis and the most recent liver biopsy is nondiagnostic. It is appropriate that she be subjected to laparotomy to address the offending perforation and possibly establish a definitive histologic diagnosis. I have discussed this with her, indicating the grave nature of her condition. She appears to comprehend, despite being limited due to the use of narcotics. 03/15/18: Awake and doing well. Extubation anticipated. Will place wound VAC and continue IV antibiotics 03/16/18 (seen around 845 a.m.) patient developed hypercarbia him a decreased mental status and anemic last night. Reintubated this morning. Urine output satisfactory. Electrolytes normal. Blood transfusion in progress. Wound VAC in place. Possible total parenteral nutrition tomorrow. Consolidation of the right upper/middle lobe with features of pneumonia. Antibiotics will be tailored to the bacteria identified. 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 Her primary physician updated. Patient will be informed once extubated 03/17/18: Mechanical ventilation continues. Pulmonary infiltrates stable. Renal function preserved. Hypokalemia, will be replaced. Pathology report disclosed to her uncle and aunt. Meeting with the children anticipated later this week. Continue TPN 03/17/18:right upper lobe consolidation appears to be worse. White cell count slightly elevated. Output from NG tube minimal. Wound appears to be healthy. Tolerating TPN. Electrolytes much improved. 03/19/18:overall condition unchanged. Hypertension controlled with beta blockers. Right upper lobe consolidation slightly improved. Oxygenation stable and acceptable. Electrolytes within normal limits. Continue ventilatory support and TPN. 03/21/18: Highest temperature on 100.8. White cell count increasing. Pulmonary infiltrates unchanged. Klebsiella on bronchoalveolar lavage, sensitivity pending. Suspect she would benefit from tracheostomy. Has not had any bowel movements. NG output decreasing. Development of further intra-abdominal abscess to be considered and CT scan might be warranted. 03/22/18: White cell count around 14,000. Temperature spikes continue and therefore CT scan of the abdomen and pelvis completed. Studies reviewed with the radiologist and found to be negative for intra-abdominal abscess. No evidence of empyema of the lung. Reasonable to proceed with tracheostomy to facilitate went bleeding. I have discussed this with the son, who expressed his desire to establish power of civil litigation attorney and gave me verbal consent to proceed. This is scheduled for tomorrow, 23 Mar 2018 03/24/18:systolic hypertension, reasonably well controlled with IV beta blockers and calcium channel blockers. Deeply sedated with very minimal response to verbal commands. Poor muscle strength. White cell count around 14,000. Chest x-ray unchanged. Continue TPN. Has not had bowel movements and therefore magnesium citrate would be tried. 03/25/18: Awake and slightly responsive. Blood pressure labile, requiring intravenous therapy. No response to magnesium citrate with increased nasogastric output. This may well be compounded by the requirement for continuous narcotic use. Oxygenation much improved. Pulmonary infiltrates much improved on x-ray. We'll continue TPN for now Final Diagnosis metastatic carcinoma of appendix. Postoperative ventilatory failure. Hypertension Focused Exam Time of Focused Exam: 13:20 LUCIA FERNANDEZ MD March 25, 2018 10:16
--- NOTE | 2018-03-25 10:45 | Anesthesia-General Post-Op ---
General Post Op Complications Complications None Follow Up Care/Instructions Patient Instructions None needed. Anesthesia/Patient Condition Patient Condition Pt condition improving. Now awake, following commands per nursing staff. Precedex infusion still running. D/C home per [facility] Criteria: MAXIMUS Crocker CRNA March 25, 2018 10:45
[2018-03-25] MEDS: ENOXAPARIN 40 MG/0.4 ML (LOVENOX) SYR SC SCH (11:03)
[2018-03-25] MEDS: LEVOTHYROXINE 100 MCG INJ (SYNTHROID) VIAL IV SCH (11:19)
[2018-03-25] MEDS ORDERED: TROUGH ORDER-PHARMACY XX NR (13:00)
[2018-03-25] MEDS ORDERED: POTASSIUM PHOSPHATE IV SCH ×10 (17:00)
[2018-03-25] MEDS ORDERED: [UNRECOGNIZED DRUG - OTHER] IV SCH ×10 (17:00)
[2018-03-25] MEDS ORDERED: POTASSIUM CHLORIDE IV SCH ×10 (17:00)
[2018-03-26] VITALS (34 sets, daily range): BP systolic 107–206; BP diastolic 47–98
[2018-03-26] MEDS: meTOprolol 5 MG/5 ML (LOPRESSOR) VIAL IV PRN ×2 (00:59→14:04)
[2018-03-26] MEDS: RT-ALBUTEROL/IPRATROPIUM 3 ML (DUONEB) VIAL INH SCH ×6 (01:30→21:39)
[2018-03-26] MEDS: DEXMEDETOMIDINE INJECTION 1,000 MCG in NS (IVPB) 240 ML IV SCH ×3 (01:38→21:36)
[2018-03-26] MEDS: hydrALAZINE (APESOLINE) 20 MG/ML VIAL IV PRN (02:35)
[2018-03-26] MEDS: niCARdipine IV 50 MG in NS (IVPB) 230 ML IV SCH ×4 (02:35→19:46)
[2018-03-26] MEDS: fentaNYL INJECTION 1,250 MCG in NS (IVPB) 225 ML IV SCH ×2 (03:33→21:36)
[2018-03-26 04:15] LABS: BASOPHILS # (AUTO) 0.1 10^3/uL (0.0-0.1); BASOPHILS % (AUTO) 0 % (0-10); EOSINOPHILS # (AUTO) 0.1 10^3/uL (0.0-0.3); EOSINOPHILS % (AUTO) 0 % (0-10); HEMATOCRIT 30 % (35-52); HEMOGLOBIN 9.9 G/DL (11.5-16.0); LYMPHOCYTES # (AUTO) 0.8 X 10^3 (1.0-4.0); LYMPHOCYTES % (AUTO) 4 % (12-44); MEAN CORPUSCULAR HEMOGLOBIN 30 PG (25-34); MEAN CORPUSCULAR HGB CONC 33 G/DL (32-36); MEAN CORPUSCULAR VOLUME 91 FL (80-99); MONOCYTES # (AUTO) 1.7 X 10^3 (0.0-1.0); MONOCYTES % (AUTO) 9 % (0-12); NEUTROPHILS # (AUTO) 15.8 X 10^3 (1.8-7.8); NEUTROPHILS % (AUTO) 86 % (42-75); PLATELET COUNT 628 10^3/uL (130-400); RED BLOOD COUNT 3.31 10^6/uL (4.35-5.85); RED CELL DISTRIBUTION WIDTH 14.7 % (10.0-14.5); WHITE BLOOD COUNT 18.4 10^3/uL (4.3-11.0)
[2018-03-26 04:17] LABS: ABG BASE EXCESS 6.3 MMOL/L (-2.5-2.5); ABG OXYGEN SATURATION 92 % (94-100); ABG PCO2 39 MMHG (35-45); ABG PH 7.49 (7.37-7.43); ABG PO2 62 MMHG (79-93); ABG TCO2 31.1 MMOL/L (21.0-31.0)
[2018-03-26 04:19] LABS: ALLENS TEST ART LINE; INSPIRED O2 24%
[2018-03-26 04:20] LABS: PATIENT TEMP 97.7; VENTILATOR YES
[2018-03-26 05:19] LABS: BUN/CREATININE RATIO 36; CALCIUM 8.7 MG/DL (8.5-10.1); CARBON DIOXIDE 28 MMOL/L (21-32); CHLORIDE 101 MMOL/L (98-107); CREATININE SERUM 0.44 MG/DL (0.60-1.30); GFR ESTIMATED > 60; GLUCOSE 147 MG/DL (70-105); MAGNESIUM 1.9 MG/DL (1.8-2.4); POTASSIUM 3.2 MMOL/L (3.6-5.0); SODIUM 139 MMOL/L (135-145)
[2018-03-26] MEDS: MAGNESIUM 1 GM/100 ML IVPB 100 ML IV SCH (05:33)
[2018-03-26] MEDS: inSUlin ASPART (NovoLOG) 1 UNIT/0.01 ML (CHARGE PER UNIT) SC SCH ×3 (05:34→17:06)
[2018-03-26] MEDS: KCL 20 MEQ TAB (K-DUR) PO SCH (05:34)
[2018-03-26] MEDS: METOCLOPRAMIDE INJ 10 MG/2 ML (REGLAN) IVP SCH ×3 (06:05→17:00)
[2018-03-26] MEDS: LEVOTHYROXINE 100 MCG INJ (SYNTHROID) VIAL IV SCH (06:05)
[2018-03-26] MEDS: POTASSIUM CL 10MEQ/50ML IVPB 50 ML IV SCH ×4 (06:05→08:11)
--- NOTE | 2018-03-26 08:12 | Progress Note-Hospitalist ---
Subjective HPI/CC On Admission Date Seen by Provider: March 26, 2018 Time Seen by Provider: 08:05 Subjective/Events-last exam Pt is more alert today and arouse to voice and participate interview. She denies any pain. She does endorse a history of hypertension. She has no family present currently nor has she talked to them. She requested paper to help facilitate communication. Focused Exam Time of Focused Exam: 13:20 Objective Exam Vital Signs Vital Signs Date Time Temp Pulse Resp B/P (MAP) Pulse Ox O2 Delivery O2 Flow Rate FiO2 03/26/18 06:20 102 18 98 21 03/26/18 06:00 188/67 (107) Mechanical Ventilator 24.00 03/25/18 23:59 97.1 Capillary Refill : Less Than 3 SecondsLess Than 3 Seconds General Appearance: No Apparent Distress, WD/WN HEENT: Other (NG in place) Neck: Other (trach) Respiratory: Rhonci, Other (trached on vent) Cardiovascular: Regular Rate, Rhythm, No Murmur Gastrointestinal: Abnormal Bowel Sounds, Distended Extremity: Pedal Edema Neurologic/Psychiatric: Alert, Oriented x3 Results/Procedures Lab Laboratory Tests 03/26/18 04:08 Patient resulted labs reviewed. 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 Critical Care Critical Care: Critically Ill Patient Diagnosis/Problems Diagnosis/Problems (1) Respiratory failure Assessment & Plan: Pulm consulted for vent management Unable to wean and trach placed Unable to transfer to [place] due to insurance issues Could pursue other LTACHs if interested Qualifiers: Chronicity: acute Respiratory failure complication: unspecified whether with hypoxia or hypercapnia Qualified Codes: J96.00 - Acute respiratory failure, unspecified whether with hypoxia or hypercapnia (2) Sepsis Status: Acute Assessment & Plan: Afrebile since 03/24 CT Chest/Abd/Pelvis shows 5 lobe infiltrates (cx proven ESBL), and hepatic and retroperitoneal lymphadenopathy consistent with metastatic disease Klebsiella growing from BAL from RML ESBL in sputum on 03/14 and 03/16 Continue Eraxis, will deescalate Merrem to Rocephin Qualifiers: Sepsis type: Escherichia coli Qualified Codes: A41.51 - Sepsis due to Escherichia coli [e. coli] (3) Metastatic adenocarcinoma Assessment & Plan: Patient yet to be informed due to sedation and intubation until now No family at bedside so deferred discuss until support available Oncology consulted- who will see on Wednesday (4) Small bowel perforation Status: Acute Assessment & Plan: s/p ex lap on 03/[address] Alexandre (5) Essential (primary) hypertension Status: Chronic Assessment & Plan: Much improved with cardene gtt Will wean sedation as able (6) Malnutrition Assessment & Plan: On TPN Qualifiers: Malnutrition type: protein-calorie malnutrition Protein-calorie malnutrition severity: moderate Qualified Codes: E44.0 - Moderate protein- calorie malnutrition (7) Hypomagnesemia Assessment & Plan: on replacement protocol (8) Anemia associated with acute blood loss Assessment & Plan: transfused 03/21 monitor, stable (9) Diabetes mellitus Status: Acute Assessment & Plan: Relatively well controlled SSI A Qualifiers: Diabetes mellitus type: type 2 Diabetes mellitus terminal press operator insulin use: without penitentiary use Diabetes mellitus complication status: without complication Qualified Codes: E11.9 - Type 2 diabetes mellitus without complications (10) Prophylactic measure Assessment & Plan: Lovenox TPN Protonix Clinical Quality Measures DVT/VTE Risk/Contraindication: Risk Factor Score Per Nursin RFS Level Per Nursing on Admit: 1=Low/No VTE PPX GABBY WESTBROOK MD March 26, 2018 08:12
[2018-03-26] MEDS: cefTRIAXone 1 GM/NS 100 ML IVPB IV SCH ×2 (08:16)
[2018-03-26] MEDS: meTOprolol TARTRATE 25 MG (LOPRESSOR) TABLET NG SCH ×2 (08:20→21:15)
--- NOTE | 2018-03-26 08:44 | Diagnostic Imaging Report ---
PATIENT HISTORY: Dyspnea. TECHNIQUE: Single frontal view of the chest COMPARISON: 03/25/2018 FINDINGS: The tracheostomy tube is in stable position. The enteric tube projects over the stomach. The left-sided PICC line projects over the cavoatrial junction. No significant pleural effusion or pneumothorax is seen. There is mild cardiomegaly with mild central vascular congestion. This appears mildly improved. IMPRESSION: 1. Mild cardiomegaly with mildly improved central vascular congestion. Dictated by: Dictated on workstation # [id number]
[2018-03-26] MEDS: ANIDULAFUNGIN INJECTION 100 MG in NS (IVPB) 100 ML IV SCH (08:46)
--- NOTE | 2018-03-26 10:57 | Diagnostic Imaging Report ---
INDICATION: Postoperative abdominal distention. COMPARISON: None available. FINDINGS: Enteric tube has tip terminating in the proximal stomach. The sidehole is near the GE junction. There are a few gas-filled but nondilated loops of colon. No air-filled dilated small bowel loops. Surgical clips are present in the right lower quadrant. IMPRESSION: 1. Nonobstructive bowel gas pattern. 2. Enteric tube has tip in the proximal stomach with the sidehole near the GE junction. Dictated by: Dictated on workstation # [id number]
--- NOTE | 2018-03-26 11:06 | Progress Note-Standard ---
Standard Progress Note Progress Notes/Assess & Plan Date Seen by Provider: March 26, 2018 Time Seen by Provider: 10:05 Progress/Assessment & Plan I was informed about this patient being admitted last night with peritonitis, possibly due to distal small bowel perforation. She has been managed nonoperatively by the surgeon community health consultant and I was asked to take over her care by the hospitalist. I have since reviewed her studies and personally examine her. She has diffuse peritonitis and the most recent liver biopsy is nondiagnostic. It is appropriate that she be subjected to laparotomy to address the offending perforation and possibly establish a definitive histologic diagnosis. I have discussed this with her, indicating the grave nature of her condition. She appears to comprehend, despite being limited due to the use of narcotics. 03/15/18: Awake and doing well. Extubation anticipated. Will place wound VAC and continue IV antibiotics 03/16/18 (seen around 845 a.m.) patient developed hypercarbia him a decreased mental status and anemic last night. Reintubated this morning. Urine output satisfactory. Electrolytes normal. Blood transfusion in progress. Wound VAC in place. Possible total parenteral nutrition tomorrow. Consolidation of the right upper/middle lobe with features of pneumonia. Antibiotics will be tailored to the bacteria identified. 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 Her primary physician updated. Patient will be informed once extubated 03/17/18: Mechanical ventilation continues. Pulmonary infiltrates stable. Renal function preserved. Hypokalemia, will be replaced. Pathology report disclosed to her uncle and aunt. Meeting with the children anticipated later this week. Continue TPN 03/17/18:right upper lobe consolidation appears to be worse. White cell count slightly elevated. Output from NG tube minimal. Wound appears to be healthy. Tolerating TPN. Electrolytes much improved. 03/19/18:overall condition unchanged. Hypertension controlled with beta blockers. Right upper lobe consolidation slightly improved. Oxygenation stable and acceptable. Electrolytes within normal limits. Continue ventilatory support and TPN. 03/21/18: Highest temperature on 100.8. White cell count increasing. Pulmonary infiltrates unchanged. Klebsiella on bronchoalveolar lavage, sensitivity pending. Suspect she would benefit from tracheostomy. Has not had any bowel movements. NG output decreasing. Development of further intra-abdominal abscess to be considered and CT scan might be warranted. 03/22/18: White cell count around 14,000. Temperature spikes continue and therefore CT scan of the abdomen and pelvis completed. Studies reviewed with the radiologist and found to be negative for intra-abdominal abscess. No evidence of empyema of the lung. Reasonable to proceed with tracheostomy to facilitate went bleeding. I have discussed this with the son, who expressed his desire to establish power of employee benefits attorney and gave me verbal consent to proceed. This is scheduled for tomorrow, 23 Mar 2018 03/24/18:systolic hypertension, reasonably well controlled with IV beta blockers and calcium channel blockers. Deeply sedated with very minimal response to verbal commands. Poor muscle strength. White cell count around 14,000. Chest x-ray unchanged. Continue TPN. Has not had bowel movements and therefore magnesium citrate would be tried. 03/25/18: Awake and slightly responsive. Blood pressure labile, requiring intravenous therapy. No response to magnesium citrate with increased nasogastric output. This may well be compounded by the requirement for continuous narcotic use. Oxygenation much improved. Pulmonary infiltrates much improved on x-ray. We'll continue TPN for now 03/26/18: Leucocytosis continues. High NG output, consider ileus. Awake and anxious. Operative findings and malignancy disclosed to the patient. If WCC stays high, will repeat CT next week. Final Diagnosis Metastatic carcinoma of appendix Focused Exam Time of Focused Exam: 13:20 LUCIA FERNANDEZ MD March 26, 2018 11:06 am
[2018-03-26] MEDS ORDERED: BISACODYL 5 MG (DULCOLAX) TABLET PO NR (11:15)
[2018-03-26] MEDS ORDERED: MAGNESIUM CITRATE 300 ML BTL PO NR (11:15)
[2018-03-26] MEDS ORDERED: BISACODYL 10 MG SUPP (DULCOLAX) PR ONE (11:30)
[2018-03-26] MEDS ORDERED: BISACODYL 10 MG SUPP (DULCOLAX) ONE (11:38)
[2018-03-26] MEDS: ENOXAPARIN 40 MG/0.4 ML (LOVENOX) SYR SC SCH (12:00)
[2018-03-26] MEDS: [UNRECOGNIZED DRUG - OTHER] IV SCH ×10 (17:17)
[2018-03-26] MEDS: POTASSIUM CHLORIDE IV SCH ×10 (17:17)
[2018-03-26] MEDS: POTASSIUM PHOSPHATE IV SCH ×10 (17:17)
[2018-03-26] MEDS: fentaNYL INJECTION 100 MCG/2 ML AMP IVP PRN (21:15)
[2018-03-27] VITALS (33 sets, daily range): BP systolic 113–211; BP diastolic 58–172
[2018-03-27] MEDS: niCARdipine IV 50 MG in NS (IVPB) 230 ML IV SCH ×4 (01:05→17:17)
[2018-03-27] MEDS: inSUlin ASPART (NovoLOG) 1 UNIT/0.01 ML (CHARGE PER UNIT) SC SCH ×4 (01:09→17:11)
[2018-03-27] MEDS: METOCLOPRAMIDE INJ 10 MG/2 ML (REGLAN) IVP SCH ×4 (01:09→17:12)
[2018-03-27] MEDS: RT-ALBUTEROL/IPRATROPIUM 3 ML (DUONEB) VIAL INH SCH ×6 (01:44→21:17)
[2018-03-27 04:14] LABS: BASOPHILS % (AUTO) 0 % (0-10); EOSINOPHILS # (AUTO) 0.1 10^3/uL (0.0-0.3); EOSINOPHILS % (AUTO) 0 % (0-10); HEMATOCRIT 29 % (35-52); HEMOGLOBIN 9.4 G/DL (11.5-16.0); LYMPHOCYTES # (AUTO) 0.9 X 10^3 (1.0-4.0); LYMPHOCYTES % (AUTO) 5 % (12-44); MEAN CORPUSCULAR HEMOGLOBIN 30 PG (25-34); MEAN CORPUSCULAR HGB CONC 33 G/DL (32-36); MEAN CORPUSCULAR VOLUME 92 FL (80-99); MONOCYTES # (AUTO) 1.6 X 10^3 (0.0-1.0); MONOCYTES % (AUTO) 9 % (0-12); NEUTROPHILS # (AUTO) 15.1 X 10^3 (1.8-7.8); NEUTROPHILS % (AUTO) 85 % (42-75); PLATELET COUNT 628 10^3/uL (130-400); RED BLOOD COUNT 3.15 10^6/uL (4.35-5.85); RED CELL DISTRIBUTION WIDTH 14.8 % (10.0-14.5); WHITE BLOOD COUNT 17.7 10^3/uL (4.3-11.0)
[2018-03-27 04:24] LABS: ABG BASE EXCESS 9.5 MMOL/L (-2.5-2.5); ABG OXYGEN SATURATION 94 % (94-100); ABG PCO2 40 MMHG (35-45); ABG PH 7.53 (7.37-7.43); ABG PO2 69 MMHG (79-93); ABG TCO2 34.2 MMOL/L (21.0-31.0)
[2018-03-27 04:25] LABS: ALLENS TEST YES-POS; INSPIRED O2 21%; PATIENT TEMP 98.7; VENTILATOR YES
[2018-03-27 04:29] LABS: BUN/CREATININE RATIO 39; CALCIUM 8.6 MG/DL (8.5-10.1); CARBON DIOXIDE 30 MMOL/L (21-32); CHLORIDE 99 MMOL/L (98-107); CREATININE SERUM 0.44 MG/DL (0.60-1.30); GFR ESTIMATED > 60; GLUCOSE 147 MG/DL (70-105); MAGNESIUM 1.9 MG/DL (1.8-2.4); PHOSPHORUS 3.8 MG/DL (2.3-4.7); POTASSIUM 3.5 MMOL/L (3.6-5.0); SODIUM 140 MMOL/L (135-145)
[2018-03-27] MEDS: LORazepam INJ 2 MG/ML (ATIVAN) VIAL IVP PRN ×2 (04:37→07:20)
[2018-03-27] MEDS: KCL 20 MEQ TAB (K-DUR) PO SCH (06:10)
[2018-03-27] MEDS: MAGNESIUM 1 GM/100 ML IVPB 100 ML IV SCH (06:10)
[2018-03-27] MEDS: POTASSIUM CL 10MEQ/50ML IVPB 50 ML IV SCH ×2 (06:11→07:21)
[2018-03-27] MEDS: LEVOTHYROXINE 100 MCG INJ (SYNTHROID) VIAL IV SCH (06:27)
[2018-03-27] MEDS: ANIDULAFUNGIN INJECTION 100 MG in NS (IVPB) 100 ML IV SCH (07:52)
[2018-03-27] MEDS: meTOprolol TARTRATE 25 MG (LOPRESSOR) TABLET NG SCH (07:52)
--- NOTE | 2018-03-27 08:39 | Progress Note-Hospitalist ---
Subjective HPI/CC On Admission Date Seen by Provider: March 27, 2018 Time Seen by Provider: 08:34 Subjective/Events-last exam Pt is less alert today. Did open eyes and rack but did not participate in interview like yesterday. Focused Exam Time of Focused Exam: 13:20 Objective Exam Vital Signs Vital Signs Date Time Temp Pulse Resp B/P (MAP) Pulse Ox O2 Delivery O2 Flow Rate FiO2 03/27/18 07:55 96.9 93 17 179/70 (106) 96 Mechanical Ventilator 21.00 03/27/18 06:48 21 Capillary Refill : Less Than 3 SecondsLess Than 3 Seconds General Appearance: Chronically ill Neck: Other (trach) Respiratory: Rhonci, Other (on vent) Cardiovascular: Regular Rate, Rhythm, No Murmur Gastrointestinal: Non Tender, Soft, Abnormal Bowel Sounds, Distended Extremity: Pedal Edema Neurologic/Psychiatric: Alert Results/Procedures Lab Laboratory Tests 03/27/18 04:00 Patient resulted labs reviewed. 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 Critical Care Critical Care: Critically Ill Patient Diagnosis/Problems Diagnosis/Problems (1) Respiratory failure Assessment & Plan: Pulm consulted for vent management Unable to wean and trach placed on 03/23 Unable to transfer to [facility] due to insurance issues Could pursue other LTACHs if interested Qualifiers: Chronicity: acute Respiratory failure complication: unspecified whether with hypoxia or hypercapnia Qualified Codes: J96.00 - Acute respiratory failure, unspecified whether with hypoxia or hypercapnia (2) Sepsis Status: Acute Assessment & Plan: Afebrile since 03/24 and leukocytosis trending down CT Chest/Abd/Pelvis shows 5 lobe infiltrates (cx proven ESBL), and hepatic and retroperitoneal lymphadenopathy consistent with metastatic disease Klebsiella growing from BAL from RML ESBL in sputum on 03/14 and 03/16 Continue Eraxis, will deescalate Merrem to Rocephin Qualifiers: Sepsis type: Escherichia coli Qualified Codes: A41.51 - Sepsis due to Escherichia coli [e. coli] (3) Metastatic adenocarcinoma Assessment & Plan: Dr Alexandre informed patient of diagnosis yesterday Oncology consulted- who will see on Wednesday (4) Small bowel perforation Status: Acute Assessment & Plan: s/p ex lap on 03/[address] Alexandre (5) Essential (primary) hypertension Status: Chronic Assessment & Plan: Much improved with cardene gtt Increase oral metoprolol and schedule nitro paste Will wean sedation as able (6) Malnutrition Assessment & Plan: On TPN Qualifiers: Malnutrition type: protein-calorie malnutrition Protein-calorie malnutrition severity: moderate Qualified Codes: E44.0 - Moderate protein- calorie malnutrition (7) Hypomagnesemia Assessment & Plan: on replacement protocol (8) Anemia associated with acute blood loss Assessment & Plan: transfused 03/21 monitor, stable (9) Diabetes mellitus Status: Acute Assessment & Plan: Relatively well controlled SSI A Qualifiers: Diabetes mellitus type: type 2 Diabetes mellitus terminal carman insulin use: without terminal carman use Diabetes mellitus complication status: without complication Qualified Codes: E11.9 - Type 2 diabetes mellitus without complications (10) Prophylactic measure Assessment & Plan: Lovenox TPN Protonix Clinical Quality Measures DVT/VTE Risk/Contraindication: Risk Factor Score Per Nursin RFS Level Per Nursing on Admit: 1=Low/No VTE PPX GABBY WESTBROOK MD March 27, 2018 8:39 am
[2018-03-27] MEDS ORDERED: meTOprolol TARTRATE 25 MG (LOPRESSOR) TABLET NG SCH (09:00)
[2018-03-27] MEDS: cefTRIAXone 1 GM/NS 100 ML IVPB IV SCH ×2 (09:00)
[2018-03-27] MEDS ORDERED: meTOprolol TARTRATE 50 MG (LOPRESSOR) TAB NG SCH (09:00)
--- NOTE | 2018-03-27 09:40 | Diagnostic Imaging Report ---
Indication: Dyspnea Frontal chest obtained at 348 hours am, and is compared with previous day. Tracheostomy tube and NG tube and left-sided PICC line are all unchanged. There is somewhat poor inspiration with central vascular and some infiltrate in left base again noted. There is no pneumothorax or pleural fluid. IMPRESSION: Unchanged life-support lines. Some infiltrate in the left lung base again noted. Central vascular congestion. Relatively poor inspiration. Dictated by: Dictated on workstation # [id number]
[2018-03-27] MEDS ORDERED: meTOprolol TARTRATE 50 MG (LOPRESSOR) TAB PO SCH (10:00)
[2018-03-27] MEDS: NITROGLYCERIN 2% OINT 1 GM UNIT DOSE PACKET TOP SCH ×3 (10:07→17:12)
[2018-03-27] MEDS: ENOXAPARIN 40 MG/0.4 ML (LOVENOX) SYR SC SCH (11:21)
[2018-03-27] MEDS: DEXMEDETOMIDINE INJECTION 1,000 MCG in NS (IVPB) 240 ML IV SCH (14:02)
[2018-03-27] MEDS: fentaNYL INJECTION 1,250 MCG in NS (IVPB) 225 ML IV SCH (16:51)
[2018-03-27] MEDS: POTASSIUM CHLORIDE IV SCH ×10 (17:20)
[2018-03-27] MEDS: [UNRECOGNIZED DRUG - OTHER] IV SCH ×10 (17:20)
[2018-03-27] MEDS: POTASSIUM PHOSPHATE IV SCH ×10 (17:20)
--- NOTE | 2018-03-27 20:27 | Progress Note-Standard ---
Standard Progress Note Progress Notes/Assess & Plan Date Seen by Provider: March 27, 2018 Time Seen by Provider: 19:55 Progress/Assessment & Plan I was informed about this patient being admitted last night with peritonitis, possibly due to distal small bowel perforation. She has been managed nonoperatively by the surgeon youth care professional and I was asked to take over her care by the hospitalist. I have since reviewed her studies and personally examine her. She has diffuse peritonitis and the most recent liver biopsy is nondiagnostic. It is appropriate that she be subjected to laparotomy to address the offending perforation and possibly establish a definitive histologic diagnosis. I have discussed this with her, indicating the grave nature of her condition. She appears to comprehend, despite being limited due to the use of narcotics. 03/15/18: Awake and doing well. Extubation anticipated. Will place wound VAC and continue IV antibiotics 03/16/18 (seen around 845 a.m.) patient developed hypercarbia him a decreased mental status and anemic last night. Reintubated this morning. Urine output satisfactory. Electrolytes normal. Blood transfusion in progress. Wound VAC in place. Possible total parenteral nutrition tomorrow. Consolidation of the right upper/middle lobe with features of pneumonia. Antibiotics will be tailored to the bacteria identified. 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 Her primary physician updated. Patient will be informed once extubated 03/17/18: Mechanical ventilation continues. Pulmonary infiltrates stable. Renal function preserved. Hypokalemia, will be replaced. Pathology report disclosed to her uncle and aunt. Meeting with the children anticipated later this week. Continue TPN 03/17/18:right upper lobe consolidation appears to be worse. White cell count slightly elevated. Output from NG tube minimal. Wound appears to be healthy. Tolerating TPN. Electrolytes much improved. 03/19/18:overall condition unchanged. Hypertension controlled with beta blockers. Right upper lobe consolidation slightly improved. Oxygenation stable and acceptable. Electrolytes within normal limits. Continue ventilatory support and TPN. 03/21/18: Highest temperature on 100.8. White cell count increasing. Pulmonary infiltrates unchanged. Klebsiella on bronchoalveolar lavage, sensitivity pending. Suspect she would benefit from tracheostomy. Has not had any bowel movements. NG output decreasing. Development of further intra-abdominal abscess to be considered and CT scan might be warranted. 03/22/18: White cell count around 14,000. Temperature spikes continue and therefore CT scan of the abdomen and pelvis completed. Studies reviewed with the radiologist and found to be negative for intra-abdominal abscess. No evidence of empyema of the lung. Reasonable to proceed with tracheostomy to facilitate went bleeding. I have discussed this with the son, who expressed his desire to establish power of counter former and gave me verbal consent to proceed. This is scheduled for tomorrow, 23 Mar 2018 03/24/18:systolic hypertension, reasonably well controlled with IV beta blockers and calcium channel blockers. Deeply sedated with very minimal response to verbal commands. Poor muscle strength. White cell count around 14,000. Chest x-ray unchanged. Continue TPN. Has not had bowel movements and therefore magnesium citrate would be tried. 03/25/18: Awake and slightly responsive. Blood pressure labile, requiring intravenous therapy. No response to magnesium citrate with increased nasogastric output. This may well be compounded by the requirement for continuous narcotic use. Oxygenation much improved. Pulmonary infiltrates much improved on x-ray. We'll continue TPN for now 03/26/18: Leucocytosis continues. High NG output, consider ileus. Awake and anxious. Operative findings and malignancy disclosed to the patient. If WCC stays high, will repeat CT next week. 03/27/18:continues to improve. Has had several bowel movements. Output from the nasogastric tube decreasing. We will consider enteral feeding in 1-2 days Final Diagnosis metastatic adenocarcinoma the appendix. Postoperative ventilatory failure Focused Exam Time of Focused Exam: 13:20 LUCIA FERNANDEZ MD March 27, 2018 8:27 pm
[2018-03-27] MEDS: meTOprolol TARTRATE 50 MG (LOPRESSOR) TAB NG SCH (21:53)
[2018-03-28] VITALS (35 sets, daily range): BP systolic 92–197; BP diastolic 54–116
[2018-03-28] MEDS: inSUlin ASPART (NovoLOG) 1 UNIT/0.01 ML (CHARGE PER UNIT) SC SCH ×4 (01:19→18:45)
[2018-03-28] MEDS: niCARdipine IV 50 MG in NS (IVPB) 230 ML IV SCH ×4 (01:20→20:49)
[2018-03-28] MEDS: NITROGLYCERIN 2% OINT 1 GM UNIT DOSE PACKET TOP SCH ×4 (01:20→18:37)
[2018-03-28] MEDS: RT-ALBUTEROL/IPRATROPIUM 3 ML (DUONEB) VIAL INH SCH ×6 (01:26→22:26)
[2018-03-28] MEDS: DEXMEDETOMIDINE INJECTION 1,000 MCG in NS (IVPB) 240 ML IV SCH ×2 (01:42→20:48)
[2018-03-28] MEDS: LORazepam INJ 2 MG/ML (ATIVAN) VIAL IVP PRN (03:31)
[2018-03-28 03:52] LABS: BASOPHILS # (AUTO) 0.1 10^3/uL (0.0-0.1); BASOPHILS % (AUTO) 1 % (0-10); EOSINOPHILS # (AUTO) 0.1 10^3/uL (0.0-0.3); EOSINOPHILS % (AUTO) 1 % (0-10); HEMATOCRIT 25 % (35-52); LYMPHOCYTES # (AUTO) 0.9 X 10^3 (1.0-4.0); LYMPHOCYTES % (AUTO) 7 % (12-44); MEAN CORPUSCULAR HEMOGLOBIN 29 PG (25-34); MEAN CORPUSCULAR HGB CONC 32 G/DL (32-36); MEAN CORPUSCULAR VOLUME 93 FL (80-99); MEAN PLATELET VOLUME 9.3 FL (7.4-10.4); MONOCYTES % (AUTO) 8 % (0-12); NEUTROPHILS # (AUTO) 11.2 X 10^3 (1.8-7.8); NEUTROPHILS % (AUTO) 84 % (42-75); PLATELET COUNT 489 10^3/uL (130-400); RED BLOOD COUNT 2.72 10^6/uL (4.35-5.85); RED CELL DISTRIBUTION WIDTH 14.3 % (10.0-14.5); WHITE BLOOD COUNT 13.3 10^3/uL (4.3-11.0)
[2018-03-28 03:53] LABS: ABG BASE EXCESS 3.5 MMOL/L (-2.5-2.5); ABG OXYGEN SATURATION 95 % (94-100); ABG PCO2 50 MMHG (35-45); ABG PH 7.37 (7.37-7.43); ABG PO2 72 MMHG (79-93); ABG TCO2 29.9 MMOL/L (21.0-31.0)
[2018-03-28 03:55] LABS: ALLENS TEST YES-POS; INSPIRED O2 25%; PATIENT TEMP 98.8; VENTILATOR YES
[2018-03-28 04:12] LABS: BUN/CREATININE RATIO 44; CALCIUM 8.2 MG/DL (8.5-10.1); CARBON DIOXIDE 27 MMOL/L (21-32); CHLORIDE 103 MMOL/L (98-107); CREATININE SERUM 0.43 MG/DL (0.60-1.30); GFR ESTIMATED > 60; GLUCOSE 144 MG/DL (70-105); MAGNESIUM 1.8 MG/DL (1.8-2.4); PHOSPHORUS 4.4 MG/DL (2.3-4.7); POTASSIUM 4.5 MMOL/L (3.6-5.0); SODIUM 137 MMOL/L (135-145)
[2018-03-28] MEDS: KCL 20 MEQ TAB (K-DUR) PO SCH (05:32)
[2018-03-28] MEDS: POTASSIUM CL 10MEQ/50ML IVPB 50 ML IV SCH (05:32)
[2018-03-28] MEDS: MAGNESIUM 1 GM/100 ML IVPB 100 ML IV SCH (05:32)
--- NOTE | 2018-03-28 05:37 | Pulmonary Progress Note ---
Subjective Time Seen by Provider: 05:47 Subjective/Events-last exam Pt sedated on vent with tracheostomy tube in place. Focused Exam Time of Focused Exam: 13:20 Exam Exam Vital Signs Date Time Temp Pulse Resp B/P (MAP) Pulse Ox O2 Delivery O2 Flow Rate FiO2 03/28/18 04:00 66 14 118/67 (84) 97 Mechanical Ventilator 24.00 03/28/18 04:00 Mechanical Ventilator 25.00 03/28/18 03:46 98.8 03/28/18 03:39 70 15 94 21 03/28/18 03:00 71 12 136/62 (86) 96 Mechanical Ventilator 21.00 03/28/18 02:00 82 9 174/71 (105) 95 Mechanical Ventilator 21.00 03/28/18 01:26 73 15 89 21 03/28/18 01:00 72 03/28/18 01:00 73 13 173/70 (104) 94 Mechanical Ventilator 21.00 03/28/18 00:48 67 13 155/65 (95) 95 Mechanical Ventilator 21.00 03/28/18 00:00 Mechanical Ventilator 21.00 03/27/18 23:39 71 14 150/65 (93) 95 Mechanical Ventilator 21.00 03/27/18 23:14 69 17 92 21 03/27/18 22:00 102 12 202/80 (120) 95 Mechanical Ventilator 21.00 03/27/18 21:18 101 18 94 21 03/27/18 21:00 89 11 202/77 (118) 93 Mechanical Ventilator 21.00 03/27/18 20:00 93 17 94 Mechanical Ventilator 21.00 03/27/18 20:00 Mechanical Ventilator 21.00 03/27/18 19:00 90 18 19:00 92 13 192/73 (112) 95 Mechanical Ventilator 21.00 03/27/18 18:21 88 19 94 21 03/27/18 18:00 90 13 188/70 (109) 93 Mechanical Ventilator 21.00 03/27/18 17:00 81 10 183/70 (107) 93 Mechanical Ventilator 21.00 03/27/18 16:30 Mechanical Ventilator 21.00 03/27/18 16:00 71 12 142/64 (90) 96 Mechanical Ventilator 21.00 03/27/18 15:50 98.2 18 15:00 89 16 180/71 (107) 95 Mechanical Ventilator 21.00 03/27/18 14:10 65 18 95 21 03/27/18 14:00 88 19 95 21 03/27/18 14:00 86 25 176/76 (109) 94 Mechanical Ventilator 21.00 03/27/18 13:00 81 03/27/18 13:00 81 11 160/62 (94) 97 Mechanical Ventilator 21.00 03/27/18 12:00 86 11 163/65 (97) 97 Mechanical Ventilator 21.00 03/27/18 11:29 98.4 90 20 163/65 (97) 97 Mechanical Ventilator 21.00 03/27/18 11:29 Mechanical Ventilator 21.00 03/27/18 11:00 88 13 167/68 (101) 97 Mechanical Ventilator 21.00 03/27/18 10:28 65 18 99 21 03/27/18 10:00 64 13 129/61 (83) 99 Mechanical Ventilator 21.00 03/27/18 09:00 80 12 166/69 (101) 97 Mechanical Ventilator 21.00 03/27/18 08:33 91 18 95 21 03/27/18 08:15 Mechanical Ventilator 21.00 03/27/18 08:00 93 12 176/66 (102) 95 Mechanical Ventilator 21.00 03/27/18 07:55 96.9 93 17 179/70 (106) 96 Mechanical Ventilator 21.00 03/27/18 07:00 96 03/27/18 07:00 96 14 176/61 (99) 91 Mechanical Ventilator 21.00 03/27/18 06:48 108 18 94 21 03/27/18 06:00 92 13 174/71 (105) 96 Mechanical Ventilator 21.00 I & O 03/28/18 07:00 Intake Total 1060 ml Output Total 3050 ml Balance -1990 ml General Appearance: Chronically ill HEENT: Other (NG in place) Neck: Other (trach) Respiratory: Rhonci, Other (on vent) Cardiovascular: Regular Rate, Rhythm, No Murmur Capillary Refill: Less Than 3 Seconds Peripheral Pulses: 2+ Dorsalis Pedis (R), 2+ Left Dors-Pedis (L), 2+ Radial Pulses (R), 2+ Radial Pulses (L) Gastrointestinal: no pulsatile mass, abnormal bowel sounds (hypoactive bowel sounds), distended Extremity: Pedal Edema Neurologic/Psychiatric: Alert Skin: Pallor Lymphatic: No Adenopathy Results Lab Laboratory Tests 03/27/18 04:00 03/28/18 03:50 Assessment/Plan Assessment/Plan Acute on chronic respiratory failure s/p tracheostomy -Continue ventilatory support. Change vent to SIMV/PS and attempt weaning. -Hold Fentanyl and attempt to wake patient up. -Check Gastric occult stools. -PT is still getting TPN -[facility] won't take pt secondary to insurance. Pulmonary edema - continue TPN -repeat 2mg of Bumex IV Metastatic adenocarcinoma from colon with mets to liver and probably lung - Pneumonia with ESBL - Merrem secondary to ESBL in sputum -Vanco Anemia -montior Perforated appendix with abscess formation s/p surgery -Currently on TPN hx of asthma - -SVNs Pts overall prognosis is very poor considering Metastatic Adenocarcinoma and persistent respiratory failure. 233 Critical Care: Critically Ill Patient SD MITCHELL DO March 28, 2018 05:37
[2018-03-28] MEDS: LEVOTHYROXINE 100 MCG (LEVOTHROID) TAB PO SCH (06:05)
[2018-03-28 06:48] LABS: OCCULT BLOOD,GASTRIC FLUID POSITIVE (NEGATIVE)
[2018-03-28] MEDS: cefTRIAXone 1 GM/NS 100 ML IVPB IV SCH ×2 (08:21)
[2018-03-28] MEDS: meTOprolol TARTRATE 50 MG (LOPRESSOR) TAB NG SCH ×2 (08:21→20:36)
--- NOTE | 2018-03-28 09:38 | Physical Therapy Evaluation ---
PT Evaluation-General Medical Diagnosis Admission Date Mar 13, 2018 at 14:40 Medical Diagnosis: sepsis/small bowel perf. Onset Date: Mar 13, 2018 Therapy Diagnosis Therapy Diagnosis: extreme weakness/debility Height/Weight Height (Feet): 5 Height (Inches): 4.00 Weight (Pounds): 196 Weight (Ounces): 0.0 Precautions Precautions/Isolations: Droplet Isolation, Fall Prevention Weight Bear Status Right Lower Extremity: Right Full Weight Bearing Left Lower Extremity: Left Full Weight Bearing Referral Physician: Lauren Medical History Pertinent Medical History: DM, GERD, HTN Current History ED with abdominal pain after liver biopsy (porbable metastatic adenocarcinoma colon with mets to liver and probable lungs) Reviewed History: Yes Social History Home: Single Level Prior/Core FIM Prior Level of Function Functional [place] Measure 0=Not Assessed/NA 4=Minimal Assistance 1=Total Assistance 5=Supervision or Setup 2=Maximal Assistance 6=Modified [place] 3=Moderate Assistance 7=Complete [place] Bed Mobility: 7 Transfers (B,C,W/C) (FIM): 7 Gait: 7 PT Evaluation-Current Subjective Patient is on vent. Somewhat aware. Pain Numeric Pain Scale: 0-No Pain Location: No Pain Reported Objective Patient Orientation: Unable to Assess Problem Solving: Poor Attachments: Ventilator, Alcazar Catheter, IV ROM/Strength ROM Lower Extremities bilateral LE WNL Strength Lower Extremities trace (1/5 bilateral feet); 0/5 bilateral LE Integumentary/Posture Integumentary refer to nursing notes Bladder Incontinence: Alcazar Cath Neuromuscular (Tone, Coordination, Reflexes) flaccid bilateral LE with trace bilateral feet/severely diminished with all Sensory Vision: Unable to Assess Hearing: Functional Sensation Right Lower Extremit: Impaired Sensation Left Lower Extremity: Impaired Transfers Functional [place] Measure 0=Not Assessed/NA 4=Minimal Assistance 1=Total Assistance 5=Supervision or Setup 2=Maximal Assistance 6=Modified [place] 3=Moderate Assistance 7=Complete [place] Treatment Patient will require a Hi lift for mobility bed to chair when appropriate. Bilateral LE PROM. Assessment/Needs 57 y.o. female, is currently on mechanical ventilator and displays flaccid bilateral LE's. PT will perform exercise (PROM) to increase strength as tolerated by patient. Rehab Potential: Poor PT Mcfp Goals Cutter Out Goals PT Mcfp Goals Time Frame: April 21, 2018 Transfers (B,C,W/C) (FIM): 2 PT Plan Problem List Problem List: Activity Tolerance, Functional Strength, Safety, Balance, Transfer, Bed Mobility, ROM Treatment/Plan Treatment Plan: Continue Plan of Care Treatment Plan: Bed Mobility, Education, Functional Activity Maru, Functional Strength, Safety, Therapeutic Exercise, Transfers Treatment Duration: April 21, 2018 Frequency: 5 times per week Estimated Hrs Per Day: .25 hour per day Patient and/or Family Agrees t: Yes Discharge Recommendations Therapy D/C Recommendations: Shelter Placement Time/GCodes Time In: 830 Time Out: 845 Total Billed Treatment Time: 15 Total Billed Treatment 1 visit [facility] 15 min TUNG TORRE PT March 28, 2018 09:38
[2018-03-28] MEDS: hydrALAZINE (APESOLINE) 20 MG/ML VIAL IV PRN (10:04)
[2018-03-28] MEDS: ENOXAPARIN 40 MG/0.4 ML (LOVENOX) SYR SC SCH (12:15)
[2018-03-28 12:54] LABS: ABG BASE EXCESS 3.5 MMOL/L (-2.5-2.5); ABG OXYGEN SATURATION 97 % (94-100); ABG PCO2 45 MMHG (35-45); ABG PH 7.41 (7.37-7.43); ABG PO2 85 MMHG (79-93); ABG TCO2 29.3 MMOL/L (21.0-31.0)
[2018-03-28 12:56] LABS: ALLENS TEST RT ARTLINE; INSPIRED O2 30%; PATIENT TEMP 97.8; VENTILATOR YES
--- NOTE | 2018-03-28 13:18 | Progress Note-Standard ---
Standard Progress Note Progress Notes/Assess & Plan Date Seen by Provider: March 28, 2018 Time Seen by Provider: 13:17 Progress/Assessment & Plan I was informed about this patient being admitted last night with peritonitis, possibly due to distal small bowel perforation. She has been managed nonoperatively by the surgeon preparation supervisor freezing and I was asked to take over her care by the hospitalist. I have since reviewed her studies and personally examine her. She has diffuse peritonitis and the most recent liver biopsy is nondiagnostic. It is appropriate that she be subjected to laparotomy to address the offending perforation and possibly establish a definitive histologic diagnosis. I have discussed this with her, indicating the grave nature of her condition. She appears to comprehend, despite being limited due to the use of narcotics. 03/15/18: Awake and doing well. Extubation anticipated. Will place wound VAC and continue IV antibiotics 03/16/18 (seen around 845 a.m.) patient developed hypercarbia him a decreased mental status and anemic last night. Reintubated this morning. Urine output satisfactory. Electrolytes normal. Blood transfusion in progress. Wound VAC in place. Possible total parenteral nutrition tomorrow. Consolidation of the right upper/middle lobe with features of pneumonia. Antibiotics will be tailored to the bacteria identified. 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 Her primary physician updated. Patient will be informed once extubated 03/17/18: Mechanical ventilation continues. Pulmonary infiltrates stable. Renal function preserved. Hypokalemia, will be replaced. Pathology report disclosed to her uncle and aunt. Meeting with the children anticipated later this week. Continue TPN 03/17/18:right upper lobe consolidation appears to be worse. White cell count slightly elevated. Output from NG tube minimal. Wound appears to be healthy. Tolerating TPN. Electrolytes much improved. 03/19/18:overall condition unchanged. Hypertension controlled with beta blockers. Right upper lobe consolidation slightly improved. Oxygenation stable and acceptable. Electrolytes within normal limits. Continue ventilatory support and TPN. 03/21/18: Highest temperature on 100.8. White cell count increasing. Pulmonary infiltrates unchanged. Klebsiella on bronchoalveolar lavage, sensitivity pending. Suspect she would benefit from tracheostomy. Has not had any bowel movements. NG output decreasing. Development of further intra-abdominal abscess to be considered and CT scan might be warranted. 03/22/18: White cell count around 14,000. Temperature spikes continue and therefore CT scan of the abdomen and pelvis completed. Studies reviewed with the radiologist and found to be negative for intra-abdominal abscess. No evidence of empyema of the lung. Reasonable to proceed with tracheostomy to facilitate went bleeding. I have discussed this with the son, who expressed his desire to establish power of panel gluer and gave me verbal consent to proceed. This is scheduled for tomorrow, 23 Mar 2018 03/24/18:systolic hypertension, reasonably well controlled with IV beta blockers and calcium channel blockers. Deeply sedated with very minimal response to verbal commands. Poor muscle strength. White cell count around 14,000. Chest x-ray unchanged. Continue TPN. Has not had bowel movements and therefore magnesium citrate would be tried. 03/25/18: Awake and slightly responsive. Blood pressure labile, requiring intravenous therapy. No response to magnesium citrate with increased nasogastric output. This may well be compounded by the requirement for continuous narcotic use. Oxygenation much improved. Pulmonary infiltrates much improved on x-ray. We'll continue TPN for now 03/26/18: Leucocytosis continues. High NG output, consider ileus. Awake and anxious. Operative findings and malignancy disclosed to the patient. If WCC stays high, will repeat CT next week. 03/27/18:continues to improve. Has had several bowel movements. Output from the nasogastric tube decreasing. We will consider enteral feeding in 1-2 days 03/28/18:much improved. Sedation being weaned down. Awake and appears to comprehend. Poor muscle strength. Nasogastric output decreased. No abdominal distention. Will initiate enteral feeding slowly. 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 Postoperative ventilatory failure. Focused Exam Time of Focused Exam: 13:20 LUCIA FERNANDEZ MD March 28, 2018 1:18 pm
--- NOTE | 2018-03-28 14:34 | Progress Note-Hospitalist ---
Progress Note Progress Notes/Assess & Plan Date Seen 03/28/18 Time Seen by Provider: 14:32 Assessment & Plan The patient remains intubated. She is presently functioning in the CPAP mode. She fixes me with a frightened stare. Physical exam: Lungs show clear breath sounds. CV is regular. Vital signs are regular. Impression: Adenocarcinoma of the colon/appendix with metastasis to lymph nodes , lungs, liver. Post operative respiratory failure Plan: Continue efforts at weaning from the ventilator. Focused Exam Time of Focused Exam: 13:20 JAMES GUERRERO MD March 28, 2018 14:34
[2018-03-28 15:10] LABS: ABG BASE EXCESS 4.5 MMOL/L (-2.5-2.5); ABG OXYGEN SATURATION 99 % (94-100); ABG PCO2 48 MMHG (35-45); ABG PO2 98 MMHG (79-93); ABG TCO2 30.8 MMOL/L (21.0-31.0)
[2018-03-28 15:12] LABS: ALLENS TEST ART LINE; INSPIRED O2 30%; VENTILATOR YES
[2018-03-28] MEDS ORDERED: [UNRECOGNIZED DRUG - OTHER] IV SCH ×10 (17:00)
[2018-03-28] MEDS ORDERED: POTASSIUM CHLORIDE IV SCH ×10 (17:00)
[2018-03-28] MEDS ORDERED: POTASSIUM PHOSPHATE IV SCH ×10 (17:00)
[2018-03-28] MEDS: fentaNYL INJECTION 1,250 MCG in NS (IVPB) 225 ML IV SCH (17:30)
[2018-03-28] MEDS: HALOPERIDOL 5 MG/ML (HALDOL) AMP IV PRN (20:36)
[2018-03-29] VITALS (34 sets, daily range): BP systolic 133–195; BP diastolic 49–85
[2018-03-29] MEDS: inSUlin ASPART (NovoLOG) 1 UNIT/0.01 ML (CHARGE PER UNIT) SC SCH ×4 (00:16→17:36)
[2018-03-29] MEDS: NITROGLYCERIN 2% OINT 1 GM UNIT DOSE PACKET TOP SCH ×4 (00:26→17:34)
[2018-03-29] MEDS: RT-ALBUTEROL/IPRATROPIUM 3 ML (DUONEB) VIAL INH SCH ×6 (02:19→21:49)
[2018-03-29] MEDS: meTOprolol 5 MG/5 ML (LOPRESSOR) VIAL IV PRN (02:23)
[2018-03-29] MEDS ORDERED: NS IV 1000 ML 1,000 ML IV SCH (03:15)
[2018-03-29 03:16] LABS: BASOPHILS % (AUTO) 0 % (0-10); EOSINOPHILS # (AUTO) 0.1 10^3/uL (0.0-0.3); EOSINOPHILS % (AUTO) 1 % (0-10); HEMATOCRIT 28 % (35-52); LYMPHOCYTES # (AUTO) 1.1 X 10^3 (1.0-4.0); LYMPHOCYTES % (AUTO) 7 % (12-44); MEAN CORPUSCULAR HEMOGLOBIN 30 PG (25-34); MEAN CORPUSCULAR HGB CONC 32 G/DL (32-36); MEAN CORPUSCULAR VOLUME 93 FL (80-99); MONOCYTES # (AUTO) 1.5 X 10^3 (0.0-1.0); MONOCYTES % (AUTO) 10 % (0-12); NEUTROPHILS # (AUTO) 13.3 X 10^3 (1.8-7.8); NEUTROPHILS % (AUTO) 83 % (42-75); PLATELET COUNT 524 10^3/uL (130-400); RED BLOOD COUNT 3.04 10^6/uL (4.35-5.85); RED CELL DISTRIBUTION WIDTH 14.6 % (10.0-14.5); WHITE BLOOD COUNT 16.1 10^3/uL (4.3-11.0)
[2018-03-29 03:17] LABS: ABG BASE EXCESS 3.4 MMOL/L (-2.5-2.5); ABG OXYGEN SATURATION 89 % (94-100); ABG PCO2 41 MMHG (35-45); ABG PH 7.44 (7.37-7.43); ABG PO2 55 MMHG (79-93); ABG TCO2 28.9 MMOL/L (21.0-31.0); ALLENS TEST ART LINE; INSPIRED O2 30%; PATIENT TEMP 97.2; VENTILATOR YES
[2018-03-29 03:38] LABS: BUN/CREATININE RATIO 43; CARBON DIOXIDE 27 MMOL/L (21-32); CHLORIDE 103 MMOL/L (98-107); CREATININE SERUM 0.42 MG/DL (0.60-1.30); GFR ESTIMATED > 60; GLUCOSE 155 MG/DL (70-105); PHOSPHORUS 3.8 MG/DL (2.3-4.7); POTASSIUM 4.8 MMOL/L (3.6-5.0); SODIUM 136 MMOL/L (135-145)
[2018-03-29] MEDS: POTASSIUM CL 10MEQ/50ML IVPB 50 ML IV SCH (03:51)
[2018-03-29] MEDS: MAGNESIUM 1 GM/100 ML IVPB 100 ML IV SCH (03:51)
[2018-03-29] MEDS: KCL 20 MEQ TAB (K-DUR) PO SCH (03:51)
[2018-03-29] MEDS: fentaNYL INJECTION 100 MCG/2 ML AMP IVP PRN (04:38)
[2018-03-29] MEDS: hydrALAZINE (APESOLINE) 20 MG/ML VIAL IV PRN ×2 (04:39→12:46)
[2018-03-29] MEDS: HALOPERIDOL 5 MG/ML (HALDOL) AMP IV PRN ×2 (04:39→20:56)
[2018-03-29] MEDS ORDERED: niCARdipine IV FOR DRIP 50 MG KIT ONE (05:14)
[2018-03-29] MEDS ORDERED: NS (IVPB) 250 ML ONE (05:14)
[2018-03-29] MEDS: LEVOTHYROXINE 100 MCG (LEVOTHROID) TAB PO SCH (05:26)
--- NOTE | 2018-03-29 05:41 | Pulmonary Progress Note ---
Subjective Time Seen by Provider: 05:37 Subjective/Events-last exam Pt did well with vent weaning yesterday. Focused Exam Time of Focused Exam: 13:20 Exam Exam Vital Signs Date Time Temp Pulse Resp B/P (MAP) Pulse Ox O2 Delivery O2 Flow Rate FiO2 03/29/18 05:00 69 9 160/58 (92) 95 Mechanical Ventilator 30.00 03/29/18 04:05 75 19 98 30 03/29/18 04:00 73 9 195/70 (111) 97 Mechanical Ventilator 30.00 03/29/18 04:00 Mechanical Ventilator 30.00 03/29/18 03:59 97.1 Mechanical Ventilator 30.00 03/29/18 03:00 74 13 168/72 (104) 92 Mechanical Ventilator 30.00 03/29/18 02:19 68 17 92 30 03/29/18 02:00 74 11 181/65 (103) 96 Mechanical Ventilator 30.00 03/29/18 01:00 70 03/29/18 01:00 70 12 185/65 (105) 95 Mechanical Ventilator 30.00 03/29/18 00:17 73 14 91 30 03/29/18 00:00 Mechanical Ventilator 30.00 03/29/18 00:00 97.6 Mechanical Ventilator 30.00 03/28/18 23:00 59 8 138/54 (82) 97 Mechanical Ventilator 30.00 03/28/18 22:26 63 14 94 30 03/28/18 22:00 64 9 154/62 (92) 98 Mechanical Ventilator 30.00 03/28/18 21:00 69 10 157/60 (92) 95 Mechanical Ventilator 30.00 03/28/18 20:11 74 17 98 30 03/28/18 20:00 Mechanical Ventilator 30.00 03/28/18 20:00 80 11 185/76 (112) 93 Mechanical Ventilator 30.00 03/28/18 19:40 97.1 Mechanical Ventilator 30.00 03/28/18 19:00 78 03/28/18 19:00 78 9 187/71 (109) 98 Mechanical Ventilator 30.00 03/28/18 18:47 80 20 99 30 03/28/18 18:00 81 11 197/75 (115) 99 Mechanical Ventilator 30.00 03/28/18 17:50 30 03/28/18 17:00 82 9 106/92 (97) 98 Mechanical Ventilator 30.00 5/7/18 16:55 84 8 98 30 03/28/18 16:30 Mechanical Ventilator 30.00 03/28/18 16:00 87 14 168/116 (133) 100 Mechanical Ventilator 30.00 03/28/18 15:28 97.0 03/28/18 15:00 87 10 174/80 (111) 100 Mechanical Ventilator 30.00 03/28/18 14:21 87 10 100 30 03/28/18 14:00 90 8 167/75 (105) 99 Mechanical Ventilator 30.00 03/28/18 13:39 90 10 100 30 03/28/18 13:04 85 03/28/18 13:00 86 12 153/75 (101) 98 Mechanical Ventilator 30.00 03/28/18 12:45 92 13 97 30 03/28/18 12:20 97.8 03/28/18 12:00 82 10 164/70 (101) 99 Mechanical Ventilator 30.00 03/28/18 12:00 Mechanical Ventilator 30.00 03/28/18 11:00 89 14 175/72 (106) 97 Mechanical Ventilator 30.00 03/28/18 10:05 82 18 98 30 03/28/18 10:00 81 13 175/76 (109) 97 Mechanical Ventilator 30.00 03/28/18 09:00 86 11 182/88 (119) 100 Mechanical Ventilator 30.00 03/28/18 08:30 Mechanical Ventilator 30.00 03/28/18 08:15 97.1 03/28/18 08:01 84 23 97 30 03/28/18 08:00 76 14 160/82 (108) 97 Mechanical Ventilator 30.00 03/28/18 07:00 78 9 167/91 (116) 98 Mechanical Ventilator 30.00 03/28/18 07:00 Mechanical Ventilator 30.00 03/28/18 07:00 81 03/28/18 06:25 76 20 98 40 03/28/18 06:00 79 10 178/89 (118) 96 Mechanical Ventilator 24.00 I & O 03/29/18 07:00 Intake Total 2522 ml Output Total 2600 ml Balance -78 ml General Appearance: Chronically ill HEENT: Other (NG in place) Neck: Other (trach) Respiratory: Rhonci, Other (on vent) Cardiovascular: Regular Rate, Rhythm, No Murmur Capillary Refill: Less Than 3 Seconds Peripheral Pulses: 2+ Dorsalis Pedis (R), 2+ Left Dors-Pedis (L), 2+ Radial Pulses (R), 2+ Radial Pulses (L) Gastrointestinal: no pulsatile mass, abnormal bowel sounds (hypoactive bowel sounds), distended Extremity: Pedal Edema Neurologic/Psychiatric: Alert Skin: Pallor Lymphatic: No Adenopathy Results Lab Laboratory Tests 03/28/18 03:50 03/29/18 03:05 Assessment/Plan Assessment/Plan Acute on chronic respiratory failure s/p tracheostomy -Pt did well on CPAP mode yesterday -PT is still getting TPN -[place] won't take pt secondary to insurance. Pulmonary edema - continue TPN -Start Lasix 40mg IV Q12 Metastatic adenocarcinoma from colon with mets to liver and probably lung - Pneumonia with ESBL - Merrem secondary to ESBL in sputum -Vanco Anemia -montior Perforated appendix with abscess formation s/p surgery -Currently on TPN hx of asthma - -SVNs Pts overall prognosis is very poor considering Metastatic Adenocarcinoma and persistent respiratory failure. [facility] [place] will not take patient. Pt is too weak for chemo at this point. Pt is a good candidate for hospice care/comfort care. 233 Critical Care: Critically Ill Patient SD MITCHELL DO March 29, 2018 05:41
[2018-03-29] MEDS ORDERED: hydrALAZINE (APRESOLINE) 25 MG TAB PO SCH (06:00)
[2018-03-29] MEDS: FUROSEMIDE 40 MG/4 ML INJ (LASIX) IVP SCH ×2 (07:07→17:39)
--- NOTE | 2018-03-29 07:41 | Diagnostic Imaging Report ---
EXAMINATION: CHEST 1 VIEW, AP/PA ONLY INDICATION: Dyspnea. Ventilator. COMPARISON: Chest radiograph dated 03/27/2018. FINDINGS: Tracheostomy. NG tube tip below the diaphragm with the side port near the GE junction. Left PICC tip low SVC. Persistent cardiomegaly and pulmonary venous congestion. Stable retrocardiac consolidation. No pleural effusion or pneumothorax. Postoperative changes in the lower cervical spine. IMPRESSION: 1. Persistent cardiomegaly and pulmonary venous congestion. 2. Mild retrocardiac consolidation. 3. NG tube tip side port is above the diaphragm near the GE junction. This should be advanced. Dictated by: Dictated on workstation # [id number]
[2018-03-29] MEDS: amLODIPine 10 MG (NORVASC) TAB PO SCH (08:01)
[2018-03-29] MEDS: hydrALAZINE (APRESOLINE) 25 MG TAB PO SCH ×3 (08:01→20:56)
[2018-03-29] MEDS: cefTRIAXone 1 GM/NS 100 ML IVPB IV SCH ×2 (08:01)
[2018-03-29] MEDS: meTOprolol TARTRATE 50 MG (LOPRESSOR) TAB NG SCH ×2 (08:01→20:56)
[2018-03-29] MEDS: niCARdipine IV 50 MG in NS (IVPB) 230 ML IV SCH ×5 (08:58→22:40)
--- NOTE | 2018-03-29 10:07 | Physical Therapy Daily Note ---
PT Daily Note-Current Subjective Patient remains on CPAP mode of ventilator. Mental Status Attachments: Ventilator, Alcazar Catheter, IV Transfers Functional [place] Measure 0=Not Assessed/NA 4=Minimal Assistance 1=Total Assistance 5=Supervision or Setup 2=Maximal Assistance 6=Modified [place] 3=Moderate Assistance 7=Complete IndependenceIRFPAI Quality Coding Scale 6 Independent with activity with or without an assistive device 5 Patient requires set up or clean up by helper. Patient completes activity by themselves 4 Supervision or touching assist (CGA). [place] provide cues , steadying assist 3 The helper provides less than half the effort to complete the activity 2 The helper provides more than half the effort to complete the activity 1 Dependent. The helper does all the effort to complete an activity 7 Patient refused to complete or attempt activity 9 The patient did not perform the activity before the current illness or injury 88 Not attempted due to Medical conditions or safety concerns Weight Bearing Right Lower Extremity: Right Full Weight Bearing Left Lower Extremity: Left Full Weight Bearing Exercises Supine Ex: Ankle pumps, Heel Slides, Straight leg raise, Hip abd/add Supine Reps: 25 Assessment Patient is alert, however, unable to actively participate with PT. PROM bilateral LE performed. PT Detention Goals Detention Goals PT Graining Press Operator Goals Time Frame: April 21, 2018 Transfers (B,C,W/C) (FIM): 2 PT Plan Treatment/Plan Treatment Plan: Continue Plan of Care Treatment Plan: Bed Mobility, Education, Functional Activity Maru, Functional Strength, Safety, Therapeutic Exercise, Transfers Treatment Duration: April 21, 2018 Frequency: 5 times per week Estimated Hrs Per Day: .25 hour per day Patient and/or Family Agrees t: Yes Time/GCodes Time In: 855 Time Out: 905 Total Billed Treatment Time: 10 Total Billed Treatment 1 visit EX 10 min TUNG TORRE PT March 29, 2018 10:07
[2018-03-29] MEDS: ENOXAPARIN 40 MG/0.4 ML (LOVENOX) SYR SC SCH (12:40)
[2018-03-29] MEDS: LORazepam INJ 2 MG/ML (ATIVAN) VIAL IVP PRN (13:40)
--- NOTE | 2018-03-29 16:25 | Progress Note-Hospitalist ---
Progress Note Progress Notes/Assess & Plan Date Seen 03/29/18 Time Seen by Provider: 16:23 Assessment & Plan The patient remains on the ventilator. Attempts are being made at weaning with variable results. Vital signs are stable. Lungs are clear. CV is regular. Considerable edema is noted any arms and legs. Impression: Respiratory failure. 2.diffusely metastatic adenocarcinoma of the colon. Plan: Continue present measures. Focused Exam Time of Focused Exam: 13:20 JAMES GUERRERO MD March 29, 2018 16:25
[2018-03-29] MEDS ORDERED: POTASSIUM PHOSPHATE IV SCH ×10 (17:00)
[2018-03-29] MEDS ORDERED: POTASSIUM CHLORIDE IV SCH ×10 (17:00)
[2018-03-29] MEDS ORDERED: [UNRECOGNIZED DRUG - OTHER] IV SCH ×10 (17:00)
[2018-03-29] MEDS: DEXMEDETOMIDINE INJECTION 1,000 MCG in NS (IVPB) 240 ML IV SCH (17:58)
[2018-03-29] MEDS: fentaNYL INJECTION 1,250 MCG in NS (IVPB) 225 ML IV SCH (21:26)
[2018-03-30] VITALS (18 sets, daily range): BP systolic 115–163; BP diastolic 49–82
[2018-03-30] MEDS: inSUlin ASPART (NovoLOG) 1 UNIT/0.01 ML (CHARGE PER UNIT) SC SCH ×3 (00:10→13:24)
[2018-03-30] MEDS: NITROGLYCERIN 2% OINT 1 GM UNIT DOSE PACKET TOP SCH ×3 (00:10→13:27)
[2018-03-30] MEDS: RT-ALBUTEROL/IPRATROPIUM 3 ML (DUONEB) VIAL INH SCH ×3 (01:47→10:38)
[2018-03-30 03:06] LABS: BASOPHILS % (AUTO) 0 % (0-10); EOSINOPHILS # (AUTO) 0.1 10^3/uL (0.0-0.3); EOSINOPHILS % (AUTO) 1 % (0-10); HEMATOCRIT 26 % (35-52); HEMOGLOBIN 8.2 G/DL (11.5-16.0); LYMPHOCYTES # (AUTO) 0.9 X 10^3 (1.0-4.0); LYMPHOCYTES % (AUTO) 7 % (12-44); MEAN CORPUSCULAR HEMOGLOBIN 30 PG (25-34); MEAN CORPUSCULAR HGB CONC 32 G/DL (32-36); MEAN CORPUSCULAR VOLUME 92 FL (80-99); MEAN PLATELET VOLUME 9.5 FL (7.4-10.4); MONOCYTES # (AUTO) 1.5 X 10^3 (0.0-1.0); MONOCYTES % (AUTO) 11 % (0-12); NEUTROPHILS # (AUTO) 11.5 X 10^3 (1.8-7.8); NEUTROPHILS % (AUTO) 82 % (42-75); PLATELET COUNT 430 10^3/uL (130-400); RED BLOOD COUNT 2.77 10^6/uL (4.35-5.85); RED CELL DISTRIBUTION WIDTH 14.5 % (10.0-14.5)
[2018-03-30 03:07] LABS: ABG OXYGEN SATURATION 96 % (94-100); ABG PCO2 44 MMHG (35-45); ABG PH 7.39 (7.37-7.43); ABG PO2 71 MMHG (79-93); ABG TCO2 27.9 MMOL/L (21.0-31.0)
[2018-03-30 03:09] LABS: ALLENS TEST ART LINE; INSPIRED O2 30%; PATIENT TEMP 97.9; VENTILATOR YES
[2018-03-30 03:28] LABS: BUN/CREATININE RATIO 53; CALCIUM 8.4 MG/DL (8.5-10.1); CARBON DIOXIDE 22 MMOL/L (21-32); CHLORIDE 102 MMOL/L (98-107); CREATININE SERUM 0.45 MG/DL (0.60-1.30); GFR ESTIMATED > 60; GLUCOSE 152 MG/DL (70-105); PHOSPHORUS 4.8 MG/DL (2.3-4.7); POTASSIUM 4.6 MMOL/L (3.6-5.0); SODIUM 135 MMOL/L (135-145)
[2018-03-30] MEDS: KCL 20 MEQ TAB (K-DUR) PO SCH (04:09)
[2018-03-30] MEDS: MAGNESIUM 1 GM/100 ML IVPB 100 ML IV SCH (04:09)
[2018-03-30] MEDS: POTASSIUM CL 10MEQ/50ML IVPB 50 ML IV SCH (04:10)
--- NOTE | 2018-03-30 05:20 | Pulmonary Progress Note ---
Subjective Time Seen by Provider: 06:19 Subjective/Events-last exam PT is very weak. Focused Exam Time of Focused Exam: 13:20 Exam Exam Vital Signs Date Time Temp Pulse Resp B/P (MAP) Pulse Ox O2 Delivery O2 Flow Rate FiO2 03/30/18 05:00 57 10 133/78 (96) 98 Mechanical Ventilator 30.00 03/30/18 04:09 97.1 03/30/18 04:00 64 12 115/55 (75) 100 Mechanical Ventilator 30.00 03/30/18 04:00 Mechanical Ventilator 30.00 03/30/18 03:32 61 16 98 30 03/30/18 03:00 62 11 143/57 (85) 98 Mechanical Ventilator 30.00 03/30/18 02:00 62 12 122/49 (73) 99 Mechanical Ventilator 30.00 03/30/18 01:47 61 17 98 30 03/30/18 01:00 57 10 133/78 (96) 99 Mechanical Ventilator 30.00 03/30/18 01:00 63 03/30/18 00:07 97.4 Mechanical Ventilator 30.00 03/30/18 00:00 58 12 155/59 (91) 95 Mechanical Ventilator 30.00 03/30/18 00:00 Mechanical Ventilator 30.00 03/29/18 23:00 65 16 133/78 (96) 98 Mechanical Ventilator 30.00 03/29/18 22:00 63 12 135/51 (79) 98 Mechanical Ventilator 30.00 03/29/18 21:50 65 19 100 30 03/29/18 21:00 78 18 154/53 (86) 100 Mechanical Ventilator 30.00 03/29/18 20:04 97.8 Mechanical Ventilator 30.00 03/29/18 20:00 Mechanical Ventilator 30.00 03/29/18 20:00 75 14 170/58 (95) 98 Mechanical Ventilator 30.00 03/29/18 19:00 77 03/29/18 19:00 80 17 179/59 (99) 98 Mechanical Ventilator 30.00 03/29/18 18:30 68 20 98 30 03/29/18 18:00 72 14 178/59 (98) 96 Mechanical Ventilator 30.00 03/29/18 17:00 65 10 154/54 (87) 99 Mechanical Ventilator 30.00 03/29/18 16:20 62 15 98 30 03/29/18 16:00 66 11 152/55 (87) 99 Mechanical Ventilator 30.00 03/29/18 16:00 Mechanical Ventilator 30.00 03/29/18 15:00 68 14 167/56 (93) 97 Mechanical Ventilator 30.00 03/29/18 14:33 66 17 98 30 03/29/18 14:00 64 12 157/56 (89) 99 Mechanical Ventilator 30.00 03/29/18 13:00 76 15 175/59 (97) 98 Mechanical Ventilator 30.00 03/29/18 13:00 77 03/29/18 12:30 97.9 03/29/18 12:29 72 19 97 30 03/29/18 12:00 Mechanical Ventilator 30.00 03/29/18 12:00 72 12 185/66 (105) 99 Mechanical Ventilator 30.00 03/29/18 11:00 68 11 166/85 (112) 97 Mechanical Ventilator 30.00 03/29/18 10:31 75 21 91 03/29/18 10:00 78 16 182/65 (104) 96 Mechanical Ventilator 30.00 03/29/18 09:00 79 11 191/62 (105) 98 Mechanical Ventilator 30.00 03/29/18 08:03 86 14 99 03/29/18 08:00 Mechanical Ventilator 30.00 03/29/18 08:00 96.8 81 13 186/60 (102) 100 Mechanical Ventilator 30.00 03/29/18 07:00 88 03/29/18 07:00 84 27 195/65 (108) 96 Mechanical Ventilator 30.00 03/29/18 06:27 71 13 96 03/29/18 06:00 67 12 174/59 (97) 97 Mechanical Ventilator 30.00 I & O 03/30/18 07:00 Intake Total 1480 ml Output Total 2390 ml Balance -910 ml General Appearance: Chronically ill HEENT: Other (NG in place) Neck: Other (trach) Respiratory: Rhonci, Other (on vent) Cardiovascular: Regular Rate, Rhythm, No Murmur Capillary Refill: Less Than 3 Seconds Peripheral Pulses: 2+ Dorsalis Pedis (R), 2+ Left Dors-Pedis (L), 2+ Radial Pulses (R), 2+ Radial Pulses (L) Gastrointestinal: no pulsatile mass, abnormal bowel sounds (hypoactive bowel sounds), distended Extremity: Pedal Edema Neurologic/Psychiatric: Alert Skin: Pallor Lymphatic: No Adenopathy Results Lab Laboratory Tests 03/29/18 03:05 03/30/18 02:55 Assessment/Plan Assessment/Plan Acute on chronic respiratory failure s/p tracheostomy -Will continue vent weaning attempts - TPN -[place] won't take pt secondary to insurance. Pulmonary edema - continue TPN -Start Lasix 40mg IV Q12 Metastatic adenocarcinoma from colon with mets to liver and probably lung - Pneumonia with ESBL - Merrem secondary to ESBL in sputum -Vanco Anemia -montior Perforated appendix with abscess formation s/p surgery -Currently on TPN hx of asthma - -SVNs Pts overall prognosis is very poor considering Metastatic Adenocarcinoma, weakness, and persistent respiratory failure. [place] will not take patient. Pt is too weak for chemo at this point. Pt is a good candidate for hospice care/ comfort care. 60min spent with patient, medical staff, and discussing with patient's son patients current condition and prognosis. Pt's son is going to d/w other family members and probably make her comfort care only today. Currently patient is a full code. Critical Care: Critically Ill Patient SD MITCHELL DO March 30, 2018 05:20
[2018-03-30] MEDS: FUROSEMIDE 40 MG/4 ML INJ (LASIX) IVP SCH (06:22)
[2018-03-30] MEDS: LEVOTHYROXINE 100 MCG (LEVOTHROID) TAB PO SCH (06:23)
[2018-03-30] MEDS: hydrALAZINE (APRESOLINE) 25 MG TAB PO SCH ×2 (06:23→13:29)
[2018-03-30] MEDS ORDERED: BUMETANIDE 1 MG/4 ML (BUMEX) VIAL IV ONE (06:30)
[2018-03-30] MEDS: cefTRIAXone 1 GM/NS 100 ML IVPB IV SCH ×2 (07:57)
[2018-03-30] MEDS: meTOprolol TARTRATE 50 MG (LOPRESSOR) TAB NG SCH (07:57)
[2018-03-30] MEDS: amLODIPine 10 MG (NORVASC) TAB PO SCH (07:57)
--- NOTE | 2018-03-30 09:16 | Progress Note-Standard ---
Standard Progress Note Progress Notes/Assess & Plan Date Seen by Provider: March 29, 2018 Time Seen by Provider: 15:20 Progress/Assessment & Plan I was informed about this patient being admitted last night with peritonitis, possibly due to distal small bowel perforation. She has been managed nonoperatively by the surgeon blender conveyor operator and I was asked to take over her care by the hospitalist. I have since reviewed her studies and personally examine her. She has diffuse peritonitis and the most recent liver biopsy is nondiagnostic. It is appropriate that she be subjected to laparotomy to address the offending perforation and possibly establish a definitive histologic diagnosis. I have discussed this with her, indicating the grave nature of her condition. She appears to comprehend, despite being limited due to the use of narcotics. 03/15/18: Awake and doing well. Extubation anticipated. Will place wound VAC and continue IV antibiotics 03/16/18 (seen around 845 a.m.) patient developed hypercarbia him a decreased mental status and anemic last night. Reintubated this morning. Urine output satisfactory. Electrolytes normal. Blood transfusion in progress. Wound VAC in place. Possible total parenteral nutrition tomorrow. Consolidation of the right upper/middle lobe with features of pneumonia. Antibiotics will be tailored to the bacteria identified. 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 Her primary physician updated. Patient will be informed once extubated 03/17/18: Mechanical ventilation continues. Pulmonary infiltrates stable. Renal function preserved. Hypokalemia, will be replaced. Pathology report disclosed to her uncle and aunt. Meeting with the children anticipated later this week. Continue TPN 03/17/18:right upper lobe consolidation appears to be worse. White cell count slightly elevated. Output from NG tube minimal. Wound appears to be healthy. Tolerating TPN. Electrolytes much improved. 03/19/18:overall condition unchanged. Hypertension controlled with beta blockers. Right upper lobe consolidation slightly improved. Oxygenation stable and acceptable. Electrolytes within normal limits. Continue ventilatory support and TPN. 03/21/18: Highest temperature on 100.8. White cell count increasing. Pulmonary infiltrates unchanged. Klebsiella on bronchoalveolar lavage, sensitivity pending. Suspect she would benefit from tracheostomy. Has not had any bowel movements. NG output decreasing. Development of further intra-abdominal abscess to be considered and CT scan might be warranted. 03/22/18: White cell count around 14,000. Temperature spikes continue and therefore CT scan of the abdomen and pelvis completed. Studies reviewed with the radiologist and found to be negative for intra-abdominal abscess. No evidence of empyema of the lung. Reasonable to proceed with tracheostomy to facilitate went bleeding. I have discussed this with the son, who expressed his desire to establish power of attorney law clerk and gave me verbal consent to proceed. This is scheduled for tomorrow, 23 Mar 2018 03/24/18:systolic hypertension, reasonably well controlled with IV beta blockers and calcium channel blockers. Deeply sedated with very minimal response to verbal commands. Poor muscle strength. White cell count around 14,000. Chest x-ray unchanged. Continue TPN. Has not had bowel movements and therefore magnesium citrate would be tried. 03/25/18: Awake and slightly responsive. Blood pressure labile, requiring intravenous therapy. No response to magnesium citrate with increased nasogastric output. This may well be compounded by the requirement for continuous narcotic use. Oxygenation much improved. Pulmonary infiltrates much improved on x-ray. We'll continue TPN for now 03/26/18: Leucocytosis continues. High NG output, consider ileus. Awake and anxious. Operative findings and malignancy disclosed to the patient. If WCC stays high, will repeat CT next week. 03/27/18:continues to improve. Has had several bowel movements. Output from the nasogastric tube decreasing. We will consider enteral feeding in 1-2 days 03/29/18: Leukocytosis fluctuates currently about 16,000. Abdomen not distended. Tolerating gastric feeding. More pulmonary infiltrates possibly the offending etiology. Vent weaning in progress. 03/28/18:much improved. Sedation being weaned down. Awake and appears to comprehend. Poor muscle strength. Nasogastric output decreased. No abdominal distention. Will initiate enteral feeding slowly. Final Diagnosis Adenocarcinoma of the appendix. Postoperative respiratory failure Focused Exam Time of Focused Exam: 13:20 LUCIA FERNANDEZ MD March 30, 2018 9:16 am
[2018-03-30] MEDS: DEXMEDETOMIDINE INJECTION 1,000 MCG in NS (IVPB) 240 ML IV SCH (10:34)
[2018-03-30] MEDS: niCARdipine IV 50 MG in NS (IVPB) 230 ML IV SCH (10:35)
--- NOTE | 2018-03-30 12:34 | Diagnostic Imaging Report ---
EXAMINATION: Portable erect AP chest at 2:39 AM on 03/30/2018. INDICATION: Dyspnea. FINDINGS: The appearance of the chest has improved somewhat since 03/29/2018 as there does seem to be less pulmonary congestion. The heart remains enlarged. The left hemidiaphragm is still obscured and I suspect that there is some atelectasis/infiltrate and fluid present in the left lung base. The right perihilar atelectasis/infiltrate seen previously is no different as well. The mediastinum is not widened. The osseous structures are intact. The tracheostomy tube and the left-sided PICC line are unchanged in position. The tip of the NG line has been advanced and the tip now overlies the gastric body. IMPRESSION: The appearance of the chest has improved somewhat since the prior exam as there does seem to be less pulmonary congestion. A followup exam would be recommended for continued evaluation. Dictated by: Dictated on workstation # [id number]
[2018-03-30] MEDS: ENOXAPARIN 40 MG/0.4 ML (LOVENOX) SYR SC SCH (13:24)
--- NOTE | 2018-03-30 14:01 | Pulmonary Progress Note ---
Standard Progress Note Progress Notes Date Seen by Provider: March 30, 2018 Time Seen by Provider: 13:56 Called to bedside secondary to family wanting to talk about patients care and current condition. Assessment & Plan Acute on chronic respiratory failure s/p tracheostomy - TPN -[facility] won't take pt secondary to insurance. Pulmonary edema Metastatic adenocarcinoma from colon with mets to liver and probably lung - Pneumonia with ESBL - Merrem secondary to ESBL in sputum -Vanco Anemia -monitor Perforated appendix with abscess formation s/p surgery hx of asthma - -SVNs Pts overall prognosis is very poor considering Metastatic Adenocarcinoma, weakness, and persistent respiratory failure. Pt is too weak for chemo at this point. Pt is a good candidate for hospice care/comfort care. I discussed with patient's family patients current condition and Metastatic Adenocarcinoma. After discussion family has decided to make patient comfort care only. They understand that with RE EXAMINER patient will early however she will be comfortable. Family wants to proceed with RE EXAMINER. 30min spent with family and medical team. Focused Exam Time of Focused Exam: 13:20 SD MITCHELL DO March 30, 2018 14:01
[2018-03-30] MEDS ORDERED: HYDROmorphone 1 MG/ML (DILAUDID) 1 ML SYRINGE IV PRN (14:15)
--- NOTE | 2018-03-30 14:34 | Physical Therapy Progress Note ---
Therapy Progress Note ARTIFICIAL BREEDING DISTRIBUTOR arrived to see pt and Nurse informed ARTIFICIAL BREEDING DISTRIBUTOR that pt just put on Comfort Care. ARTIFICIAL BREEDING DISTRIBUTOR did not see pt. No tx rendered HOWIE STYLES PTA March 30, 2018 14:34
[2018-03-30] MEDS ORDERED: [UNRECOGNIZED DRUG - OTHER] IV SCH ×10 (17:00)
[2018-03-30] MEDS ORDERED: POTASSIUM PHOSPHATE IV SCH ×10 (17:00)
[2018-03-30] MEDS ORDERED: POTASSIUM CHLORIDE IV SCH ×10 (17:00)
[2018-03-30] MEDS: HYDROmorphone 1 MG/ML (DILAUDID) 1 ML SYRINGE IV PRN ×4 (17:42→23:11)
[2018-03-30] MEDS: fentaNYL INJECTION 1,250 MCG in NS (IVPB) 225 ML IV SCH (20:25)
[2018-03-30] MEDS: LORazepam INJ 2 MG/ML (ATIVAN) VIAL IVP PRN (23:11)
[2018-03-31] MEDS: LORazepam INJ 2 MG/ML (ATIVAN) VIAL IVP PRN ×5 (01:09→09:20)
--- NOTE | 2018-03-31 05:29 | Pulmonary Progress Note ---
Standard Progress Note Progress Notes Time Seen by Provider: 05:26 Pt appears to be comfortable. Sp02 is 74% Assessment & Plan Acute on chronic respiratory failure s/p tracheostomy Pulmonary edema Metastatic adenocarcinoma from colon with mets to liver and probably lung - Pneumonia with ESBL Anemia Perforated appendix with abscess formation s/p surgery hx of asthma - -SVNs Family decided to make patient comfort care only yesterday. Dr. Alexandre and Dr. Lee was notified at the time she was made COMPOSITION PROFESSOR. Will transfer patient to 4th floor and continue COMPOSITION PROFESSOR. I am going to sign off please call with any questions or concerns. 232 Focused Exam Time of Focused Exam: 13:20 SD MITCHELL DO March 31, 2018 05:29
[2018-03-31] MEDS ORDERED: CEFTRIAXONE IV SCH ×2 (09:00)
[2018-03-31] MEDS ORDERED: SODIUM CHLORIDE IV SCH ×2 (09:00)
[2018-03-31] MEDS: fentaNYL INJECTION 1,250 MCG in NS (IVPB) 225 ML IV SCH ×3 (09:25→21:17)
--- NOTE | 2018-03-31 11:08 | Progress Note-Hospitalist ---
Subjective HPI/CC On Admission Date Seen by Provider: March 31, 2018 Time Seen by Provider: 09:30 Subjective/Events-last exam Patient seen now on comfort care and extubated Unresponsive Comfort care orders initiated and will transfer to fourth floor Focused Exam Time of Focused Exam: 13:20 Objective Exam Vital Signs Vital Signs Date Time Temp Pulse Resp B/P (MAP) Pulse Ox O2 Delivery O2 Flow Rate FiO2 03/30/18 13:24 97.7 03/30/18 13:00 64 14 139/55 (83) 95 Trach Collar 30.00 03/30/18 10:38 30 Capillary Refill : Less Than 3 SecondsLess Than 3 Seconds General Appearance: Chronically ill, Other (Actively dying) Results/Procedures Lab Patient resulted labs reviewed. Imaging: Reviewed Imaging Films (Bilateral interstitial infiltrates and pleural effusions) Assessment/Plan Assessment and Plan Assess & Plan/Chief Complaint Assessment: Respiratory failure now extubated on Comfort Care Colon cancer widespread Plan: Comfort Care Critical Care Critical Care: Critically Ill Patient Clinical Quality Measures DVT/VTE Risk/Contraindication: Risk Factor Score Per Nursin RFS Level Per Nursing on Admit: 1=Low/No VTE PPX JAMIE KAYE DO March 31, 2018 11:07
--- NOTE | 2018-04-04 20:54 | Discharge Summary-Hospitalist ---
Diagnosis/Chief Complaint Date of Admission Mar 13, 2018 at 14:40 Date of Discharge April 01, 2018 at 08:59 Discharge Diagnosis (1) Respiratory failure Assessment & Plan: Pulm consulted for vent management Unable to wean and trach placed on 03/23 Unable to transfer to [facility] due to insurance issues Could pursue other LTACHs if interested (2) Sepsis Status: Acute Assessment & Plan: Afebrile since 03/24 and leukocytosis trending down CT Chest/Abd/Pelvis shows 5 lobe infiltrates (cx proven ESBL), and hepatic and retroperitoneal lymphadenopathy consistent with metastatic disease Klebsiella growing from BAL from RML ESBL in sputum on 03/14 and 03/16 Continue Eraxis, will deescalate Merrem to Rocephin (3) Metastatic adenocarcinoma Assessment & Plan: Dr Alexandre informed patient of diagnosis yesterday Oncology consulted- who will see on Wednesday (4) Small bowel perforation Status: Acute Assessment & Plan: s/p ex lap on 03/[address] Alexandre (5) Essential (primary) hypertension Status: Chronic Assessment & Plan: Much improved with cardene gtt Increase oral metoprolol and schedule nitro paste Will wean sedation as able (6) Malnutrition Assessment & Plan: On TPN (7) Hypomagnesemia Assessment & Plan: on replacement protocol (8) Anemia associated with acute blood loss Assessment & Plan: transfused 03/21 monitor, stable (9) Diabetes mellitus Status: Acute Assessment & Plan: Relatively well controlled SSI A (10) Prophylactic measure Assessment & Plan: Lovenox TPN Protonix Discharge Summary Discharge Physical Exam Allergies: Coded Allergies: lisinopril (Unverified Allergy, Unknown, 08/05/15) prednisone (Verified Adverse Reaction, Intermediate, ELEVATED BLOOD PRESSURE, 08/05/15) Vitals & I&Os Vital Signs Date Time Temp Pulse Resp B/P (MAP) Pulse Ox O2 Delivery O2 Flow Rate FiO2 03/30/18 13:24 97.7 03/30/18 13:00 64 14 139/55 (83) 95 Trach Collar 30.00 03/30/18 10:38 30 General Appearance: Other Hospital Course Hospital course: Patient had a very extended hospital course that started as an admission from the ER with possible perforation that was assessed to be without affiliation with the liver biopsy that was done 2 days prior to admission by interventional radiology in an uncomplicated manner. Patient was brought to surgery found to have a perforation of a cecal mass involving the appendix the pathology revealed extensive and widespread cancer. The initial CT scan showed a very vague involvement of the intestine possibly lymphoma considering the enlarged lymph nodes in Dr. Alexandre ordered a PET scan after talking to interventional radiology the admission before this current hospital stay and PET scan revealed liver mass which was biopsied and resulted in adenocarcinoma matching the surgical pathology frozen sections when exploratory surgery was performed by Dr. Alexandre. Patient remained intubated to facilitate healing process and Dr. Bacon was consulted and patient was extubated but failed due to tachypnea and worsening ABG results. She remained intubated found to have ESBL bronchitis pneumonia patient placed on appropriate treatment and trach was placed by Dr. Alexandre due to the predicted increased length of time of intubation that patient would require to fully recover. Patient ceased to improve enough for extubation and multiple management options were explored with the family and patient was assessed to be end-stage any need of comfort care protocol and the patient due to futility due to widespread cancer and would not recover enough to have any meaningful treatment to lengthen any type of quality of life. She is placed on comfort care and without complication. Labs (last 24 hrs) Microbiology 03/21/18 Blood Culture - Final, Complete No growth 03/20/18 Mycobacterial Culture - Preliminary, Resulted Patient resulted labs reviewed. Imaging: Reviewed Imaging Films (Bilateral interstitial infiltrates and pleural effusions) Discussion & Recommendations Discharge Planning: <30 minutes discharge planning Discharge Home Medications: Active Scripts Active Reported Tramadol HCl 50 Mg Tablet 50-100 Mg PO Q6H PRN TAKES 1-2 OF A (50 MG) TABLET Vitamin B Complex 1 Each Tablet 1 Tab PO HS l-Lysine (Lysine HCl) 500 Mg Tablet 1,000 Mg PO HS Geritol Complete Tablet (Mv, Min #36/Iron,Carbonyl/FA) 1 Each Tablet 1 Tab PO DAILY Advil (Ibuprofen) 200 Mg Tablet 600 Mg PO BID TAKES 3 (200 MG) TABLETS Metoprolol Tartrate 50 Mg Tablet 50 Mg PO BID Gemfibrozil 600 Mg Tablet 600 Mg PO BID Estrace Tablet (Estradiol) 0.5 Mg Tablet 0.5 Mg PO HS Levothyroxine Sodium 88 Mcg Tablet 88 Mcg PO DAILY Furosemide 20 Mg Tablet 20 Mg PO DAILY Amitriptyline HCl 25 Mg Tablet 25 Mg PO HS Cyclobenzaprine HCl 10 Mg Tablet 10 Mg PO HS Metformin HCl 500 Mg Tablet 500 Mg PO BID Niacin (Niacinamide) 500 Mg Tablet 500 Mg PO DAILY Omeprazole 20 Mg Capsule.dr 20 Mg PO HS Instructions to patient/family Please see electronic discharge instructions given to patient. Clinical Quality Measures DVT/VTE Risk/Contraindication: Risk Factor Score Per Nursin RFS Level Per Nursing on Admit: 1=Low/No VTE PPX Problem Qualifiers (1) Respiratory failure: Chronicity: acute Respiratory failure complication: unspecified whether with hypoxia or hypercapnia Qualified Codes: J96.00 - Acute respiratory failure, unspecified whether with hypoxia or hypercapnia (2) Sepsis: Sepsis type: Escherichia coli Qualified Codes: A41.51 - Sepsis due to Escherichia coli [e. coli] (3) Malnutrition: Malnutrition type: protein-calorie malnutrition Protein-calorie malnutrition severity: moderate Qualified Codes: E44.0 - Moderate protein-calorie malnutrition (4) Diabetes mellitus: Diabetes mellitus type: type 2 Diabetes mellitus usp insulin use: without ferry terminal agent use Diabetes mellitus complication status: without complication Qualified Codes: E11.9 - Type 2 diabetes mellitus without complications JAMIE KAYE DO April 04, 2018 20:54
== END 2018-04-01 08:59 | disposition expired | DRG 3 ==
LOC: EDUNIT# 12:04 → ER 12:06 → ICU 14:40 → 4TH 03-31 09:45
PROVIDERS: ADMIT Surgery; ATTEND Surgery
PROC: 0WJG0ZZ Inspection of Peritoneal Cavity, Open Approach (ICD-10-PCS; 2018-03-14)
PROC: 0DB70ZZ Excision of Stomach, Pylorus, Open Approach (ICD-10-PCS; 2018-03-14)
PROC: 0FB00ZX Excision of Liver, Open Approach, Diagnostic (ICD-10-PCS; 2018-03-14)
PROC: 5A1955Z Respiratory Ventilation, Greater than 96 Consecutive Hours (ICD-10-PCS; 2018-03-14)
PROC: 0DTF0ZZ Resection of Right Large Intestine, Open Approach (ICD-10-PCS; principal; 2018-03-14 16:35)
PROC: 0B958ZX Drainage of Right Middle Lobe Bronchus, Via Natural or Artificial Opening Endoscopic, Diagnostic (ICD-10-PCS; 2018-03-20)
PROC: 0B113Z4 Bypass Trachea to Cutaneous, Percutaneous Approach (ICD-10-PCS; 2018-03-23)
DX: C18.1 Malignant neoplasm of appendix (principal); K35.3 Acute appendicitis with localized peritonitis; J96.00 Acute respiratory failure, unspecified whether with hypoxia or hypercapnia; K55.069 Acute infarction of intestine, part and extent unspecified; E87.2 Acidosis; C78.6 Secondary malignant neoplasm of retroperitoneum and peritoneum; C78.7 Secondary malignant neoplasm of liver and intrahepatic bile duct; Z51.5 Encounter for palliative care; Z66 Do not resuscitate; J18.9 Pneumonia, unspecified organism; C78.5 Secondary malignant neoplasm of large intestine and rectum; E87.0 Hyperosmolality and hypernatremia; J81.1 Chronic pulmonary edema; J45.909 Unspecified asthma, uncomplicated; D62 Acute posthemorrhagic anemia; K21.9 Gastro-esophageal reflux disease without esophagitis; A41.51 Sepsis due to Escherichia coli [E. coli]; E44.0 Moderate protein-calorie malnutrition; M79.7 Fibromyalgia; C78.00 Secondary malignant neoplasm of unspecified lung; E03.9 Hypothyroidism, unspecified; E11.9 Type 2 diabetes mellitus without complications; Z85.41 Personal history of malignant neoplasm of cervix uteri; Z79.84 Long term (current) use of oral hypoglycemic drugs; R49.0 Dysphonia; I16.0 Hypertensive urgency; Z16.12 Extended spectrum beta lactamase (ESBL) resistance; E87.6 Hypokalemia; E83.42 Hypomagnesemia
CPT/HCPCS: 36415; 36569; 36600; 51702; 70496; 71045; 71260; 74018; 74177; 76937; 80048; 80053; 80202; 80306; 81000; 81275; 82271; 82805; 82962; 83605; 83690; 83735; 83880; 84100; 84134; 84478; 84484; 85007; 85025; 85027; 85384; 85610; 85730; 86141; 86850; 86900; 86901; 86920; 87040; 87070; 87077; 87101; 87116; 87186; 87205; 88112; 88304; 88305; 88307; 88309; 88312; 88341; 88342; 88381; 93005; 94002; 94003; 94640; 94664; 94799; 96361; 96365; 96375